=== PATIENT | female | born 1945 | race Caucasian/White ===

== ENCOUNTER 2021-10-16 09:00 | Outpatient (CLI) | payer MEDICARE, SELFPAY ==
--- NOTE | 2021-10-16 09:15 | MM_ITS ---
Final Report Patient: JIM QUINTERO Facility:?[facility] Patient ID:?[id number] :?1945 Study:?XRay Breast Bilateral 3D SCREENING W/cad-10/16/2021 10:05:48 AM Ordering Physician:Baldemar Woodruff Final Report: BILATERAL MAMMOGRAM WITH COMPUTER-AIDED DETECTION AND TOMOSYNTHESIS TECHNIQUE: CC and MLO views were obtained. These mammographic images have been obtained using full-field digital technique. These mammographic images were interpreted with the benefit of computer-aided detection. Breast Tomosynthesis was used in this interpretation. COMPARISON FILM: 09/25/2020, 09/22/2019, 09/16/2018. FINDINGS: There are scattered areas of fibroglandular density IMPRESSION: There is no radiographic evidence for malignancy. ASSESSMENT: BI-RADS Category 1: Negative RECOMMENDATION: Routine screening mammogram in 1 year. A lay language report of this examination will be provided to the patient. Arsalan Hilton M.D. Diagnostic/Musculoskeletal Radiologist [email or web address] Transcribed: 3:35 p.m. PERRY/Dictated by: Arsalan Hilton MD @ 10/16/2021 11:45:00 AM (Electronic Signature)
--- NOTE | 2021-10-16 11:00 | CT_ITS ---
Final Report Patient: JIM QUINTERO Facility:?[facility] Patient ID:?[id number] Site Patient ID:?[id number]. Site :?1945 Study:?CT Chest/Abd/Pelvis W/ 100CC [id number]/29/2022 11:32:23 AM Ordering Physician:?Adilene Fairbanks Final Report: INDICATION: Follow-up cancer. TECHNIQUE: CT chest, abdomen and pelvis acquired with 100 cc Isovue 370 IV contrast. COMPARISON: CT chest, abdomen, and pelvis 08/14/2021, 12/06/2020, and 04/05/2021. FINDINGS: CHEST Right enio cath with tip near the cavoatrial junction. Lungs and pleura: Lungs are clear. No suspicious nodules or infiltrates. No effusions, thickening, or pneumothorax. Heart and vasculature: Heart size is normal. Thoracic aorta and pulmonary artery are normal in caliber. Lymph node/mediastinum: No mediastinal, hilar, or axillary adenopathy. Chest wall: Normal. Bones: No suspicious bone lesions. ABDOMEN AND PELVIS: Liver: Diffuse liver fatty infiltration. No focal liver lesions. Gallbladder and bile ducts: Gallbladder surgically absent. No biliary ductal dilation. Pancreas: Unremarkable. Spleen: Normal in caliber. No masses. Adrenal glands: Unremarkable. No masses. Kidneys: Normal in caliber. No suspicious masses. GI tract: Colonic diverticulosis no evidence of acute diverticulitis. No colonic wall thickening. No small bowel dilation. Vasculature: Unremarkable. Mesenteric arteries are patent. Lymph nodes: There is a nonenlarged portal caval lymph node measuring 8 mm in short axis (series 2, image 146). However this lymph node was not present on CT from 12/06/2020 Omentum/peritoneum/retroperitoneum/abdominal wall: Similar-appearing multiple ventral abdominal wall hernia spread no evidence of obstruction. Pelvic organs: Uterus is surgically absent. Bones: No suspicious bone lesions. Anterolisthesis grade 1 of L4 on L5. IMPRESSION: 1. No evidence of metastatic disease in the chest. 2. Non enlarged aortocaval lymph node measuring 8 mm in short axis. However, this node was not present on CT 12/06/2020 and has slightly increased in size compared to CT 08/14/2021 where it was normal. Recommend attention on follow-up versus consideration for PET-CT for further evaluation. No other evidence of metastatic disease in the abdomen or pelvis. 3. Hysterectomy. 4. Ventral hernias. Please note that all CT scans at this facility use dose modulation, iterative reconstruction, and/or weight-based dosing when appropriate to reduce radiation dose to as low as reasonably achievable. Dictated by Arsalan Hilton MD @ 10/16/2021 9:56:29 PM (Electronic Signature)
== END 2021-10-16 09:01 | disposition home or self-care (01) ==
LOC: MAMMO 09:03
PROVIDERS: PCP Family Medicine; Visit Provider Nurse Practitioner Family
DX: Z12.31 Encounter for screening mammogram for malignant neoplasm of breast (principal); R92.8 Other abnormal and inconclusive findings on diagnostic imaging of breast; R59.0 Localized enlarged lymph nodes; K43.9 Ventral hernia without obstruction or gangrene; Z85.43 Personal history of malignant neoplasm of ovary; Z85.42 Personal history of malignant neoplasm of other parts of uterus
CPT/HCPCS: 71260; 74177; 77063; 77067; Q9967

== ENCOUNTER 2021-10-16 12:17 | Outpatient (RCR) | payer MEDICARE, SELFPAY ==
[2021-10-16] MEDS: HEPARIN 500 UNIT/5 ML SYRINGE IVF (16:00)
[2021-10-16] MEDS: SODIUM CHLORIDE 0.9 % (FLUSH) 10 ML SYRINGE IVF (16:01)
== END 2021-10-17 23:59 | disposition home or self-care (01) ==
LOC: CCIC 12:17
PROVIDERS: PCP Family Medicine; Visit Provider Clinical Nurse Specialist
DX: C54.1 Malignant neoplasm of endometrium (principal); C56.9 Malignant neoplasm of unspecified ovary
CPT/HCPCS: 99211; J1642

== ENCOUNTER 2021-10-31 07:44 | Outpatient (RCR) | payer MEDICARE, SELFPAY ==
--- NOTE | 2021-10-24 16:48 | ONC.NURNOTE ---
Authorization: User: Jaylene DilanJose Sutton Date: 10/29/20 15:41 Type: Eligibility Determination Note... Avastin has been approved 1400mg every 3 weeks for 1 year. 11/01/2020-10/31/2021.
[2021-10-29 10:57] LABS: Basophils Absolute Auto 0.03 K/uL (0.00-0.30); Basophils Percent Auto 0.6 % (0.0-3.0); Eosinophils Absolute Auto 0.11 K/uL (0.00-0.50); Eosinophils Percent Auto 2.1 % (0.0-7.0); Hematocrit 39.6 % (33.0-51.0); Immature Granulocytes Abs Auto 0.02 K/uL (0.00-0.30); Lymphocytes Absolute Auto 1.28 K/uL (0.90-2.90); Lymphocytes Percent Auto 23.9 % (20-44); Mean Corpuscular HGB Conc 33 gm/dL (32-36); Mean Corpuscular Hemoglobin 32 pg (26-34); Mean Corpuscular Volume 96 fL (80-100); Monocytes Percent Auto 7.6 % (0.0-11.0); Neutrophils Absolute Auto 3.51 K/uL (1.7-7.0); Neutrophils Percent Auto 65.4 % (42.0-72.0); Platelet Count* 171 K/uL (140-440); RDW Coefficient of Variation % 14.6 % (11.5-15.5); Red Blood Count 4.11 m/uL (4.00-5.20); White Blood Count* 5.36 K/uL (4.50-11.00)
[2021-10-29 10:58] LABS: Slide Review Reflex No
[2021-10-29 12:40] LABS: Chloride* 106 mmol/L (96-114); Potassium* 4.1 mmol/L (3.6-5.1); Sodium* 137 mmol/L (135-149)
[2021-10-29 12:43] LABS: Alanine Aminotransferase* 22 U/L (4-35); Alkaline Phosphatase* 86 U/L (40-150); Aspartate Amino Transferase* 29 U/L (12-35); Bilirubin Total* 0.5 mg/dL (0.1-1.5); Blood Urea Nitrogen* 19 mg/dL (7-30); Carbon Dioxide* 26 mmol/L (20-32); Estimated Glomerular Filt Rate 58.75; Glucose* 96 mg/dL (60-115)
[2021-10-30 14:45] LABS: Cancer Antigen 125 38 U/mL (<=38)
== END 2021-11-17 23:59 | disposition home or self-care (01) ==
LOC: CCIC 07:44
PROVIDERS: PCP Family Medicine; Visit Provider Clinical Nurse Specialist
DX: C56.9 Malignant neoplasm of unspecified ovary (principal); Z85.42 Personal history of malignant neoplasm of other parts of uterus
CPT/HCPCS: 36415; 36591; 80053; 85025; 86304; 99212; 99213

== ENCOUNTER 2021-11-15 11:17 | Outpatient (CLI) | payer MEDICARE, SELFPAY ==
[2021-11-15 16:12] LABS: Cholesterol* 208 mg/dL (90-199); HDL Cholesterol* 48 mg/dL (>=50); LDL Cholesterol Calculated 134 mg/dL (<100); Triglycerides* 131 mg/dL (40-149)
== END 2021-11-15 11:18 | disposition home or self-care (01) ==
LOC: NFLDREF 11:18
PROVIDERS: PCP Family Medicine; Visit Provider Family Medicine
DX: E78.5 Hyperlipidemia, unspecified (principal); I10 Essential (primary) hypertension; R73.03 Prediabetes
CPT/HCPCS: 80061

== ENCOUNTER 2022-01-02 13:45 | Outpatient (CLI) | payer MEDICARE, SELFPAY ==
--- OUTSIDE RECORDS SUMMARY | 2022-01-02 13:47 | XMS_ITS | Encounter Summary ---
:1945 Author Organization [facility] Address [address] [place] [address] Care Team Providers Name Role Phone Unavailable Primary Care Provider Unavailable Encounter Details Date Type Department Care Team Description 04/12/2020 Hospital Encounter Department of Kashif Coleman Laboratory Medicine D, MCarla. Screening For Other in [address] Viral Diseases [place], [place] (COVID-19) [address] [place] [address] [place], [place] [phone] [phone] (Work) [phone] Social History Tobacco Use Types Packs/Day Years Used Date Smoking Tobacco: Never Assessed Sex Assigned at Date Recorded Not on file documented as of this encounter Plan of Treatment Not on filedocumented as of this encounter Procedures Procedure Name Priority Date/Time Associated Diagnosis Comme nts SARS CORONAVIRUS-2 Routine 04/12/2020 10:27 AM Encounter For R esults for this RNA, V PARKING INSPECTOR Screening For Other procedur e are in Viral Diseases the results (COVID-19) section. documented in this encounter Results SARS Coronavirus-2 RNA, V Asymptomatic (04/12/2020 10:27 AM PARKING INSPECTOR) [facility] Method Time Signature SARS-CoV-2 Swab, 04/13/2020 MKTO Specimen Nasopharynx 1:28 AM PARKING INSPECTOR Source SARS CoV-2 Undetected Undetected 04/13/2020 MKTO RNA, TMA 1:28 AM PARKING INSPECTOR Comment: SARS-CoV-2 RNA absent. This result does not rule out COVID-19 in the patient, as the sensitivity of the test depends o n the timing of the specimen collection and the quality of the specim en. Result should be correlated with patient's history and clinical presentat ion. ----ADDITIONAL INFORMATION---- This molecular amplification test was pe rformed using the Aptima SARS-CoV-2 assay ([employer] on the [employer] tem under emergency use authorization (EUA) by the U.S. Food and Drug Administ cheyanne. Fact sheets for this EUA assay can be fo und at the following links: For Healthcare Providers: https://www.Owl[employer] a.gov/media/862603/download For Patients: https://www.fda.gov/media/ 656225/download Specimen Anatomical Collection Method Collection Time Receive d Time (Source) Location / / Volume Laterality Varies 04/12/2020 10:27 04/12/2020 6:15 (Nasopharynx) AM PARKING INSPECTOR PM PARKING INSPECTOR Kashif Coleman M.D. LAB MICROBIOLOGY - GENERAL O RDERABLES Performing Organization Address City/State/ZIP Code Phon e Number [facility]- [address] [place] [address] [place] [address] System in [address] documented in this encounter Visit Diagnoses Diagnosis Encounter For Screening For Other Viral Diseases (COVID-19) documented in this encounter Additional Health Concerns Infection Onset Date Last Indicated Resolved Time COVID19 Pending 04/12/2020 04/12/2020 04/13/2020 1:29 AM PARKING INSPECTOR documented as of this encounter
--- OUTSIDE RECORDS SUMMARY | 2022-01-02 13:47 | XMS_ITS | Clinical Summary ---
:1945 Author Organization [facility] Address [address] [place] [address] Care Team Providers Name Role Phone Elsewhere, Pcp Primary Care Provider Unavailable Source Comments Patient records contain information from all sites at [facility]. For routine questions regarding patient records, call [phone] during business hours, M-F 8:00 AM - 5:00 PM Central Time. Record requests for emergency care only can be directed to [phone] at any time.[facility] Social History Tobacco Use Types Packs/Day Years Used Date Smoking Tobacco: Never Assessed Sex Assigned at Date Recorded Not on file Plan of Treatment Health Maintenance Due Date Last Done Comments Bone Density Scan (Osteoporosis 1945 Screen) CT Colonography 1945 Cologuard 1945 Colonoscopy 1945 Colorectal Cancer Screening 1945 Creatinine Level 1945 FIT 1945 Fasting Glucose for Diabetes 1945 Screening Hepatitis C Screening 1945 Mammogram 1945 Potassium Level 1945 Sodium Level 1945 Depression Screening (Annual 04/20/2021 PHQ-2) Fall Risk Screen (Annual) 04/20/2021 Influenza Vaccine (#1) 2022 02/11/2021, 01/31/2021, 02/14/2020, Additional history exists DTaP,Tdap,and Td Vaccines (3 - Td 09/03/2027 09/02/2017, , or Tdap) 01/09/2010 Pneumococcal vaccine (65+ years) Completed 02/04/2018, Zoster Vaccines Completed 04/17/2018, 01/14/2018, 03/22/2010 COVID-19 Vaccine Completed 08/20/2021, 03/12/2021, 06/26/2020, Additional history exists Insurance Payer Benefit Plan / Subscriber ID Effective Dates Phone Addre ss Type Group [employer] ARE FOR [id number] 2019-Present [phone] [address] [place] [address] Care Teams Ore Storage Drier Relationship Specialty Start Date End Date Elsewhere, Pcp PCP - General Family Medicine 04/19/20
--- OUTSIDE RECORDS SUMMARY | 2022-01-02 13:47 | XMS_ITS | Encounter Summary ---
:1945 Author Organization [facility] Address [address] [place] [address] Care Team Providers Name Role Phone Elsewhere, Pcp Primary Care Provider Unavailable Encounter Details Date Type Department Care Team Description 02/12/2021 Orders Only [facility] PCP TH Edgard Ferrera, D.O. [address] [place] [address] (Wo rk) Social History Tobacco Use Types Packs/Day Years Used Date Smoking Tobacco: Never Assessed Sex Assigned at Date Recorded Not on file documented as of this encounter Plan of Treatment Not on filedocumented as of this encounter Visit Diagnoses Not on filedocumented in this encounter Care Teams Second Miller Relationship Specialty Start Date End Date Elsewhere, Pcp PCP - General Family Medicine 04/19/20 documented as of this encounter
--- OUTSIDE RECORDS SUMMARY | 2022-01-02 13:47 | XMS_ITS | Encounter Summary ---
:1945 Author Organization [facility] Address [address] [place] [address] Care Team Providers Name Role Phone Unavailable Primary Care Provider Unavailable Encounter Details Date Type Department Care Team Description 04/12/2020 Hospital Encounter Department of Kashif Coleman, Laboratory Medicine, [facility], in [address] [place] [address] [place] [address] [phone] Social History Tobacco Use Types Packs/Day Years Used Date Smoking Tobacco: Never Assessed Sex Assigned at Date Recorded Not on file documented as of this encounter Plan of Treatment Not on filedocumented as of this encounter Visit Diagnoses Not on filedocumented in this encounter Additional Health Concerns Infection Onset Date Last Indicated Resolved Time COVID19 Pending 04/12/2020 04/12/2020 04/13/2020 1:29 AM DIGITAL CAMERA TECHNICIAN documented as of this encounter
--- OUTSIDE RECORDS SUMMARY | 2022-01-02 13:47 | XMS_ITS | Encounter Summary ---
:1945 Author Organization [facility] Address [address] [place] [address] Care Team Providers Name Role Phone Unavailable Primary Care Provider Unavailable Reason for Visit Reason Onset Date Comments Outpatient COVID-19 Testing 12/09/2019 Encounter Details Date Type Department Care Team Description 12/09/2019 External Outreach Department of [facility], In [facility] Medicine in [facility], Respiratory ([place], [place] C.N.P., D.N.P. Dx) [address] [place] [address] [place], [place] [phone] Social History Tobacco Use Types Packs/Day Years Used Date Smoking Tobacco: Never Assessed Sex Assigned at Date Recorded Not on file documented as of this encounter Progress Notes Kary Menon R.N. - 12/09/2019 2:40 PM CDT Encounter created for the drive-through COVID-19 testing. documented in this encounter Plan of Treatment Not on filedocumented as of this encounter Procedures Procedure Name Priority Date/Time Associated Diagnosis Comme nts SARS CORONAVIRUS-2 Routine 12/09/2019 3:36 PM Infection Upper Results for this RNA, V CDT Respiratory procedure are i n the results section. documented in this encounter Results SARS Coronavirus-2 RNA, V Symptomatic (12/09/2019 3:36 PM CDT) [facility] Method Time Signature SARS-CoV-2 Swab, 12/10/2019 MKTO Specimen Nasopharynx 3:23 AM CDT Source SARS CoV-2 Undetected Undetected 12/10/2019 MKTO RNA, TMA 3:23 AM CDT Comment: SARS-CoV-2 RNA absent. This result does not rule out COVID-19 in the patient, as the sensitivity of the test depends o n the timing of the specimen collection and the quality of the specim en. Result should be correlated with patient's history and clinical presentat ion. ----ADDITIONAL INFORMATION---- This test is performed using the Aptima SARS-CoV-2 assay ([employer] which has received Emergency Use Authori zation (EUA) by the U.S. Food and Drug Administration. Fact sheets for this Emergency Use Autho rization (EUA) assay can be found at the following links: For Healthcare Providers: https://www.CodeHS a.gov/media/851083/download For Patients: https://www.fda.gov/media/ 186552/download Specimen Anatomical Collection Method Collection Time Receive d Time (Source) Location / / Volume Laterality Varies 12/09/2019 3:36 PM 0 (Nasopharynx) CDT 10:58 PM CDT Tammy Vora APRNNJoseP., D.N.P. LAB MICROBIOLOGY - GENERAL ORDERABLES Performing Organization Address City/State/ZIP Code Phon e Number [facility]- [address] [place] [address] [place] [address] System in [address] documented in this encounter Visit Diagnoses Diagnosis Infection Upper Respiratory - Primary documented in this encounter Additional Health Concerns Infection Onset Date Last Indicated Resolved Time COVID19 Pending 12/09/2019 12/09/2019 12/10/2019 3:23 AM CDT documented as of this encounter
--- OUTSIDE RECORDS SUMMARY | 2022-01-02 13:47 | XMS_ITS | Encounter Summary ---
:1945 Author Organization [facility] Address [address] [place] [address] Care Team Providers Name Role Phone Elsewhere, Pcp Primary Care Provider Unavailable Encounter Details Date Type Department Care Team Description 04/19/2020 Hospital Encounter Department of Kashif Coleman For Laboratory Medicine D, M.D. Screening For Other in [address] Viral Diseases [place], [place] (COVID-19) [address] [place] [address] [place], [place] [phone] (Work) [phone] Social History Tobacco Use Types Packs/Day Years Used Date Smoking Tobacco: Never Assessed Sex Assigned at Date Recorded Not on file documented as of this encounter Plan of Treatment Not on filedocumented as of this encounter Procedures Procedure Name Priority Date/Time Associated Diagnosis Comme nts SARS CORONAVIRUS-2 Routine 04/19/2020 10:50 AM Encounter For R esults for this RNA, V GENERAL OPERATIONS AGENT Screening For Other procedur e are in Viral Diseases the results (COVID-19) section. documented in this encounter Results SARS Coronavirus-2 RNA, V Asymptomatic (04/19/2020 10:50 AM GENERAL OPERATIONS AGENT) [facility] Method Time Signature SARS-CoV-2 Swab, 04/19/2020 MKTO Specimen Nasopharynx 10:47 PM Source GENERAL OPERATIONS AGENT SARS CoV-2 Undetected Undetected 04/19/2020 MKTO RNA, TMA 10:47 PM GENERAL OPERATIONS AGENT Comment: SARS-CoV-2 RNA absent. This result does not rule out COVID-19 in the patient, as the sensitivity of the test depends o n the timing of the specimen collection and the quality of the specim en. Result should be correlated with patient's history and clinical presentat ion. ----ADDITIONAL INFORMATION---- This molecular amplification test was pe rformed using the Aptima SARS-CoV-2 assay ([employer] on the [employer] tem under emergency use authorization (EUA) by the U.S. Food and Drug Administ cheyanne. Fact sheets for this EUA assay can be fo und at the following links: For Healthcare Providers: https://www.[employer] a.gov/media/697229/download For Patients: https://www.fda.gov/media/ 072080/download Specimen Anatomical Collection Method Collection Time Receive d Time (Source) Location / / Volume Laterality Varies 04/19/2020 10:50 04/19/2020 4:37 (Nasopharynx) AM GENERAL OPERATIONS AGENT PM GENERAL OPERATIONS AGENT Kashif Coleman M.D. LAB MICROBIOLOGY - GENERAL O RDERABLES Performing Organization Address City/State/[facility] [place] Phon e Number [facility]- [address] [place] [address] [place] [address] System in [address] documented in this encounter Visit Diagnoses Diagnosis Encounter For Screening For Other Viral Diseases (COVID-19) documented in this encounter Additional Health Concerns Infection Onset Date Last Indicated Resolved Time COVID19 Pending 04/19/2020 04/19/2020 04/19/2020 10:48 PM GENERAL OPERATIONS AGENT documented as of this encounter Care Teams Military Pay Technician Relationship Specialty Start Date End Date Elsewhere, Pcp PCP - General Family Medicine 04/19/20 documented as of this encounter
--- OUTSIDE RECORDS SUMMARY | 2022-01-02 13:47 | XMS_ITS | Encounter Summary ---
:1945 Author Organization [facility] Address [address] [place] [address] Care Team Providers Name Role Phone Unavailable Primary Care Provider Unavailable Reason for Visit Reason Onset Date Comments Outpatient COVID-19 Testing 12/18/2019 Encounter Details Date Type Department Care Team Description 12/18/2019 External Outreach Department of Ainsley Eubanks , Infection Upper Medicine in [facility], C.N.P. Respiratory ([place], [place] [address] Dx) [address] [place] [address] [phone] Social History Tobacco Use Types Packs/Day Years Used Date Smoking Tobacco: Never Assessed Sex Assigned at Date Recorded Not on file documented as of this encounter Progress Notes Magdalene Beverly RJoseN. - 12/18/2019 11:21 AM CDT Encounter created for the drive-through COVID-19 testing. documented in this encounter Plan of Treatment Not on filedocumented as of this encounter Procedures Procedure Name Priority Date/Time Associated Diagnosis Comme nts SARS CORONAVIRUS-2 Routine 12/20/2019 10:17 AM Infection Upper Results for this RNA, V CDT Respiratory procedure are i n the results section. documented in this encounter Results SARS Coronavirus-2 RNA, V Symptomatic (12/20/2019 10:17 AM CDT) [facility] Method Time Signature SARS-CoV-2 Swab, 12/20/2019 MKTO Specimen Nasopharynx 10:44 PM Source CDT SARS CoV-2 Undetected Undetected 12/20/2019 MKTO RNA, TMA 10:44 PM CDT Comment: SARS-CoV-2 RNA absent. This result does not rule out COVID-19 in the patient, as the sensitivity of the test depends o n the timing of the specimen collection and the quality of the specim en. Result should be correlated with patient's history and clinical presentat ion. ----ADDITIONAL INFORMATION---- This test is performed using the Aptima SARS-CoV-2 assay ([employer] which has received Emergency Use Authori zation (EUA) by the U.S. Food and Drug Administration. Fact sheets for this Emergency Use Autho rization (EUA) assay can be found at the following links: For Healthcare Providers: https://www.[employer] a.gov/media/699616/download For Patients: https://www.fda.gov/media/ 933526/download Specimen Anatomical Collection Method Collection Time Receive d Time (Source) Location / / Volume Laterality Varies 12/20/2019 10:17 12/20/2019 3:13 (Nasopharynx) AM CDT PM CDT Ainsley Rojas APRN C.N.P. LAB MICROBIOLOGY - GENERAL ORDERABLES Performing Organization Address City/State/ZIP Code Phon e Number [facility]- [address] [place] [phone] [place] [address] [place] [address] System in [address] documented in this encounter Visit Diagnoses Diagnosis Infection Upper Respiratory - Primary documented in this encounter Additional Health Concerns Infection Onset Date Last Indicated Resolved Time COVID19 Pending 12/18/2019 12/20/2019 12/20/2019 10:45 PM CDT documented as of this encounter
--- OUTSIDE RECORDS SUMMARY | 2022-01-02 13:47 | XMS_ITS | Encounter Summary ---
:1945 Author Organization [facility] Address [address] [place] [address] Care Team Providers Name Role Phone Elsewhere, Pcp Primary Care Provider Unavailable Encounter Details Date Type Department Care Team Description 04/16/2020 Orders Only Department of Oncology in Kashif Coleman M.D. [address] [address] [place] [address] [phone] Social History Tobacco Use Types Packs/Day Years Used Date Smoking Tobacco: Never Assessed Sex Assigned at Date Recorded Not on file documented as of this encounter Plan of Treatment Not on filedocumented as of this encounter Visit Diagnoses Not on filedocumented in this encounter Additional Health Concerns Infection Onset Date Last Indicated Resolved Time COVID19 Pending 04/19/2020 04/19/2020 04/19/2020 10:48 PM SMEARER documented as of this encounter Care Teams Lead Systems Analyst Relationship Specialty Start Date End Date Elsewhere, Pcp PCP - General Family Medicine 04/19/20 documented as of this encounter
--- OUTSIDE RECORDS SUMMARY | 2022-01-02 13:47 | XMS_ITS | Encounter Summary ---
:1945 Author Organization [facility] Address [address] [place] [address] Care Team Providers Name Role Phone Unavailable Primary Care Provider Unavailable Encounter Details Date Type Department Care Team Description 12/20/2019 Hospital Encounter Department of Laboratory Caroline Rojas, Medicine, [facility], in [place], [address] [place] [address] [address] [facility] [address] [place] [address] [phone] Social History Tobacco Use Types Packs/Day Years [...]
--- OUTSIDE RECORDS SUMMARY | 2022-01-02 13:47 | XMS_ITS | Encounter Summary ---
:1945 Author Organization [facility] Address [address] [place] [address] Care Team Providers Name Role Phone Unavailable Primary Care Provider Unavailable Reason for Visit Reason Onset Date Comments Outpatient COVID-19 Testing 12/12/2019 Encounter Details Date Type Department Care Team Description 12/12/2019 External Outreach Department of Ainsley Eubanks , Encounter For Medicine in [facility] Screening For Other [place], [place] [address] [place] Viral Diseases [address] [place], [place] (COVID-19) ([place] [address] Dx) [id number] Social History Tobacco Use Types Packs/Day Years Used Date Smoking Tobacco: Never Assessed Sex Assigned at Date Recorded Not on file documented as of this encounter Progress Notes Sandee Chavis RAlyce. - 12/12/2019 9:15 AM CDT Encounter created for the drive-through COVID-19 testing. documented in this encounter Plan of Treatment Not on filedocumented as of this encounter Procedures Procedure Name Priority Date/Time Associated Diagnosis Comme nts SARS CORONAVIRUS-2 Routine 12/12/2019 10:08 AM Encounter For R esults for this RNA, V CDT Screening For Other procedur e are in Viral Diseases the results (COVID-19) section. documented in this encounter Results SARS Coronavirus-2 RNA, V Asymptomatic (12/12/2019 10:08 AM CDT) [facility] Method Time Signature SARS-CoV-2 Swab, 12/13/2019 MKTO Specimen Nasopharynx 1:13 PM CDT Source SARS CoV-2 Undetected Undetected 12/13/2019 MKTO RNA, TMA 1:13 PM CDT Comment: SARS-CoV-2 RNA absent. This result does not rule out COVID-19 in the patient, as the sensitivity of the test depends o n the timing of the specimen collection and the quality of the specim en. Result should be correlated with patient's history and clinical presentat ion. ----ADDITIONAL INFORMATION---- This test is performed using the Aptima SARS-CoV-2 assay ([employer] which has received Emergency Use Authori zation (EUA) by the U.S. Food and Drug Administration. Fact sheets for this Emergency Use Autho rization (EUA) assay can be found at the following links: For Healthcare Providers: https://www.FoundationDB a.gov/media/867292/download For Patients: https://www.fda.gov/media/ 280721/download Specimen Anatomical Collection Method Collection Time Receive d Time (Source) Location / / Volume Laterality Varies 12/12/2019 10:08 12/12/2019 7:27 (Nasopharynx) AM CDT PM CDT Ainsley Rojas APRN C.N.P. LAB MICROBIOLOGY - GENERAL ORDERABLES Performing Organization Address City/State/ZIP Code Phon e Number [facility]- [address] [place] [id number] [place] [address] LAB [place] [address] System in [address] documented in this encounter Visit Diagnoses Diagnosis Encounter For Screening For Other Viral Diseases (COVID-19) - Primary documented in this encounter Additional Health Concerns Infection Onset Date Last Indicated Resolved Time COVID19 Pending 12/12/2019 12/12/2019 12/13/2019 1:13 PM CDT documented as of this encounter
--- OUTSIDE RECORDS SUMMARY | 2022-01-02 13:48 | XMS_ITS | Encounter Summary ---
:1945 Author Organization [place] Address [address] [place] [address] Care Team Providers Name Role Phone Morris Gale DO Primary Care Provider Encounter Details Date Type Department Care Team Description 01/28/2017 Radiant Appointment [facility] Alexy na mammogram [address], [address] [place] [address] Social History Tobacco Use Types Packs/Day Years Used Date Never Smoker Alcohol Use Standard Drinks/Week Comments No 0 (1 standard drink = 0.6 oz pure alcoho l) Sex Assigned at Date Recorded Not on file documented as of this encounter Plan of Treatment Not on filedocumented as of this encounter Procedures Procedure Name Priority Date/Time Associated Diagnosis Comme nts MA SCREENING Routine 01/28/2017 3:11 PM Visit for screening Re sults for this BILATERAL W/ EMELY CDT mammogram procedure are in the results section. documented in this encounter Results MA Screen Bilateral w/Emely (01/28/2017 3:11 PM CDT) Anatomical Region Laterality Modality Breast Bilateral Mammography Specimen (Source) Anatomical Location Collection Method / Collectio n Time Received Time / Laterality Volume Impressions 02/04/2017 10:53 AM CDT IMPRESSION: BI-RADS CATEGORY: 1 - ??Negative RECOMMENDED FOLLOW-UP: Annual Mammograph y. Exam results letter mailed to patient. OZZIE BECERRIL MD Narrative 02/04/2017 10:53 AM CDT SCREENING MAMMOGRAM, BILATERAL, DIGITAL w/CAD AND TOMOSYNTHESIS - 01/28/2017 3:11 PM BREAST SYMPTOMS: No current breast compl aints. COMPARISON: ??01/23/16, 01/19/15, 01/15/15, 12/27/13, 12/08/12. BREAST DENSITY: Scattered fibroglandular densities. COMMENTS: No findings of suspicion for m alignancy. Procedure Note Ozzie Becerril MD - 02/04/2017For matting of this note might be different from the original. SCREENING MAMMOGRAM, BILATERAL, DIGITAL w/CAD AND TOMOSYNTHESIS - 01/28/2017 3:11 PM BREAST SYMPTOMS: No current breast compl aints. COMPARISON: 01/23/16, 01/19/15, 01/15/15, , 12/08/12. BREAST DENSITY: Scattered fibroglandular densities. COMMENTS: No findings of suspicion for m alignancy. IMPRESSION: BI-RADS CATEGORY: 1 - Negati ve RECOMMENDED FOLLOW-UP: Annual Mammograph y. Exam results letter mailed to patient. OZZIE BECERRIL MD Rachel Lemos MD IMG MAMMOGRAPHY ORDERABLES documented in this encounter Visit Diagnoses Diagnosis Visit for screening mammogram Other screening mammogram documented in this encounter Additional Health Concerns Assessment Noted Time PHQ-9 Depression Total Score: 0 01/28/2017 2:22 PM CDT documented as of this encounter Care Teams Grocery Worker Relationship Specialty Start Date End Date Morris Gale DO PCP - General Family Practice 01/23/16 11/14/19 documented as of this encounter
--- OUTSIDE RECORDS SUMMARY | 2022-01-02 13:48 | XMS_ITS | Encounter Summary ---
:1945 Author Organization [place] Address [address] [place] [address] Care Team Providers Name Role Phone Morris Gale Primary Care Provider Cheli Meyer MD Primary Care Provider [phone] Encounter Details Date Type Department Care Team Description 11/11/2019 Telephone [facility] Leobardo Vega RN Interventional Radio logy [address] [place] [address] Social History Tobacco Use Types Packs/Day Years Used Date Never Smoker Alcohol Use Standard Drinks/Week Comments No 0 (1 standard drink = 0.6 oz pure alcoho l) Sex Assigned at Date Recorded Not on file COVID-19 Exposure Response Date Recorded In the last month, have you been in contact with No / Unsure 11/22/2019 10:01 AM CDT someone who was confirmed or suspected to have Coronavirus / COVID-19? documented as of this encounter Miscellaneous Notes Telephone Encounter - Kyle Vega RN - 11/11/2019 2:55 PM CDT Images reviewed per Dr Balbuena and Ct guided biopsy is not possible at this time, he is requestinga PET be performed and images re-evaluated after scan. Called [facility] with that information. documented in this encounter Plan of Treatment Not on filedocumented as of this encounter Visit Diagnoses Not on filedocumented in this encounter Additional Health Concerns Assessment Noted Time PHQ-9 Depression Total Score: 0 01/28/2017 2:22 PM CDT documented as of this encounter Care Teams Advertising Manager Relationship Specialty Start Date End Date Morris Gale DO PCP - General Family Practice 01/23/16 11/14/19 Cheli Meyer MD PCP - General Family Practice 11/15/[address] [address] documented as of this encounter
--- OUTSIDE RECORDS SUMMARY | 2022-01-02 13:48 | XMS_ITS | Encounter Summary ---
:1945 Author Organization [place] Address [address] [place] [address]. [place] [address] Care Team Providers Name Role Phone Morris Gale DO Primary Care Provider Reason for Visit Reason Comments Recheck Medication Encounter Details Date Type Department Care Team Description 01/28/[address] [facility] Rachel Lemos Encou nter for hepatitis C screening test for low risk patient (Primary Dx); [facility] Alexy bob MD Essential hypertension; [address] [facility] Pers onal history of ovarian cancer [address] [address] [address] [place] [address] [place] [address] Social History Tobacco Use Types Packs/Day Years Used Date Never Smoker Alcohol Use Standard Drinks/Week Comments No 0 (1 standard drink = 0.6 oz pure alcoho l) Sex Assigned at Date Recorded Not on file documented as of this encounter Last Filed Vital Signs Vital Sign Reading Time Taken Comments Blood Pressure 118/72 01/28/2017 2:20 PM CDT Pulse - - Temperature - - Respiratory Rate - - Oxygen Saturation - - Inhaled Oxygen Concentration - - Weight 113.4 kg (250 lb) 01/28/2017 2:20 PM CDT Height 158.8 cm (5' 2.5) 01/28/2017 2:20 PM CDT Body Mass Index 45 01/28/2017 2:20 PM CDT documented in this encounter Progress Notes Rachel Lemos MD - 01/28/2017 2:20 PM CDT SUBJECTIVE: Leanne Roldan is a 71 year old female who presents to clinic today for the following health issue(s): Patient presents with: Recheck Medication HPI: Patient needs her atenolol refilled Takes it for essential htn No chest pain, SOB, headache History of ovarian and uterine cancer 2013. Sees oncology once a years. They did pelvic in august and checked her Ca 125 Will be switching to seeing us annual in future after done with 5 years follow up. No menopause symptoms. Had NUZHAT BILATERAL SALPINGO-OOPHORECTOMY Denies bleeding or spotting rec annual mammograms, breast cancer is more frequent in families with ovarian cancer also. Denies any breast symptoms today. 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 No LMP recorded. Patient is postmenopausal.. Patient is not sexually active, . Using menopause for contraception. reports that she has never smoked. She does not have any smokeless tobacco history on file. STD testing offered? Declined Health maintenance updated: yes Today's PHQ-2 Score: No flowsheet data found. Today's PHQ-9 Score: PHQ-9 SCORE 01/28/2017 Total Score 0 Today's HARRIETT-7 Score: HARRIETT-7 SCORE 01/28/2017 Total Score 0 Problem list and histories reviewed & adjusted, as indicated. Additional history: as documented. Patient Active Problem List Diagnosis ??? Advanced directives, counseling/discussion - at home per PLC ??? Essential hypertension ??? History of uterine cancer ??? Personal history of ovarian cancer ??? Factor V Leiden carrier (H) Past Surgical History: Procedure Laterality Date ??? CHOLECYSTECTOMY 2005 ??? COLPOSCOPY, BIOPSY, COMBINED 07/09/98 Benign; Follow up Pap in was normal ??? NUZHAT BSO for uterine and ov cancer Social History Substance Use Topics ??? Smoking status: Never Smoker ??? Smokeless tobacco: Not on file ??? Alcohol use No Problem (# of Occurrences) Relation (Name,Age of Onset) Breast Cancer (2) Sister, Other: aunt DIABETES (1) Paternal Grandmother HEART DISEASE (1) Paternal Grandmother Uterine Cancer (1) Other: aunt Current Outpatient Prescriptions Medication Sig ??? atenolol (TENORMIN) 50 MG tablet Take 1 tablet (50 mg) by mouth daily ??? BABY ASPIRIN PO ??? Multiple Vitamin (MULTIVITAMINS PO) ??? calcium carbonate (OS-GLORIA 500 MG SILETZ TRIBE. CA) 500 MG tablet Take by mouth 2 times daily ??? [DISCONTINUED] atenolol (TENORMIN) 50 MG tablet TAKE ONE TABLET BY MOUTH ONCE DAILY No current facility-administered medications for this visit. Allergies Allergen Reactions ??? Bees ??? Baird ROS: 12 point review of systems negative other than symptoms noted below. OBJECTIVE: BP 118/72 Ht 5' 2.5 (1.588 m) Wt 250 lb (113.4 kg) BMI 45 kg/m2 Body mass index is 45 kg/(m^2). Exam: Constitutional: Appearance: Well nourished, well developed alert, in no acute distress Neck: Lymph Nodes: No lymphadenopathy present; Thyroid: Gland size normal, nontender, no nodules or masses present on palpation Chest: Respiratory Effort: Breathing unlabored Breasts: Inspection of Breasts: No lymphadenopathy present; Palpation of Breasts and Axillae: No masses present on palpation, no breast tenderness Axillary Lymph Nodes: No lymphadenopathy present Gastrointestinal: Abdominal Examination: Abdomen nontender to palpation, tone normal without rigidity or guarding, no masses present, umbilicus without lesions; Liver/Spleen: No hepatomegaly present, liver nontender to palpation; Hernias: No hernias present In-Clinic Test Results: No results found for this or any previous visit (from the past 24 hour(s)). ASSESSMENT/PLAN: ICD-10-CM 1. Encounter for hepatitis C screening test for low risk patient Z11.59 Hepatitis C Screen Reflex to RNA FUTURE anytime 2. Essential hypertension I10 Comprehensive metabolic panel atenolol (TENORMIN) 50 MG tablet 3. Personal history of ovarian cancer Z85.43 There are no Patient Instructions on file for this visit. Needs hep c screen once based on age Continue annual mammograms here. cmp sent today, refilled atenolol Needs to work on diet and exercise See us for annual pelvic exam once oncology f/u is done Discussed annual CA 125 testing Face to face time 25 minute, more than 50% counciling Rachel Lemos MD [facility] documented in this encounter Miscellaneous Notes Addendum Note - Sharri Martinez - 01/28/2017 3:24 PM CDT Addended by: SHAWN MARTINEZ on: 01/28/2017 03:24 PM Modules accepted: Orders documented in this encounter Plan of Treatment Not on filedocumented as of this encounter Procedures Procedure Name Priority Date/Time Associated Diagnosis Comme nts HEPATITIS C SCREEN Routine 01/28/2017 2:50 Encounter for Resul ts for this REFLEX TO HCV RNA PM CDT hepatitis C procedure are in [employer] screening test for the results low risk patient section. COMPREHENSIVE Routine 01/28/2017 2:50 Essential Results for this METABOLIC PANEL PM CDT hypertension procedure ar e in the results section. documented in this encounter Results Hepatitis C Screen Reflex to RNA FUTURE anytime (01/28/2017 2:50 PM CDT) [facility] Method Time Signature Hepatitis C Nonreactive NR^Nonrea 01/29/2017 [facility] ctive 10:14 AM CDT [facility] Comment: Assay performance characteristics have n ot been established for newborns, infants, and children Specimen Anatomical Collection Method Collection Time Receive d Time (Source) Location / / Volume Laterality Blood specimen 01/28/2017 2:50 PM 017 3:25 (specimen) CDT PM CDT Rachel Lemos MD LAB - BLOOD ORDERABLES Performing Organization Address City/State/ZIP Code Phon e Number [facility] [address] [place], [place] [id number] [place] [address] Comprehensive metabolic panel (01/28/2017 2:50 PM CDT) P athologist Signature Sodium 138 133 - 144 01/29/2017 [place] mmol/L 9:13 AM CDT [facility] Potassium 4.2 3.4 - 5.3 01/29/2017 [place] mmol/L 9:13 AM CDT [facility] Chloride 103 94 - 109 01/29/2017 [place] mmol/L 9:13 AM CDT [facility] Carbon Dioxide 29 20 - 32 01/29/2017 [place] mmol/L 9:13 AM [facility] Anion Gap 6 3 - 14 01/29/2017 [place] mmol/L 9:13 AM [facility] Glucose 95 70 - 99 01/29/2017 [place] mg/dL 9:13 AM [facility] Urea Nitrogen 15 7 - 30 01/29/2017 [place] mg/dL 9:13 AM [facility] Creatinine 0.86 0.52 - 01/29/2017 [place] 1.04 mg/dL 9:13 AM [facility] GFR Estimate 65 >60 01/29/2017 [place] mL/min/1.7 9:13 AM [facility] m2 [facility] Comment: Non GFR Calc GFR Estimate If 79 >60 mL/min/1.7m2 01/29/2017 9:13 A M [facility] Comment: GFR Calc Calcium 9.5 8.5 - 10.1 01/29/2017 9:13 AM [facility] mg/dL [facility] Bilirubin Total 0.4 0.2 - 1.3 mg/dL 01/29/2017 9:13 AM [facility] Albumin 3.9 3.4 - 5.0 g/dL 01/29/2017 9:13 AM [facility] Protein Total 7.5 6.8 - 8.8 g/dL 01/29/2017 9:13 AM [facility] Alkaline Phosphatase 94 40 - 150 U/L 01/29/2017 9:13 AM [facility] ALT 34 0 - 50 U/L 01/29/2017 9:13 AM [facility] AST 25 0 - 45 U/L 01/29/2017 9:13 AM [facility] Specimen Anatomical Collection Method Collection Time Receive d Time (Source) Location / / Volume Laterality Blood specimen 01/28/2017 2:50 PM 017 2:52 (specimen) CDT PM CDT Rachel Lemos MD LAB - BLOOD ORDERABLES Performing Organization Address City/State/ZIP Code Phon e Number [facility] [address] [place] [address] documented in this encounter Visit Diagnoses Diagnosis Encounter for hepatitis C screening test for low risk patient - Primary Essential hypertension Unspecified essential hypertension Personal history of ovarian cancer Personal history of malignant neoplasm o f ovary documented in this encounter Additional Health Concerns Assessment Noted Time PHQ-9 Depression Total Score: 0 01/28/2017 2:22 PM CDT documented as of this encounter Care Teams Community Outreach Advocate Relationship Specialty Start Date End Date Morris Gale DO PCP - General Family Practice 01/23/16 11/14/19 documented as of this encounter
--- OUTSIDE RECORDS SUMMARY | 2022-01-02 13:48 | XMS_ITS | Encounter Summary ---
:1945 Author Organization [place] Address [address] [place] [address]. [place] [address] Care Team Providers Name Role Phone Cheli Meyer MD Primary Care Provider [phone] Encounter Details Date Type Department Care Team Description 11/16/2019 Travel Social History Tobacco Use Types Packs/Day Years Used Date Never Smoker Alcohol Use Standard Drinks/Week Comments No 0 (1 standard drink = 0.6 oz pure alcoho l) Sex Assigned at Date Recorded Not on file COVID-19 Exposure Response Date Recorded In the last month, have you been in contact with No / Unsure 11/16/2019 12:35 PM CDT someone who was confirmed or suspected to have Coronavirus / COVID-19? documented as of this encounter Plan of Treatment Not on filedocumented as of this encounter Visit Diagnoses Not on filedocumented in this encounter Additional Health Concerns Assessment Noted Time PHQ-9 Depression Total Score: 0 01/28/2017 2:22 PM CDT documented as of this encounter Care Teams Paper Colorer Relationship Specialty Start Date End Date Cheli Meyer MD PCP - General Family Practice 11/15/[address] [address] documented as of this encounter
--- OUTSIDE RECORDS SUMMARY | 2022-01-02 13:48 | XMS_ITS | Encounter Summary ---
:1945 Author Organization [facility] Address [address] [place] [id number] Care Team Providers Name Role Phone Cheli Meyer MD Primary Care Provider [phone] Reason for Referral Diagnostic Imaging CT Scan (Routine) - Closed Specialty Diagnoses / Procedures Referred By Contact Refer red To Contact Radiology. 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) Nichelle West, Ct Scan Procedures CT Abdomen Retroperitoneal Biopsy [employer]S SUPERVISOR [address] [address] [facility] [address] [place] [address] Referral ID Status Reason Start Date Expiration Date Visits Requ ested Visits Authorized [id number] Closed 11/11/2019 11/10/2020 1 1 Electronically signed by Nichelle West [employer]PAR[employer]ODS SUPERVISOR at 11/22/2019 10:08 AM CDT Reason for Visit Diagnostic Imaging CT Scan (Routine) - Closed Specialty Diagnoses / Procedures Referred By Contact Refer red To Contact Radiology. 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) Nichelle West, Ct Scan Procedures CT Abdomen Retroperitoneal Biopsy [employer]ODS SUPERVISOR [address] [address] [facility] [address] [place] [address] Referral ID Status Reason Start Date Expiration Date Visits Requ ested Visits Authorized [id number] Closed 11/11/2019 11/10/2020 1 1 Encounter Details Date Type Department Care Team Description 11/22/2019 Hospital Encounter [facility], Nichelle Prim kevin endometrioid [facility], [employer] carcinoma of [address] PREPAR[employer]S SUPERVISOR endometrium of [facility] uterine body (H) [id number] ONCOLOGY [phone] [facility] [address] [place] [address] Social History Tobacco Use Types Packs/Day Years [...] / COVID-19? documented as of this encounter Last Filed Vital Signs Vital Sign Reading Time Taken Comments Blood Pressure 126/67 11/22/2019 2:27 PM CDT Pulse 64 11/22/2019 1:33 PM CDT Temperature - - Respiratory Rate 16 11/22/2019 1:33 PM CDT Oxygen Saturation 98% 11/22/2019 2:27 PM CDT Inhaled Oxygen Concentration - - Weight - - Height - - Body Mass Index - - documented in this encounter Medications at Time of Discharge Medication Sig Dispensed Refills Start Date End Date atenolol (TENORMIN) 50 MG Take 1 tablet (50 90 tablet 3 02/2017 tabletIndications: mg) by mouth daily Essential hypertension BABY ASPIRIN PO 0 calcium carbonate (OS-GLORIA Take by mouth 2 90 tablet 0 11/22 500 MG [place]. CA) 500 MG times daily tabletIndications: ABSTRACTING RESULTS Multiple Vitamin 0 (MULTIVITAMINS PO) documented as of this encounter Progress Notes Kaitlyn Fried RN - 11/22/2019 2:28 PM CDT Contacted Silvia NUNES from Dr. Metz's office to notify of this dates biopsy with only 2 cores obtained[address] Discussion [address] Stevens with pt and also as to low volume samples obtained. Will watch for pathology report on today's procedure and review with Dr. Stevens when available for possible further testing. Kaitlyn Fried RN - 11/22/2019 1:31 PM CDT Consent obtained by Dr. Stevens for CT guided ommental mass biopsy after lab work reviewed. Pt tolerated procedure well with stable vital signs. IV gentle sedation of Versed 1.0 mgm and Fentanyl 50 mcg titrated to excellent effect. Pt awake and stable thru out procedure. Pressure dressing to site. Coresto lab. Pt and understand post procedure care instructions. Kaitlyn Fried RN - 11/22/2019 10:45 AM CDT Awaiting lab work. Oral contrast given to pt to drink prior to biopsy documented in this encounter Procedure Notes Linda Stevens MD - 11/22/2019 12:54 PM CDTAssociated Order(s): post abdominal mass biopsy [facility] Procedure: Post abdominal mass biopsy Date/Time: 11/22/2019 12:53 PM Performed by: Linda Stevens MD Authorized by: Linda Stevens MD UNIVERSAL PROTOCOL Site Marked: Yes Prior Images Obtained and Reviewed: Yes Required items: Required blood products, implants, devices and special equipment available Patient identity confirmed: Verbally with patient Patient was reevaluated immediately before administering moderate or deep sedation or anesthesia Confirmation Checklist: Patient's identity using two indicators, procedure was appropriate and matched the consent or emergent situation, correct equipment/implants were available and relevant allergies Time out: Immediately prior to the procedure a time out was called [place] Protocol: the Joint Commission [place] Protocol was followed Preparation: Patient was prepped and draped in usual sterile fashion SEDATION Patient Sedated: Yes Vital signs: Vital signs monitored during sedation See dictated procedure note for full details. PROCEDURE Patient Tolerance: Patient tolerated the procedure well with no immediate complications Describe Procedure: Attempted CT guided omental nodule bipsy Length of time physician/provider present for 1:1 monitoring during sedation: 25 documented in this encounter Miscellaneous Notes Pre-Procedure - Linda Stevens MD - 11/22/2019 11:27 AM CDT GENERAL PRE-PROCEDURE: Procedure: Abdominal mass biopsy Date/Time: 11/22/2019 11:27 AM Risks and benefits: Risks, benefits and alternatives were discussed Consent given by: Patient Patient states understanding of procedure being performed: Yes Patient's understanding of procedure matches consent: Yes Procedure consent matches procedure scheduled: Yes Expected level of sedation: Moderate Appropriately NPO: Yes ASA Class: Class 2- mild systemic disease, no acute problems, no functional limitations Mallampati : Grade 2- soft palate, base of uvula, tonsillar pillars, and portion of posterior pharyngeal wall visible Lungs: Lungs clear with good breath sounds bilaterally and other (comment) Heart: Normal heart sounds and rate and other (comment) History & Physical reviewed: History and physical reviewed and no updates needed Statement of review: I have reviewed the lab findings, diagnostic data, medications, and the plan for sedation documented in this encounter Plan of Treatment Not on filedocumented as of this encounter Procedures Procedure Name Priority Date/Time Associated Diagnosis Comme nts CT ABDOMEN Routine 11/22/2019 1:03 Primary endometrioid Resu lts for this RETROPERITONEAL BIOPSY PM CDT carcinoma of proce dure are in endometrium of the results uterine body (H) section. IMAGING PROCEDURE NOTE Routine 11/22/2019 12:54 R esults for this PM CDT procedure are i n the results section. SURGICAL PATHOLOGY EXAM Routine 11/22/2019 12:30 Results for this PM CDT procedure are i n the results section. INR STAT 11/22/2019 10:20 Primary endometrioid Res ults for this AM CDT carcinoma of procedure are i n endometrium of the results uterine body (H) section. PLATELET COUNT STAT 11/22/2019 10:20 Primary endometrioid R esults for this AM CDT carcinoma of procedure are i n endometrium of the results uterine body (H) section. documented in this encounter Results CT Abdomen Retroperitoneal Biopsy (11/22/2019 1:03 PM CDT) Anatomical Region Laterality Modality Abdomen/Pelvis Computed Tomography Specimen (Source) Anatomical Location Collection Method / Collectio n Time Received Time / Laterality Volume Impressions 11/22/2019 6:42 PM CDT IMPRESSION: Attempted biopsy of a left lower quadrant omental nodule. The biopsy was difficult because the nod ule bounced away from the needle. It is unlikely that there is suf ficient diagnostic material in the biopsy specimens. The patient may need to return for repea t biopsy, consideration could be given to biopsy of the aortocaval lym ph node, although this is risky in part due to its very superior l ocation and close proximity to the pleural reflection, as well as very close proximity to the renal artery ostium. The anterior mediastinal adenopathy is not accessible to percutaneous biopsy. There is a right common iliac chain lymph node that will also be very difficult to biop sy surrounding bony structures and iliac vasculature. The potential nee d for repeat biopsy was discussed at length with the patient and her . LINDA STEVENS MD Narrative 11/22/2019 6:[address] ABDOMEN RETROPERITONEAL BIOPSY 11/22/2019 1:03 PM [facility] PROCEDURE: CT ABDOMEN RETROPERITONEAL BI OPSY CLINICAL HISTORY: History of endometrial cancer. Patient's most recent CT scan demonstrated borderline-enlarged anterior mediastinal adenopathy, borderline-enlarged aortocav al lymph node and periportal lymph node. There is also an enlarged ri ght internal iliac chain lymph node. The patient presents for biopsy of a left omental nodule which is felt to be the most easily accessible lesion. PROCEDURES PERFORMED: Attempted CT-guided biopsy of the left o mental nodule. CT dose reduction techniques utilized. PROCEDURE: Patient was placed in supine position on the CT table. The left anterior abdomen was prepped and draped in usual, sterile fashion. 1% lidocaine was utilized for local anesthe garcia. Then under CT guidance, 20-gauge Temno biopsy needle was advance d into the periphery of the left omental nodule. A single pass was o btained using an anterolateral approach. The guide needle was then posi tioned using a directly anterior approach and a single pass was made with the guide needle in this location. Further passes were not a ttempted since the nodule was difficult to best with the cutting edg e of the needle. Specifically the nodule bounced away from the needl e tip. The procedure was terminated at this point. The needle was withdrawn and the needle entry site was dressed sterilely. Post b iopsy images were obtained. FINDINGS: The initial CT images demonstrate a 20 m m soft tissue nodule in the anterior left lower quadrant that corres ponds to the abnormality seen on the recent abdominal CT. Although the nodule is relatively superf icial, it was difficult to best with the biopsy needle since it i s not fixed posteriorly and bounced away from the needle tip. Only 2 attempts were made to biopsy the nodule. During both attempts, the cu tting edge of the needle was not felt to be within the central portio ns of the nodule. The procedure was also terminated since the patient developed a small hematoma in the anterior abdominal wall. COMPLICATIONS: Small 2.7 x 4.6 cm left r ectus sheath hematoma. MODERATE SEDATION: 2 Versed IV and 100 F entanyl IV were administered intravenously for moderate sedation. Pul se oximetry, heart rate and blood pressure were continuously monitor ed by an independent trained observer. The physician spent 30 minutes of [id number] moderate sedation time with the patient. ADDITIONAL MEDICATIONS: None STERILE BARRIER TECHNIQUE: Maximal Steri le Barrier Technique Utilized: Cap AND mask AND sterile gown AND steril e gloves AND sterile full body drape AND hand hygiene AND skin preparat ion 2% chlorhexidine for cutaneous antisepsis (or acceptable alte rnative antiseptics). ?? Sterile Ultrasound Technique Utilized ?S terile gel AND sterile probe covers. UNIVERSAL PROTOCOL: Standard universal p rotocol per facility guidelines was followed. See EMR for doc umentation. Procedure Note Linda Stevens MD - 11/22/2019Form atting of this note might be different from the original. CT ABDOMEN RETROPERITONEAL BIOPSY 11/22/19 20 1:03 PM [facility] PROCEDURE: CT ABDOMEN RETROPERITONEAL BI OPSY CLINICAL HISTORY: History of endometrial cancer. Patient's most recent CT scan demonstrated borderline-enlarged anterior mediastinal adenopathy, borderline-enlarged aortocav al lymph node and periportal lymph node. There is also an enlarged ri ght internal iliac chain lymph node. The patient presents for biopsy of a left omental nodule which is felt to be the most easily accessible lesion. PROCEDURES PERFORMED: Attempted CT-guided biopsy of the left o mental nodule. CT dose reduction techniques utilized. PROCEDURE: Patient was placed in supine position on the CT table. The left anterior abdomen was prepped and draped in usual, sterile fashion. 1% lidocaine was utilized for local anesthe garcia. Then under CT guidance, 20-gauge Temno biopsy needle was advance d into the periphery of the left omental nodule. A single pass was o btained using an anterolateral approach. The guide needle was then posi tioned using a directly anterior approach and a single pass was made with the guide needle in this location. Further passes were not a ttempted since the nodule was difficult to best with the cutting edg e of the needle. Specifically the nodule bounced away from the needl e tip. The procedure was terminated at this point. The needle was withdrawn and the needle entry site was dressed sterilely. Post b iopsy images were obtained. FINDINGS: The initial CT images demonstrate a 20 m m soft tissue nodule in the anterior left lower quadrant that corres ponds to the abnormality seen on the recent abdominal CT. Although the nodule is relatively superf icial, it was difficult to best with the biopsy needle since it i s not fixed posteriorly and bounced away from the needle tip. Only 2 attempts were made to biopsy the nodule. During both attempts, the cu tting edge of the needle was not felt to be within the central portio ns of the nodule. The procedure was also terminated since the patient developed a small hematoma in the anterior abdominal wall. COMPLICATIONS: Small 2.7 x 4.6 cm left r ectus sheath hematoma. MODERATE SEDATION: 2 Versed IV and 100 F entanyl IV were administered intravenously for moderate sedation. Pul se oximetry, heart rate and blood pressure were continuously monitor ed by an independent trained observer. The physician spent 30 minutes of fgoo-gq-[id number] moderate sedation time with the patient. ADDITIONAL MEDICATIONS: None STERILE BARRIER TECHNIQUE: Maximal Steri le Barrier Technique Utilized: Cap AND mask AND sterile gown AND steril e gloves AND sterile full body drape AND hand hygiene AND skin preparat ion 2% chlorhexidine for cutaneous antisepsis (or acceptable alte rnative antiseptics). Sterile Ultrasound Technique Utilized ?S terile gel AND sterile probe covers. UNIVERSAL PROTOCOL: Standard universal p rotocol per facility guidelines was followed. See EMR for doc umentation. IMPRESSION: Attempted biopsy of a left l ower quadrant omental nodule. The biopsy was difficult because the nod ule bounced away from the needle. It is unlikely that there is suf ficient diagnostic material in the biopsy specimens. The patient may need to return for repea t biopsy, consideration could be given to biopsy of the aortocaval lym ph node, although this is risky in part due to its very superior l ocation and close proximity to the pleural reflection, as well as very close proximity to the renal artery ostium. The anterior mediastinal adenopathy is not accessible to percutaneous biopsy. There is a right common iliac chain lymph node that will also be very difficult to biop sy surrounding bony structures and iliac vasculature. The potential nee d for repeat biopsy was discussed at length with the patient and her . LINDA STEVENS MD Nichelle West APRN [employer]PAR[employer]ODS SUPERVISOR IMG CT ORDERABLES post abdominal mass biopsy (11/22/2019 12:54 PM CDT) Narrative Linda Stevens MD - 11/22/2019 12: 54 PM CDT Linda Stevens MD ? 11/22/2019 12:54 PM [facility] Procedure: Post abdominal mass biopsy Date/Time: 11/22/2019 12:53 PM Performed by: Linda Stevens MD Authorized by: Linda Stevens MD UNIVERSAL PROTOCOL Site Marked: Yes Prior Images Obtained and Reviewed: ??Ye s Required items: Required blood products, implants, devices and special equipment available ?? Patient identity confirmed: ??Verbally w ith patient Patient was reevaluated immediately befo re administering moderate or deep sedation or anesthesia Confirmation Checklist: ??Patient's iden tity using two indicators, procedure was appropriate and matched th e consent or emergent situation, correct equipment/implants were availabl e and relevant allergies Time out: Immediately prior to the proce dure a time out was called ?? [place] Protocol: the Joint Commission [place] Protocol was followed ?? Preparation: Patient was prepped and snow ped in usual sterile fashion ?? SEDATION Patient Sedated: Yes ?? Vital signs: Vital signs monitored durin g sedation ?? See dictated procedure note for full det ails. PROCEDURE Patient Tolerance: ??Patient tolerated t he procedure well with no immediate complications Describe Procedure: Attempted CT guided omental nodule bipsy Length of time physician/provider presen t for 1:1 monitoring during sedation: 25 Linda Stevens MD PROCEDURE/MINOR SURGICAL ORD ERABLES Surgical pathology exam (11/22/2019 12:30 PM CDT) Component Value Ref Test Analysis Performed At [facility] Range Method Time Signature Copath Report Patient Name: LEANNE ROLDAN MR#: [id number] Specimen #: [id number] Collected: 11/22/2019 Received: 11/22/2019 Reported: 11/23/2019 14:07 Ordering Phy(s): LINDA STEVENS Additional Phy(s): NICHELLE WEST For improved result formatting, select 'View Enhanced Report Format' under Linked Documents section. SPECIMEN(S): Omental mass biopsy FINAL DIAGNOSIS: Omental mass needle biopsy. - Fibrosis, fat necrosis, and psammomatous calcifications. ? ?Scant tissue limits evaluation. ??See comments. COMMENT: There is no evidence of malignancy in the submitted sample. ??With the presence of psammomatous calcifications, this may represent a site of treated serous carcinoma or ivanna ated implant. Scant tissue limits evaluation and the possibility of nonsampled viable tumor cannot be exclude d. ??Clinical correlation is required. Electronically signed out by: David Cerda M.D. 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 ??History of endometrial endometrioid cancer. GROSS: The specimen is received in saline labeled with the patient' s name, identifying information and designated omental mass biopsy. ??It consists of two pale yellow, fri able with the tissue cores admixed with a smaller fragment, aggregating to 0.8 x 0.2 x 0.1 cm. ??The specime n is filtered and submitted entirely in one block. (Dictated by: VIOLA Angulo 11/22/2019 01:35 PM) MICROSCOPIC: There is fibrosis and fat necrosis. ??Interspersed calcifica tions consistent with psammomatous calcifications are present. The technical component of this testing was completed at the [facility], with the professional compo nent performed at the [facility], [address], [place], [place] [phone] ([phone]) CPT Codes: A: 11778-ZX2 COLLECTION SITE: Client: [facility] Location: RHCT (R) Specimen (Source) Anatomical Collection Method Collection Time Re ceived Time Location / / Volume Laterality Specimen from 11/22/2019 12:30 11/22/2019 1:29 abdominal cavity PM CDT PM CDT (specimen) Linda Stevens MD LAB - BEAKER AP Performing Organization Address City/[facility]/ZIP Code Phon e Number [place] Platelet count (11/22/2019 10:20 AM CDT) athologist Signature Platelet Count 267 150 - 450 11/22/2019 [place] 10e9/L 10:37 AM CDT [facility] Specimen Anatomical Collection Method Collection Time Receive d Time (Source) Location / / Volume Laterality Blood specimen 11/22/2019 10:20 0 (specimen) AM CDT 10:31 AM CDT Linda Stevens MD LAB - BLOOD ORDERABLES Performing Organization Address City/[facility] Code Phon e Number [facility] [address] [place], [place] [address] [facility] [address] [phone] INR (11/22/2019 10:20 AM CDT) athologist Signature INR 1.01 0.86 - 1.14 11/22/[address] [facility] 10:55 AM CDT HOSPITAL Specimen Anatomical Collection Method Collection Time Receive d Time (Source) Location / / Volume Laterality Blood specimen 11/22/2019 10:20 0 (specimen) AM CDT 10:31 AM CDT Linda Stevens MD LAB - BLOOD ORDERABLES Performing Organization Address [facility]/ZIP [facility] Phon e Number [facility] [address] [place], [place] [address] [facility] [address] [place], [place] [address] [facility] [phone] documented in this encounter Visit Diagnoses Diagnosis Primary endometrioid carcinoma of endome trium of uterine body (H) documented in this encounter Administered Medications Inactive Administered Medications - up to 3 most recent administrations Medication Order MAR Action Action Date Dose Rate Site fentaNYL (PF) (SUBLIMAZE) 100 MCG/2ML in jection Starting on Thu11/22/19 at 1120, For 1 do , Kaitlyn Fried: cabinet override For ordered IV doses 1-100 mcg give IV Push undiluted over a minimum of 3-5 minutes. fentaNYL (PF) (SUBLIMAZE) injection 25-50 Given 11/22/2019 12:32 PM CDT 50 mcg mcg 25-50 mcg, Intravenous, EVERY 5 MIN PRN, severe pain, If inadequate response may repeat 25 mcg IV slowly every 5 min PRN severe pain; when verbally requested by provider., Administer over 2 Minutes, Starting on Thu11/22/19 at 1129, Doses can be exceeded under direct oversight of patient by physician. For ordered IV doses 1-100 mcg give IV Push undiluted over a minimum of 3-5 minutes., IR Intra-procedure glucagon 1 MG injection Given 11/22/2019 12:43 PM CDT 1 mg Starting on Thu11/22/19 at 1241, For 1 dose, Kaitlyn Fried: cabinet override If ordered IV, give IV Push over 1 minute. Reconstitute with 1mL sterile water. iohexol (OMNIPAQUE) solution 50 mL Given 11/22/2019 11:10 AM CDT 50 mLs 50 mL, Oral, ONCE, On Thu11/22/19 at 1145, For 1 dose lidocaine 1 % 10 mL Given 11/22/2019 12:33 PM CDT 10 mLs 10 mL, Intradermal, ONCE, On Thu11/22/19 at 1045, For 1 dose lidocaine 1 % injection Starting on Thu11/22/19 at 1123, For 1 dose, Mayito Fried: cabinet override midazolam (VERSED) 1 MG/ML injection Starting on Thu11/22/19 at 1121, For 1 Corky roberts se, Victoria: cabinet override This drug may cause significant respiratory d epression. Monitor respiratory status and vital signs carefully for 1 hour after each dose. midazolam (VERSED) injection 0.5-2 mg Given 11/22/2019 12:32 PM CDT 1 mg 0.5-2 mg, Intravenous, Administer over 1 Minutes, EVERY 4 MIN PRN, sedation, If inadequate response may repeat 0.5 mg IV slowly every 4 minutes PRN sedation until desired response; when verbally requested by provider., Starting on Thu11/22/19 at 1129, Doses can be exceeded under direct oversight of patient by physician. This drug may cause significant respiratory depression. Monitor respiratory status and vital signs carefully for 1 hour after each dose., IR Intra-procedure documented in this encounter Additional Health Concerns Assessment Noted Time PHQ-9 Depression Total Score: 0 01/28/2017 2:22 PM CDT documented as of this encounter Care Teams Entry Level Sales Consultant Relationship Specialty Start Date End Date Cheli Meyer MD PCP - General Family Practice 11/15/[address] [address] documented as of this encounter
--- OUTSIDE RECORDS SUMMARY | 2022-01-02 13:48 | XMS_ITS | Encounter Summary ---
:1945 Author Organization [place] Address [address] [place] [address]. [place] [address] Care Team Providers Name Role Phone Morris Gale DO Primary Care Provider Encounter Details Date Type Department Care Team Description 11/14/2019 Orders Only [facility] Nichelle West Encounter for [facility], VULNERABILITY RESEARCHER STEWARDESSES TEACHER screening for other [address] [place] [facility] viral diseases [address] (Primar y Dx) [phone] [facility] [address] [place] [address] Social History Tobacco Use Types Packs/Day Years Used Date Never Smoker Alcohol Use Standard Drinks/Week Comments No 0 (1 standard drink = 0.6 oz pure alcoho l) Sex Assigned at Date Recorded Not on file documented as of this encounter Plan of Treatment Not on filedocumented as of this encounter Results Asymptomatic COVID-19 Virus (Coronavirus) by PCR (11/19/2019 9:56 AM CDT) [facility] Method Time Signature COVID-19 Nasopharyngeal 11/19/2019 HURT Virus PCR to 12:21 PM [facility] [place] - CDT [place] COVID-19 Not Detected 11/20/2019 [facility] Virus PCR to 1:10 PM CDT [place] [facility] Result CENTER LABORATORY Comment: Collection of multiple specimens from th e same patient may be necessary to detect the virus. The possibility of a f alse negative should be considered if the patient's recent exposure or clinica l presentation suggests 2019 nCOV infection and diagnostic tests for other causes of illness are negative. Repeat testing may be considered in this setting. Viral RNA was extracted via a validated method and subsequently underwent single step reverse transcriptase-real t evan polymerase chain reaction using primers to the CDC specified N1,N2 gene targets of CoV2 and human REAL ESTATE ANALYST as an internal control. A negative result does not rule out the presence of real-time PCR inhibitors in the specimen or COVID-19 RNA in harsha ntrations below the limit of detection of the assay. The possibility of a fals e negative should be considered if the patients recent exposure or clinical pr esentation suggests COVID-19. Additional testing or repeat testing req uires consultation with the laboratory. Nasopharyngeal specimen is the preferred choice for swab-based SARS CoV2 testing. When collection of a nasopharyn geal swab is not possible the following are acceptable alternatives: an oropharyngeal (OP) specimen collected by a healthcare professional, or a nasal mid-turbinate (NMT) swab collected by a healthcare professional or by onsite self-collection (using a flocked tapered swab), or an anterior nares specimen collected by a healthcare profe ssional or by onsite self-collection (using a round foam swab). (Centers for Disease Control) Testing performed by [facility], Room 1-210, [address] [place] [address]. T his test was developed and its performance characteristics determined b y the [facility]. It has not been cleared or appr cindy by the FDA. The laboratory is regulated under the Cl inical Laboratory Improvement Amendments of 1988 (CLIA-88) as qualifie d to perform high-complexity testing. This test is used for clinical purposes. It should not be regarded as investigational or for research. Specimen (Source) Anatomical Collection Method Collection Time Re ceived Time Location / / Volume Laterality Specimen from 11/19/2019 9:56 11/19/2019 nasopharyngeal AM CDT 12:21 PM CDT structure (specimen) Nichelle West VULNERABILITY RESEARCHER STEWARDESSES TEACHER LAB - MICRO GENERAL ORDERAB LES Performing Organization Address City/State/[place] [address] [facility] CENTER LABORATORY Room: [address] [place] [address] [address] [place], [place] [address] [place] documented in this encounter Visit Diagnoses Diagnosis Encounter for screening for other viral diseases - Primary documented in this encounter Additional Health Concerns Assessment Noted Time PHQ-9 Depression Total Score: 0 01/28/2017 2:22 PM CDT documented as of this encounter Care Teams Machine Molder Squeeze Relationship Specialty Start Date End Date Morris Gale DO PCP - General Family Practice 01/23/16 11/14/19 documented as of this encounter
--- OUTSIDE RECORDS SUMMARY | 2022-01-02 13:48 | XMS_ITS | Encounter Summary ---
:1945 Author Organization [place] Address [address] [place] [id number] Care Team Providers Name Role Phone Morris Gale DO Primary Care Provider Encounter Details Date Type Department Care Team Description 11/11/2019 Telephone [facility] Leobardo Vega RN Interventional Radio logy [address] [place] [address] Social History Tobacco Use Types Packs/Day Years Used Date Never Smoker Alcohol Use Standard Drinks/Week Comments No 0 (1 standard drink = 0.6 oz pure alcoho l) Sex Assigned at Date Recorded Not on file documented as of this encounter Miscellaneous Notes Telephone Encounter - Kyle Vega RN - 11/11/2019 4:38 PM CDT After further consult and review there is an omental mass that is amenable [facility] Possible sedation although area is rather superficial. Returned to schedulers to set up procedure [id number] 11/11/19 documented in this encounter Plan of Treatment Not on filedocumented as of this encounter Visit Diagnoses Not on filedocumented in this encounter Additional Health Concerns Assessment Noted Time PHQ-9 Depression Total Score: 0 01/28/2017 2:22 PM CDT documented as of this encounter Care Teams Fur Tanner Relationship Specialty Start Date End Date Morris Gale DO PCP - General Family Practice 01/23/16 11/14/19 documented as of this encounter
--- OUTSIDE RECORDS SUMMARY | 2022-01-02 13:48 | XMS_ITS | Encounter Summary ---
:1945 Author Organization [place] Address [facility] [place] [address] Care Team Providers Name Role Phone Cheli Meyer MD Primary Care Provider [phone] Encounter Details Date Type Department Care Team Description 12/08/2019 Orders Only [facility] Kary Metz Encounter for [facility] Interventional Rishi austin MD screening for other Radiology [place] [facility] viral diseases [address] HEMATOLOGY (Primary Dx) [place] [phone] [phone] [place] [address] [place] [address] Social History Tobacco Use Types Packs/Day [...] filedocumented as of this encounter Visit Diagnoses Diagnosis Encounter for screening for other viral diseases - Primary documented in this encounter Additional Health Concerns Assessment Noted Time PHQ-9 Depression Total Score: 0 01/28/2017 2:22 PM CDT documented as of this encounter Care Teams Wire Cutter Relationship Specialty Start Date End Date Cheli Meyer MD PCP - General Family Practice 11/15/[address] [address] documented as of this encounter
--- OUTSIDE RECORDS SUMMARY | 2022-01-02 13:48 | XMS_ITS | Encounter Summary ---
:1945 Author Organization [place] Address [facility] [place] [address] Care Team Providers Name Role Phone None, Bfp Primary Care Provider Unavailable Reason for Referral Diagnostic Imaging Mammo - Closed Specialty Diagnoses / Procedures Referred By Contact Refer red To Contact Diagnoses Encounter for screening mammogram for malignant neoplasm of breast Prakash Lemos MD [facility] [employer] [facility] [address] [place] [address] [facility] [address] [place] [id number] [place] [id number] Referral ID Status Reason Start Date Expiration Date Visits Requ ested Visits Authorized [id number] Closed 01/15/2015 01/15/2016 1 1 Reason for Visit Reason Comments Physical no concerns Encounter Details Date Type Department Care Team Description 01/15/2015 Office Visit [place] Prakash Velasquez, AB STRACTING RESULTS (Primary Dx); Clinic MD Routine general medical examination at a health care facility; [address] Pers onal history of ovarian cancer; [facility] 100 Encounter for screening mammogram for ma lignant neoplasm of breast; [address], [place] [address] Factor V Leiden carrier (H) [place] [phone] Social History Tobacco Use Types Packs/Day Years Used Date Never Smoker Tobacco Cessation: Counseling Given: No Alcohol Use Standard Drinks/Week Comments No 0 (1 standard drink = 0.6 oz pure alcoho l) Sex Assigned at Date Recorded Not on file documented as of this encounter Last Filed Vital Signs Vital Sign Reading Time Taken Comments Blood Pressure 122/80 01/15/2015 10:54 AM CDT Pulse 68 01/15/2015 10:54 AM CDT Temperature - - Respiratory Rate 16 01/15/2015 10:54 AM CDT Oxygen Saturation - - Inhaled Oxygen Concentration - - Weight 115.2 kg (254 lb) 01/15/2015 10:54 AM CDT Height 160 cm (5' 3) 01/15/2015 10:54 AM CDT Body Mass Index 44.99 01/15/2015 10:54 AM CDT documented in this encounter Patient Instructions Patient InstructionsPrakash Lemos MD - 01/15/2015 11:33 AM CDT Schedule your annual screening mammogram Follow up with your primary care provider for your other medical problems. Continue self breast exam. Increase physical activity and exercise. PHQ-9 score discussed. Alcohol score discussed. Lab results will be called to the patient. Usual safety and preventative measures counseling done. Weight loss encouraged. See Dr Powell in 6 months for cancer f/u Plans flu shot at primary doctor documented in this encounter Progress Notes Prakash Lemos MD - 01/16/2015 3:43 PM CDT Quick Note: Please let patient know labs are within acceptable limits. Her lipids are borderline so not needingtreatment yet. Her CA 125 is all normal Send copy of her CA [address] Powell office also PRAKASH LEMOS MD Prakash Lemos MD - 01/15/2015 11:00 AM CDT Leanne is a 69 year old female who presents for annual exam. Besides routine health maintenance, she has no other health concerns today . Do you have a Health Care Directive?: No: Advance care planning reviewed with patient; information given to patient to review. Fall risk: Fall Risk Assessment completed. HPI Patient here for annual exam. She has history of both ovarian ca two tissue types and uterine ca all diagnosed at the same time. Had JACK BILATERAL SALPINGO-OOPHORECTOMY and debulking with Dr Powell, then chemo. Sees him alternating with us every 6 months. CA 125 at each visit Annual mammogram Also now has diagnosis of Factor V Says she has tested negative for Bra GYNECOLOGIC HISTORY: No LMP recorded. Patient is postmenopausal.. reports that she has never smoked. She does not have any smokeless tobacco history on file. Patient is not sexually active. STD testing offered? Declined Last PHQ-9 score on record= PHQ-9 SCORE 01/15/2015 Total Score 0 Last GAD7 score on record= HARRIETT-7 SCORE 01/15/2015 Total Score 0 Alcohol Score = 0 HEALTH MAINTENANCE: Cholesterol: HDL: 42.0 LDL: 97.0 T A1C: 5.90 Glucose 106.0 Last Mammo: one year ago, Result: normal, Next Mammo: today Pap: 12/27/13 WNL DEXA: 02/27/14 Colonoscopy: 04/2004, Result: normal, Next Colonoscopy: Pt will schedule for the this year HISTORY: Obstetric History T1 TAB0 SAB0 E0 M0 L1 # Outcome Date GA Lbr Anderson/2nd Weight Sex Delivery Anes PTL Lv 1 Term 1970 40w0d M Vag-Spont Y Patient Active Problem List Diagnosis ??? Advanced directives, counseling/discussion - at home per PLC ??? Essential hypertension ??? History of uterine cancer ??? Personal history of ovarian cancer ??? Factor V Leiden carrier Past Surgical History Procedure Laterality Date ??? Cholecystectomy 2006 ??? Colposcopy, biopsy, combined 07/09/98 Benign; Follow up Pap in was normal ??? Jack bso History Substance Use Topics ??? Smoking status: Never Smoker ??? Smokeless tobacco: Not on file ??? Alcohol Use: No Family History Problem Relation Age of Onset ??? Breast Cancer Sister ??? Diabetes Paternal Grandmother ??? Heart Disease Paternal Grandmother ??? Uterine Cancer Other aunt ??? Breast Cancer Other aunt Current Outpatient Prescriptions Medication Sig ??? atenolol (TENORMIN) 50 MG tablet Take 1 tablet (50 mg) by mouth daily ??? calcium carbonate (OS-GLORIA 500 MG [place]. CA) 500 MG tablet Take by mouth 2 times daily No current facility-administered medications for this visit. Allergies Allergen Reactions ??? Bees ??? [place] Past medical, surgical, social and family history were reviewed and updated in EPIC. ROS: 12 point review of systems negative other than symptoms noted below. Musculoskeletal: Joint Pain and Muscle Cramps Endocrine: Loss of Hair EXAM: BP 122/80 mmHg Pulse 68 Resp 16 Ht 5' 3 (1.6 m) Wt 254 lb (115.214 kg) BMI 45.01 kg/m2 BMI: Body mass index is 45.01 kg/(m^2). EXAM: Constitutional: Appearance: Well nourished, well developed alert, in no acute distress Neck: Lymph Nodes: No lymphadenopathy present Thyroid: Gland size normal, nontender, no nodules or masses present on palpation Chest: Respiratory Effort: Breathing unlabored Cardiovascular:Heart Auscultation: Regular rate, normal rhythm, no murmurs present Breasts: Inspection of Breasts: No lymphadenopathy present Palpation of Breasts and Axillae: No masses present on palpation, no breast tenderness Axillary Lymph Nodes: No lymphadenopathy present Gastrointestinal: Abdominal Examination: Abdomen nontender to palpation, tone normal without rigidity or guarding, no masses present, umbilicus without lesions Liver and speen: No hepatomegaly present, liver nontender to palpation Hernias: No hernias present Lymphatic: Lymph Nodes: No other lymphadenopathy present Skin: General Inspection: No rashes present, no lesions present, no areas of discoloration. Genitalia and Groin: No rashes present, no lesions present, no areas of discoloration, no masses present Neurologic/Psychiatric: Mental Status: Oriented X3 Pelvic Exam: External Genitalia: Normal appearance for age, no discharge present, no tenderness present, no inflammatory lesions present, color normal Vagina: Normal vaginal vault without central or paravaginal defects, no discharge present, no inflammatory lesions present, no masses present Bladder: Nontender to palpation Urethra: Urethral Body: Urethra palpation normal, urethra structural support normal Urethral Meatus: No erythema or lesions present Cervix: Surgically absent Uterus: Surgically absent Adnexa: Surgically absent Perineum: Perineum within normal limits, no evidence of trauma, no rashes or skin lesions present Anus: Anus within normal limits, no hemorrhoids present Inguinal Lymph Nodes: No lymphadenopathy present COUNSELING: regular exercise colon cancer screening BMI: Body mass index is 45.01 kg/(m^2). Weight management plan: Current exercise routine: walking. reports that she has never smoked. She does not have any smokeless tobacco history on file. ASSESSMENT: 69 year old female with satisfactory annual exam. ICD-10-CM ICD-9-CM 1. ABSTRACTING RESULTS atenolol (TENORMIN) 50 MG tablet 2. Routine general medical examination at a [facility] care facility Z00.00 V70.0 Lipid panel reflex to direct LDL 3. Personal history of ovarian cancer Z85.43 V10.43 CA 125 4. Encounter for screening mammogram for malignant neoplasm of breast Z12.31 V76.12 RADIOLOGY REFERRAL ([facility]) 5. Factor V Leiden carrier D68.51 289.81 PLAN/PATIENT INSTRUCTIONS: Patient Instructions Schedule your annual screening mammogram Follow up with your primary care provider for your other medical problems. Continue self breast exam. Increase physical activity and exercise. PHQ-9 score discussed. Alcohol score discussed. Lab results will be called to the patient. Usual safety and preventative measures counseling done. Weight loss encouraged. See Dr Powell in 6 months for cancer f/u Plans flu shot at primary doctor PRAKASH LEMOS MD documented in this encounter Plan of Treatment Scheduled Referrals Name Type Priority Associated Diagnoses Order S chedule RADIOLOGY REFERRAL ([facility] Referral Routine Encounter for scr eening Ordered: 01/15/2015 Imaging) mammogram for malignant neoplasm of breast documented as of this encounter Procedures Procedure Name Priority Date/Time Associated Diagnosis Comme nts LIPID REFLEX TO Routine 01/15/2015 11:30 AM Routine general Re sults for this DIRECT LDL PANEL CDT medical examination proc edure are in at a [facility] the results facility section. CA 125 Routine 01/15/2015 11:30 AM Personal history of R esults for this CDT ovarian cancer procedure are in the results section. documented in this encounter Results CA 125 (01/15/2015 11:30 AM CDT) athologist Signature CA 125 6 0 - 30 U/mL [facility] Specimen Anatomical Collection Method Collection Time Receive d Time (Source) Location / / Volume Laterality Blood specimen 01/15/2015 11:30 5 (specimen) AM CDT 11:31 AM CDT Prakash Lemos MD LAB - BLOOD ORDERABLES Performing Organization Address City/State/ZIP Code Phon e Number [facility] [address] [place] [address] [facility] (ABNORMAL) Lipid panel reflex to direct LDL (01/15/2015 11:30 AM CDT) P athologist Signature Cholesterol 194 <200 mg/dL [facility] Comment: LDL Cholesterol is the primary guide to therapy. The NCEP recommends further evaluation of: patients with cholesterol greater than 200 mg/dL if additional risk facto rs are present, cholesterol greater than 240 mg/dL, triglycerides greater than 1 50 mg/dL, or HDL less than 40 mg/dL. Triglycerides 153 (H) 0 - 150 mg/dL [facility] Comment: Fasting specimen HDL Cholesterol 46 (L) >50 mg/dL [facility] LDL Cholesterol Calculated 117 0 - 129 mg/dL [facility] Comment: LDL Cholesterol is the primary guide to therapy: LDL-cholesterol goal in high risk patients is <100 mg/dL and in very high risk patients is <70 mg/dL. VLDL-Cholesterol 31 (H) 0 - 30 mg/dL [facility] Cholesterol/HDL Ratio 4.2 0.0 - 5.0 [facility] Specimen Anatomical Collection Method Collection Time Receive d Time (Source) Location / / Volume Laterality Blood specimen 01/15/2015 11:30 5 (specimen) AM CDT 11:31 AM CDT Prakash Lemos MD LAB - BLOOD ORDERABLES Performing Organization Address City/State/ZIP Code Phon e Number [facility] [address] [place] [address] documented in this encounter Visit Diagnoses Diagnosis ABSTRACTING RESULTS - Primary Routine general medical examination at a health care facility Personal history of ovarian cancer Personal history of malignant neoplasm o f ovary Encounter for screening mammogram for ma lignant neoplasm of breast Other screening mammogram Factor V Leiden carrier (H) Primary hypercoagulable state documented in this encounter Additional Health Concerns Assessment Noted Time PHQ-9 Depression Total Score: 0 01/16/2015 7:26 AM CDT documented as of this encounter Care Teams Associate Editor Relationship Specialty Start Date End Date None, Bfp PCP - General 05/03/99 01/22/16 documented as of this encounter
--- OUTSIDE RECORDS SUMMARY | 2022-01-02 13:48 | XMS_ITS | Clinical Summary ---
:1945 Author Organization [place] Address [address] [place] [address]. [place] [address] Care Team Providers Name Role Phone Cheli Meyer MD Primary Care Provider [phone] Allergies Active Allergy Reactions Severity Noted Date Comments Bees 11/22/2014 Lotus 11/22/2014 Medications Medication Sig Dispensed Refills Start Date End Date Status calcium carbonate Take by mouth 2 90 tablet 0 11/22/2014 Active (OS-GLORIA 500 MG [place]. times daily CA) 500 MG tabletIndications: ABSTRACTING RESULTS BABY ASPIRIN PO 0 Acti ve Multiple Vitamin 0 Act ashish (MULTIVITAMINS PO) atenolol (TENORMIN) 50 Take 1 tablet (50 90 tablet 3 7 Active MG tabletIndications: mg) by mouth Essential hypertension daily Active Problems Problem Noted Date Personal history of ovarian cancer 01/15/2015 Overview: Stage IIIC serous left ovary, Stage IC g rade 2, at same time as uterine cancer 2013 Factor V Leiden carrier 01/15/2015 Overview: Patient has no history of clotting but janay sonia had DVT Advanced directives, counseling/discussion - at home p er PLC 11/22/2014 Essential hypertension 11/22/2014 History of uterine cancer 11/22/2014 Immunizations Name Administration Dates Next Due Influenza (High Dose) 3 valent vaccine 01/23/2016 Influenza (IIV3) PF 03/09/2012 Pneumococcal 23 valent 03/09/2012 Tdap (Adacel,Boostrix) 01/09/2010 Zoster vaccine, live 03/22/2010 Family History Medical History Relation Comments Uterine Cancer Other 1 aunt Breast Cancer Other 2 aunt Diabetes Paternal Grandmother Heart Disease Paternal Grandmother Breast Cancer Sister Relation Status Comments Other 1 Other 2 Paternal Grandmother Sister Social History Tobacco Use Types Packs/Day Years Used Date Never Smoker Tobacco Cessation: Counseling Given: No Alcohol Use Standard Drinks/Week Comments No 0 (1 standard drink = 0.6 oz pure alcoho l) Sex Assigned at Date Recorded Not on file Last Filed Vital Signs Vital Sign Reading Time Taken Comments Blood Pressure 126/67 11/22/2019 2:27 PM CDT Pulse 64 11/22/2019 1:33 PM CDT Temperature - - Respiratory Rate 16 11/22/2019 1:33 PM CDT Oxygen Saturation 98% 11/22/2019 2:27 PM CDT Inhaled Oxygen Concentration - - Weight 113.4 kg (250 lb) 01/28/2017 2:20 PM CDT Height 158.8 cm (5' 2.5) 01/28/2017 2:20 PM CDT Body Mass Index 45 01/28/2017 2:20 PM CDT Plan of Treatment Health Maintenance Due Date Last Done Comments ANNUAL REVIEW OF HM ORDERS 1945 CT COLONOGRAPHY 1945 FIT-DNA (Cologuard) 1945 FIT 1945 FLEX SIG 1945 COVID-19 Vaccine (#1) 1945 COLONOSCOPY 09/17/2014 09/17/2004 COLORECTAL CANCER SCREENING 09/17/2014 FALL RISK ASSESSMENT 01/22/2017 01/23/2016 MAMMO SCREENING 01/28/2019 01/28/2017, 01/23/2016, 01/19/2015, Additional history exists MEDICARE ANNUAL WELLNESS 08/06/2019 08/05/2018, 09/02/2017, VISIT 01/23/2016, Additional history exists ADVANCE CARE PLANNING 11/23/2019 11/22/2014 DTAP/TDAP/TD IMMUNIZATION 01/10/2020 01/09/2010 (2 - Td or Tdap) LIPID 01/22/2021 01/23/2016, 01/15/2015, 02/23/2014, Additional history exists PHQ-2 (once per calendar 04/20/2021 01/28/2017, 01/23/2016, year) 01/15/2015 INFLUENZA VACCINE (#1) 2021 01/26/2019, 12/17/2017, 01/16/2017, Additional history exists DEXA 02/23/2029 02/23/2014, 12/13/2009 HEPATITIS C SCREENING Completed 01/28/2017 Pneumococcal Vaccine: 65+ Completed 02/04/2018, 03/09/2012 Years ZOSTER IMMUNIZATION Completed 04/17/2018, 01/14/2018, 03/22/2010 HEPATITIS B IMMUNIZATION Aged Out No long er eligible based on patient 's age to complete this topic IPV IMMUNIZATION Aged Out No longer eligi ble based on patient 's age to complete this topic MENINGITIS IMMUNIZATION Aged Out No longe r eligible based on patient 's age to complete this topic Insurance Payer Benefit Plan / Subscriber ID Effective Dates Phone Addre ss Type Group [facility] MEDICARE [id number] 2019-Present [phone] [address] [place] [address] Care Teams Respiratory Technician Relationship Specialty Start Date End Date Cheli Meyer MD PCP - General Family Practice 11/15/[address] [address]
--- OUTSIDE RECORDS SUMMARY | 2022-01-02 13:48 | XMS_ITS | Encounter Summary ---
:1945 Author Organization [place] Address [address] [place] [address] Care Team Providers Name Role Phone Morris Gale DO Primary Care Provider Reason for Referral Diagnostic Imaging Other - Closed Specialty Diagnoses / Procedures Referred By Contact Refer red To Contact Diagnoses Encounter for screening mammogram for malignant neoplasm of breast Rachel Lemos MD [facility] [address] [place] [address] [facility] [address] [place] [address] [place] [address] [place] [address] Referral ID Status Reason Start Date Expiration Date Visits Requ ested Visits Authorized [id number] Closed 01/23/2016 01/22/2017 1 1 Reason for Visit Reason Comments Physical Encounter Details Date Type Department Care Team Description 01/23/2016 Office Visit [facility] Rachel Velasquez for gynecological examination (general) (routine) without abnormal findings (Primary Dx); Fabián Munoz MD Encounter for screening mammogram for ma lignant neoplasm of breast; [address] for lipid screening for cardiovascular disease; [facility] [place] [address] Personal history of ovarian cancer; [address] [place] [address] HTN (hypertension), benign; [place] [phone] Need for prophylactic vaccin ation and inoculation against influenza Social History Tobacco Use Types Packs/Day Years Used Date Never Smoker Alcohol Use Standard Drinks/Week Comments No 0 (1 standard drink = 0.6 oz pure alcoho l) Sex Assigned at Date Recorded Not on file documented as of this encounter Last Filed Vital Signs Vital Sign Reading Time Taken Comments Blood Pressure 112/76 01/23/2016 11:24 AM CDT Pulse - - Temperature - - Respiratory Rate - - Oxygen Saturation - - Inhaled Oxygen Concentration - - Weight 106.1 kg (234 lb) 01/23/2016 11:24 AM CDT Height 158.8 cm (5' 2.5) 01/23/2016 11:24 AM CDT Body Mass Index 42.12 01/23/2016 11:24 AM CDT documented in this encounter Progress Notes Shorty Ortiz CMA - 01/23/2016 11:49 AM CDT Injectable Influenza Immunization Documentation 1. Is the person to be vaccinated sick today? No 2. Does the person to be vaccinated have an allergy to eggs or to a component of the vaccine? No 3. Has the person to be vaccinated today ever had a serious reaction to influenza vaccine in the past? No 4. Has the person to be vaccinated ever had Guillain-Mingo syndrome? No Form completed by Shorty Ortiz CMA Rachel Lemos MD - 01/23/2016 10:49 AM CDT Leanne is a 70 year old female who presents for annual exam. Besides routine health maintenance, she has no other health concerns today . Do you have a Health Care Directive?: No: Advance care planning was reviewed with patient; patient declined at this time. Fall risk: Fallen 2 or more times in the past year?: No Any fall with injury in the past year?: No HPI: The patient's PCP is Dr Gale [facility]. Patient is seeing us once a years and oncology 6 months later Had JACK BILATERAL SALPINGO-OOPHORECTOMY and debulking in 2012 For uterine and ovarian ca, followed by chemo We do ca 125 each visit Surgery was done by Dr Powell No symptoms today Vaginal cuff looks normal No masses detected GYNECOLOGIC HISTORY: No LMP recorded. Patient is postmenopausal.. reports that she has never smoked. She does not have any smokeless tobacco history on file. Patient is not sexually active. STD testing offered? Declined Last PHQ-9 score on record= PHQ-9 SCORE 01/23/2016 Total Score 0 Last GAD7 score on record= HARRIETT-7 SCORE 01/15/2015 01/23/2016 Total Score 0 0 Alcohol Score = 0 HEALTH MAINTENANCE: Cholesterol: 01/15/15 Total= 194, Miymeofkxhsho=771, HDL=46, LAY=492 Last Mammo: 01/19/15, Result: normal, Next Mammo: today @ [facility] Pap: 12/27/13 neg DEXA: 03/12/14 Colonoscopy: 09/17/04, Result: normal, Next Colonoscopy: Due now Health maintenance updated: yes HISTORY: Obstetric History T1 TAB0 SAB0 E0 [...] Factor V Leiden carrier (H) Past Surgical History Procedure Laterality Date ??? Cholecystectomy 2005 ??? Colposcopy, biopsy, combined 07/09/98 Benign; Follow up Pap in was normal ??? Jack bso for uterine and ov cancer Social History Substance Use Topics ??? Smoking status: Never Smoker ??? Smokeless tobacco: Not on file ??? Alcohol Use: No Problem (# of Occurrences) Relation (Name,Age of Onset) Breast Cancer (2) Sister, Other: aunt DIABETES (1) Paternal Grandmother HEART DISEASE (1) Paternal Grandmother Uterine Cancer (1) Other: aunt Current Outpatient Prescriptions Medication Sig ??? BABY ASPIRIN PO ??? Multiple Vitamin (MULTIVITAMINS PO) ??? atenolol (TENORMIN) 50 MG tablet Take 1 tablet (50 mg) by mouth daily ??? calcium carbonate (OS-GLORIA 500 MG VIEJAS. CA) 500 MG tablet Take by mouth 2 times daily ??? [DISCONTINUED] atenolol (TENORMIN) 50 MG tablet Take 1 tablet (50 mg) by mouth daily No current facility-administered medications for this visit. Allergies Allergen Reactions ??? Bees ??? [place] Past medical, surgical, social and family history were reviewed and updated in [facility]. ROS: 12 point review of systems negative other than symptoms noted below. Musculoskeletal: Joint Pain Endocrine: Loss of Hair EXAM: BP 112/76 mmHg Ht 5' 2.5 (1.588 m) Wt 234 lb (106.142 kg) BMI 42.09 kg/m2 BMI: Body mass index is 42.09 kg/(m^2). EXAM: Constitutional: Appearance: Well nourished, well [...] Inguinal Lymph Nodes: No lymphadenopathy present COUNSELING: Reviewed preventive health counseling, as reflected in patient instructions Regular exercise Healthy diet/nutrition BMI: Body mass index is 42.09 kg/(m^2). Weight management plan: Patient was referred to their PCP to discuss a diet and exercise plan. reports that she has never smoked. She does not have any smokeless tobacco history on file. ASSESSMENT: 70 year old female with satisfactory annual exam. ICD-10-CM 1. ABSTRACTING RESULTS 42980 atenolol (TENORMIN) 50 MG tablet 2. Encounter for screening mammogram for malignant neoplasm of breast Z12.31 RADIOLOGY REFERRAL ([facility]) 3. Encounter for lipid screening for cardiovascular disease Z13.220 Lipid panel reflex to direct LDL Z13.6 4. Personal history of ovarian cancer Z85.43 CA 125 PLAN: Return 1 years See oncology in 6 months We will call lab results Refilled atenolol Rachel Lemos MD documented in this encounter Miscellaneous Notes Addendum Note - Shorty Ortiz CMA - 01/23/2016 11:50 AM CDT Addended by: SHORTY ORTIZ on: 01/23/2016 11:50 AM Modules accepted: Orders, SmartSet documented in this encounter Plan of Treatment Scheduled Referrals Name Type Priority Associated Diagnoses Order S chedule RADIOLOGY REFERRAL ([facility] Referral Routine Encounter for scr eening Ordered: 01/23/2016 Imaging) mammogram for malignant neoplasm of breast documented as of this encounter Procedures Procedure Name Priority Date/Time Associated Diagnosis Comme nts LIPID REFLEX TO Routine 01/23/2016 11:33 Encounter for lipid R esults for this DIRECT LDL PANEL AM CDT screening for procedure are in cardiovascular disease the r esults section. CA 125 Routine 01/23/2016 11:33 Personal history of Resu lts for this AM CDT ovarian cancer procedure are in the results section. documented in this encounter Results CA 125 (01/23/2016 11:33 AM CDT) P athologist Signature CA 125 7 0 - 30 U/mL [facility] Comment: Assay Method: Chemiluminescence using Siemens Centaur XP Specimen Anatomical Collection Method Collection Time Receive d Time (Source) Location / / Volume Laterality Blood specimen 01/23/2016 11:33 6 (specimen) AM CDT 11:34 AM CDT Rachel Lemos MD LAB - BLOOD ORDERABLES Performing Organization Address City/State/ZIP Code Phon e Number [facility] [address] [place], [place] [id number] [place] [address] (ABNORMAL) Lipid panel reflex to direct LDL (01/23/2016 11:33 AM CDT) [facility] Method Time Signature Cholesterol 177 <200 [place] mg/dL [facility] Triglycerides 108 <150 [place] mg/dL [facility] HDL Cholesterol 49 (L) >49 mg/dL [facility] LDL Cholesterol 106 (H) <100 [place] Calculated mg/dL [facility] Comment: Above desirable: ??100-129 mg/dl Borderline High: ??130-159 mg/dL High: ? 160-189 mg/dL Very high: ? >189 mg/dl Non HDL Cholesterol 128 <130 mg/dL [facility] Specimen Anatomical Collection Method Collection Time Receive d Time (Source) Location / / Volume Laterality Blood specimen 01/23/2016 11:33 6 (specimen) AM CDT 11:34 AM CDT Rachel Lemos MD LAB - BLOOD ORDERABLES Performing Organization Address City/[facility]/ZIP Code Phon e Number [facility] [address] [place] [address] documented in this encounter Visit Diagnoses Diagnosis Encounter for gynecological examination (general) (routine) without abnormal findings - Primary Encounter for screening mammogram for ma lignant neoplasm of breast Other screening mammogram Encounter for lipid screening for cardio vascular disease Personal history of ovarian cancer Personal history of malignant neoplasm o f ovary HTN (hypertension), benign Essential hypertension, benign Need for prophylactic vaccination and in oculation against influenza documented in this encounter Additional Health Concerns Assessment Noted Time PHQ-9 Depression Total Score: 0 01/24/2016 7:21 AM CDT documented as of this encounter Care Teams Rubber Stamp Maker Relationship Specialty Start Date End Date Morris Gale DO PCP - General Family Practice 01/23/16 11/14/19 documented as of this encounter
--- OUTSIDE RECORDS SUMMARY | 2022-01-02 13:48 | XMS_ITS | Encounter Summary ---
:1945 Author Organization [facility] Address [address] [place] [address]. [place] [address] Care Team Providers Name Role Phone None, Bfp Primary Care Provider Unavailable Morris Gale DO Primary Care Provider Reason for Visit Reason Comments Medication Refill Encounter Details Date Type Department Care Team Description 01/21/2016 Refill [facility] Rachel Lemos MD Medication Refill [address] [facility] [address] [facility] [address] [place] [address] [place] [address] [address] [place] [id number] (Wo rk) Social History Tobacco Use Types Packs/Day Years Used Date Never Smoker Alcohol Use Standard Drinks/Week Comments No 0 (1 standard drink = 0.6 oz pure alcoho l) Sex Assigned at Date Recorded Not on file documented as of this encounter Miscellaneous Notes Telephone Encounter - Sandee Cox RN - 01/24/2016 4:34 PM CDT Pt had annual on 01/23/16 and was sent Atenolol 50 mg for 90 tabs/3rf. Duplicate, sent back denial. documented in this encounter Plan of Treatment Not on filedocumented as of this encounter Visit Diagnoses Not on filedocumented in this encounter Additional Health Concerns Assessment Noted Time PHQ-9 Depression Total Score: 0 01/16/2015 7:26 AM CDT documented as of this encounter Care Teams Health Education Director Relationship Specialty Start Date End Date None, Bfp PCP - General 05/03/99 01/22/16 Morris Gale DO PCP - General Family Practice 01/23/16 11/14/19 documented as of this encounter
--- OUTSIDE RECORDS SUMMARY | 2022-01-02 13:48 | XMS_ITS | Encounter Summary ---
:1945 Author Organization [place] Address [address] [facility] [place] [address] Care Team Providers Name Role Phone Cheli Meyer MD Primary Care Provider Encounter Details Date Type Department Care Team Description 12/06/2019 Medical Correspondence [facility] Scan, ORDER [facility] Non-Provider ONCOLOGY Srvcs [address] [place] [address] Social History Tobacco Use Types Packs/Day Years [...] documented as of this encounter Care Teams Automatic Hemmer Relationship Specialty Start Date End Date Cheli Meyer MD PCP - General Family Practice 11/15/[address] [address] documented as of this encounter
--- OUTSIDE RECORDS SUMMARY | 2022-01-02 13:48 | XMS_ITS | Encounter Summary ---
:1945 Author Organization [facility] Address [address] [place] [address]. [place] [address] Care Team Providers Name Role Phone Cheli Meyer MD Primary Care Provider [phone] Encounter Details Date Type Department Care Team Description 11/22/2019 Travel Social History Tobacco Use Types Packs/Day [...] documented as of this encounter Care Teams Cpas Relationship Specialty Start Date End Date Cheli Meyer MD PCP - General Family Practice 11/15/[address] [address] documented as of this encounter
--- OUTSIDE RECORDS SUMMARY | 2022-01-02 13:48 | XMS_ITS | Encounter Summary ---
:1945 Author Organization [place] Address [facility] [place] [address] Care Team Providers Name Role Phone Morris Gale DO Primary Care Provider Encounter Details Date Type Department Care Team Description 01/23/2016 Abstract [facility] Rachel Lemos MD [address] [facility] [address] [facility] [address] [place] [address] [place] [address] [phone] (Wo rk) Social History Tobacco Use Types [...] documented as of this encounter Care Teams Spiritual Counselor Relationship Specialty Start Date End Date Morris Gale DO PCP - General Family Practice 01/23/16 11/14/19 documented as of this encounter
--- OUTSIDE RECORDS SUMMARY | 2022-01-02 13:48 | XMS_ITS | Encounter Summary ---
:1945 Author Organization [place] Address [address] [place] [address] Care Team Providers Name Role Phone Cheli Meyer MD Primary Care Provider [phone] Encounter Details Date Type Department Care Team Description 12/08/2019 Telephone [facility] Enma Vega RN Interventional Radio logy [address] [place] [address] Social History Tobacco Use [...] this encounter Miscellaneous Notes Telephone Encounter - Enma Vega RN - 12/08/2019 2:18 PM CDT Repeat request for CT soft tissue biopsy, per Dr. Voss she recommends patient to have a surgicalexcision as it is a difficulty biopsy and previous attempt was non-diagnostic. Dr. Metz's nurse notified and she will relay the information. documented in this encounter Plan of Treatment Not on filedocumented as of this encounter Visit Diagnoses Not on filedocumented in this encounter Additional Health Concerns Assessment Noted Time PHQ-9 Depression Total Score: 0 01/28/2017 2:22 PM CDT documented as of this encounter Care Teams Qa Intern Relationship Specialty Start Date End Date Cheli Meyer MD PCP - General Family Practice 11/15/[address] [address] documented as of this encounter
--- OUTSIDE RECORDS SUMMARY | 2022-01-02 13:48 | XMS_ITS | Encounter Summary ---
:1945 Author Organization [facility] Address [address] [place] [address]. [place] [address] Care Team Providers Name Role Phone Cheli Meyer MD Primary Care Provider [phone] Encounter Details Date Type Department Care Team Description 11/21/2019 [facility] Leobardo Vega RN Interventional Radio logy [address] [facility] [place] [address] Social History Tobacco Use Types Packs/Day Years Used Date Never Smoker Alcohol Use Standard Drinks/Week Comments No 0 (1 standard drink = 0.6 oz pure alcoho l) Sex Assigned at Date Recorded Not on file COVID-19 Exposure Response Date Recorded In the last month, have you been in contact Unable to assess 11/19/2019 10:02 AM CDT with someone who was confirmed or suspected to have Coronavirus / COVID-19? documented as of this encounter Plan of Treatment Not on filedocumented as of this encounter Visit Diagnoses Not on filedocumented in this encounter Additional Health Concerns Assessment Noted Time PHQ-9 Depression Total Score: 0 01/28/2017 2:22 PM CDT documented as of this encounter Care Teams Humanities Teacher Relationship Specialty Start Date End Date Cheli Meyer MD PCP - General Family Practice 11/15/[address] [address] documented as of this encounter
--- OUTSIDE RECORDS SUMMARY | 2022-01-02 13:48 | XMS_ITS | Encounter Summary ---
:1945 Author Organization [facility] Address [address] [place] [address]. [place] [address] Care Team Providers Name Role Phone Morris Gale DO Primary Care Provider Encounter Details Date Type Department Care Team Description 11/11/[address] [facility] Leobardo Vega RN Interventional Radio logy [address] [place] [address] Social History Tobacco Use Types Packs/Day Years Used Date Never Smoker Alcohol Use Standard Drinks/Week Comments No 0 (1 standard drink = 0.6 oz pure alcoho l) Sex Assigned at Date Recorded Not on file documented as of this encounter Miscellaneous Notes Telephone Encounter - Kyle Vega RN - 11/11/2019 11:15 AM CDT We have received the request to do a biopsy however images were done at [facility] and as of 11/11/19 they are not received yet. This RN called the patient to let her know what we are waiting for and that they need to be received and approved before scheduling. We have an updated H&P scanned in but no COVID in the system Pt was also told to stop ASA now so she is ready for biopsy. documented in this encounter Plan of Treatment Not on filedocumented as of this encounter Visit Diagnoses Not on filedocumented in this encounter Additional Health Concerns Assessment Noted Time PHQ-9 Depression Total Score: 0 01/28/2017 2:22 PM CDT documented as of this encounter Care Teams Parcel Wrapper Relationship Specialty Start Date End Date Morris Gale DO PCP - General Family Practice 01/23/16 11/14/19 documented as of this encounter
--- OUTSIDE RECORDS SUMMARY | 2022-01-02 13:48 | XMS_ITS | Encounter Summary ---
:1945 Author Organization [place] Address [address] [place] [address] Care Team Providers Name Role Phone Cheli Meyer MD Primary Care Provider [phone] Encounter Details Date Type Department Care Team Description 11/25/2019 [facility] Enma Vega RN Interventional Radio logy [address] [place] [address] Social History Tobacco Use [...] Telephone Encounter - Enma Vega RN - 11/25/2019 3:49 PM CDT Request for repeat biopsy reviewed per Dr. Voss, her recommendation is for patient to have a surgical excision as repeat biopsy would likely yield same results. Silvia NUNES at Dr. Metz's office notified. documented in this encounter Plan of Treatment Not on filedocumented as of this encounter Visit Diagnoses Not on filedocumented in this encounter Additional Health Concerns Assessment Noted Time PHQ-9 Depression Total Score: 0 01/28/2017 2:22 PM CDT documented as of this encounter Care Teams Property Claim Rep Relationship Specialty Start Date End Date Cheli Meyer MD PCP - General Family Practice 11/15/[address] [address] documented as of this encounter
--- OUTSIDE RECORDS SUMMARY | 2022-01-02 13:48 | XMS_ITS | Encounter Summary ---
:1945 Author Organization [facility] Address [address] [place] [address]. [place] [address] Care Team Providers Name Role Phone Cheli Meyer MD Primary Care Provider [phone] Reason for Visit Reason Onset Date Comments Covid 19 Testing 11/19/2019 Encounter Details Date Type Department Care Team Description 11/19/2019 Orders Only [facility] Nichelle West Encounter for Urgent Care Missy Nuno APRN COLOR TECHNICIAN screening for other [address] ONCOLOGY viral diseases [address] [address] [facility] [address] [place], [place] [id number] Social History Tobacco Use Types Packs/Day Years [...] / COVID-19? documented as of this encounter Progress Notes Hollie Rausch - 11/19/2019 9:50 AM CDT COVID-19 PCR test completed. Patient handout For Patients Who Have Been Tested for Covid-19 (Coronavirus) was given to the patient, which includes test result notification process. documented in this encounter Plan of Treatment Not on filedocumented as of this encounter Procedures Procedure Name Priority Date/Time Associated Diagnosis Comme nts COVID-19 VIRUS Routine 11/19/2019 9:56 AM Encounter for Result s for this (CORONAVIRUS) BY CDT screening for other proc edure are in PCR viral diseases the results section. documented in this encounter Results Asymptomatic COVID-19 Virus (Coronavirus) by PCR (11/19/2019 9:56 AM CDT) [facility] Method Time Signature COVID-19 Nasopharyngeal 11/19/2019 [facility] Virus PCR to 12:21 PM [facility] [place] [facility] [place] [facility] COVID-19 Not Detected 11/20/2019 [facility] Virus PCR to 1:10 PM CDT [place] [facility] [place] - GENOMICS Result CENTER [facility] Comment: Collection of [...] N1,N2 gene targets of CoV2 and human AUTOMATIC EQUIPMENT TECHNICIAN as an internal control. A negative result [...] (Centers for Disease Control) Testing performed by [facility], Room 1-210, [address] [place] [address]. T his test was developed and its performance characteristics determined b y the [facility]. It has not been cleared or appr [...] 12:21 PM CDT structure (specimen) Nichelle West APRN COLOR TECHNICIAN LAB - MICRO GENERAL ORDERAB LES Performing Organization Address City/State/ZIP Code Phon e Number [address] [address] [facility] Room: [address] [place] [address] [facility] documented in this encounter Visit Diagnoses Diagnosis Encounter for screening for other viral diseases documented in this encounter Additional Health Concerns Assessment Noted Time PHQ-9 Depression Total Score: 0 01/28/2017 2:22 PM CDT documented as of this encounter Care Teams Business Transformation Consultant Relationship Specialty Start Date End Date Cheli Meyer MD PCP - General Family Practice 11/15/[address] [address] documented as of this encounter
--- OUTSIDE RECORDS SUMMARY | 2022-01-02 13:48 | XMS_ITS | Encounter Summary ---
:1945 Author Organization [place] Address [address] [place] [address]. [place] [address] Care Team Providers Name Role Phone Cheli Meyer MD Primary Care Provider [phone] Encounter Details Date Type Department Care Team Description 11/19/2019 Travel Social History Tobacco Use Types Packs/Day [...] documented as of this encounter Care Teams Medical Advisor Relationship Specialty Start Date End Date Cheli Meyer MD PCP - General Family Practice 11/15/[address] [address] documented as of this encounter
--- OUTSIDE RECORDS SUMMARY | 2022-01-02 13:48 | XMS_ITS | Encounter Summary ---
:1945 Author Organization [place] Address [address] [place] [address]. [place] [address] Care Team Providers Name Role Phone Morris Gale Primary Care Provider Reason for Visit Reason Comments Medication Refill Encounter Details Date Type Department Care Team Description 01/18/2017 Refill [facility] Rachel Lemos MD Medication Refill for Women [place] [address] [facility] [address] [facility] [address] [place] [address] [place] [id number] [phone] Social History Tobacco Use Types Packs/Day Years Used Date Never Smoker Alcohol Use Standard Drinks/Week Comments No 0 (1 standard drink = 0.6 oz pure alcoho l) Sex Assigned at Date Recorded Not on file documented as of this encounter Miscellaneous Notes Telephone Encounter - Marisa Koenig RN - 01/20/2017 11:31 AM CDT 3 month supply sent for insurance purposes to get pt to med check appt. Telephone Encounter - Marjorie Nova - 01/20/2017 11:22 AM CDT Scheduled a med chk for 01/28 with [facility] Telephone Encounter - Marisa Koenig, MANJU - 01/20/2017 8:33 AM CDT Atenolol 50mg Last Written Prescription Date: 01/23/16 Last Fill Quantity: 90, # refills: 3 Last Office Visit with [facility] primary care provider: 01/23/16 Future Office visit: 09/02/17 Routing refill request to provider for review/approval because: Pt due for annual, made appt for 09/02/17, longer than the R protocol to refill for 3 month supply aspt is due for annual. Routing to Dr. Lemos to review and advise if ok to send refill until scheduled annual. documented in this encounter Plan of Treatment Not on filedocumented as of this encounter Visit Diagnoses Diagnosis Hypertension - Primary Unspecified essential hypertension documented in this encounter Additional Health Concerns Assessment Noted Time PHQ-9 Depression Total Score: 0 01/24/2016 7:21 AM CDT documented as of this encounter Care Teams Senior Net Developer Relationship Specialty Start Date End Date Morris Gale DO PCP - General Family Practice 01/23/16 11/14/19 documented as of this encounter
--- OUTSIDE RECORDS SUMMARY | 2022-01-02 13:49 | XMS_ITS | Encounter Summary ---
:1945 Author Organization [place] Address [address] [facility] [place] [address] Care Team Providers Name Role Phone None, Bfp Primary Care Provider Unavailable Encounter Details Date Type Department Care Team Description 09/17/2004 GI Procedure [facility] Kely Ruvalcaba MD None Endoscopy [facility] [address] [facility] [address] [place] [address] [place], [place] [id number] (Wo rk) Social History Tobacco Use Types Packs/Day Years Used Date Never Assessed Sex Assigned at Date Recorded Not on file documented as of this encounter Plan of Treatment Not on filedocumented as of this encounter Procedures Procedure Name Priority Date/Time Associated Comments Diagnosis GI HISTORY AND Routine 09/17/2004 1:59 PM Results for this PHYSICAL CDT procedure are i n the results section. COLONOSCOPY Routine 09/17/2004 1:30 PM Results f or this CDT procedure are i n the results section. documented in this encounter Results GI HISTORY AND PHYSICAL (09/17/2004 1:59 PM CDT) [facility] Method Time Signature GI History [facility] RADIOLOGY and Physical RESULTS Patient Name: Leanne Roldan ?Gender: F Provider: ? Kely Ruvalcaba MD Referring MD: ?? Ruslan Quinones MD Chief Complaint: ? Screening History of Present Illness: ? This 59 year old female is evaluated for screening co lonoscopy. ? She denies constipation, diarrhea, abdominal pain, nausea, vomiting, ? hematemesis, melena, fevers/chills, and weight loss. ? She denies heart dise ase, an indication for antibiotic prophylaxis, lung ? disease, liver diseas e, diabetes, a history of anesthesia complications, ? chest pain, shortness of breath, bleeding tendencies, and recent PO ? intake. She has hypertension. Past Medical History: ? Hypertension Current Medications: ? Atenolol Drug Allergies: ? shellfish - hives Social History: ? 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 No known colorectal cancer, polyps, or colitis. Review of Systems: ? As above. Physical Exam: ? CV: RRR, normal S1 & S2, no S3, no S4, no murmurs or rubs ? Respiratory: Clear to auscultation ? GI: +BS, soft, nontender, no masses Impression: ? - Screening for malignant neoplasm in the colon ? - Screening ASA: ? P2 A patient with mild systemic disease. Plan: ? Colonoscopy [facility] Kely Ruvalcaba MD Signed Date: 09/17/2004 2:01:42 PM GI History RADIOLOGY and Physical RESULTS Specimen (Source) Anatomical Collection Method Collection Time Re ceived Time Location / / Volume Laterality 09/17/2004 1:59 PM CDT Kely Ruvalcaba MD PROCEDURES Performing Organization Address City/State/ZIP Code Phon e Number RADIOLOGY RESULTS COLONOSCOPY (09/17/2004 1:30 PM CDT) [facility] Method Time Signature COLONOSCOPY [facility] RADIOLOGY RESULTS Patient Name: Leanne Roldan ?Gender: F Exam Date: ?09/17/2004 01:30 PM Procedure: ? Colonoscopy Indications: ? Screening for malignant neoplasm in the c olon Providers: ? Kely Ruvalcaba MD Referring MD: ?Ruslan Quinones MD Medicines: ? Midazolam 2 mg IV, Fentanyl 100 mcg IV Complications: ?? No immediate complications Procedure: ? A History and Physical has been performe d, and patient ? med ication allergies have been reviewed. The patient's ? tolerance of previous anesthe garcia has been reviewed. ? The risks and benefits of the procedure and the sedation ? opt ions and risks were discussed with the patient. All ? que stions were answered and informed consent was obtained. ? ASA Grade Asses sment: P2 A patient with mild systemic ? disease. ? Aft er obtaining informed consent, the colonoscope was passed ? und er direct vision. Throughout the procedure, the patient's ? blo od pressure, pulse, and oxygen saturations were monitored ? con tinuously. The Colonoscope ([id number]) was introduced ? thr ough the anus and advanced to the cecum, identified by ? karina endix & IC valve. The quality of the prep was good. The ? col onoscopy was accomplished without difficulty. The patient ? tolerated the procedure well. Findings: ?The digital rectal exam was justin l. Pertinent negatives ? include normal sphincte r tone and no palpable rectal ? lesions. The entire examined colon was normal. Impression: ?- The colon is normal. Recommend: ? - Repeat colonoscopy for surveillance in 10 years. Dilan Ruvalcaba Kely Ruvalcaba MD Signed Date: 09/17/2004 2:01:42 PM I was physically present for the entire viewing portion of t he exam. Note generated on 09/17/2004 1:29:53 PM COLONOSCOPY RADIOLOGY RESULTS Specimen (Source) Anatomical Collection Method Collection Time Re ceived Time Location / / Volume Laterality 09/17/2004 1:30 PM CDT Kely Ruvalcaba MD PROCEDURES Performing Organization Address City/State/ZIP Code Phon e Number RADIOLOGY RESULTS documented in this encounter Visit Diagnoses Not on filedocumented in this encounter Care Teams Multi Site Leasing Consultant Relationship Specialty Start Date End Date None, Bfp PCP - General 05/03/99 01/22/16 documented as of this encounter
--- OUTSIDE RECORDS SUMMARY | 2022-01-02 13:50 | XMS_ITS | Clinical Summary ---
:1945 Author Organization [facility] [employer] [place] [address] Care Team Providers Name Role Phone Cheli Meyer MD Primary Care Provider [phone] Allergies Active Allergy Reactions Severity Noted Date Comments Hymenoptera Allergenic Extract *Unknown 06/09/2012 [place] *Unknown 06/09/2012 Medications Medication Sig Dispensed Refills Start Date End Date Status atenolol (TENORMIN) 50 mg Take 50 mg by 0 Active tablet mouth once daily. CALCIUM CARBONATE/VITAMIN Take by 0 Active D3 (CALCIUM + D ORAL) mouth. ibuprofen (ADVIL; MOTRIN) Take 1-3 100 tablet 0 06/11/2012 Active 200 mg tablet tablets by mouth every 6 hours if needed for Pain. aspirin chewable 81 mg Take 81 mg by 0 Active chewable tablet mouth once daily with a meal. vitamin B complex (B Take by 0 Active COMPLEX 50 ORAL) mouth. cholecalciferol, vitamin Take by 0 Active D3, 100 mcg (4,000 unit) mouth. tab cranberry fruit extract Take by 0 Active (CRANBERRY CONCENTRATE mouth. ORAL) asinq-7f-bjx-epa-fish oil Take by 0 Active (FISH OIL) 720-1,200 mg mouth. cap hydroCHLOROthiazide 12.5 Take 12.5 mg 0 Active mg tablet by mouth once daily. multivitamin (MVI) tablet Take 1 tablet 0 Active by mouth once daily. OXYBUTYNIN CHLORIDE ORAL Take by 0 Active mouth. Active Problems Problem Noted Date Severe obesity (BMI >= 40) 12/19/2019 Immunizations Name Administration Dates Next Due Influenza, IIV3 (Age >=3 years) 03/09/2012 Pneumococcal Poly,23-Valent (Pneumovax) 03/09/2012 Social History Tobacco Use Types Packs/Day Years Used Date Never Smoker Smokeless Tobacco: Never Used Alcohol Use Standard Drinks/Week Comments Not Currently 0 (1 standard drink = 0.6 oz pure alcoho l) Sex Assigned at Date Recorded Not on file Obstetrics History Last Filed Vital Signs Vital Sign Reading Time Taken Comments Blood Pressure 127/60 12/15/2019 11:30 AM CDT Pulse 53 12/15/2019 11:30 AM CDT Temperature 36.9 ??C (98.4 ??F) 12/15/2019 7:35 AM CDT Respiratory Rate 14 12/15/2019 11:30 AM CDT Oxygen Saturation 97% 12/15/2019 11:30 AM CDT Inhaled Oxygen Concentration - - Weight 108 kg (238 lb) 12/15/2019 7:35 AM CDT Height 160 cm (5' 3) 12/15/2019 7:35 AM CDT Body Mass Index 42.16 12/15/2019 7:35 AM CDT Plan of Treatment Health Maintenance Due Date Last Done Comments COVID-19 vaccine series (#1) 1945 Tdap 1957 Depression screening for age 12+ 1958 BMI (ht and wt on same day) for age 18+ 1964 Hepatitis C screening for age 18-79 1964 Tetanus booster 1966 Colonoscopy through age 75 1991 Lipids for age 45-75 1991 Mammogram for age 45-75 1991 Zoster (shingles) series for age 50+ (1 of 2) 1996 DEXA/DXA scan for age 65+ 2011 Medicare Wellness for age 65+ 2011 Pneumococcal series for age 65+ (2 - PCV) 03/09/20132011 Influenza for age 65+ 12/19/2021 03/09/2012 Results Not on filefrom Last 3 Months Insurance Payer Benefit Plan / Subscriber ID Effective Dates Phone Addre ss Type Group MEDICARE PART A MEDICARE PART A [id number] 2011-Present ATTN: CLAIMS - HB USE ONLY HB ONLY [address] [facility] [place] [address] UCARE [employer] MEDICARE [id number] 2019-Present [address] [place] [address] Advance Directives Latest Code Status on File Code Status Date Activated Date Inactivated Comments Full Code 06/09/2012 5:43 AM 06/11/2012 3:29 PM Care Teams Skylights Assembler Relationship Specialty Start Date End Date Cheli Meyer MD PCP - General Family Practice 12/12/191999 [place] [address]
--- OUTSIDE RECORDS SUMMARY | 2022-01-02 13:50 | XMS_ITS ---
:1945 Author Care Team Providers Name Role Phone EstephanieJovi Primary Care Provider Unavailable Allergies None recorded. Medications Name Status Start Date Stop Date ? ? Adacel (Tdap Adolesn/Adult)(PF)2Lf-(2.5-5-3-5mcg)-5 Lf/0.5 Activ e ? Not available mL IM susp atenolol 50 mg tablet Active ? Not availa ble Problems None recorded. Procedures None recorded. Results Lab Results None recorded. Past Encounters None recorded. Social History None recorded. Vaccine List None recorded. Plan of Care Reminders Provider Appointments None recorded. ? ? Lab None recorded. ? ? Referral None recorded. ? ? Procedures None recorded. ? ? Surgeries None recorded. ? ? Imaging None recorded. ? ? Vitals Blood Pressure 148/83 mm[Hg]
--- NOTE | 2022-01-02 14:00 | CRLHL7_ITS ---
For Patients: As a result of the 21st Century Cures Act, medical imaging exams and procedure reports are released immediately into your electronic medical record. You may view this report before your referring provider. If you have questions, please contact your health care provider. CLINICAL HISTORY: Ovarian and endometrial cancer. TECHNIQUE: Following IV injection of 86-ykhdba-0-deoxyglucose (FDG) and a standard uptake period of approximately 60 minutes, a non-contrast CT scan followed by a PET scan were acquired along the length of the body from the mid portion of the head to the mid thighs. The non-contrast CT was used for anatomic localization and photon attenuation correction of the PET scan. Blood Glucose Level (mg/dL): 91 FDG Dose (mCi): 12.1 COMPARISON: CT scan of the chest, abdomen, and pelvis dated 16 October 2021. FINDINGS: Head/Neck: No abnormal activity identified in the head and neck. Chest: Right-sided Port-A-Cath. Small left anterior mediastinal lymph node measures 5 mm in short axis, SUV max 9.4. A few scattered enlarged left supraclavicular lymph nodes measuring up to 9 mm in short axis, SUV max 17.3. No hilar adenopathy. The no axillary adenopathy. Atherosclerotic vascular calcifications. The lungs show no focal pulmonary opacities. No pneumothorax. Abdomen/Pelvis: No focal abnormalities identified in the visualized portions of the liver, spleen, pancreas, adrenal glands, and kidneys. No hydronephrosis. Scattered areas of increased activity in the large and small bowel with no corresponding CT abnormalities likely physiologic. The remainder of the GI tract is incompletely distended but shows no gross abnormalities. Lymph node adjacent to the origin of the SMA measures 1.4 cm in short axis, SUV max 7.8. Scattered mildly enlarged retroperitoneal lymph nodes measuring up to 1.3 cm in short axis, SUV max 16.3. Bilateral common iliac and right external iliac enlarged lymph nodes measuring up to 1.2 cm in short axis, SUV max in the right common femoral region 5.6. Small anterior left-sided peritoneal nodules measuring up to 1.1 cm in short axis, SUV max 7.3. Hysterectomy. Anterior pelvic wall hernia contains fat and a portion of large bowel with no evidence of strangulation or incarceration. Bones: Degenerative changes of the spine. No abnormal skeletal activity identified. IMPRESSION: 1. Supraclavicular, mediastinal, retroperitoneal, and iliac adenopathy likely represents rivka metastatic disease. 2. Anterior peritoneal nodules show increased activity and likely represent peritoneal carcinomatosis. Dictated by Kyle Whittaker MD @ 01/03/2022 1:01:23 PM (Electronically Signed)
== END 2022-01-02 13:46 | disposition home or self-care (01) ==
LOC: RAD 13:46
PROVIDERS: PCP Family Medicine; Visit Provider Nurse Practitioner Family
DX: C54.1 Malignant neoplasm of endometrium (principal); C56.9 Malignant neoplasm of unspecified ovary; C77.8 Secondary and unspecified malignant neoplasm of lymph nodes of multiple regions; C78.6 Secondary malignant neoplasm of retroperitoneum and peritoneum
CPT/HCPCS: 78815; A9552

== ENCOUNTER 2022-02-06 14:00 | Outpatient (RCR) | payer MEDICARE, SELFPAY ==
--- NOTE | 2022-01-13 12:43 | PT.OPDN ---
PT [facility] Outpatient Daily Note PT [facility] Outpatient Daily Note Start: 12/03/21 07:57 Freq: Status: Active Protocol: Document 01/13/22 10:44 CJT (Rec: 01/13/22 11:33 CJT [id number]) E-signed By Emanuel Meza, PT PT OP Daily Progress Note Visit Information Note Type Recert/Progress Note Visit Number 10 Insurance Authorized Visits tbd Physician Authorized Visits eval and treat Insurance Information Recert Due Date 01/31/22 Insurance Name Medicare B Medical Diagnosis Balance problems, abnormality of gait and mobility Treating Diagnosis R26.81 - unsteadiness on feet M62.81 - generalized muscle weakness Referring Cheli Fallon MD Subjective Subjective Pt reports her L knee has been a bit bothersome but not too bad. Home Exercise Home Exercise Comments [id number] Objective Other/Pertinent Objective 4-Stage Balance Test: minimal/ normal sway noted in stages 1- 3, pt able to stand on R foot only for up to 5 seconds wihtout balance support mCTSIB - 120/120 30 second Ska-zz-hndwg test: 11 reps Patient Instructed in Risks/Benefits Yes Therapeutic Exercise Therapeutic Exercise Minutes (minutes) 8 Therapeutic Exercise: To Restore Bike - 8 minutes, Seat 11 Functional Status Manual Therapy Techniques Manual Therapy Minutes (minutes) 5 Manual Therapy Techniques Grade I, II mobilizations to B tibiofemoral joint and patellofemoral joint to improve joint mobility and reduce pain. Neuromuscular Re-Ed Neuromuscular Reeducation Minutes ( 15 minutes) Neuromuscular Reeducation Comments Marching on AirEx with 2 hands on rail -> no hands Heel raises on AIrEx x 20 reps Tandem stance on AirEx 2 x 30 ea Static stance on half roller, feet side by side, tandeom 2 x 30 ea Tandem Walking on line 8 x 10 ft Hip abduction on AirEx with 2 hands on rail Hip Extension on AirEx with 2 hands on rail Treatment Minutes Timed Code Treatment Minutes 28 Total Treatment Time 28 Billing Units Neuromuscular Reeducation Units 1 Therapeutic Exercise Units 1 Assessment/Impression Assessment/Impression Leanne shows excellent progression of her static stance exercises and is now able to stand up to 30 seconds in tandem stance with minimal /no use of hands. In addition, Tina feels she is making good progress with her balance and has been completing her exercises daily since starting therapy. Leanne's primary issue to me seems to be her strength and mobility. She has a very stiff and painful L knee and her LE strength is lacking and I don't think this is something we are going to improve by scarlett and avi. However, each week we have been progressing Leanne's strength exercises and she continues to complete them. Today we progressed Leanne's at home balance exercises and gave a new printout for I completion. Lastly, Leanne will be meeting with her oncology team this week to discuss her plan of action with new findings in recent PET scan. We will wait to hear the plan of action with this treatment before discussing continuing physical therapy beyond 2021. Recommend continued PT services to address deficits and return pt to highest level of function. Plan of Care Physical Therapy Goals STG - To be completed in2-3 weeks: 1. Pt will demonstrate 5/5 MMT for all LE motions to provide better support to pelvis and lumbar spine to allow for appropriate proximal control of balance in standing and during activities such as walking and stairs. DISCONTINUE GOAL - not appropriate 2. Pt will report increased confidence with sitting and standing up from chairs in her home and in public so that she may sit comfortable and stand without assistance. MET LTG - To be completed in 6-8 weeks: 1. Pt to be I with HEP so that they may I manage progression of symptoms. 2. Pt will complete each stage of the 4-stage balance test without assistance as indication of improved narrow stance and single leg balance to reduce risk of falls. 3. Pt will perform 10 STS transfers from standard chair without use of hands to show improved balance and LE functional strength. MET 4. Pt will ambulate 500 ft across uneven ground without LOB so that she may confidently walk with her in areas of uneven ground that she enjoys such as the [facility]. Daily Plan of Care Continue per POC Certification I Certify That: Therapy Services Provided, Therapy Plan Established, Therapy Plan Reviewed Recertification Information Provider Signature Shows Agreement With POC & Medical Necessity
--- NOTE | 2022-01-17 08:55 | ONC.NURNOTE ---
Patient called and let know that her [facility] team has been consulting regarding plan and at this time looks like Avastin but Dr. guillory will call her Thursday to discuss.
--- NOTE | 2022-01-23 08:42 | ONC.NURNOTE ---
Patient called to state she is feeling fine and tested positive for covid. She is asymptomatic. encouraged her to call her primary today and call us back if any problems.
--- NOTE | 2022-02-03 12:21 | PT.OPDN ---
PT [facility] Outpatient Daily Note PT [facility] Outpatient Daily Note Start: 12/03/21 07:57 Freq: Status: Active Protocol: Document 02/03/22 10:29 CJT (Rec: 02/03/22 12:21 CJT [id number]) E-signed By Emanuel Meza, PT PT OP Daily Progress Note Visit Information Note Type Recert/Progress Note Visit Number 13 Insurance Authorized Visits tbd Physician Authorized Visits eval and treat Insurance Information Recert Due Date 01/31/22 Insurance Name Medicare B Medical Diagnosis Balance problems, abnormality of gait and mobility Treating Diagnosis R26.81 - unsteadiness on feet M62.81 - generalized muscle weakness Referring Cheli Fallon MD Subjective Subjective Pt reports she is doing well. Was not very symptomatic and her didn't become very symptomatic either. Home Exercise Home Exercise Comments [id number] Objective Other/Pertinent Objective TU.32 seconds Fang Balance: 51/56 SL balance: unable to balance >3 seconds on either LE Patient Instructed in Risks/Benefits Yes Therapeutic Exercise Therapeutic Exercise Minutes (minutes) 25 Therapeutic Exercise: To Restore Bike - 8 minutes, Seat 12 Functional Status Leg press, 50# 3 x 15 Gastroc stretch on slant board x 60 CC walking, forward, backward x 2 rounds ea, 12.5# Neuromuscular Re-Ed Neuromuscular Reeducation Minutes ( 8 minutes) Neuromuscular Reeducation Comments Lateral walking with finger tips at rail 3 x 25' Treatment Minutes Timed Code Treatment Minutes 33 Total Treatment Time 33 Billing Units Therapeutic Exercise Units 2 Assessment/Impression Assessment/Impression Leanne has progressed well throughout her time in physical therapy thus far. Her static balance has consistently improved and balance testing with use of Fang Balance scale indicates that Leanne is a low fall risk. She performed well in her Timed up and Go test which is also reassuring. My only concern for Leanne at this time is her slow gait speed and lack of strength and knee ROM. Pt has no concerns about her balance at this time and feel she will be ready to be discharged from therapy when she returns later this week. Will focus on restructuring her HEP for I maintenance of progression of symptoms. Plan of Care Physical Therapy Goals STG - To be completed in2-3 weeks: 1. Pt will report increased confidence with sitting and standing up from chairs in her home and in public so that she may sit comfortable and stand without assistance. MET LTG - To be completed in 6-8 weeks: 1. Pt to be I with HEP so that they may I manage progression of symptoms. 2. Pt will complete each stage of the 4-stage balance test without assistance as indication of improved narrow stance and single leg balance to reduce risk of falls. NOT MET - pt not able to balance > 3 seconds in SLS 3. Pt will perform 10 STS transfers from standard chair without use of hands to show improved balance and LE functional strength. MET 4. Pt will ambulate 500 ft across uneven ground without LOB so that she may confidently walk with her in areas of uneven ground that she enjoys such as the [facility]. MET Daily Plan of Care Continue per POC Recertification Information Provider Signature Shows Agreement With POC & Medical Necessity
== END 2022-03-03 11:26 | disposition home or self-care (01) ==
PROVIDERS: PCP Family Medicine; Visit Provider Family Medicine
DX: R26.89 Other abnormalities of gait and mobility (principal); Z51.89 Encounter for other specified aftercare
CPT/HCPCS: 97110; 97112; 97116; 97140; 97161; 97530

== ENCOUNTER 2022-02-27 15:38 | Outpatient (CLI) | payer MEDICARE, SELFPAY ==
--- OUTSIDE RECORDS SUMMARY | 2022-02-27 15:41 | XMS_ITS | Encounter Summary ---
:1945 Author Organization [place] Address [address] [place] [address]. [place] [address] Care Team Providers Name Role Phone Morris Gale DO Primary Care Provider Reason for Visit Reason Comments Recheck Medication Encounter Details Date Type Department Care Team Description 01/28/2017 Office Visit [facility] Rachel Lemos Encou nter for hepatitis C screening test for low risk patient (Primary Dx); [facility] Alexy bob MD Essential hypertension; [address] [facility] Pers onal history of ovarian cancer [address] [address] [address] [place] [address] [place] [phone] Social History Tobacco Use Types Packs/Day Years Used Date Smoking Tobacco: Never Alcohol Use Standard Drinks/Week Comments No 0 [...] Surgical History: Procedure Laterality Date ??? CHOLECYSTECTOMY 2006 ??? COLPOSCOPY, BIOPSY, COMBINED 07/09/98 Benign; Follow [...] PO) ??? calcium carbonate (OS-GLORIA 500 MG [place]. CA) 500 MG tablet Take by mouth 2 times daily ??? [DISCONTINUED] atenolol (TENORMIN) 50 MG tablet TAKE ONE TABLET BY MOUTH ONCE DAILY No current facility-administered medications for this visit. Allergies Allergen Reactions ??? Bees ??? [place] ROS: 12 point review of systems negative [...] RNA FUTURE anytime (01/28/2017 2:50 PM CDT) [facility] gist Method Time Signature Hepatitis C Nonreactive NR^Nonrea 01/29/2017 [facility] ctive 10:14 AM CDT [facility] Comment: Assay performance characteristics have n ot been established for newborns, infants, and children Specimen Anatomical Collection Method Collection Time Receive d Time (Source) Location / / Volume Laterality Blood specimen 01/28/2017 2:50 PM 017 3:25 (specimen) CDT PM CDT Rachel Lemos MD LAB - BLOOD ORDERABLES Performing Organization Address City/State/ZIP Code Phon e Number [facility] [address] [place], [place] [id number] [place] [address] Comprehensive metabolic panel (01/28/2017 2:50 PM CDT) P athologist Signature Sodium 138 133 - 144 01/29/2017 [place] mmol/L 9:13 AM CDT [facility] Potassium 4.2 3.4 - 5.3 01/29/2017 [place] mmol/L 9:13 AM CDT [facility] Chloride 103 94 - 109 01/29/2017 [place] mmol/L 9:13 AM CDT [facility] Carbon Dioxide 29 20 - 32 01/29/2017 [place] mmol/L 9:13 AM [facility] Anion Gap 6 3 - 14 01/29/2017 [place] mmol/L 9:13 AM [facility] Glucose 95 70 - 99 01/29/2017 [place] mg/dL 9:13 AM [facility] Urea Nitrogen 15 7 - 30 01/29/2017 [place] mg/dL 9:13 AM [facility] Creatinine 0.86 0.52 - 01/29/2017 [place] 1.04 mg/dL 9:13 AM [facility] GFR Estimate 65 >60 01/29/2017 [place] mL/min/1.7 9:[address] Comment: Non GFR Calc GFR Estimate If 79 >60 mL/min/1.7m2 01/29/2017 9:13 A [facility] Black [facility] Comment: GFR Calc Calcium 9.5 8.5 - 10.1 01/29/2017 9:13 AM [facility] mg/dL [facility] Bilirubin Total 0.4 0.2 - 1.3 mg/dL 01/29/2017 9:13 AM [facility] Albumin 3.9 3.4 - 5.0 g/dL 01/29/2017 9:13 AM [facility] Protein Total 7.5 6.8 - 8.8 g/dL 01/29/2017 9:13 AM [facility] Alkaline Phosphatase 94 40 - 150 U/L 01/29/2017 9:13 AM [facility] ALT 34 0 - 50 U/L 01/29/2017 9:13 AM [facility] T [facility] AST 25 0 - 45 U/L 01/29/2017 9:13 AM [facility] Specimen Anatomical Collection Method Collection Time Receive d Time (Source) Location / / Volume Laterality Blood specimen 01/28/2017 2:50 PM 017 2:52 (specimen) CDT PM CDT Rachel Lemos MD LAB - BLOOD ORDERABLES Performing Organization Address City/State/ZIP Code Phon e Number [facility] [address] [place] [address] documented in this encounter Visit Diagnoses Diagnosis Encounter for hepatitis C screening test for low risk patient - Primary Essential hypertension Unspecified essential hypertension Personal history of ovarian cancer Personal history of malignant neoplasm o f ovary documented in this encounter Additional Health Concerns Assessment Noted Time PHQ-9 Depression Total Score: 0 01/28/2017 2:22 PM CDT documented as of this encounter Care Teams Asbestos Shingle Inspector Relationship Specialty Start Date End Date Morris Gale DO PCP - General Family Practice 01/23/16 11/14/19 documented as of this encounter
--- OUTSIDE RECORDS SUMMARY | 2022-02-27 15:41 | XMS_ITS | Encounter Summary ---
:1945 Author Organization [place] Address [address] [place] [address]. [place] [address] Care Team Providers Name Role Phone Cheli Meyer MD Primary Care Provider [phone] Encounter Details Date Type Department Care [...] documented as of this encounter Care Teams Automation Test Engineer Relationship Specialty Start Date End Date Cheli Meyer MD PCP - General Family Practice 11/15/[address] [address] documented as of this encounter
--- OUTSIDE RECORDS SUMMARY | 2022-02-27 15:41 | XMS_ITS | Encounter Summary ---
:1945 Author Organization [place] Address [address] [place] [address] Care Team Providers Name Role Phone Cheli Meyer MD Primary Care Provider [phone] Reason for Referral Diagnostic Imaging CT Scan (Routine) - Closed Specialty Diagnoses / Procedures Referred By Contact Refer red To Contact Radiology. 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) Nichelle West, Ct Scan Procedures CT Abdomen Retroperitoneal Biopsy LEATHER CASE FINISHER APPLICATIONS SALES CONSULTANT [address] [address] [facility] [address] [place] [address] Referral ID Status Reason Start Date Expiration Date Visits Requ ested Visits Authorized [id number] Closed 11/11/2019 11/10/2020 1 1 Electronically signed by Nichelle West LEATHER CASE FINISHER APPLICATIONS SALES CONSULTANT at 11/22/2019 10:08 AM CDT Reason for Visit Diagnostic Imaging CT Scan (Routine) - Closed Specialty Diagnoses / Procedures Referred By Contact Refer red To Contact Radiology. 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) Nichelle Wets, Rh Ct Scan Procedures CT Abdomen Retroperitoneal Biopsy LEATHER CASE FINISHER APPLICATIONS SALES CONSULTANT [address] [address] [facility] [address] [place] [address] Referral ID Status Reason Start Date Expiration Date Visits Requ ested Visits Authorized [id number] Closed 11/11/2019 11/10/2020 1 1 Encounter Details Date Type Department Care Team Description 11/22/2019 Hospital Encounter [facility] Czel, Nichelle Prim kevin endometrioid [facility] Nurys, LEATHER CASE FINISHER carcinoma of [address] APPLICATIONS SALES CONSULTANT endometrium of [facility] uterine body (H) [phone] ONCOLOGY [phone] [address] [facility] [address] [place] [address] Social History Tobacco Use Types Packs/Day Years [...] 2 90 tablet 0 11/22 500 MG [place]. CA) 500 MG times daily tabletIndications: ABSTRACTING [...] PM CDTAssociated Order(s): post abdominal mass biopsy [facility] Procedure: Post abdominal mass biopsy Date/Time: [...] the procedure a time out was called [place] Protocol: the Joint Commission [place] Protocol was followed Preparation: Patient was prepped [...] CT ABDOMEN RETROPERITONEAL BIOPSY 11/22/2019 1:03 PM [facility] PROCEDURE: CT ABDOMEN RETROPERITONEAL BI OPSY [...] observer. The physician spent 30 minutes of btul-go-[id number] moderate sedation time with the patient. ADDITIONAL [...] ABDOMEN RETROPERITONEAL BIOPSY 11/22/19 20 1:03 PM [facility] PROCEDURE: CT ABDOMEN RETROPERITONEAL BI OPSY [...] observer. The physician spent 30 minutes of [id number] moderate sedation time with the patient. ADDITIONAL [...] and her . LINDA STEVENS MD Nichelle Nurys [place] LEATHER CASE FINISHER APPLICATIONS SALES CONSULTANT IMG CT ORDERABLES post abdominal mass biopsy (11/22/2019 12:54 PM CDT) Narrative Linda Stevens MD - 11/22/2019 12: 54 PM CDT Linda Stevens MD ? 11/22/2019 12:54 PM [facility] Procedure: Post abdominal mass biopsy Date/Time: [...] dure a time out was called ?? [place] Protocol: the Joint Commission [place] Protocol was followed ?? Preparation: Patient was [...] Component Value Ref Test Analysis Performed At [facility] Range Method Time Signature Copath Report Patient Name: LEANNE ROLDAN MR#: [id number] Specimen #: [id number] Collected: 11/22/2019 Received: 11/22/2019 Reported: 11/23/2019 14:07 [...] of this testing was completed at the [facility] with the professional compo nent performed at the [facility], [address] [place], [place] [address] ([phone]) CPT Codes: A: [address] COLLECTION SITE: Client: [facility] Location: RHCT (R) Specimen (Source) Anatomical Collection Method Collection Time Re ceived Time Location / / Volume Laterality Specimen from 11/22/2019 12:30 11/22/2019 1:29 abdominal cavity PM CDT PM CDT (specimen) Linda Stevens MD LAB - BEAKER AP Performing Organization Address [facility]/ZIP [facility] Phon e Number [place] Platelet count (11/22/2019 10:20 AM CDT) athologist Signature Platelet Count 267 150 - 450 11/22/2019 [place] 10e9/L 10:37 AM CDT [facility] Specimen Anatomical Collection Method Collection Time Receive d Time (Source) Location / / Volume Laterality Blood specimen 11/22/2019 10:20 0 (specimen) AM CDT 10:31 AM CDT Linda Stevens MD LAB - BLOOD ORDERABLES Performing Organization Address [facility] Phon e Number [address] [address] [address] [place], [place] [address] [place] [address] [phone] INR (11/22/2019 10:20 AM CDT) athologist Signature INR 1.01 0.86 - 1.14 11/22/2019 [facility] 10:55 AM CDT [facility] Specimen Anatomical Collection Method Collection Time Receive d Time (Source) Location / / Volume Laterality Blood specimen 11/22/2019 10:20 0 (specimen) AM CDT 10:31 AM CDT Linda Stevens MD LAB - BLOOD ORDERABLES Performing Organization Address [facility] Phon e Number M [facility] [address] [place], [place] [address] [facility] [address] [place], [place] [address] [facility] [phone] documented in this encounter Visit Diagnoses Diagnosis [...] Starting on Thu11/22/19 at 1121, For 1 do Corky abernathy Victoria: cabinet override This drug may cause [...] documented as of this encounter Care Teams Milk Pasteurizer Relationship Specialty Start Date End Date Cheli Meyer MD PCP - General Family Practice 11/15/[address] [address] documented as of this encounter
--- OUTSIDE RECORDS SUMMARY | 2022-02-27 15:41 | XMS_ITS | Encounter Summary ---
:1945 Author Organization [place] Address [address] [place] [address]. [place] [address] Care Team Providers Name Role Phone Cheli Meyer MD Primary Care Provider Reason for Visit Reason Onset Date Comments Covid 19 Testing 11/19/2019 Encounter Details Date Type Department Care Team Description 11/19/2019 Orders Only [facility] Nichelle West Encounter for Urgent Care Missy Nuno, SONNY BOOM CONVEYOR OPERATOR screening for other [address] ONCOLOGY viral diseases [address] [address] [place] [address] [place], [place] [address] Social History Tobacco Use Types Packs/Day Years [...] documented as of this encounter Progress Notes SeekerHollie - 11/19/2019 9:50 AM CDT COVID-19 PCR [...] (Coronavirus) by PCR (11/19/2019 9:56 AM CDT) [facility] Matchmove Method Time Signature COVID-19 Nasopharyngeal 11/19/2019 [facility] Virus PCR to 12:21 PM [facility] [place] - CD[facility] [place] Source [facility] COVID-19 Not Detected 11/20/2019 [facility] Virus PCR to 1:10 PM CDT [place] [facility] [place] - [facility]OM[facility] Result CENTER [...] N1,N2 gene targets of CoV2 and human DEICER TESTER as an internal control. A negative result [...] (Centers for Disease Control) Testing performed by [facility], Room 1-210, [address] [place] [address]. T his test was developed and its performance characteristics determined b [facility]. It has not been cleared or appr [...] PM CDT structure (specimen) Nichelle West APRN BOOM CONVEYOR OPERATOR LAB - MICRO GENERAL ORDERAB LES Performing Organization Address City/State/ZIP Code Phon e Number [address] [address] [facility] Room: 1-[address] [address] [facility] documented in this encounter Visit Diagnoses Diagnosis Encounter for screening for other viral diseases documented in this encounter Additional Health Concerns Assessment Noted Time PHQ-9 Depression Total Score: 0 01/28/2017 2:22 PM CDT documented as of this encounter Care Teams Assistive Technology Trainer Relationship Specialty Start Date End Date Cheli Meyer MD PCP - General Family Practice 11/15/[address] [address] documented as of this encounter
--- OUTSIDE RECORDS SUMMARY | 2022-02-27 15:41 | XMS_ITS | Encounter Summary ---
:1945 Author Organization [place] Address [address] [facility] [place] [address] Care Team Providers Name Role Phone Cheli Meyer MD Primary Care Provider [phone] Encounter Details Date Type Department Care Team Description 12/06/2019 Medical Correspondence [facility] Scan, ORDER [facility] Non-Provider ONCOLOGY Srvcs [address] [place] [address] Social History Tobacco Use Types [...] documented as of this encounter Care Teams Stock Letterer Relationship Specialty Start Date End Date Cheli Meyer MD PCP - General Family Practice 11/15/[address] [address] documented as of this encounter
--- OUTSIDE RECORDS SUMMARY | 2022-02-27 15:41 | XMS_ITS | Encounter Summary ---
:1945 Author Organization [place] Address [address] [place] [address] Care Team Providers Name Role Phone Cheli Meyer MD Primary Care Provider [phone] Encounter Details Date Type Department Care Team Description 12/08/2019 Telephone [facility] Enma Vega RN Interventional Radio logy [address] [place] [address] Social History Tobacco Use [...] documented as of this encounter Care Teams Fire Protection Designer Relationship Specialty Start Date End Date Cheli Meyer MD PCP - General Family Practice 11/15/[address] [address] documented as of this encounter
--- OUTSIDE RECORDS SUMMARY | 2022-02-27 15:41 | XMS_ITS | Encounter Summary ---
:1945 Author Organization [place] Address [address] [place] [address]. [place] [address] Care Team Providers Name Role Phone Cheli Meyer MD Primary Care Provider [phone] Encounter Details Date Type Department Care [...] as of this encounter Care Teams Associate Professor Of Pathology Relationship Specialty Start Date End Date Cheli Meyer MD PCP - General Family Practice 11/15/[address] [address] documented as of this encounter
--- OUTSIDE RECORDS SUMMARY | 2022-02-27 15:41 | XMS_ITS | Encounter Summary ---
:1945 Author Organization [place] Address [address] [place] [address] Care Team Providers Name Role Phone Cheli Meyer MD Primary Care Provider [phone] Encounter Details Date Type Department Care Team Description 11/21/2019 [facility] Leobardo Vega certified massage therapist Radio logy [address] [place] [address] Social History Tobacco Use [...] documented as of this encounter Care Teams Disability Representative Relationship Specialty Start Date End Date Cheli Meyer MD PCP - General Family Practice 11/15/[address] [address] documented as of this encounter
--- OUTSIDE RECORDS SUMMARY | 2022-02-27 15:41 | XMS_ITS | Encounter Summary ---
:1945 Author Organization [place] Address [address] [facility] [place] [address] Care Team Providers Name Role Phone None, Bfp Primary Care Provider Unavailable Encounter Details Date Type Department Care Team Description 09/17/2004 GI Procedure [facility] Kely Ruvalcaba MD None Endoscopy [place] [address] [facility] [address] [place] [address] [place] [id number] (Wo rk) Social History Tobacco Use Types [...] HISTORY AND PHYSICAL (09/17/2004 1:59 PM CDT) [facility] Method Time Signature GI History [facility] RADIOLOGY and Physical RESULTS Patient Name: Leanne [...] hives Social History: ? 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 No known colorectal [...] RADIOLOGY RESULTS COLONOSCOPY (09/17/2004 1:30 PM CDT) [facility] gist Method Time Signature COLONOSCOPY [facility] RADIOLOGY RESULTS Patient Name: Leanne Roldan ?Gender: [...] were monitored ? con tinuously. The Colonoscope ([id number]) was introduced ? thr ough the anus [...] on filedocumented in this encounter Care Teams Sausage Stringer Relationship Specialty Start Date End Date None, Bfp PCP - General 05/03/99 01/22/16 documented as of this encounter
--- OUTSIDE RECORDS SUMMARY | 2022-02-27 15:41 | XMS_ITS | Encounter Summary ---
:1945 Author Organization [place] Address [facility] [place] [address] Care Team Providers Name Role Phone None, Bfp Primary Care Provider Unavailable Reason for Referral Diagnostic Imaging Mammo - Closed Specialty Diagnoses / Procedures Referred By Contact Refer red To Contact Diagnoses Encounter for screening mammogram for malignant neoplasm of breast Prakash Lemos MD CONSULTING RADIOLOGISTS [facility] [address] [place] [address] [facility] [address] [facility] [address] [place] [address] [place] [address] Referral ID Status Reason Start Date Expiration Date Visits Requ ested Visits Authorized [id number] Closed 01/15/2015 01/15/2016 1 1 Reason for Visit Reason Comments Physical no concerns Encounter Details Date Type Department Care Team Description 01/15/2015 Office Visit [facility] Prakash Velasquez, STRACTING RESULTS (Primary Dx); Clinic MD Routine general medical examination at a health care facility; [address] Pers onal history of ovarian cancer; [facility] [place] [address] Encounter for screening mammogram for ma lignant neoplasm of breast; [address] [place] [id number] Factor V Leiden carrier (H) [place] [id number] Social History Tobacco Use Types Packs/Day Years Used Date Smoking Tobacco: Never Tobacco Cessation: Counseling Given: No Alcohol Use [...] daily ??? calcium carbonate (OS-GLORIA [address]. CA) 500 MG tablet Take by mouth 2 times daily No current facility-administered medications for this visit. Allergies Allergen Reactions ??? Bees ??? [place] Past medical, surgical, social and family history [...] 2. Routine general medical examination at a [facility] care facility Z00.00 V70.0 Lipid panel reflex to direct LDL 3. Personal history of ovarian cancer Z85.43 V10.43 [place] 125 4. Encounter for screening mammogram for malignant neoplasm of breast Z12.31 V76.12 RADIOLOGY REFERRAL ([facility]) 5. Factor V Leiden carrier D68.51 [...] medical examination proc edure [facility] the results facility section. CA 125 Routine 01/15/2015 11:30 AM Personal history of R esults for this CDT ovarian cancer procedure are in the results section. documented in this encounter Results CA 125 (01/15/2015 11:30 AM CDT) P athologist Signature [place] 125 6 0 - 30 U/mL [facility] Specimen Anatomical Collection Method Collection Time Receive d Time (Source) Location / / Volume Laterality Blood specimen 01/15/2015 11:30 5 (specimen) AM CDT 11:31 AM CDT Prakash Lemos MD LAB - BLOOD ORDERABLES Performing Organization Address City/State/ZIP Code Phon e Number [facility] [address] [place] [address] [facility] (ABNORMAL) Lipid panel reflex to direct LDL (01/15/2015 11:30 AM CDT) P athologist Signature Cholesterol 194 <200 mg/dL [facility] Comment: LDL Cholesterol is the primary guide to therapy. The NCEP recommends further evaluation of: patients with cholesterol greater than 200 mg/dL if additional risk facto rs are present, cholesterol greater than 240 mg/dL, triglycerides greater than 1 50 mg/dL, or HDL less than 40 mg/dL. Triglycerides 153 (H) 0 - 150 mg/dL [facility] Comment: Fasting specimen HDL Cholesterol 46 (L) >50 mg/dL [facility] LDL Cholesterol Calculated 117 0 - 129 mg/dL [facility] Comment: LDL Cholesterol is the primary guide to therapy: LDL-cholesterol goal in high risk patients is <100 mg/dL and in very high risk patients is <70 mg/dL. VLDL-Cholesterol 31 (H) 0 - 30 mg/dL [facility] Cholesterol/HDL Ratio 4.2 0.0 - 5.0 [facility] Specimen Anatomical Collection Method Collection Time Receive d Time (Source) Location / / Volume Laterality Blood specimen 01/15/2015 11:30 5 (specimen) AM CDT 11:31 AM CDT Prakash Lemos MD LAB - BLOOD ORDERABLES Performing Organization Address City/State/ZIP Code Phon e Number [facility] [address] [place] [address] documented in this encounter Visit Diagnoses Diagnosis [...] documented as of this encounter Care Teams Practice Representative Relationship Specialty Start Date End Date None, Bfp PCP - General 05/03/99 01/22/16 documented as of this encounter
--- OUTSIDE RECORDS SUMMARY | 2022-02-27 15:41 | XMS_ITS | Encounter Summary ---
:1945 Author Organization [place] Address [address] [place] [address] Care Team Providers Name Role Phone Morris Gale DO Primary Care Provider Encounter Details Date Type Department Care Team Description 01/28/2017 Radiant Appointment [facility] for [facility] Alexy na mammogram [address] [facility], [address] [place] [address] Social History Tobacco Use Types [...] documented as of this encounter Care Teams Linoleum Mechanic Relationship Specialty Start Date End Date Morris Gale DO PCP - General Family Practice 01/23/16 11/14/19 documented as of this encounter
--- OUTSIDE RECORDS SUMMARY | 2022-02-27 15:41 | XMS_ITS | Encounter Summary ---
:1945 Author Organization [place] Address [address] [place] [address] Care Team Providers Name Role Phone Morris Gale DO Primary Care Provider Encounter Details Date Type Department Care Team Description 11/11/2019 Telephone [facility] Leobardo Vega RN Interventional Radio logy [address] [place] [address] Social History Tobacco Use [...] [facility] although area is rather superficial. Returned to schedulers to set up procedure 1635 11/11/19 documented in this encounter Plan of Treatment Not on filedocumented as of this encounter Visit Diagnoses Not on filedocumented in this encounter Additional Health Concerns Assessment Noted Time PHQ-9 Depression Total Score: 0 01/28/2017 2:22 PM CDT documented as of this encounter Care Teams Sap Sd Analyst Relationship Specialty Start Date End Date Morris Gale DO PCP - General Family Practice 01/23/16 11/14/19 documented as of this encounter
--- OUTSIDE RECORDS SUMMARY | 2022-02-27 15:41 | XMS_ITS | Clinical Summary ---
:1945 Author Organization [facility] Address [address] [place] [address] Care Team Providers Name Role Phone Cheli Meyer MD Primary Care Provider [phone] Allergies Active Allergy Reactions Severity Noted Date Comments Bees 11/22/2014 [place] 11/22/2014 Medications Medication Sig Dispensed Refills Start Date End Date Status calcium carbonate Take by mouth 2 90 tablet 0 11/22/2014 Active (OS-GLORIA 500 MG [place]. times daily [place]) 500 MG tabletIndications: ABSTRACTING [...] has no history of clotting but janay scott had DVT Advanced directives, counseling/discussion - at [...] (Cologuard) 1945 FIT 1945 FLEX SIG 1945 HEPATITIS B IMMUNIZATION (1 1945 of 3 - 3-dose series) COVID-19 Vaccine (#1) 1945 COLONOSCOPY 09/17/2014 09/17/2004 [...] Years ZOSTER IMMUNIZATION Completed 04/17/2018, 01/14/2018, 03/22/2010 IPV IMMUNIZATION Aged Out No longer eligi ble based on patient 's age to complete this topic MENINGITIS IMMUNIZATION Aged Out No longe r eligible based on patient 's age to complete this topic Insurance Payer Benefit Plan / Subscriber ID Effective Dates Phone Addre ss Type Group [facility] MEDIC[facility] [id number] 2019-Present [phone] [address] [place] [address] Care Teams Tire Trimmer Hand Relationship Specialty Start Date End Date Cheli Meyer MD PCP - General Family Practice 11/15/[address] [id number]
--- OUTSIDE RECORDS SUMMARY | 2022-02-27 15:41 | XMS_ITS | Encounter Summary ---
:1945 Author Organization [facility] Address [address] [place] [address]. [place] [address] Care Team Providers Name Role Phone None, Bfp Primary Care Provider Unavailable Morris Gale DO Primary Care Provider Reason for Visit Reason Comments Medication Refill Encounter Details Date Type Department Care Team Description 01/21/2016 Refill [facility] Rachel Lemos MD Medication Refill [address] [place] [address] [place] [address] [address] [place] [id number] (Wo rk) Social History Tobacco Use Types [...] documented as of this encounter Care Teams Electronic Equipment Set Up Operator Relationship Specialty Start Date End Date None, Bfp PCP - General 05/03/99 01/22/16 Morris Gale DO PCP - General Family Practice 01/23/16 11/14/19 documented as of this encounter
--- OUTSIDE RECORDS SUMMARY | 2022-02-27 15:41 | XMS_ITS | Encounter Summary ---
:1945 Author Organization [facility] Address [address] [place] [address]. [place] [address] Care Team Providers Name Role Phone Cheli Meyer MD Primary Care Provider [phone] Encounter Details Date Type Department Care [...] documented as of this encounter Care Teams Pattern Marking Supervisor Relationship Specialty Start Date End Date Cheli Meyer MD PCP - General Family Practice 11/15/[address] [address] documented as of this encounter
--- OUTSIDE RECORDS SUMMARY | 2022-02-27 15:41 | XMS_ITS | Encounter Summary ---
:1945 Author Organization [facility] Address [address] [place] [address] Care Team Providers Name Role Phone Morris Gale Primary Care Provider Cheli Meyer MD Primary Care Provider [phone] Encounter Details Date Type Department Care Team Description 11/11/[address] [facility] Leobardo Vega RN Interventional Radio logy [address] [employer] [place] [place] [address] Social History Tobacco Use [...] performed and images re-evaluated after scan. Called [facility] with that information. documented in this encounter Plan of Treatment Not on filedocumented as of this encounter Visit Diagnoses Not on filedocumented in this encounter Additional Health Concerns Assessment Noted Time PHQ-9 Depression Total Score: 0 01/28/2017 2:22 PM CDT documented as of this encounter Care Teams Junction Maker Relationship Specialty Start Date End Date Morris Gale DO PCP - General Family Practice 01/23/16 11/14/19 Cheli Meyer MD PCP - General Family Practice 11/15/[address] [address] documented as of this encounter
--- OUTSIDE RECORDS SUMMARY | 2022-02-27 15:41 | XMS_ITS | Encounter Summary ---
:1945 Author Organization [facility] Address [address] [place] [address] Care Team Providers Name Role Phone Cheli Meyer MD Primary Care Provider [phone] Encounter Details Date Type Department Care Team Description 11/25/2019 Telephone [facility] Enma Vega RN Interventional Radio logy [address] [place] [address] Social History Tobacco Use [...] documented as of this encounter Care Teams Car Rental Deliverer Relationship Specialty Start Date End Date Cheli Meyer MD PCP - General Family Practice 11/15/[address] [address] documented as of this encounter
--- OUTSIDE RECORDS SUMMARY | 2022-02-27 15:41 | XMS_ITS | Encounter Summary ---
:1945 Author Organization [facility] Address [address] [place] [address]. [place] [address] Care Team Providers Name Role Phone Morris Gale Primary Care Provider Reason for Visit Reason Comments Medication Refill Encounter Details Date Type Department Care Team Description 01/18/2017 Refill [facility] Rachel Lemos MD Medication Refill for Women [place] [address] [facility] [address] [facility] [address] [place] [address] [place] [phone] Social History Tobacco Use Types Packs/Day Years [...] Scheduled a med chk for 01/28 with Telephone Encounter - Marisa Koenig, RN - 01/20/2017 8:33 AM CDT Atenolol 50mg Last Written Prescription Date: 01/23/16 Last Fill Quantity: 90, # refills: 3 Last Office Visit with [facility] primary care provider: 01/23/16 Future Office visit: [...] documented as of this encounter Care Teams Publishing Director Relationship Specialty Start Date End Date Morris Gale DO PCP - General Family Practice 01/23/16 11/14/19 documented as of this encounter
--- OUTSIDE RECORDS SUMMARY | 2022-02-27 15:41 | XMS_ITS | Encounter Summary ---
:1945 Author Organization [facility] Address [address] [place] [address]. [place] [address] Care Team Providers Name Role Phone Morris Gale DO Primary Care Provider Encounter Details Date Type Department Care Team Description 11/11/2019 Telephone [facility] Leobardo Vega RN Interventional Radio logy [address] [place] [address] Social History Tobacco Use [...] a biopsy however images were done at [facility] and as of 11/11/19 they [...] documented as of this encounter Care Teams Manager Culinary Relationship Specialty Start Date End Date Morris Gale DO PCP - General Family Practice 01/23/16 11/14/19 documented as of this encounter
--- OUTSIDE RECORDS SUMMARY | 2022-02-27 15:41 | XMS_ITS | Encounter Summary ---
:1945 Author Organization [place] Address [facility] [place] [address] Care Team Providers Name Role Phone Cheli Meyer MD Primary Care Provider [phone] Encounter Details Date Type Department Care Team Description 12/08/2019 Orders Only [facility] Kary Metz Encounter for [place] Interventional Rishi austin MD screening for other Radiology [place] [facility] viral diseases [address] HEMATOLOGY (Primary Dx) [place] [address] [phone] [place] [address] [place] [address] Social History Tobacco Use Types Packs/Day [...] documented as of this encounter Care Teams Flexographic Press Plate Setter Relationship Specialty Start Date End Date Cheli Meyer MD PCP - General Family Practice 11/15/[address] [address] documented as of this encounter
--- OUTSIDE RECORDS SUMMARY | 2022-02-27 15:41 | XMS_ITS | Encounter Summary ---
:1945 Author Organization [place] Address [address] [place] [address]. [place] [address] Care Team Providers Name Role Phone Morris Gale DO Primary Care Provider Encounter Details Date Type Department Care Team Description 11/14/2019 Orders Only [facility] MichellemalenaNichelle Encounter for [facility], SLASH TRIMMER MACHINE SPECIALIST screening for other [address] [place] [facility] viral diseases [address] (Primar y Dx) [address] [facility] [address] [place] [address] Social History Tobacco Use Types [...] by PCR (11/19/2019 9:56 AM CDT) [facility] Method Time Signature COVID-19 Nasopharyngeal 11/19/2019 [place] Virus PCR to 12:21 PM [facility] - CDT [place] Source [place] COVID-19 Not Detected 11/20/2019 [facility] Virus PCR to 1:10 PM CDT [place] [facility] GENOMICS Result CENTER LABORATORY Comment: Collection of [...] N1,N2 gene targets of CoV2 and human RETAIL LOSS PREVENTION INVESTIGATOR as an internal control. A negative result [...] (Centers for Disease Control) Testing performed by [facility], Room 1[address]210, [address] [place] [address]. T his test was developed and its performance characteristics determined b y the [facility] [place]. It has not been cleared or appr [...] CDT 12:21 PM CDT structure (specimen) Nichelle Peppernissa [place] SLASH TRIMMER MACHINE SPECIALIST LAB - MICRO GENERAL ORDERAB LES Performing Organization Address City/State/[place] [address] [facility] Room: [address] [place] [address] [address] [place], [place] [address] [place] documented in this encounter Visit Diagnoses Diagnosis Encounter for screening for other viral diseases - Primary documented in this encounter Additional Health Concerns Assessment Noted Time PHQ-9 Depression Total Score: 0 01/28/2017 2:22 PM CDT documented as of this encounter Care Teams Respiratory Therapy Aide Relationship Specialty Start Date End Date Morris Glae DO PCP - General Family Practice 01/23/16 11/14/19 documented as of this encounter
--- OUTSIDE RECORDS SUMMARY | 2022-02-27 15:41 | XMS_ITS | Encounter Summary ---
:1945 Author Organization [place] Address [facility] [place] [address] Care Team Providers Name Role Phone Morris Gale DO Primary Care Provider Encounter Details Date Type Department Care Team Description 01/23/[address] [facility] Rachel Lemos MD [address] [facility] out [address] [facility] [address] [place] [address] [place], [place] [address] (Wo rk) Social History Tobacco Use Types [...] documented as of this encounter Care Teams Bonded Strand Operator Relationship Specialty Start Date End Date Morris Gale DO PCP - General Family Practice 01/23/16 11/14/19 documented as of this encounter
--- OUTSIDE RECORDS SUMMARY | 2022-02-27 15:41 | XMS_ITS | Encounter Summary ---
:1945 Author Organization [place] Address [address] [facility] [place] [address] Care Team Providers Name Role Phone Morris Gale DO Primary Care Provider Reason for Referral Diagnostic Imaging Other - Closed Specialty Diagnoses / Procedures Referred By Contact Refer red To Contact Diagnoses Encounter for screening mammogram for malignant neoplasm of breast Rachel Lemos MD [facility] [address] [place] [address] [facility] [address] [place] [address] [place] [address] [place] [address] Referral ID Status Reason Start Date Expiration Date Visits Requ ested Visits Authorized [id number] Closed 01/23/2016 01/22/2017 1 1 Reason for Visit Reason Comments Physical Encounter Details Date Type Department Care Team Description 01/23/2016 Office Visit [place] Rachel Velasquez for gynecological examination (general) (routine) without abnormal findings (Primary Dx); Fabián Munoz MD Encounter for screening mammogram for ma lignant neoplasm of breast; [address] for lipid screening for cardiovascular disease; [facility] [address] [place] Personal history of ovarian cancer; [address] [place] [address] HTN (hypertension), benign; [place] [phone] Need for prophylactic vaccin ation and inoculation [...] the person to be vaccinated ever had Guillain-Sod syndrome? No Form completed by Shorty Ortiz [...] HPI: The patient's PCP is Dr Gale [facility]. Patient is seeing us once a years [...] 0 HEALTH MAINTENANCE: Cholesterol: 01/15/15 Total= 194, Qzvumxpjvtzme=355, HDL=46, JEV=311 Last Mammo: 01/19/15, Result: normal, Next Mammo: [...] daily ??? calcium carbonate (OS-GLORIA 500 MG [place]. CA) 500 MG tablet Take by mouth 2 times daily ??? [DISCONTINUED] atenolol (TENORMIN) 50 MG tablet Take 1 tablet (50 mg) by mouth daily No current facility-administered medications for this visit. Allergies Allergen Reactions ??? Bees ??? [place] Past medical, surgical, social and family history [...] satisfactory annual exam. ICD-10-CM 1. ABSTRACTING RESULTS [address] atenolol (TENORMIN) 50 MG tablet 2. Encounter [...] Results CA 125 (01/23/2016 11:33 AM CDT) athologist Signature [place] 125 7 0 - 30 U/mL [facility] Comment: Assay Method: Chemiluminescence using Siemens Centaur XP Specimen Anatomical Collection Method Collection Time Receive d Time (Source) Location / / Volume Laterality Blood specimen 01/23/2016 11:33 6 (specimen) AM CDT 11:34 AM CDT Rachel Lemos MD LAB - BLOOD ORDERABLES Performing Organization Address City/State/ZIP Code Phon e Number [facility] [address] [place] [address] [facility] (ABNORMAL) Lipid panel reflex to direct LDL (01/23/2016 11:33 AM CDT) [facility] Method Time Signature Cholesterol 177 <200 [place] mg/dL [facility] Triglycerides 108 <150 [place] mg/dL [facility] HDL Cholesterol 49 (L) >49 mg/dL [facility] LDL Cholesterol 106 (H) <100 [place] Calculated mg/dL [facility] Comment: Above desirable: ??100-129 mg/dl Borderline High: ??130-159 mg/dL High: ? 160-189 mg/dL Very high: ? >189 mg/dl Non HDL Cholesterol 128 <130 mg/dL [facility] Specimen Anatomical Collection Method Collection Time Receive d Time (Source) Location / / Volume Laterality Blood specimen 01/23/2016 11:33 6 (specimen) AM CDT 11:34 AM CDT Rachel Lemos MD LAB - BLOOD ORDERABLES Performing Organization Address City/[facility]/ZIP Code Phon e Number [facility] [address] [place] [address] documented in this encounter Visit Diagnoses Diagnosis [...] documented as of this encounter Care Teams Cork Tile Floor Layer Relationship Specialty Start Date End Date Morris Gale DO PCP - General Family Practice 01/23/16 11/14/19 documented as of this encounter
--- OUTSIDE RECORDS SUMMARY | 2022-02-27 15:42 | XMS_ITS | Clinical Summary ---
:1945 Author Organization [facility] [place] [address] Care Team Providers Name Role Phone Cheli Meyer MD Primary Care Provider [phone] Allergies Active Allergy Reactions Severity Noted Date Comments Hymenoptera Allergenic Extract *Unknown 06/09/2012 [place] *Unknown 06/09/2012 Medications Medication Sig Dispensed Refills [...] by 0 Active (CRANBERRY CONCENTRATE mouth. ORAL) [id number] oil Take by 0 Active (FISH OIL) [...] Group MEDICARE PART A MEDICARE PART A [id number] 2011-Present ATTN: CLAIMS - HB USE ONLY HB ONLY [address] [place] [address] [employer] [facility] [place] MEDICARE [id number] 2019-Present [address] [place] [address] Advance Directives Latest Code Status on File Code Status Date Activated Date Inactivated Comments Full Code 06/09/2012 5:43 AM 06/11/2012 3:29 PM Care Teams Php Software Engineer Relationship Specialty Start Date End Date Cheli Meyer MD PCP - General Family Practice 12/12/191999 [place] [address]
--- NOTE | 2022-02-27 16:15 | CRLHL7_ITS ---
For Patients: As a result of the 21st Century Cures Act, medical imaging exams and procedure reports are released immediately into your electronic medical record. You may view this report before your referring provider. If you have questions, please contact your health care provider. EXAM: PET-CT SKULL BASE TO THIGH CLINICAL INFORMATION: 76-yo female with a history of metastatic ovarian cancer. Immunotherapy. Patient is referred for further characterization. TECHNIQUE: Radiopharmaceutical: 12.46 mCi of 18F-FDG Intravenous injection site: Port Uptake time: 65 minutes Blood glucose level at the time of injection: 86 mg/dL Field of view: Skull base to mid-thighs Intravenous contrast: Not administered Oral contrast: Not administered CT protocol: The low-dose, free-breathing, noncontrast CT performed as part of this study is designed for the purposes of attenuation correction and lesion localization, and it is neither sufficient, nor it should be substituted for diagnostic purposes. COMPARISON: Head CT 01/02/2022. CT chest 10/16/2021 FINDINGS: Physiologic background liver standardized uptake value (SUV mean and SUV max) reported for comparison between PET studies: 3.0 and 4.0. Visualized head and neck: Physiologic uptake in the visualized portions of the brain and salivary glands. Bandlike uptake within the right masseter and left pterygoid muscles is nonspecific, probably reactive/inflammatory or physiologic. SUV max left pterygoid muscle, 16.1. Attention on follow-up. Head and neck lymph nodes: Increased uptake within nonenlarged low left neck/medial supraclavicular lymph nodes and slightly increased uptake in a low right neck lymph node. For example: -medial left supraclavicular lymph node, 0.8 cm short axis, SUV max 21.5 (fused PET-CT image 59). Previously 17.3. -posterior medial left supraclavicular lymph node, SUV max 12.2 (fused PET-CT image 55). Previously 7.8. -medial right supraclavicular lymph node with slightly increased uptake, 0.4 cm short axis, SUV max 4.2 (fused PET-CT image 57). Previous the 3.4. Lungs: No new tracer avid pulmonary nodules or abnormal uptake. Thoracic lymph nodes: No hypermetabolic upper mediastinal, hilar or axillary lymph nodes. Decreased uptake within a small high left prevascular lymph node, SUV max 2 point 0. Previously 9.4 increased uptake right retrocrural lymph node, SUV max 7.8. Previously 2.4. Other chest findings: Right chest port with catheter tip positioned in the lower SVC. Mild coronary vascular and thoracic aortic calcifications. Similar uptake within bilateral breast parenchyma and each nipple areolar complex compared to prior. Hepatobiliary: No abnormal uptake. Spleen: No abnormal uptake. Pancreas: No abnormal uptake. Adrenals: No abnormal uptake. Kidneys and bladder: No abnormal uptake. Physiologically excreted tracer activity within the renal collecting system and urinary bladder. Bowel and peritoneum: No suspicious gastric or small bowel uptake. Colonic diverticulosis without inflammatory change. Scattered areas of uptake throughout relatively decompressed colon demonstrate no definitive noncontrast CT abnormality, possibly inflammatory/reactive related medication effect (i.e. Metformin). -Adjacent periumbilical hernias containing fat and nondilated loops of bowel and small avid peritoneal nodules. For example: -fat containing left periumbilical hernia with adjacent peritoneal nodules, SUV max 7.1 (fused PET-CT image 177). Previously 5.6. -midline fat containing hernia with a focal possible peritoneal nodule SUV max 12.2 (fused PET-CT image 196). Previously 12.7. -anterior left peritoneal nodule,1.1 cm, SUV max 6.6 (fused PET-CT image 170). Previously 7.3. Pelvic organs: Prior hysterectomy. Abdominopelvic lymph nodes: Variably increased uptake within multiple upper abdominal, bilateral retroperitoneal, common iliac lymph nodes and a right external iliac lymph node. For example: -rivka uptake adjacent to the celiac trunk, SUV max 17.0 (fused PET-CT image 133). Previously SUV max 7.8. -aortocaval lymph node, SUV max 16.4 (fused PET-CT image 161). Previously 16.3. -right external iliac lymph node, SUV max 22.1 (fused PET-CT image 210). Previously 21.3. Musculoskeletal, soft tissues, skin: No suspicious osseous lesions or abnormal uptake. Degenerative type uptake within the shoulders and spine. Other: Scattered aortoiliac atherosclerotic vascular calcifications. IMPRESSION: 1. Variably increased overall uptake within supraclavicular, right retrocrural, abdominal, retroperitoneal and right pelvic lymph nodes consistent with metastatic disease. 2. Variable moderate to intense uptake within small metastatic peritoneal nodules. 3. No new sites of abnormal uptake in the lungs, solid organs of the upper abdomen or osseous structures. 4. Scattered areas of uptake within the colon demonstrate no associated noncontrast CT abnormality, possibly reactive/inflammatory or related to medication effect. 5. Increased uptake within the right masseter muscle and left pterygoid musculature is nonspecific, probably reactive/inflammatory or physiologic. Attention on follow-up. 6. Other nonacute findings as detailed in the body of the report. Dictated by Lewis Khan MD @ 03/06/2022 11:36:34 AM (Electronically Signed)
== END 2022-02-27 15:39 | disposition home or self-care (01) ==
LOC: RAD 15:38
PROVIDERS: PCP Family Medicine; Visit Provider Internal Medicine Medical Oncology
DX: C54.1 Malignant neoplasm of endometrium (principal); Z85.42 Personal history of malignant neoplasm of other parts of uterus
CPT/HCPCS: 78815; A9552

== ENCOUNTER 2022-05-14 10:30 | Outpatient (RCR) | payer MEDICARE, SELFPAY ==
[2021-12-09] MEDS: HEPARIN 500 UNIT/5 ML SYRINGE IVF (15:38)
[2021-12-09] MEDS: SODIUM CHLORIDE 0.9 % (FLUSH) 10 ML SYRINGE IVF (15:38)
[2021-12-10 10:50] LABS: Cancer Antigen 125 44 U/mL (<=38)
[2022-01-06] MEDS: HEPARIN 500 UNIT/5 ML SYRINGE IVF (14:57)
[2022-01-06 15:05] LABS: Basophils Absolute Auto 0.02 K/uL (0.00-0.30); Basophils Percent Auto 0.3 % (0.0-3.0); Eosinophils Absolute Auto 0.13 K/uL (0.00-0.50); Hematocrit 38.8 % (33.0-51.0); Hemoglobin* 12.9 gm/dL (12.0-16.0); Immature Granulocytes Abs Auto 0.05 K/uL (0.00-0.30); Lymphocytes Absolute Auto 1.55 K/uL (0.90-2.90); Lymphocytes Percent Auto 23.3 % (20-44); Mean Corpuscular HGB Conc 33 gm/dL (32-36); Mean Corpuscular Hemoglobin 32 pg (26-34); Mean Corpuscular Volume 97 fL (80-100); Monocytes Percent Auto 8.6 % (0.0-11.0); Neutrophils Absolute Auto 4.34 K/uL (1.7-7.0); Platelet Count* 205 K/uL (140-440); Red Blood Count 4.02 m/uL (4.00-5.20); White Blood Count* 6.66 K/uL (4.50-11.00)
[2022-01-06 15:07] LABS: Slide Review Reflex No
[2022-01-06 15:18] LABS: Albumin* 4.2 g/dL (3.3-5.0); Chloride* 103 mmol/L (96-114); Sodium* 138 mmol/L (135-149)
[2022-01-06 15:20] LABS: Creatinine* 0.9 mg/dL (0.5-1.5); Estimated Glomerular Filt Rate 67 ml/min
[2022-01-06 15:21] LABS: Alanine Aminotransferase* 26 U/L (4-35); Alkaline Phosphatase* 94 U/L (40-150); Aspartate Amino Transferase* 35 U/L (12-35); Bilirubin Total* 0.2 mg/dL (0.1-1.5); Blood Urea Nitrogen* 19 mg/dL (7-30); Carbon Dioxide* 28 mmol/L (20-32); Glucose* 105 mg/dL (60-115); Total Protein* 7.5 g/dL (6.0-8.3)
[2022-01-06 15:22] LABS: Calcium* 9.7 mg/dL (8.4-10.6)
[2022-01-08 18:16] LABS: Cancer Antigen 125 49 U/mL (<=38)
[2022-02-03] MEDS: HEPARIN 500 UNIT/5 ML SYRINGE IVF (13:48)
[2022-02-03] MEDS: SODIUM CHLORIDE 0.9 % (FLUSH) 10 ML SYRINGE IVF (13:48)
[2022-02-27 16:19] LABS: Basophils Absolute Auto 0.01 K/uL (0.00-0.30); Basophils Percent Auto 0.2 % (0.0-3.0); Eosinophils Absolute Auto 0.09 K/uL (0.00-0.50); Eosinophils Percent Auto 1.4 % (0.0-7.0); Hematocrit 36.3 % (33.0-51.0); Hemoglobin* 12.3 gm/dL (12.0-16.0); Immature Granulocytes Abs Auto 0.03 K/uL (0.00-0.30); Immature Granulocytes Pct Auto 0.5 %; Lymphocytes Absolute Auto 1.46 K/uL (0.90-2.90); Mean Corpuscular HGB Conc 34 gm/dL (32-36); Mean Corpuscular Hemoglobin 32 pg (26-34); Mean Corpuscular Volume 96 fL (80-100); Monocytes Percent Auto 7.5 % (0.0-11.0); Neutrophils Absolute Auto 4.55 K/uL (1.7-7.0); Neutrophils Percent Auto 68.4 % (42.0-72.0); Platelet Count* 208 K/uL (140-440); RDW Coefficient of Variation % 14.1 % (11.5-15.5); White Blood Count* 6.64 K/uL (4.50-11.00)
[2022-02-27 16:20] LABS: Albumin* 4.2 g/dL (3.3-5.0); Chloride* 98 mmol/L (96-114); Potassium* 3.8 mmol/L (3.6-5.1); Sodium* 134 mmol/L (135-149)
[2022-02-27 16:22] LABS: Creatinine* 0.9 mg/dL (0.5-1.5); Estimated Glomerular Filt Rate 67 ml/min
[2022-02-27 16:23] LABS: Alanine Aminotransferase* 30 U/L (4-35); Alkaline Phosphatase* 85 U/L (40-150); Aspartate Amino Transferase* 36 U/L (12-35); Bilirubin Total* 0.4 mg/dL (0.1-1.5); Blood Urea Nitrogen* 19 mg/dL (7-30); Carbon Dioxide* 27 mmol/L (20-32); Glucose* 80 mg/dL (60-115); Total Protein* 7.5 g/dL (6.0-8.3)
[2022-02-27 16:24] LABS: Calcium* 9.3 mg/dL (8.4-10.6)
[2022-02-27 17:06] LABS: Slide Review Reflex No
[2022-03-01 23:36] LABS: Cancer Antigen 125 69 U/mL (<=38)
[2022-04-08] MEDS: SODIUM CHLORIDE 0.9 % (FLUSH) 10 ML SYRINGE IVF (11:46)
[2022-04-08] MEDS: HEPARIN 500 UNIT/5 ML SYRINGE IVF (11:46)
[2022-05-14 10:48] LABS: Basophils Absolute Auto 0.02 K/uL (0.00-0.30); Basophils Percent Auto 0.3 % (0.0-3.0); Eosinophils Percent Auto 1.6 % (0.0-7.0); Hematocrit 38.3 % (33.0-51.0); Hemoglobin* 12.8 gm/dL (12.0-16.0); Immature Granulocytes Abs Auto 0.01 K/uL (0.00-0.30); Immature Granulocytes Pct Auto 0.2 %; Lymphocytes Absolute Auto 1.46 K/uL (0.90-2.90); Lymphocytes Percent Auto 23.6 % (20-44); Mean Corpuscular HGB Conc 33 gm/dL (32-36); Mean Corpuscular Hemoglobin 32 pg (26-34); Mean Corpuscular Volume 95 fL (80-100); Monocytes Percent Auto 7.8 % (0.0-11.0); Neutrophils Absolute Auto 4.12 K/uL (1.7-7.0); Neutrophils Percent Auto 66.5 % (42.0-72.0); Platelet Count* 212 K/uL (140-440); Red Blood Count 4.04 m/uL (4.00-5.20); White Blood Count* 6.19 K/uL (4.50-11.00)
[2022-05-14 10:49] LABS: Slide Review Reflex No
[2022-05-14 11:00] LABS: Albumin* 4.1 g/dL (3.3-5.0); Chloride* 105 mmol/L (96-114)
[2022-05-14 11:01] LABS: Hemoglobin A1C* 5.41 % (0-5.6); Sodium* 139 mmol/L (135-149)
[2022-05-14 11:03] LABS: Cholesterol* 165 mg/dL (90-199); Creatinine* 0.9 mg/dL (0.5-1.5); Estimated Glomerular Filt Rate 66 ml/min
[2022-05-14 11:04] LABS: Alanine Aminotransferase* 24 U/L (4-35); Alkaline Phosphatase* 92 U/L (40-150); Aspartate Amino Transferase* 36 U/L (12-35); Bilirubin Total* 0.5 mg/dL (0.1-1.5); Blood Urea Nitrogen* 19 mg/dL (7-30); Calcium* 9.2 mg/dL (8.4-10.6); Carbon Dioxide* 28 mmol/L (20-32); Glucose* 100 mg/dL (60-115); Total Protein* 7.6 g/dL (6.0-8.3); Triglycerides* 104 mg/dL (40-149)
[2022-05-14 11:05] LABS: HDL Cholesterol* 39 mg/dL (>=50); LDL Cholesterol Calculated 105 mg/dL (<100)
[2022-05-14] MEDS: SODIUM CHLORIDE 0.9 % (FLUSH) 10 ML SYRINGE IVF (15:59)
[2022-05-14] MEDS: HEPARIN 500 UNIT/5 ML SYRINGE IVF (15:59)
[2022-05-16 00:10] LABS: Cancer Antigen 125 107 U/mL (<=38)
[2022-05-16 11:23] LABS: Magnesium* 1.7 mg/dL (1.5-2.6)
[2022-05-16 13:54] LABS: Magnesium* 1.7 mg/dL (1.5-2.6)
== END 2022-06-07 23:59 | disposition home or self-care (01) ==
LOC: CCIC 10:30
PROVIDERS: Internal Medicine Hematology & Oncology; PCP Family Medicine; Referring Provider Family Medicine; Visit Provider Internal Medicine Medical Oncology
DX: C56.9 Malignant neoplasm of unspecified ovary (principal); Z85.42 Personal history of malignant neoplasm of other parts of uterus; E78.5 Hyperlipidemia, unspecified; R73.03 Prediabetes
CPT/HCPCS: 36415; 36591; 80053; 80061; 83036; 83735; 85025; 86304; 99211; 99212; 99214; 99215; 99441; J1642

== ENCOUNTER 2022-06-09 10:03 | Outpatient (CLI) | payer MEDICARE, SELFPAY ==
--- NOTE | 2022-06-09 11:00 | CRLHL7_ITS ---
For Patients: As a result of the 21st Century Cures Act, medical imaging exams and procedure reports are released immediately into your electronic medical record. You may view this report before your referring provider. If you have questions, please contact your health care provider. Indication: recurrent carcinoma of ovary Technique: Postcontrast CT chest, abdomen and pelvis. Oral water. 95 cc Isovue 370 intravenous contrast. Please note that all CT scans at this facility use dose modulation, iterative reconstruction, and/or weight-based dosing when appropriate to reduce radiation dose to as low as reasonably achievable. Comparison: CT PET 06/09/2022 Findings: In the chest, there is no suspicious pulmonary nodule. No infiltrate or edema. No effusion or pneumothorax. Fullness of the left supraclavicular space is present measuring 2.2 cm. Additional enlarged left supraclavicular lymph node is present measuring 1.3 cm. The visualized thyroid is normal. No mediastinal, hilar or axillary adenopathy. In the abdomen, there is no intrahepatic mass. The gallbladder is absent. No biliary obstruction. No adrenal lesion. Spleen normal in size. Incidental extrarenal pelvis on the left. No hydronephrosis or solid renal mass bilaterally. Right retrocrural soft tissue fullness noted measuring 3.4 cm. Right periaortic lymph node near the GE junction measures 1.5 cm. Retroperitoneal lymph node enlargement along the left periaortic and aortocaval spaces measuring up to 1.4 cm. No pancreatic mass. Mild atherosclerotic disease. Abdominal wall hernia defects are again noted. Two of them contain fat measuring 3.8 cm in the left para midline and 3.0 cm in the supraumbilical midline. An additional hernia containing a nonobstructed loop of large bowel is present in the midline measuring 5.9 cm. Soft tissue nodules associated with the left paramidline abdominal wall hernia are similar measuring 1.4 cm and 1.2 cm. Additional nodule adjacent to the loop of transverse colon extending through the midline hernia is unchanged measuring 6 millimeters. A partially calcified left peritoneal implant is present anteriorly measuring 1.5 cm. In the pelvis, the bladder is normal. Sigmoid diverticulosis is present. Enlarged right pelvic lymph node measuring 1.4 cm along the right external iliac chain. Subcentimeter lymph node along the right lateral pelvic sidewall is also similar. No abscess or free air. No free fluid. The uterus and ovaries are absent. Impression: Adenopathy in the left supraclavicular, right distal thoracic periaortic, right retrocrural, retroperitoneum and right pelvic regions are likely similar. Soft tissue peritoneal implants associated with the left paramidline abdominal wall hernia, midline anterior abdominal wall hernia and left anterior omentum on the left are also likely similar. No pulmonary nodule or intrahepatic mass. Chronic sigmoid diverticulosis. Please note that all CT scans at this facility use dose modulation, iterative reconstruction, and/or weight-based dosing when appropriate to reduce radiation dose to as low as reasonably achievable. Dictated by Vega Hatch MD @ 06/09/2022 1:49:55 PM (Electronically Signed)
== END 2022-06-09 10:04 | disposition home or self-care (01) ==
LOC: CT 10:04
PROVIDERS: PCP Family Medicine; Visit Provider Internal Medicine Medical Oncology
DX: C56.9 Malignant neoplasm of unspecified ovary (principal); K43.9 Ventral hernia without obstruction or gangrene; K57.30 Diverticulosis of large intestine without perforation or abscess without bleeding
CPT/HCPCS: 71260; 74177; Q9967

== ENCOUNTER 2022-08-14 13:27 | Outpatient (CLI) | payer MEDICARE, SELFPAY ==
--- NOTE | 2022-08-14 14:00 | CRLHL7_ITS ---
For Patients: As a result of the 21st Century Cures Act, medical imaging exams and procedure reports are released immediately into your electronic medical record. You may view this report before your referring provider. If you have questions, please contact your health care provider. INDICATION: Ovarian cancer TECHNIQUE: Following IV injection of FDG with uptake of 57 minutes, noncontrast CT scan followed by a PET scan were acquired along the length of body from the head to the upper thighs. Noncontrast CT was used for anatomic localization and photon attenuation correction of the PET-CT scan. - Blood glucose level: 84. - FDG dose (mCi): 12.02. COMPARISON: 02/27/2022 PET-CT. FINDINGS: Head/Neck: Increased size, number and uptake of left supraclavicular lymph nodes. Conglomerate mass with SUV max of 26.4 previously 21.5 measures 2.5 cm short axis previously 1.3 cm. - Chest: Increased size, number and uptake of mediastinal lymph nodes. Upper anterior mediastinal lymph node is new from prior with SUV max of 17.7. Lymph node posterior to the janel is new from prior with SUV max of 9.3. Increased retrocrural adenopathy with SUV max of 20.8 previously 7.8 measuring 1.8 cm short axis previously 0.7 cm. - Background liver parenchyma with SUV mean of 3.0. Increased size, number and uptake of carcinomatosis. For example mass abutting the transverse colon in ventral hernia with SUV max of 24.7 previously 12.2 measures 2.7 cm previously 1.0 cm. Multiple additional tracer avid nodules are noted. Right external iliac lymph node with SUV max of 35.7 previously 22.1. Left external iliac lymph node SUV max of 19.3 is new from prior. Right internal iliac lymph nodes are new from prior as well with SUV max of 19.6. Increased size and uptake of retroperitoneal lymph nodes. For example preaortic rivka mass with SUV max of 29.8 previously 16.9 measures 2.9 cm previously 1.5 cm. - Musculoskeletal: Question of small tracer avid lesion in the left femoral neck reverses synovial uptake with SUV max of 7.3 measuring 0.9 cm. - CT findings: Chest port tip at the cavoatrial junction. Cholecystectomy. Lymph nodes and carcinomatosis as above. Ventral hernias are again noted. Trace ascites. Hysterectomy. Degenerative changes in the spine. IMPRESSION : 1. Increased size, number and uptake of carcinomatosis. 2. Increased size, number and uptake of left supraclavicular, thoracic, abdominal and pelvic metastatic lymph nodes. 3. Question of small tracer avid left femoral neck lesion versus adjacent synovial uptake. Dictated by Vega Parker MD @ 08/20/2022 11:08:50 AM (Electronically Signed)
== END 2022-08-14 13:28 | disposition home or self-care (01) ==
LOC: RAD 13:28
PROVIDERS: PCP Family Medicine; Visit Provider Physician Assistant
DX: C54.1 Malignant neoplasm of endometrium (principal); C56.9 Malignant neoplasm of unspecified ovary
CPT/HCPCS: 78815; A9552

== ENCOUNTER 2022-08-19 20:33 | Emergency (ER) | payer MEDICARE, SELFPAY ==
[2022-08-19] VITALS (9 sets, daily range): BP systolic 142–171; BP diastolic 69–102; PULSE 72–76; RESP 16; TEMP 36.1; O2SAT 94–100
--- NOTE | 2022-08-19 20:42 | CRLHL7_ITS ---
For Patients: As a result of the Century Cures Act, medical imaging exams and procedure reports are released immediately into your electronic medical record. You may view this report before your referring provider. If you have questions, please contact your health care provider. INDICATION: Abdominal pain. History of ovarian and endometrial cancer TECHNIQUE: CT Abdomen and pelvis with i.v. contrast. Coronal and sagittal reformats were obtained. CONTRAST: 80 mL Isovue 370 COMPARISON: 06/09/2022 FINDINGS: Lower chest: Unremarkable. Liver: Unremarkable. Spleen: Unremarkable. Pancreas: Unremarkable. Gallbladder: Previous cholecystectomy noted with no significant intra- or extrahepatic biliary ductal dilatation seen. Kidney: Unremarkable. No kidney or ureteral stones or obstruction seen. Adrenal: Unremarkable. Bowel: There are 2 periumbilical ventral hernia is present containing a segment of transverse colon obstruction. Mild fluid distention of the small bowel loops are present in the left lower quadrant measuring up to 2.8 cm. The appendix is not identified. Vascular: Unremarkable. Lymph: A retrocrural lymph node is present measuring 1.7 cm. Small retroperitoneal lymph nodes are present measuring up to 9 mm. Peritoneum: There is a soft tissue mass in the retroperitoneum abutting the right aspect of the celiac axis measuring 1.7 x 2.7 cm. There are small peritoneal soft tissue nodules present in the left anterior abdomen and within the herniated fat in the periumbilical hernia. No pneumoperitoneum is seen. No significant ascites is noted. Pelvis: The patient is status post hysterectomy. Soft tissue: Unremarkable. Bone: Unremarkable for age. IMPRESSIONS: 1. Mild fluid distention of the small bowel loops are present in the left lower quadrant measuring up to 2.8 cm. Imaging and clinical follow-up is recommended to exclude small bowel obstruction. 2. Peritoneal carcinomatosis and retroperitoneal adenopathy noted without significant interval change, likely due to metastatic disease. Dictated by Chalo Carrera MD @ 08/19/2022 10:13:00 PM Please note that all CT scans at this facility use dose modulation, iterative reconstruction, and/or weight-based dosing when appropriate to reduce radiation dose to as low as reasonably achievable. Dictated by: MD @ 08/19/2022 22:13:45 (Electronically Signed)
--- OUTSIDE RECORDS SUMMARY | 2022-08-19 21:18 | XMS_ITS | Continuity of Care Document ---
Author Name Unknown Organization [facility] Address [address] [address] [place] [address] Phone Care Team Providers Care Extractions Technician Name Role Phone Kely Ruvalcaba MD Unavailable Unavailable Allergies, Adverse Reactions, Alerts Substance Reaction Status Criticality No Known Drug Allergies Active No I nformation strawberry hives Active No Information WARNIN allergy(ies) could not be collected because the type is not supported. Please contact the source practice for further details. Medications Medication Instructions Dosage Effective Dates (start - stop) Status Comments atenolol 50 mg tablet take 1 tablet by oral route every day 50 MG - Active B Complex tablet,extended release - Active Calcium 600 + D(3) 600 mg calcium-200 unit capsule take 2 tablets by oral route every day 2 tablets - Active L-GLUTAMINE (unknown strength) Not Available - Active Procedures Procedure Date Level Iv-surg Path Gross/micro 15 CRS Charges Advance Directives Directive Yes / No Effective Date File Name No Information Encounters Encounter Description Practice Location Reason(s) For Visit Diagnoses Date Provider Providers Copied on Encounter [facility], [address] [address], [facility] [place], [id number], [place] tel:[phone] [facility] Colon polypDiverticulosis of large intestine without hemorrhageEncounter for screening for malignant neoplasm of colonBenign neoplasm of cecumDvrtclos of lg int w/o perforation or abscess w/o bleedingBenign neoplasm of cecum 0-[address], [place], [address], [place]. [phone] Referring Provider: Referral Self. Family History Family Member Type Diagnosis Age At Onset Sister Problem (finding) Alive and well Mother Problem (finding) Alive and well Mother Problem (finding) Kidney disease, uses di alysis Father Problem (finding) 99 Brother Problem (finding) Alive and well Father Problem (finding) diverticulitis of colon 99 Sister Problem (finding) malignant neop lasm of breast in first degree relative Son Problem (finding) Alive and well Brother Problem (finding) No Family hist ory of No history of Factor five Payers Payer name Insurance type Covered constitution party ID Authoriza tion(s) No Information Social History Type Description Quantity Date Captured Comments Alcohol Use Details Unknown Caffeine Use Details Unknown Tobacco Use Status No Information Smoking Status Never smoker Home in safe Sex Female Vital Signs Date / Time: Height Weight BMI Pulse Rate Blood Pressure Temperature Respiratory Rate Body Surface Area Head Circumference Head Circ. Percentile Wt./Anderson. Percentile BMI percentile Pulse Ox Inhaled Ox 10:53 AM 63.00 in 113.380 kg (250.00 lbs) 44.3 0 kg/m eter (2) 73 /min 145/83 mm[Hg] 0.00 F 18 /min 97 % Chief Complaint And Reason For Visit No Information Reason For Referral Reason For Referral No Information Plan Of Treatment Date Type Action Status No Information History Of Present Illness Encounter Date Complaint History Of Prese nt Illness No Information Functional Status Date Functional Assessmen t No Information Instructions Date Instruction Additional Infor mation Colon Cancer Prevention Related to Colon polyp Colon Polyps Related to Colon polyp Diverticulosis/Diverticulitis Re lated to Colon polyp High Fiber Diet Related to Colon polyp Assessments Type Assessment Date assessment Colon polyp assessment Diverticulosis of large intestin e without hemorrhage Patient Care Teams Name Effective Dates (start - stop) Status Members No Information
--- OUTSIDE RECORDS SUMMARY | 2022-08-19 21:18 | XMS_ITS | Continuity of Care Document ---
Author Name Unknown Organization [facility] Address [address] [address] [place] [address] Care Team Providers Care Sales And Training Specialist Name Role Phone [place], [place] Unavailable Unav ailable Procedures Procedure Date Colono Advance Directives Directive Yes / No Effective Date File Name No Information Encounters Encounter Description Practice Location Reason(s) For Visit Diagnoses Date Provider Providers Copied on Encounter [facility], [address] [address], [place], [place], [id number], [facility] No Information [facility]. [address] [address], [place], [place], [id number], . tel:[phone] Referring Provider: Kely Ruvalcaba MD J, [address] [place], [place] [address] [facility] [address], [place], [address]. tel:[phone] Family History Family Member Type Diagnosis Age At Onset No Information Payers Payer name Insurance type Covered alliance party ID Authoriza tion(s) No Information Social History Type Description Quantity Date Captured Comments Sex Female Smoking Status No Information Chief Complaint And Reason For Visit No Information Reason For Referral Reason For Referral No Information Plan Of Treatment Date Type Action Status No Information History Of Present Illness Encounter Date Complaint History Of Prese nt Illness No Information Functional Status Date Functional Assessmen t No Information Instructions Date Instruction Additional Infor mation No Information Assessments Type Assessment Date No Information Patient Care Teams Name Effective Dates (start - stop) Status Members No Information
[2022-08-19 21:34] LABS: Appearance Urine Slightly Cloudy (Clear); Bilirubin Urine Negative (Negative); Blood Urine Negative (Negative); Color Urine Yellow (Yellow); Glucose Urine Negative (Negative); Ketones Urine 2+ (Negative); Leukocyte Esterase Urine Trace (Negative); Nitrite Urine Negative (Negative); Protein Urine 2+ (Negative); Specific Gravity Urine 1.025 (1.000-1.030); Urobilinogen Urine 0.2 (0.2-1.0)
[2022-08-19 21:39] LABS: Eosinophils Absolute Auto 0.01 K/uL (0.00-0.50); Eosinophils Percent Auto 0.1 % (0.0-7.0); Hematocrit 40.3 % (33.0-51.0); Hemoglobin* 13.4 gm/dL (12.0-16.0); Immature Granulocytes Abs Auto 0.02 K/uL (0.00-0.30); Immature Granulocytes Pct Auto 0.2 %; Lymphocytes Percent Auto 8.2 % (20-44); Mean Corpuscular HGB Conc 33 gm/dL (32-36); Mean Corpuscular Hemoglobin 31 pg (26-34); Mean Corpuscular Volume 93 fL (80-100); Monocytes Percent Auto 4.3 % (0.0-11.0); Neutrophils Percent Auto 87.2 % (42.0-72.0); Platelet Count* 248 K/uL (140-440); Red Blood Count 4.35 m/uL (4.00-5.20); White Blood Count* 9.95 K/uL (4.50-11.00)
[2022-08-19 21:48] LABS: Slide Review Reflex No
--- NOTE | 2022-08-19 21:48 | ED.GENADULT ---
HPI - General Adult General Date Seen: 08/19/22 Chief complaint: Abdominal Pain Stated complaint: abdominal pain Time Seen by Provider: 08/19/22 20:41 Source: patient and family Mode of arrival: ambulatory Limitations: no limitations History of Present Illness HPI narrative: Patient is a 77-year-old female with a history of ovarian and endometrial cancer. She was treated about 10 years ago but unfortunately has had a recurrence. She has completed further chemotherapy and still takes Avastin. She is also known to have a ventral hernia. Abdominal pain keeps her awake all night last night. She has vomited several times today. No blood in the vomit. She has been passing gas today and did have a small bowel movement today. No history of bowel obstruction. She ate some cinnamon toast early this morning but has had no food since that time. She is afraid to drink because she is afraid that she will throw it up. She had a PET scan a week ago that apparently has not been read. She does feel that her abdomen is distended. She has no appetite. No dysuria, urgency, frequency. Her urine is dark yellow and concentrated and she is only going small amounts. No tests were done in urgent care and she is appropriately triaged to come here instead. Related Data Home Medications Medication Instructions Recorded Confirmed B-complex with vitamin C 1 cap PO DAILY 10/25/21 08/19/22 acetaminophen 500 mg capsule 1,000 mg PO Q6H PRN 10/25/21 08/19/22 calcium carbonate 500 mg calcium 500 mg PO DAILY 10/25/21 08/19/22 (1,250 mg) chewable tablet cholecalciferol (vitamin D3) 10 10 mcg PO DAILY 10/25/21 08/19/22 mcg (400 unit) capsule cranberry 400 mg capsule 400 mg PO DAILY 10/25/21 08/19/22 epinephrine 0.3 mg/0.3 mL 0.3 ml subcut PRN 10/25/21 08/19/22 injection, auto-injector loratadine 10 mg tablet (Claritin) 10 mg PO DAILY 10/25/21 08/19/22 polyethylene glycol 3350 17 17 g PO DAILY 10/25/21 08/19/22 gram/dose oral powder (Miralax) psyllium husk 3.4 gram/5.4 gram 1 tbsp PO DAILY PRN 10/31/21 08/19/22 oral powder (Metamucil) Clearwater XL PO 03/10/22 08/19/22 Previous Rx's Medication Instructions Recorded atenolol 100 mg tablet 100 mg PO QDAY #90 tabs 11/15/21 fluticasone propionate 50 2 spray intranasal QDAY #16 grams 05/16/22 mcg/actuation nasal spray,suspension ondansetron 8 mg disintegrating 8 mg PO TID PRN nausea and 08/19/22 tablet vomiting #20 tabs oxycodone 5 mg tablet 5 mg PO TID PRN pain #15 tabs 08/19/22 Allergies Allergy/AdvReac Type Severity Reaction Status Date / Time strawberry Allergy Mild Hives Verified 08/19/22 19:12 Common paper wasp venom Allergy Mild Abdominal Uncoded 08/19/22 19:12 protein Pain HYMENOPTERA ALLERGENIC Allergy Unknown Uncoded 08/19/22 19:12 EXTRACT Review of Systems Narrative: Review of systems is outlined above otherwise noted to be negative. PCP is [facility]. [facility] Medical History (Updated 08/19/22 @ 23:12 by Vega Delgado MD) Supraclavicular adenopathy ?R59.0 - Localized enlarged lymph nodes (ICD-10) Abdominal hernia ?K46.9 - Unspecified abdominal hernia without obstruction or gangrene (ICD-10) Abdominal pain ?R10.9 - Unspecified abdominal pain (ICD-10) History of bone density study (10/2019) ?Z92.89 - Personal history of other medical treatment (ICD-10) COVID-19 ?U07.1 - COVID-19 (ICD-10) Morbid obesity ?E66.01 - Morbid (severe) obesity due to excess calories (ICD-10) Balance problems ?R26.89 - Other abnormalities of gait and mobility (ICD-10) Endometrial carcinoma ?C54.1 - Malignant neoplasm of endometrium (ICD-10) Recurrent carcinoma of ovary (~2019) ?C56.9 - Malignant neoplasm of unspecified ovary (ICD-10) Recurrent carcinoma of endometrium (2019) ?C54.1 - Malignant neoplasm of endometrium (ICD-10) Polyp of colon (2014) ?K63.5 - Polyp of colon (ICD-10) Peripheral neuropathy due to chemotherapy (2012) ?G62.0 - Drug-induced polyneuropathy (ICD-10) ?T45.1X5A - Adverse effect of antineoplastic and immunosuppressive drugs, initial encounter (ICD-10) Overactive bladder ?N32.81 - Overactive bladder (ICD-10) History of ovarian cancer (2012) ?Z85.43 - Personal history of malignant neoplasm of ovary (ICD-10) History of cancer of uterus (2012) ?Z85.42 - Personal history of malignant neoplasm of other parts of uterus (ICD-10) Health care directive on file (11/15/19) ?Z78.9 - Other specified health status (ICD-10) Factor V Leiden mutation ?D68.51 - Activated protein C resistance (ICD-10) Essential hypertension ?I10 - Essential (primary) hypertension (ICD-10) Dyslipidemia ?E78.5 - Hyperlipidemia, unspecified (ICD-10) Allergic to bees ?Z91.030 - Bee allergy status (ICD-10) Surgical History (Updated 05/15/22 @ 15:51 by Cheli Meyer MD) History of total abdominal hysterectomy and bilateral salpingo-oophorectomy (2012) ?Z90.710 - Acquired absence of both cervix and uterus (ICD-10) ?Z90.722 - Acquired absence of ovaries, bilateral (ICD-10) ?Z90.79 - Acquired absence of other genital organ(s) (ICD-10) Status post total abdominal hysterectomy and bilateral salpingo-oophorectomy (2012) ?Z90.710 - Acquired absence of both cervix and uterus (ICD-10) ?Z90.722 - Acquired absence of ovaries, bilateral (ICD-10) ?Z90.79 - Acquired absence of other genital organ(s) (ICD-10) Port-A-Cath in place (12/15/19) ?Z95.828 - Presence of other vascular implants and grafts (ICD-10) History of cholecystectomy (2005) ?Z90.49 - Acquired absence of other specified parts of digestive tract (ICD-10) Family History (Updated 10/01/21 @ 14:01 by Venkata Villanueva) Sister Breast cancer, Onset Age: 63 Brother Deep venous thrombosis Social History (Updated 05/16/22 @ 09:08 by Cheli Meyer MD) Narrative: Does not exercise , 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, 1 adult child Non-smoker Rarely consumes alcohol Smoking Status: Never smoker Do you use any of these nicotine containing products: None Second hand tobacco smoke exposure: No How often do you have a drink containing alcohol: monthly or less How many standard drinks containing alcohol do you have on a typical day: 1 or 2 How often do you have six or more drinks on one occasion: Never AUDIT-C Alcohol total score: 1 Non-prescribed substance use: denies use Little interest or pleasure in doing things: not at all Feeling down, depressed, or hopeless: not at all service: No Exam Narrative: Exam Narrative: Vitals noted. She does appear uncomfortable. HEENT: Conjunctiva clear. No scleral icterus. Mucous membranes are dry. Neck is supple without adenopathy, thyromegaly, carotid bruit. Lungs: Clear to auscultation in all pat. No wheezes, rales, rhonchi. Heart: Regular rate and rhythm without murmur. Abdomen: Obese, Soft with diffuse tenderness. No guarding, rigidity, rebound. No peritoneal signs. Bowel sounds are absent or significantly diminished. Extremities: No cyanosis or edema. Good distal pulses. Skin: No abnormalities noted of the exposed skin. Neurologic: Awake, alert, fully oriented. Neurologic exam is nonfocal. Const: Vital Signs, click to edit/add: Vital Signs - 24 hr 08/19/22 20:51 08/19/22 22:00 08/19/22 22:02 Temperature 97.0 F L Pulse Rate 76 76 Pulse Rate [Left P ulse Oximeter] 74 Respiratory Rate 16 Blood Pressure 153/77 H Blood Pressure [Ri ght Upper Arm] 171/102 H Pulse Oximetry 96 96 95 Oxygen Delivery Me thod Room Air 08/19/22 22:02 08/19/22 22:03 08/19/22 22:33 Temperature Pulse Rate 76 76 76 Pulse Rate [Left P ulse Oximeter] Respiratory Rate Blood Pressure 153/77 H Blood Pressure [Ri ght Upper Arm] Pulse Oximetry 95 96 100 Oxygen Delivery Me thod 08/19/22 22:34 08/19/22 22:35 08/19/22 23:00 Temperature Pulse Rate 72 74 74 Pulse Rate [Left P ulse Oximeter] Respiratory Rate Blood Pressure 154/73 H Blood Pressure [Ri ght Upper Arm] Pulse Oximetry 98 98 94 Oxygen Delivery Me thod 08/19/22 23:02 Temperature Pulse Rate 74 Pulse Rate [Left P ulse Oximeter] Respiratory Rate Blood Pressure 142/69 H Blood Pressure [Ri ght Upper Arm] Pulse Oximetry 96 Oxygen Delivery Me thod Course Course Hospital Course: Patient is seen and examined. Labs and CT scan are ordered. An IV is established through her port and she is given saline 1 L, Zofran 4 mg IV, morphine 2 mg IV. Reevaluation(s) Reevaluation #1: Patient's pain and nausea resolved with the fluids, Zofran, morphine. CBC, BMP, lactate, LFTs, lipase are all normal. Urinalysis shows 2+ protein, 2+ ketones, 10-25 white cells but a lot of squamous cells. We will wait for the urine culture to make a decision to treat. Her CT scan shows abdominal carcinomatosis with lots of lymph node involvement including a left suprahilar lymph node. She may have an early small-bowel obstruction with some dilated loops but that is not certain. She does have a couple of ventral hernias. Vital Signs Vital signs: Initial Vital Signs Temperature 97.0 F L 08/19/22 20:51 Temperature Source Temporal Artery Scan 08/19/22 20:51 Pulse Rate 74 08/19/22 20:51 Pulse Rhythm Regular 08/19/22 20:51 Respiratory Rate 16 08/19/22 20:51 Blood Pressure 171/102 H 08/19/22 20:51 Blood Pressure Mean 125 H 08/19/22 20:51 Blood Pressure Position Semi-Fowlers 08/19/22 20:51 Pulse Oximetry 96 08/19/22 20:51 Oxygen Delivery Method Room Air 08/19/22 20:51 Vital Signs Temperature 97.0 F L 08/19/22 20:51 Pulse Rate 74 08/19/22 20:51 Respiratory Rate 16 08/19/22 20:51 Blood Pressure 171/102 H 08/19/22 20:51 Pulse Oximetry 96 08/19/22 20:51 Oxygen Delivery Method Room Air 08/19/22 20:51 Temperature 97.0 F L 08/19/22 20:51 Pulse Rate 74 08/19/22 23:02 Respiratory Rate 16 08/19/22 20:51 Blood Pressure 142/69 H 08/19/22 23:02 Pulse Oximetry 96 08/19/22 23:02 Oxygen Delivery Method Room Air 08/19/22 20:51 Medical Decision Making MDM Narrative Medical decision making narrative: We discussed that she may have an early bowel obstruction and our options are to admitted to the hospital for bowel rest, NG suctioning, pain meds but she would like to attempt this at home. I think that is reasonable. She will be discharged with Zofran and oxycodone. She has follow-up with her oncologist in 36 hours. Lab Data Labs: Lab Results 08/19/22 08/19/22 Range/Units 21:13 21:24 WBC 9.95 (4.50-11.00) K/uL RBC 4.35 (4.00-5.20) m/uL Hgb 13.4 (12.0-16.0) gm/dL Hct 40.3 (33.0-51.0) % MCV 93 (80-100) fL MCH 31 (26-34) pg MCHC 33 (32-36) gm/dL RDW Coeff of Devin 14.0 (11.5-15.5) % Plt Count 248 (140-440) K/uL Neut % (Auto) 87.2 H (42.0-72.0) % Lymph % (Auto) 8.2 L (20-44) % [place] % (Auto) 4.3 (0.0-11.0) % Eos % (Auto) 0.1 (0.0-7.0) % Baso % (Auto) 0.0 (0.0-3.0) % Neut # (Auto) 8.70 H (1.7-7.0) K/uL Lymph # (Auto) 0.80 L (0.90-2.90) K/uL [place] # (Auto) 0.40 (0.00-0.90) K/UL Eos # (Auto) 0.01 (0.00-0.50) K/uL Baso # (Auto) 0.00 (0.00-0.30) K/uL Sodium 137 (135-149) mmol/L Potassium 4.0 (3.6-5.1) mmol/L Chloride 101 (96-114) mmol/L Carbon Dioxide 29 (20-32) mmol/L BUN 16 (7-30) mg/dL Creatinine 0.8 (0.5-1.5) mg/dL Estimated GFR 76 ml/min Glucose 121 H (60-115) mg/dL Lactate 0.8 (0.5-1.9) mmol/L Calcium 9.5 (8.4-10.6) mg/dL Total Bilirubin 0.5 (0.1-1.5) mg/dL AST 32 (12-35) U/L ALT 26 (4-35) U/L Alkaline Phosphatase 86 (40-150) U/L Total Protein 8.0 (6.0-8.3) g/dL Albumin 4.4 (3.3-5.0) g/dL Lipase 37 (23-300) U/L Urine Color Yellow (Yellow) Urine Appearance Slightly Cloudy A (Clear) Urine pH 7.0 (5.0-8.5) Ur Specific [place] 1.025 (1.000-1.030) Urine Protein 2+ A (Negative) Urine Glucose (UA) Negative (Negative) Urine Ketones 2+ A (Negative) Urine Blood Negative (Negative) Urine Nitrite Negative (Negative) Urine Bilirubin Negative (Negative) Urine Urobilinogen 0.2 (0.2-1.0) Ur Leukocyte Esterase Trace A (Negative) Urine RBC 0-2 (0-2) Urine WBC 10-25 A (0-5) Ur Squamous Epith Cells Moderate A (None-Few) Urine Bacteria None (None) Fine Granular Casts Moderate A (None) Discharge Plan Discharge Clinical Impression: Abdominal carcinomatosis Patient Disposition: Home, Self-Care Condition: Improved Additional Instructions: Clear liquids in frequent small amounts. No food until your vomiting, pain, distension are improved. Return to the emergency department for worsening pain, intractable vomiting. Use Zofran for nausea. Use Tylenol or oxycodone for pain. Follow-up with your oncologist on 08/21/2022 as scheduled. Prescriptions: New ondansetron 8 mg tablet,disintegrating 8 mg PO TID PRN (Reason: nausea and vomiting) Qty: 20 0RF oxycodone 5 mg tablet 5 mg PO TID PRN (Reason: pain) Qty: 15 0RF No Action atenolol 100 mg tablet 100 mg PO QDAY Qty: 90 4RF fluticasone propionate 50 mcg/actuation spray,suspension 2 spray intranasal QDAY Qty: 16 0RF Rx Instructions: administer into each nostril Clearwater XL PO acetaminophen 500 mg capsule 1,000 mg PO Q6H PRN B-complex with vitamin C Capsule 1 cap PO DAILY calcium carbonate 500 mg calcium (1,250 mg) tablet,chewable 500 mg PO DAILY cholecalciferol (vitamin D3) 10 mcg (400 unit) capsule 10 mcg PO DAILY loratadine [Claritin] 10 mg tablet 10 mg PO DAILY polyethylene glycol 3350 [Miralax] 17 gram/dose powder 17 g PO DAILY epinephrine 0.3 mg/0.3 mL auto-injector 0.3 ml subcut PRN Patient Comments: INJECT CONTENTS OF 1 PEN NEEDED FOR ALLERGIC REACTION cranberry 400 mg capsule 400 mg PO DAILY Rx Instructions: administer with a meal Metamucil 3.4 gram/5.4 gram powder 1 tbsp PO DAILY PRN Rx Instructions: mix into at least 8 oz of water or juice before administering Follow Up/Referrals: Cheli Meyer MD [Primary Care Provider] - Stand Alone Forms: [employer] Info Instructions
[2022-08-19] MEDS: MORPHINE 2 MG/ML inj IVP (21:52)
[2022-08-19] MEDS: 0.9 % SODIUM CHLORIDE 1000 ml 1,000 ML 500 ML IV (21:53)
[2022-08-19 22:00] LABS: RBC Urine 0-2 (0-2); Squamous Epithelial Cell Urine Moderate (None-Few)
[2022-08-19 22:01] LABS: Fine Granular Casts Urine Moderate
[2022-08-19] MEDS: ONDANSETRON 2 MG/ML inj 4 MG IVP (22:05)
[2022-08-19 22:06] LABS: Albumin* 4.4 g/dL (3.3-5.0); Chloride* 101 mmol/L (96-114); Sodium* 137 mmol/L (135-149)
[2022-08-19 22:08] LABS: Creatinine* 0.8 mg/dL (0.5-1.5); Estimated Glomerular Filt Rate 76 ml/min
[2022-08-19 22:09] LABS: Alanine Aminotransferase* 26 U/L (4-35); Alkaline Phosphatase* 86 U/L (40-150); Aspartate Amino Transferase* 32 U/L (12-35); Bilirubin Total* 0.5 mg/dL (0.1-1.5); Blood Urea Nitrogen* 16 mg/dL (7-30); Carbon Dioxide* 29 mmol/L (20-32); Glucose* 121 mg/dL (60-115); Lipase* 37 U/L (23-300)
[2022-08-19 22:10] LABS: Calcium* 9.5 mg/dL (8.4-10.6)
[2022-08-19 23:22] LABS: Lactate* 0.8 mmol/L (0.5-1.9)
== END 2022-08-19 23:25 | disposition home or self-care (01) ==
PROVIDERS: Emergency Provider Family Medicine; PCP Family Medicine
DX: C80.0 Disseminated malignant neoplasm, unspecified (principal)
CPT/HCPCS: 36415; 74177; 80053; 81001; 83605; 83690; 85025; 87086; 96361; 96374; 96375; 99283; 99284; 99285; J2270; J2405; J7030; Q9967

== ENCOUNTER 2022-10-07 12:06 | Outpatient (CLI) | payer MEDICARE, SELFPAY ==
--- NOTE | 2022-10-07 12:15 | CRLHL7_ITS ---
For Patients: As a result of the Century Cures Act, medical imaging exams and procedure reports are released immediately into your electronic medical record. You may view this report before your referring provider. If you have questions, please contact your health care provider. Indication: Left-sided abdominal pain with nausea and vomiting Technique: Abdomen 2 view, 5 films Comparison: None Findings/Impression: Lung bases are clear. No dilated loops of large or small intestine. Moderate amount of stool within the colon. Right upper quadrant surgical clips. Dictated by Arsalan Dias MD @ 10/07/2022 2:01:39 PM (Electronically Signed)
== END 2022-10-07 12:07 | disposition home or self-care (01) ==
PROVIDERS: PCP Family Medicine; Visit Provider Clinical Nurse Specialist
DX: R10.9 Unspecified abdominal pain (principal); R11.2 Nausea with vomiting, unspecified
CPT/HCPCS: 74019

== ENCOUNTER 2022-11-12 07:58 | Outpatient (CLI) | payer MEDICARE, SELFPAY ==
--- NOTE | 2022-11-12 09:15 | CRLHL7_ITS ---
For Patients: As a result of the Century Cures Act, medical imaging exams and procedure reports are released immediately into your electronic medical record. You may view this report before your referring provider. If you have questions, please contact your health care provider. BILATERAL SCREENING MAMMOGRAM WITH COMPUTER-AIDED DETECTION AND TOMOSYNTHESIS TECHNIQUE: CC and MLO views were obtained. These mammographic images have been obtained using full-field digital technique. These mammographic images were interpreted with the benefit of computer-aided detection. Breast Tomosynthesis was used in this interpretation. COMPARISON FILM: 10/16/21, 09/25/20, 09/22/19. FINDINGS: The breasts are heterogeneously dense, which may obscure small masses IMPRESSION: There is no radiographic evidence for malignancy. ASSESSMENT: BI-RADS Category 2: Benign RECOMMENDATION: Routine screening mammogram in 1 year. A lay language report of this examination will be provided to the patient. Vega Hatch M.D. Diagnostic Radiologist [email or web address] Transcribed: 3:15 p.luba lara/Dictated by: Vega Hatch MD @ 11/12/2022 11:06:00 AM (Electronically Signed)
== END 2022-11-12 07:59 | disposition home or self-care (01) ==
LOC: MAMMO 07:58
PROVIDERS: PCP Family Medicine; Visit Provider Family Medicine
DX: Z12.31 Encounter for screening mammogram for malignant neoplasm of breast (principal); R92.2 Inconclusive mammogram; E87.6 Hypokalemia; E78.5 Hyperlipidemia, unspecified; R74.01 Elevation of levels of liver transaminase levels; E66.01 Morbid (severe) obesity due to excess calories; E55.9 Vitamin D deficiency, unspecified
CPT/HCPCS: 77063; 77067; 80053; 80061; 82306

== ENCOUNTER 2022-11-20 12:15 | Outpatient (CLI) | payer MEDICARE, SELFPAY ==
--- NOTE | 2022-11-20 13:00 | CRLHL7_ITS ---
For Patients: As a result of the Century Cures Act, medical imaging exams and procedure reports are released immediately into your electronic medical record. You may view this report before your referring provider. If you have questions, please contact your health care provider. Indication: Malignant neoplasm of endometrium Technique: Postcontrast CT chest, abdomen and pelvis. 104 cc Isovue 370 intravenous contrast. Please note that all CT scans at this facility use dose modulation, iterative reconstruction, and/or weight-based dosing when appropriate to reduce radiation dose to as low as reasonably achievable. Comparison: 08/19/2022 CT, 08/14/2022 CT-PET Findings: In the chest, supraclavicular lymph node mass is slightly decreased in size. Small nodule in the right supraclavicular space is less conspicuous as is the nodular density within the left thoracic inlet. Enlarged lymph node in the prevascular space is similar. Decreased conspicuity of posterior mediastinal nodule at the level of the janel and decreased size of right paraesophageal lymph node lesion. No fracture. No infiltrate or edema. No effusion or pneumothorax. No suspicious pulmonary nodule. In the abdomen, there is no intrahepatic mass. The gallbladder is absent. The spleen is normal. Adrenal glands are within normal limits. Normal pancreas. No hydronephrosis. Extrarenal pelvis is present bilaterally. Decreased conspicuity lymph node tissue within the retroperitoneum. Decreased size of nodular densities within the omental fat and within the peristomal fat. Similar appearance of the anterior abdominal wall with hernia defects. No bowel obstruction or inflammatory change. In the pelvis, decreased conspicuity of bilateral pelvic lymph nodes. Sigmoid diverticulosis. Uterus absent. Bladder is nondistended. Similar appearance of the left femoral neck with a subtle area of decreased density suspected. Impression: Overall improved appearance of the chest, abdomen and pelvis with decreased conspicuity/size of numerous metastatic lymph node deposits and soft tissue nodules throughout the abdomen/pelvis. Similar appearance of the left femoral neck suspicious for a small bony lesion. No pathologic fracture. Please note that all CT scans at this facility use dose modulation, iterative reconstruction, and/or weight-based dosing when appropriate to reduce radiation dose to as low as reasonably achievable. Dictated by Vega Hatch MD @ 11/21/2022 12:19:44 PM (Electronically Signed)
== END 2022-11-20 12:16 | disposition home or self-care (01) ==
LOC: CT 12:15
PROVIDERS: PCP Family Medicine; Visit Provider Internal Medicine Hematology & Oncology
DX: C54.1 Malignant neoplasm of endometrium (principal); M89.9 Disorder of bone, unspecified
CPT/HCPCS: 71260; 74177; Q9967

== ENCOUNTER 2022-11-24 12:05 | Outpatient (CLI) | payer MEDICARE, SELFPAY ==
--- NOTE | 2022-11-24 14:00 | CRLHL7_ITS ---
For Patients: As a result of the Century Cures Act, medical imaging exams and procedure reports are released immediately into your electronic medical record. You may view this report before your referring provider. If you have questions, please contact your health care provider. INDICATION: LEG SWELLING AND TENDERNESSimages: 49 TECHNIQUE: Ultrasound venous duplex lower extremity bilateral. Compression venous exam was performed using welch scale, color Doppler, and spectral Doppler imaging. COMPARISON: None. FINDINGS: Sonographic imaging demonstrates the common femoral, deep femoral, superficial femoral, popliteal, posterior tibial and greater saphenous veins to be fully compressible with normal color Doppler blood flow in both lower extremities. IMPRESSION: Normal bilateral lower extremity venous ultrasound, no sign of deep venous thrombosis. Dictated by: Vega Manjarrez MD @ 11/24/2022 13:11:53 (Electronically Signed)
== END 2022-11-24 12:06 | disposition home or self-care (01) ==
LOC: US 12:06
PROVIDERS: PCP Family Medicine; Visit Provider Internal Medicine Hematology & Oncology
DX: M79.89 Other specified soft tissue disorders (principal)
CPT/HCPCS: 93970

== ENCOUNTER 2022-11-25 10:00 | Outpatient (RCR) | payer MEDICARE, SELFPAY ==
[2022-06-09] MEDS: SODIUM CHLORIDE 0.9 % (FLUSH) 10 ML SYRINGE IVF (14:03)
[2022-06-09] MEDS: HEPARIN 500 UNIT/5 ML SYRINGE IVF (14:03)
[2022-08-14 14:06] LABS: Basophils Absolute Auto 0.02 K/uL (0.00-0.30); Basophils Percent Auto 0.3 % (0.0-3.0); Eosinophils Absolute Auto 0.07 K/uL (0.00-0.50); Hematocrit 38.5 % (33.0-51.0); Hemoglobin* 12.9 gm/dL (12.0-16.0); Immature Granulocytes Abs Auto 0.08 K/uL (0.00-0.30); Immature Granulocytes Pct Auto 1.1 %; Lymphocytes Absolute Auto 1.64 K/uL (0.90-2.90); Lymphocytes Percent Auto 22.9 % (20-44); Mean Corpuscular HGB Conc 34 gm/dL (32-36); Mean Corpuscular Hemoglobin 31 pg (26-34); Mean Corpuscular Volume 93 fL (80-100); Monocytes Percent Auto 7.4 % (0.0-11.0); Neutrophils Absolute Auto 4.81 K/uL (1.7-7.0); Neutrophils Percent Auto 67.3 % (42.0-72.0); Platelet Count* 264 K/uL (140-440); RDW Coefficient of Variation % 13.9 % (11.5-15.5); Red Blood Count 4.14 m/uL (4.00-5.20); White Blood Count* 7.15 K/uL (4.50-11.00)
[2022-08-14 14:14] LABS: Albumin* 4.3 g/dL (3.3-5.0)
[2022-08-14 14:15] LABS: Chloride* 100 mmol/L (96-114); Sodium* 133 mmol/L (135-149)
[2022-08-14 14:17] LABS: Aspartate Amino Transferase* 32 U/L (12-35); Bilirubin Total* 0.4 mg/dL (0.1-1.5); Carbon Dioxide* 26 mmol/L (20-32); Creatinine* 0.8 mg/dL (0.5-1.5); Estimated Glomerular Filt Rate 76 ml/min; Total Protein* 7.9 g/dL (6.0-8.3)
[2022-08-14 14:18] LABS: Alanine Aminotransferase* 26 U/L (4-35); Alkaline Phosphatase* 85 U/L (40-150); Blood Urea Nitrogen* 18 mg/dL (7-30); Calcium* 9.4 mg/dL (8.4-10.6); Glucose* 85 mg/dL (60-115); Slide Review Reflex No
[2022-08-14] MEDS: SODIUM CHLORIDE 0.9 % (FLUSH) 10 ML SYRINGE IVF (15:45)
[2022-08-14] MEDS: HEPARIN 500 UNIT/5 ML SYRINGE IVF (15:45)
[2022-08-16 23:40] LABS: Cancer Antigen 125 200 U/mL (<=38)
[2022-08-21 12:09] LABS: Appearance Urine Slightly Cloudy (Clear); Bilirubin Urine 1+ (Negative); Blood Urine Trace-intact (Negative); Color Urine Yellow (Yellow); Glucose Urine Negative (Negative); Ketones Urine 2+ (Negative); Leukocyte Esterase Urine 2+ (Negative); Nitrite Urine Negative (Negative); Protein Urine Negative (Negative); Specific Gravity Urine 1.025 (1.000-1.030); Urobilinogen Urine 0.2 (0.2-1.0); pH Urine 5.5 (5.0-8.5)
[2022-08-21 12:18] LABS: Bacteria Urine Moderate; RBC Urine 25-50 (0-2); Squamous Epithelial Cell Urine Few (None-Few); WBC Urine 25-50 (0-5)
--- NOTE | 2022-09-10 11:37 | URNOTE ---
Received request for prior authorization. Per [facility]'s Medical Injectable Drug Auth List, Carboplatin (J9045), Gemcitabine (J9201), Neulasta (J2506), Fosaprepitant (J1453) and Palonosetron (J2469) do not need prior authorization.
[2022-09-17 09:13] VITALS: BP 123/62; PULSE 61; RESP 16; TEMP 35.7; O2SAT 98
[2022-09-17 09:35] LABS: Basophils Absolute Auto 0.01 K/uL (0.00-0.30); Basophils Percent Auto 0.2 % (0.0-3.0); Eosinophils Absolute Auto 0.07 K/uL (0.00-0.50); Eosinophils Percent Auto 1.4 % (0.0-7.0); Hematocrit 37.4 % (33.0-51.0); Hemoglobin* 12.4 gm/dL (12.0-16.0); Immature Granulocytes Abs Auto 0.01 K/uL (0.00-0.30); Immature Granulocytes Pct Auto 0.2 %; Lymphocytes Percent Auto 18.3 % (20-44); Mean Corpuscular HGB Conc 33 gm/dL (32-36); Mean Corpuscular Hemoglobin 31 pg (26-34); Mean Corpuscular Volume 94 fL (80-100); Monocytes Percent Auto 8.5 % (0.0-11.0); Neutrophils Percent Auto 71.4 % (42.0-72.0); Platelet Count* 235 K/uL (140-440); RDW Coefficient of Variation % 14.2 % (11.5-15.5); White Blood Count* 5.18 K/uL (4.50-11.00)
[2022-09-17 09:38] LABS: Slide Review Reflex No
[2022-09-17 10:01] LABS: Chloride* 102 mmol/L (96-114); Potassium* 3.9 mmol/L (3.6-5.1); Sodium* 140 mmol/L (135-149)
[2022-09-17 10:03] LABS: Aspartate Amino Transferase* 30 U/L (12-35); Bilirubin Total* 0.4 mg/dL (0.1-1.5); Carbon Dioxide* 30 mmol/L (20-32); Creatinine* 0.8 mg/dL (0.5-1.5); Estimated Glomerular Filt Rate 76 ml/min
[2022-09-17 10:04] LABS: Alanine Aminotransferase* 29 U/L (4-35); Alkaline Phosphatase* 74 U/L (40-150); Blood Urea Nitrogen* 16 mg/dL (7-30); Calcium* 9.4 mg/dL (8.4-10.6); Glucose* 116 mg/dL (60-115); Total Protein* 7.3 g/dL (6.0-8.3)
--- NOTE | 2022-09-17 10:34 | ONC.NURNOTE ---
Chemotherapy teaching for gemzar, carbo, pegfilgrastim reviewed self care at home, after hours management, ER if fever over 100.4, contacting [facility] with concerns or chemo side effects, reviewed handouts on gemzar and carboplatin, discussed neulasta reviewed contents of chemotherapy binder questions addressed ZEFERINO and consents signed
[2022-09-17] MEDS: PALONOSETRON 0.25 MG/5 ML inj IV (10:52)
[2022-09-17] MEDS: dexAMETHasone 12 MG in 0.9 % SODIUM CHLORIDE 100 ml 100 ML 404.8 MG IVPB (10:52)
[2022-09-17] MEDS: FOSAPREPITANT 150 MG inj 150 MG in 0.9 % SODIUM CHLORIDE 250 ml 250 ML 800 MG IVPB (11:11)
[2022-09-17] MEDS: CARBOPLATIN IVPB (11:40)
[2022-09-17] MEDS: SODIUM CHLORIDE 0.9% IVPB (11:40)
[2022-09-17] MEDS: TUBING SECONDARY IVPB (11:40)
[2022-09-17] MEDS: SODIUM CHLORIDE 0.9 % (FLUSH) 10 ML SYRINGE IVF (13:44)
[2022-09-17] MEDS: HEPARIN 500 UNIT/5 ML SYRINGE IVF (13:44)
--- NOTE | 2022-09-18 15:18 | ONC.NURNOTE ---
Called pt to f/u 1st chemo yesterday. She is feeling well; she is taking her antiemetics and denies nausea/vomiting. Reviewed chemo schedule; questions answered.
--- NOTE | 2022-09-22 15:11 | ONC.NURNOTE ---
Pt called today with concerns of her face being red and itchy. Pt states she noticed the left side of her face being red yesterday and today both sides of her face are red and itchy. Pt states he skin is smooth, not raised, pt denies any swelling, pt denies fever and chills, pt doesn't feel that her face is any warmer than it usually is. Appt made for pt to see Dr. Lopez on 09/25/22 prior to her next gemzar. Pt states the redness and itching are tolerable. Pt instructed to be evaluated prior to if symptoms worsen, fever, swelling, increased warmth. Pt verbalized understanding of plan of care.
[2022-09-25 09:31] LABS: Basophils Percent Auto 0.4 % (0.0-3.0); Eosinophils Percent Auto 0.8 % (0.0-7.0); Hematocrit 34.9 % (33.0-51.0); Hemoglobin* 11.8 gm/dL (12.0-16.0); Immature Granulocytes Pct Auto 1.3 %; Lymphocytes Percent Auto 38.9 % (20-44); Mean Corpuscular HGB Conc 34 gm/dL (32-36); Mean Corpuscular Hemoglobin 31 pg (26-34); Mean Corpuscular Volume 92 fL (80-100); Monocytes Percent Auto 2.1 % (0.0-11.0); Neutrophils Percent Auto 56.5 % (42.0-72.0); Platelet Count* 66 K/uL (140-440); RDW Coefficient of Variation % 13.3 % (11.5-15.5); White Blood Count* 2.39 K/uL (4.50-11.00)
[2022-09-25 09:37] LABS: Slide Review Reflex No
[2022-09-25 09:40] LABS: Chloride* 100 mmol/L (96-114); Sodium* 137 mmol/L (135-149)
[2022-09-25 09:42] LABS: Aspartate Amino Transferase* 49 U/L (12-35); Bilirubin Total* 0.5 mg/dL (0.1-1.5); Carbon Dioxide* 29 mmol/L (20-32); Creatinine* 0.8 mg/dL (0.5-1.5); Estimated Glomerular Filt Rate 76 ml/min
[2022-09-25 09:43] LABS: Alanine Aminotransferase* 50 U/L (4-35); Alkaline Phosphatase* 80 U/L (40-150); Blood Urea Nitrogen* 13 mg/dL (7-30); Calcium* 9.3 mg/dL (8.4-10.6); Glucose* 97 mg/dL (60-115)
[2022-10-01 09:17] VITALS: BP 154/78; PULSE 63; RESP 18; TEMP 36.1; O2SAT 97
[2022-10-01 09:21] LABS: Basophils Percent Auto 0.4 % (0.0-3.0); Eosinophils Percent Auto 1.3 % (0.0-7.0); Hematocrit 32.5 % (33.0-51.0); Immature Granulocytes Pct Auto 0.4 %; Lymphocytes Percent Auto 36.9 % (20-44); Mean Corpuscular HGB Conc 34 gm/dL (32-36); Mean Corpuscular Hemoglobin 31 pg (26-34); Mean Corpuscular Volume 92 fL (80-100); Monocytes Percent Auto 8.9 % (0.0-11.0); Neutrophils Percent Auto 52.1 % (42.0-72.0); RDW Coefficient of Variation % 13.1 % (11.5-15.5); Red Blood Count 3.53 m/uL (4.00-5.20); White Blood Count* 2.36 K/uL (4.50-11.00)
[2022-10-01 09:36] LABS: Albumin* 4.1 g/dL (3.3-5.0); Chloride* 102 mmol/L (96-114); Sodium* 136 mmol/L (135-149)
[2022-10-01 09:37] LABS: Potassium* 3.9 mmol/L (3.6-5.1)
[2022-10-01 09:39] LABS: Alanine Aminotransferase* 121 U/L (4-35); Alkaline Phosphatase* 91 U/L (40-150); Aspartate Amino Transferase* 71 U/L (12-35); Bilirubin Total* 0.3 mg/dL (0.1-1.5); Blood Urea Nitrogen* 16 mg/dL (7-30); Carbon Dioxide* 29 mmol/L (20-32); Creatinine* 0.8 mg/dL (0.5-1.5); Estimated Glomerular Filt Rate 76 ml/min; Glucose* 99 mg/dL (60-115); Total Protein* 7.3 g/dL (6.0-8.3)
[2022-10-01 09:40] LABS: Calcium* 9.2 mg/dL (8.4-10.6)
[2022-10-01 10:27] LABS: Platelet Count* 42 K/uL (140-440); Slide Review Reflex Yes
[2022-10-01 10:29] LABS: Slide Review Acceptable Review (Acceptable)
--- NOTE | 2022-10-06 15:46 | ONC.NURNOTE ---
Pt reached out to [facility] reporting abdominal pain with nausea and vomiting over the weekend. She reports Thursday throwing up yellow liquid and felt chilled, no fever; she did not eat that day for fear of more emesis. She had 2 episodes of 3 small balls of stool. Thursday she took Zofran in AM and felt better; ate a few bites of scrambled eggs in AM, no lunch, had 1/2 sandwich for supper following a 2nd dose of Zofran. She had 3 small balls of stool in 1 episode. This morning pt took Zofran and tolerated a small amount of eggs. She usually takes Miralax daily but did not take Sat or Sun; she resumed this morning. Reviewed with Mercedes Rey APRN; no intervention at this time but reviewed s/s bowel obstruction and to call if symptoms if return.
[2022-10-07 10:12] LABS: Hematocrit 33.7 % (33.0-51.0); Hemoglobin* 11.3 gm/dL (12.0-16.0); Mean Corpuscular HGB Conc 34 gm/dL (32-36); Mean Corpuscular Hemoglobin 31 pg (26-34); Mean Corpuscular Volume 93 fL (80-100); Platelet Count* 152 K/uL (140-440); RDW Coefficient of Variation % 14.9 % (11.5-15.5); Red Blood Count 3.61 m/uL (4.00-5.20); White Blood Count* 2.28 K/uL (4.50-11.00)
[2022-10-07 10:36] LABS: Slide Review Reflex Yes
[2022-10-07 10:37] LABS: Slide Review Acceptable Review (Acceptable)
[2022-10-07 10:42] LABS: Albumin* 4.1 g/dL (3.3-5.0); Chloride* 101 mmol/L (96-114)
[2022-10-07 10:43] LABS: Potassium* 3.7 mmol/L (3.6-5.1); Sodium* 134 mmol/L (135-149)
[2022-10-07 10:45] LABS: Alanine Aminotransferase* 67 U/L (4-35); Alkaline Phosphatase* 90 U/L (40-150); Aspartate Amino Transferase* 41 U/L (12-35); Bilirubin Total* 0.3 mg/dL (0.1-1.5); Blood Urea Nitrogen* 16 mg/dL (7-30); Carbon Dioxide* 30 mmol/L (20-32); Creatinine* 0.9 mg/dL (0.5-1.5); Estimated Glomerular Filt Rate 66 ml/min; Total Protein* 7.2 g/dL (6.0-8.3)
[2022-10-07 10:46] LABS: Calcium* 9.3 mg/dL (8.4-10.6); Glucose* 126 mg/dL (60-115)
[2022-10-07 12:23] LABS: Eosinophils Percent Auto 0.9 % (0.0-7.0); Lymphocytes Percent Auto 34.6 % (20-44); Monocytes Percent Auto 22.4 % (0.0-11.0); Neutrophils Percent Auto 41.3 % (42.0-72.0)
[2022-10-07 12:24] LABS: Basophils Percent Auto 0.4 % (0.0-3.0); Immature Granulocytes Pct Auto 0.4 %
[2022-10-14 09:33] LABS: Basophils Percent Auto 0.3 % (0.0-3.0); Eosinophils Percent Auto 0.8 % (0.0-7.0); Hematocrit 32.4 % (33.0-51.0); Hemoglobin* 10.8 gm/dL (12.0-16.0); Lymphocytes Percent Auto 23.2 % (20-44); Mean Corpuscular HGB Conc 33 gm/dL (32-36); Mean Corpuscular Hemoglobin 32 pg (26-34); Mean Corpuscular Volume 95 fL (80-100); Monocytes Percent Auto 13.5 % (0.0-11.0); Neutrophils Percent Auto 62.2 % (42.0-72.0); Platelet Count* 222 K/uL (140-440); RDW Coefficient of Variation % 16.2 % (11.5-15.5)
[2022-10-14 09:41] LABS: Slide Review Reflex No
[2022-10-14 09:45] VITALS: BP 122/54; PULSE 69; RESP 20; TEMP 36.1; O2SAT 98
[2022-10-14 09:50] LABS: Albumin* 3.8 g/dL (3.3-5.0); Chloride* 104 mmol/L (96-114); Potassium* 3.8 mmol/L (3.6-5.1); Sodium* 138 mmol/L (135-149)
[2022-10-14 09:52] LABS: Aspartate Amino Transferase* 29 U/L (12-35); Bilirubin Total* 0.2 mg/dL (0.1-1.5); Carbon Dioxide* 28 mmol/L (20-32); Creatinine* 0.7 mg/dL (0.5-1.5); Estimated Glomerular Filt Rate 90 ml/min; Total Protein* 6.8 g/dL (6.0-8.3)
[2022-10-14 09:53] LABS: Alanine Aminotransferase* 26 U/L (4-35); Alkaline Phosphatase* 86 U/L (40-150); Blood Urea Nitrogen* 14 mg/dL (7-30); Calcium* 9.1 mg/dL (8.4-10.6); Glucose* 99 mg/dL (60-115)
[2022-10-14] MEDS: PALONOSETRON 0.25 MG/5 ML inj IV (10:51)
[2022-10-14] MEDS: dexAMETHasone 12 MG in 0.9 % SODIUM CHLORIDE 100 ml 100 ML 404.8 MG IVPB (10:51)
[2022-10-14] MEDS: FOSAPREPITANT 150 MG inj 150 MG in 0.9 % SODIUM CHLORIDE 250 ml 250 ML 510 MG IVPB (11:16)
[2022-10-14] MEDS: SODIUM CHLORIDE 0.9 % (FLUSH) 10 ML SYRINGE IVF (13:24)
[2022-10-14] MEDS: HEPARIN 500 UNIT/5 ML SYRINGE IVF (13:24)
[2022-10-15 13:28] VITALS: BP 122/73; PULSE 59; RESP 16; TEMP 36.6; O2SAT 97
[2022-10-15] MEDS: PEGFILGRASTIM 6 MG/0.6 ML SYRINGE SUBCUT (13:41)
[2022-11-03 08:08] LABS: Basophils Percent Auto 0.5 % (0.0-3.0); Hematocrit 28.6 % (33.0-51.0); Hemoglobin* 9.4 gm/dL (12.0-16.0); Lymphocytes Percent Auto 17.7 % (20-44); Mean Corpuscular HGB Conc 33 gm/dL (32-36); Mean Corpuscular Hemoglobin 32 pg (26-34); Mean Corpuscular Volume 96 fL (80-100); Neutrophils Percent Auto 62.8 % (42.0-72.0); Platelet Count* 153 K/uL (140-440); RDW Coefficient of Variation % 17.3 % (11.5-15.5); Red Blood Count 2.97 m/uL (4.00-5.20); White Blood Count* 4.07 K/uL (4.50-11.00)
[2022-11-03 08:20] LABS: Albumin* 3.8 g/dL (3.3-5.0); Chloride* 103 mmol/L (96-114); Potassium* 3.4 mmol/L (3.6-5.1); Sodium* 137 mmol/L (135-149)
[2022-11-03 08:22] LABS: Creatinine* 0.8 mg/dL (0.5-1.5); Estimated Glomerular Filt Rate 76 ml/min
[2022-11-03 08:23] LABS: Alanine Aminotransferase* 26 U/L (4-35); Alkaline Phosphatase* 78 U/L (40-150); Aspartate Amino Transferase* 32 U/L (12-35); Bilirubin Total* 0.2 mg/dL (0.1-1.5); Blood Urea Nitrogen* 17 mg/dL (7-30); Carbon Dioxide* 31 mmol/L (20-32); Glucose* 113 mg/dL (60-115); Total Protein* 6.9 g/dL (6.0-8.3)
[2022-11-03 08:24] LABS: Calcium* 8.8 mg/dL (8.4-10.6)
[2022-11-03 08:29] LABS: Slide Review Reflex No
[2022-11-03] MEDS: dexAMETHasone 10 MG in 0.9 % SODIUM CHLORIDE 100 ml 100 ML 404 MG IVPB (09:39)
[2022-11-03] MEDS: PALONOSETRON 0.25 MG/5 ML inj IV (09:39)
[2022-11-03] MEDS: FOSAPREPITANT 150 MG inj 150 MG in 0.9 % SODIUM CHLORIDE 250 ml 250 ML 510 MG IVPB (09:59)
[2022-11-03] MEDS: SODIUM CHLORIDE 0.9 % (FLUSH) 10 ML SYRINGE IVF (11:56)
[2022-11-03] MEDS: HEPARIN 500 UNIT/5 ML SYRINGE IVF (11:56)
[2022-11-04 13:05] VITALS: BP 124/55; PULSE 61; RESP 14; TEMP 36.9; O2SAT 98
[2022-11-04] MEDS: PEGFILGRASTIM 6 MG/0.6 ML SYRINGE SUBCUT (13:08)
--- NOTE | 2022-11-13 13:41 | PC.NURSE ---
Pt called to report that her PCP did labs and that her platelets are low (42). Leanne asked if there was anything she could do to help them be higher. We discussed that platelets recover over time and that there is nothing specific that she can do at this time to bring them up. Support offered.
[2022-11-20] MEDS: HEPARIN 500 UNIT/5 ML SYRINGE IVF (13:20)
[2022-11-20] MEDS: SODIUM CHLORIDE 0.9 % (FLUSH) 10 ML SYRINGE IVF (13:20)
[2022-11-24 09:03] LABS: Basophils Absolute Auto 0.02 K/uL (0.00-0.30); Basophils Percent Auto 0.4 % (0.0-3.0); Eosinophils Absolute Auto 0.05 K/uL (0.00-0.50); Eosinophils Percent Auto 0.9 % (0.0-7.0); Hematocrit 25.9 % (33.0-51.0); Hemoglobin* 8.5 gm/dL (12.0-16.0); Immature Granulocytes Abs Auto 0.05 K/uL (0.00-0.30); Immature Granulocytes Pct Auto 0.9 %; Lymphocytes Percent Auto 17.1 % (20-44); Mean Corpuscular HGB Conc 33 gm/dL (32-36); Mean Corpuscular Hemoglobin 33 pg (26-34); Mean Corpuscular Volume 101 fL (80-100); Monocytes Percent Auto 16.9 % (0.0-11.0); Neutrophils Absolute Auto 3.36 K/uL (1.7-7.0); Neutrophils Percent Auto 63.8 % (42.0-72.0); Platelet Count* 124 K/uL (140-440); RDW Coefficient of Variation % 21.7 % (11.5-15.5); Red Blood Count 2.57 m/uL (4.00-5.20); White Blood Count* 5.27 K/uL (4.50-11.00)
[2022-11-24 09:04] LABS: Slide Review Reflex Yes
[2022-11-24 09:17] LABS: Albumin* 4.1 g/dL (3.3-5.0); Chloride* 105 mmol/L (96-114); Potassium* 3.6 mmol/L (3.6-5.1); Sodium* 137 mmol/L (135-149)
[2022-11-24 09:19] LABS: Aspartate Amino Transferase* 33 U/L (12-35); Bilirubin Total* 0.2 mg/dL (0.1-1.5); Carbon Dioxide* 27 mmol/L (20-32); Creatinine* 0.8 mg/dL (0.5-1.5); Estimated Glomerular Filt Rate 76 ml/min
[2022-11-24 09:20] LABS: Alanine Aminotransferase* 27 U/L (4-35); Alkaline Phosphatase* 87 U/L (40-150); Blood Urea Nitrogen* 15 mg/dL (7-30); Glucose* 95 mg/dL (60-115); Total Protein* 7.2 g/dL (6.0-8.3)
[2022-11-24] MEDS: PALONOSETRON 0.25 MG/5 ML inj IV (09:39)
[2022-11-24] MEDS: dexAMETHasone 10 MG in 0.9 % SODIUM CHLORIDE 100 ml 100 ML 404 MG IVPB (09:48)
[2022-11-24] MEDS: FOSAPREPITANT 150 MG inj 150 MG in 0.9 % SODIUM CHLORIDE 250 ml 250 ML 510 MG IVPB (10:10)
[2022-11-24 11:20] LABS: Slide Review Acceptable Review (Acceptable)
[2022-11-25 10:15] VITALS: BP 95/48; PULSE 129; RESP 16; TEMP 36; O2SAT 99
[2022-11-25] MEDS: PEGFILGRASTIM 6 MG/0.6 ML SYRINGE SUBCUT (10:35)
[2022-11-25 13:12] LABS: Cancer Antigen 125 22 U/mL (<=38)
--- NOTE | 2022-11-28 11:03 | ONC.NURNOTE ---
Patient called in stating she has diarrhea and everything I eat runs right through me Patient states she had a salad and cabbage on Thursday and she's not suppose to eat that due to her Diverticulosis and now feels she aggravated it. A few weeks ago she called about being constipated and was on miralax and so asked what medications she is taking and she stated none because everything goes right through her including water. Due to ovarian cancer and possible blockage vs C-Diff and possible dehydration since it has been 2 days recommended patient go in to see MD before taking Imodium since cause is unknown.
== END 2022-12-06 23:59 | disposition home or self-care (01) ==
LOC: CCIC 10:00
PROVIDERS: Internal Medicine Hematology & Oncology; Physician Assistant; PCP Family Medicine; Referring Provider Family Medicine; Visit Provider Clinical Nurse Specialist
DX: C56.1 Malignant neoplasm of right ovary (principal); D70.1 Agranulocytosis secondary to cancer chemotherapy; T45.1X5A Adverse effect of antineoplastic and immunosuppressive drugs, initial encounter
CPT/HCPCS: 36415; 36591; 80053; 81001; 85025; 86304; 87086; 96372; 96376; 96401; 96413; 96417; 99211; 99212; 99213; 99215; J2506; J1100; J1453; J1642; J2469; J7050; J9045; J9201

== ENCOUNTER 2023-03-04 10:15 | Outpatient (RCR) | payer MEDICARE, SELFPAY ==
--- NOTE | 2023-01-14 12:57 | PT.OPE ---
[facility] Eval [facility] Outpatient Eval Start: 01/14/23 11:53 Freq: Status: Active Protocol: Document 01/14/23 11:53 BMS (Rec: 01/14/23 12:54 BMS [id number]) E-signed By Iram Mckinney PT Physical Therapy Outpatient Evaluation Insurance Information Recert Due Date 04/13/23 Insurance Information/Comments [facility] Provider Fax Number internal Medical Diagnosis other abnormalities of gait and mobility R 26.89 Treating Diagnosis R 26.89 gait abnormalities M62.81 generalized mm weakness Referring MD Lewis Meyer MD Subjective Subjective started in 2012 have neuropathy in B feet mostly toes burning when standing and walking from chemo, poor balance, use walking stick for balance feel that corrects it pretty well. Dont use walking stick in the house, just use [place] and furniture. seems harder at night - no night light but bathroom is like 5 ft from my bed. have raised toilet seat and grab bars, have a toilet seat/bench not sure if it fits in there or not. 2 steps entry to home with grab bar on L to get in, basement laundry rail right descend would like to be able to go down there again. saw pj recently and may be seeing for neuropathy - did some tests and said this device can help - not sure what it is or how it works but is pretty expensive. also will be doing adjustments. L knee has been bothering, they said I have arthritis but no one really looked at it. have some new swelling in my legs - on diuretic now and atenolol. 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 knee L lack 20-25 degrees ext in standing and supine. R WNL ankles WFL B UE WFL Strength MMT seated grossly 4/5 B LE and UE. Palpation severe tender over patellar tendon R and mod L HS and calf Balance & Gait amb with upright cane in R UE for stability. short of breath after 10 sit to stands or after amb 150' unable to SLS. airex not assessed this date. LOB with steps fwd and sideways, downward gaze to watch path Posture head forward, mild slump, standing hip flex Sensation/Reflexes L quad poss clonus, R patellar not assessed due to nodule, B achilles Functional Test Performed & Score ABC 0% stand on chair, 100% walking room to room, rest 40- 60% Assessment Assessment/Impression Patient is very pleasant 77 yo female referred to rehab services for balance issues, chronic. She has long history of neuropathy in B toes, has had no falls in past year but feels her balance is poor and though is able to walk in her home with furniture/wall surfing she uses an upright cane for community ambulation. In clinic she was short of breath after ambulating 150' w cane and required seated rest . pace was slow and deliberate with focus on floor, delayed response to questions when mulittasking with gait. She reports L knee pain (and demo lack of 20-25 degrees ext in both standing and supine). R knee has nodule feels like floating above patellar tendon that is quite tender. Demo weakness with 10 SLR required rest. She states goals are to walk without a cane, to be confident in her gait without falling, able to ascend/ descend stairs and to amb on uneven ground. She has been using her Cubii pedaler 15 min a day and feels this has improved her strength and activity tolerance. She presents today with balance and gait impairment putting her at risk of falls and decreased ability to perform daily tasks. She is appropriate for skilled physical therapy to imrpove mobility, functional strength, gait and balance. Primary Functional Limitations see pain area Plan of Care Rehabilitation Potential Good Physical Therapy Goals STG meet 2-3 weeks 1) Pt demo I HEP and self care/home mgmt techniques for balance/falls adaptation, safety measures, and home safety improvements including picking up throw rugs, night light or commode, and use of gait aid as appropriate. 2) Pt report no falls in 6 week period. 3) Patient to demonstrate ability to ambulate safely on uneven ground with no or least restrictive gait aid. LTG meet 4-8 weeks 1)Pt demo ability ascend/ descend stairs carrying basket with use of 1 rail x 13 steps no evidence of imbalance for access to basement living level with no evidence of imbalance. 2) Pt demo ability to pass balance testing (SLS, DGI, Fukuda etc) out of high fall risk. 3) Pt demo appropriate gait pattern with no evidence of lack of balance with perturbations internal and external for shopping, community ambulation with least restrictive or no gait aid. 4) Patient to demo ability to safely and confidently negotiate curb with no or least restrictive gait aid. Coordination/Communication With Referral Source Treatment Plan/Direct Interventions Manual Therapy,Neuromuscular Re-ed,Self-Care/Home Management,Therapeutic Activities,Therapeutic Exercises,Ultrasound Frequency/Duration 1x/ 2-3 weeks x up to 8 visits , participation may be limited by plentitude of other appt. Patient Will Be Discharged From Therapy Completion of LTG(s),Skills Plateau,Independent w/HEP, Independently Progressing Evaluation Billing Untimed Code Treatment Minutes 35 Complexity Moderate Certification Information Initial Certification Date 01/14/23 Ending Certification Date 04/13/23 Provider Signature Shows Agreement With POC & Medical Necessity Physician Signature & Date Requested Please Sign/Date Here Physician Comment/Change : Physician NPI Number #
== END 2023-06-24 11:01 | disposition home or self-care (01) ==
PROVIDERS: PCP Family Medicine; Visit Provider Family Medicine
DX: R26.89 Other abnormalities of gait and mobility (principal); M62.81 Muscle weakness (generalized); Z51.89 Encounter for other specified aftercare
CPT/HCPCS: 97110; 97162

== ENCOUNTER 2023-06-02 09:15 | Outpatient (RCR) | payer MEDICARE, SELFPAY ==
[2022-12-15 09:42] LABS: Basophils Percent Auto 0.5 % (0.0-3.0); Eosinophils Percent Auto 1.6 % (0.0-7.0); Hematocrit 24.2 % (33.0-51.0); Immature Granulocytes Pct Auto 0.5 %; Lymphocytes Percent Auto 20.1 % (20-44); Mean Corpuscular HGB Conc 32 gm/dL (32-36); Mean Corpuscular Hemoglobin 35 pg (26-34); Mean Corpuscular Volume 108 fL (80-100); Monocytes Percent Auto 26.4 % (0.0-11.0); Neutrophils Percent Auto 50.9 % (42.0-72.0); Platelet Count* 110 K/uL (140-440); RDW Coefficient of Variation % 23.3 % (11.5-15.5); Red Blood Count 2.24 m/uL (4.00-5.20); White Blood Count* 3.64 K/uL (4.50-11.00)
[2022-12-15 09:45] LABS: Albumin* 3.9 g/dL (3.3-5.0)
[2022-12-15 09:46] LABS: Chloride* 105 mmol/L (96-114); Potassium* 3.9 mmol/L (3.6-5.1); Sodium* 139 mmol/L (135-149)
[2022-12-15 09:48] LABS: Anion Gap 5 mEq/L (7-15); Aspartate Amino Transferase* 36 U/L (12-35); Bilirubin Total* 0.3 mg/dL (0.1-1.5); Carbon Dioxide* 29 mmol/L (20-32); Creatinine* 0.8 mg/dL (0.5-1.5); Estimated Glomerular Filt Rate 76 ml/min
[2022-12-15 09:49] LABS: Alanine Aminotransferase* 23 U/L (4-35); Alkaline Phosphatase* 84 U/L (40-150); Blood Urea Nitrogen* 14 mg/dL (7-30); Calcium* 9.5 mg/dL (8.4-10.6); Glucose* 86 mg/dL (60-115); Total Protein* 7.1 g/dL (6.0-8.3)
[2022-12-15 09:55] LABS: Hemoglobin* 7.8 gm/dL (12.0-16.0); Slide Review Reflex Yes
[2022-12-15 10:24] LABS: Slide Review Acceptable Review (Acceptable)
[2022-12-15] MEDS: dexAMETHasone 10 MG in 0.9 % SODIUM CHLORIDE 100 ml 100 ML 404 MG IVPB (13:54)
[2022-12-15] MEDS: PALONOSETRON 0.25 MG/5 ML inj IV (13:54)
[2022-12-15] MEDS: FOSAPREPITANT 150 MG inj 150 MG in 0.9 % SODIUM CHLORIDE 250 ml 250 ML 800 MG IVPB (14:13)
[2022-12-15] MEDS: diphenhydrAMINE 25 MG CAPSULE PO (16:14)
[2022-12-15] MEDS: METHYLPREDNISOLONE SOD SUCC 40 MG/ML IVP (16:15)
[2022-12-15 16:20] VITALS: BP 126/83; PULSE 69; RESP 18; TEMP 36.3; O2SAT 97
[2022-12-15] MEDS: 0.9 % SODIUM CHLORIDE 250 ml IV (16:23)
--- NOTE | 2022-12-15 16:24 | ONC.NURNOTE ---
Pt here today for Carb/Gemzar. Carbo given over 30 min without issue; 15 min into Gemzar 30 min infusion pt put engineering manager electronics light with an itchy hive on upper left forearm and itchiness between forefinger and middle finger, at 1536. Director Bioinformatics notified Mercedes Rey APRN. Pt used hydrocortisone cream on hive with some improvement. Pt denies SOB, itchiness or swelling in tongue, throat or lips, chest pressure; otherwise feeling well, Gemzar completed. No change in hive. Mercedes Rey APRN assessed pt; additional non-itchy hives on RUE and LLE. VSS. Gave 40 mg Solumedrol IV and 25mg Benadryl PO at 1615. Monitor pt x 30 min, then Mercedes to reassess.
[2022-12-16 12:16] VITALS: BP 143/59; PULSE 68; RESP 18; TEMP 36.6; O2SAT 98
[2022-12-16 12:30] VITALS: BP 122/51; PULSE 62; RESP 16; TEMP 36.6
[2022-12-16 13:15] VITALS: BP 116/48; RESP 20; TEMP 36.6
[2022-12-16] MEDS: HEPARIN 500 UNIT/5 ML SYRINGE IVF (14:07)
[2022-12-16 14:13] VITALS: BP 116/48; PULSE 62; RESP 20; TEMP 36.6; O2SAT 98
--- NOTE | 2022-12-16 14:24 | PC.NURSE ---
Blood Transfusion Care [id number] pt this shift received one unit of PRB. VSS start of transfusion and at 15 min yael. Frequently checked on pt and no c/o new or irritating symptoms. Senior Operator did not get VS at 1 hour yael due at 1315. VSS at end of transfusion at 1413. Port de-accessed using aseptic technique. Pt tolerated procedure well. Pt walked with bid writer to [facility] for injection.
[2022-12-16] MEDS: PEGFILGRASTIM 6 MG/0.6 ML SYRINGE SUBCUT (14:38)
[2023-01-05 08:17] LABS: Basophils Percent Auto 0.5 % (0.0-3.0); Eosinophils Percent Auto 0.8 % (0.0-7.0); Hematocrit 26.7 % (33.0-51.0); Hemoglobin* 8.6 gm/dL (12.0-16.0); Immature Granulocytes Pct Auto 0.8 %; Lymphocytes Percent Auto 19.8 % (20-44); Mean Corpuscular HGB Conc 32 gm/dL (32-36); Mean Corpuscular Hemoglobin 34 pg (26-34); Mean Corpuscular Volume 106 fL (80-100); Monocytes Percent Auto 19.3 % (0.0-11.0); Neutrophils Percent Auto 58.8 % (42.0-72.0); Platelet Count* 119 K/uL (140-440); RDW Coefficient of Variation % 22.9 % (11.5-15.5); Red Blood Count 2.52 m/uL (4.00-5.20); White Blood Count* 3.99 K/uL (4.50-11.00)
[2023-01-05 08:19] LABS: Slide Review Reflex No
[2023-01-05 08:29] LABS: Albumin* 4.1 g/dL (3.3-5.0); Chloride* 105 mmol/L (96-114); Sodium* 140 mmol/L (135-149)
[2023-01-05 08:30] LABS: Potassium* 3.8 mmol/L (3.6-5.1)
[2023-01-05 08:32] LABS: Alkaline Phosphatase* 86 U/L (40-150); Anion Gap 7 mEq/L (7-15); Aspartate Amino Transferase* 38 U/L (12-35); Bilirubin Total* 0.4 mg/dL (0.1-1.5); Blood Urea Nitrogen* 16 mg/dL (7-30); Carbon Dioxide* 28 mmol/L (20-32); Creatinine* 0.9 mg/dL (0.5-1.5); Estimated Glomerular Filt Rate 66 ml/min; Total Protein* 7.4 g/dL (6.0-8.3)
[2023-01-05 08:33] LABS: Alanine Aminotransferase* 27 U/L (4-35); Calcium* 9.7 mg/dL (8.4-10.6); Glucose* 98 mg/dL (60-115)
[2023-01-05] MEDS: PALONOSETRON 0.25 MG/5 ML inj IV (10:41)
[2023-01-05] MEDS: dexAMETHasone 10 MG in 0.9 % SODIUM CHLORIDE 100 ml 100 ML 404 MG IVPB (10:50)
[2023-01-05] MEDS: FOSAPREPITANT 150 MG inj 150 MG in 0.9 % SODIUM CHLORIDE 250 ml 250 ML 800 MG IVPB (11:09)
[2023-01-05] MEDS: dexAMETHasone 4 MG/ML VIAL 8 MG IV (12:13)
[2023-01-05] MEDS: SODIUM CHLORIDE 0.9 % (FLUSH) 10 ML SYRINGE IVF (12:17)
[2023-01-05] MEDS: 0.9 % SODIUM CHLORIDE 250 ml IV (12:17)
[2023-01-05 12:34] VITALS: BP 132/74; PULSE 63; RESP 18; TEMP 36.2; O2SAT 97
[2023-01-05] MEDS: dexAMETHasone 10 MG/ML inj 8 MG IVP (12:57)
[2023-01-05] MEDS: FAMOTIDINE 10 MG/ML inj 20 MG IVP (12:57)
[2023-01-05 13:06] VITALS: BP 126/77; PULSE 67; RESP 18; TEMP 35.8; O2SAT 98
[2023-01-05] MEDS: diphenhydrAMINE 50 MG/ML inj IVP (13:48)
--- NOTE | 2023-01-05 16:36 | ONC.NURNOTE ---
Pt here today for Carboplatin/Gemzar. Plan today for additional Dexamethasone 8mg IV x 1 fdc through Carboplatin infusion. Carbo began at 1145. When stopped at 1200 for IV Dex, pt noted left 2-3rd?fingers itching. Upon assessment, pt has 1 raised hive/wheel on left FA in same place as last Carbo infusion with reaction as well as 2 hives on left boateng. Reviewed with Dr. Lopez; monitor for 20 min post additional Dex 8mg and reassess. Pt used Cortaid cream from her own supply. No change in hives; VSS. Reviewed with Dr. Lopez; gave additional Dex 8mg and IV Famotidine 20mg at 1300 with additional 30 min of monitoring. At 1335 existing hives on Left FA and LLE improved, but additional hives on Right FA x 2 and RLL x 1 that do not itch. Reviewed with Dr. Lopez. Gave 50 mg IV Benadryl x 1 at 1350. At 1405, hives resolved; restarted remainder of Carboplatin (50%) over 2 hours. Pt slept, up to BR independently. No return of hives after 30 min and 1 hr. Pt completed the infusion without issue.
[2023-01-06 14:00] VITALS: BP 126/61; PULSE 60; RESP 14; TEMP 36.1; O2SAT 98
[2023-01-06] MEDS: PEGFILGRASTIM 6 MG/0.6 ML SYRINGE SUBCUT (14:12)
[2023-01-07 12:25] LABS: Cancer Antigen 125 13 U/mL (<=38)
--- NOTE | 2023-01-29 09:29 | ONC.NURNOTE ---
Faxed last oncology note to [facility] per their request.
[2023-03-25] MEDS: HEPARIN 500 UNIT/5 ML SYRINGE IVF (10:14)
[2023-03-25] MEDS: SODIUM CHLORIDE 0.9 % (FLUSH) 10 ML SYRINGE IVF (10:14)
[2023-03-25 10:19] LABS: Basophils Percent Auto 0.6 % (0.0-3.0); Eosinophils Percent Auto 0.8 % (0.0-7.0); Hematocrit 34.2 % (33.0-51.0); Hemoglobin* 11.2 gm/dL (12.0-16.0); Lymphocytes Percent Auto 19.9 % (20-44); Mean Corpuscular HGB Conc 33 gm/dL (32-36); Mean Corpuscular Hemoglobin 33 pg (26-34); Mean Corpuscular Volume 102 fL (80-100); Monocytes Percent Auto 12.4 % (0.0-11.0); Neutrophils Percent Auto 66.3 % (42.0-72.0); Platelet Count* 122 K/uL (140-440); RDW Coefficient of Variation % 13.5 % (11.5-15.5); Red Blood Count 3.36 m/uL (4.00-5.20); White Blood Count* 3.62 K/uL (4.50-11.00)
[2023-03-25 10:29] LABS: Slide Review Reflex No
[2023-03-25 10:39] LABS: Albumin* 4.3 g/dL (3.3-5.0); Chloride* 103 mmol/L (96-114); Potassium* 4.2 mmol/L (3.6-5.1); Sodium* 137 mmol/L (135-149)
[2023-03-25 10:41] LABS: Creatinine* 0.9 mg/dL (0.5-1.5); Estimated Glomerular Filt Rate 66 ml/min
[2023-03-25 10:42] LABS: Alanine Aminotransferase* 23 U/L (4-35); Alkaline Phosphatase* 84 U/L (40-150); Anion Gap 6 mEq/L (7-15); Aspartate Amino Transferase* 33 U/L (12-35); Bilirubin Total* 0.3 mg/dL (0.1-1.5); Blood Urea Nitrogen* 18 mg/dL (7-30); Carbon Dioxide* 28 mmol/L (20-32); Glucose* 97 mg/dL (60-115); Total Protein* 7.8 g/dL (6.0-8.3)
[2023-03-25 10:43] LABS: Calcium* 9.4 mg/dL (8.4-10.6)
[2023-03-27 11:19] LABS: Cancer Antigen 125 25 U/mL (<=38)
[2023-05-07 14:32] LABS: Basophils Absolute Auto 0.01 K/uL (0.00-0.30); Basophils Percent Auto 0.2 % (0.0-3.0); Eosinophils Absolute Auto 0.05 K/uL (0.00-0.50); Eosinophils Percent Auto 1.1 % (0.0-7.0); Hematocrit 36.3 % (33.0-51.0); Lymphocytes Percent Auto 16.2 % (20-44); Mean Corpuscular HGB Conc 33 gm/dL (32-36); Mean Corpuscular Hemoglobin 32 pg (26-34); Mean Corpuscular Volume 96 fL (80-100); Monocytes Percent Auto 10.5 % (0.0-11.0); Neutrophils Absolute Auto 3.42 K/uL (1.7-7.0); Platelet Count* 166 K/uL (140-440); RDW Coefficient of Variation % 13.9 % (11.5-15.5); Red Blood Count 3.79 m/uL (4.00-5.20); White Blood Count* 4.75 K/uL (4.50-11.00)
[2023-05-07 14:35] LABS: Slide Review Reflex No
[2023-05-07 14:43] LABS: Albumin* 4.5 g/dL (3.3-5.0); Chloride* 102 mmol/L (96-114)
[2023-05-07 14:44] LABS: Potassium* 3.9 mmol/L (3.6-5.1); Sodium* 138 mmol/L (135-149)
[2023-05-07 14:46] LABS: Alkaline Phosphatase* 76 U/L (40-150); Anion Gap 10 mEq/L (7-15); Aspartate Amino Transferase* 32 U/L (12-35); Bilirubin Total* 0.5 mg/dL (0.1-1.5); Blood Urea Nitrogen* 28 mg/dL (7-30); Carbon Dioxide* 26 mmol/L (20-32); Creatinine* 0.8 mg/dL (0.5-1.5); Estimated Glomerular Filt Rate 76 ml/min; Total Protein* 8.1 g/dL (6.0-8.3)
[2023-05-07 14:47] LABS: Alanine Aminotransferase* 21 U/L (4-35); Calcium* 9.4 mg/dL (8.4-10.6); Glucose* 89 mg/dL (60-115)
[2023-05-07 15:15] LABS: Cholesterol* 171 mg/dL (90-199); HDL Cholesterol* 40 mg/dL (>=50); LDL Cholesterol Calculated 112 mg/dL (<100); Triglycerides* 97 mg/dL (40-149)
[2023-05-07 15:25] LABS: Vitamin D 25 Hydroxy* 55 ng/mL (30-80)
[2023-05-07] MEDS: SODIUM CHLORIDE 0.9 % (FLUSH) 10 ML SYRINGE IVF (16:10)
[2023-05-07] MEDS: HEPARIN 500 UNIT/5 ML SYRINGE IVF (16:10)
[2023-05-10 06:32] LABS: Cancer Antigen 125 103 U/mL (<=38)
--- NOTE | 2023-05-14 11:53 | ONC.NURNOTE ---
Cyclophosphomide coverage determination completed with Solitario randhawa successful- pt does not have Part B coverage for this medication copay $22.93/30 tabs at [facility] patient updated plan to start next week- with Bevacizumab and teaching
--- NOTE | 2023-05-18 13:09 | ONC.NURNOTE ---
Leanne phoned in today with questions about the side effects of cyclophosphomide tablets- she read information that talked about liver, lung and heart problems- and patient questions about getting a 2nd opinion she has been followed by Dr Metz at [facility] prior to coming to [place]- remote mortgage underwriter informed patient that she is welcome to go back to [facility] remote mortgage underwriter reviewed some of the side effects of oral cytoxan and how it tolerated differently than IV cytoxan questions addressed patient will let us know if she decides to go for a 2nd opinion, but states she is planning to start the cytoxan and symone here in [place] at this time-
--- NOTE | 2023-05-18 14:38 | URNOTE ---
Received request for prior authorization for bevacizumab-bvzr (Zirabev) (Q5118). Per [facility]'s Medical Injectable Drug Auth List, and Rep. Carol De Ref#[id number], No prior authorization needed.
[2023-05-20 10:39] LABS: Basophils Absolute Auto 0.01 K/uL (0.00-0.30); Basophils Percent Auto 0.2 % (0.0-3.0); Eosinophils Absolute Auto 0.07 K/uL (0.00-0.50); Eosinophils Percent Auto 1.5 % (0.0-7.0); Hemoglobin* 11.7 gm/dL (12.0-16.0); Immature Granulocytes Abs Auto 0.02 K/uL (0.00-0.30); Immature Granulocytes Pct Auto 0.4 %; Lymphocytes Percent Auto 17.7 % (20-44); Mean Corpuscular HGB Conc 33 gm/dL (32-36); Mean Corpuscular Hemoglobin 31 pg (26-34); Mean Corpuscular Volume 96 fL (80-100); Monocytes Percent Auto 9.1 % (0.0-11.0); Neutrophils Absolute Auto 3.38 K/uL (1.7-7.0); Neutrophils Percent Auto 71.1 % (42.0-72.0); Platelet Count* 171 K/uL (140-440); RDW Coefficient of Variation % 14.3 % (11.5-15.5); Red Blood Count 3.76 m/uL (4.00-5.20); White Blood Count* 4.75 K/uL (4.50-11.00)
[2023-05-20 10:43] LABS: Slide Review Reflex No
[2023-05-20 11:01] LABS: Albumin* 4.3 g/dL (3.3-5.0); Chloride* 103 mmol/L (96-114)
[2023-05-20 11:02] LABS: Potassium* 4.2 mmol/L (3.6-5.1); Sodium* 138 mmol/L (135-149)
[2023-05-20 11:04] LABS: Total Protein Urine < 5 mg/dL
[2023-05-20 11:04] LABS: Alanine Aminotransferase* 21 U/L (4-35); Alkaline Phosphatase* 78 U/L (40-150); Anion Gap 7 mEq/L (7-15); Aspartate Amino Transferase* 27 U/L (12-35); Bilirubin Total* 0.4 mg/dL (0.1-1.5); Blood Urea Nitrogen* 23 mg/dL (7-30); Carbon Dioxide* 28 mmol/L (20-32); Creatinine* 0.9 mg/dL (0.5-1.5); Estimated Glomerular Filt Rate 66 ml/min; Total Protein* 7.7 g/dL (6.0-8.3)
[2023-05-20 11:05] LABS: Calcium* 9.4 mg/dL (8.4-10.6); Glucose* 98 mg/dL (60-115)
[2023-05-20 11:06] LABS: Creatinine Urine 185.1 mg/dL
[2023-05-20 11:09] VITALS: BP 116/76; PULSE 57; RESP 16; TEMP 36.5; O2SAT 98
--- NOTE | 2023-05-20 13:56 | ONC.NURNOTE ---
Cytoxan teaching done-with and Leanne- patient and with questions about nausea, liver, kidney and bladder side effects reviewed handouts on oral cytoxan discussed and antinausea plan for the first few days- will take compazine 30-60 min prior to cytoxan- discussed importance of hydration and emptying bladder-taking medication in the am patient interested in herbal supplements- discussed that this is not recommend with oral chemotherapy- not enough information available about possible interactions- reviewed recommended steps if fever over 100.5- go to ER for evaluation- reviewed self care at home- consents/ZEFERINO reviewed and signed
[2023-05-20] MEDS: HEPARIN 500 UNIT/5 ML SYRINGE IVF (14:06)
[2023-05-20] MEDS: 0.9 % SODIUM CHLORIDE 250 ml IV (14:06)
[2023-05-20] MEDS: SODIUM CHLORIDE 0.9 % (FLUSH) 10 ML SYRINGE IVF (14:06)
--- NOTE | 2023-05-20 14:06 | ONC.NURNOTE ---
PSDS =1 with fatigue, mobility, tingling hands and feet, memory concentration issues identified denies SS consult
--- NOTE | 2023-05-21 12:56 | ONC.NURNOTE ---
Addendum entered by Ciara Cabrera RN 05/21/23 13:44: Leanne phoned back- she reports no noted issues with her cytoxan caps denies any nausea- she is drinking fluids during the day and understands to empty bladder frequently did not take any antiemetic today and took her cytoxan with lunch with no nausea patient decided she would like to meet with criminal justice social worker at her next visit referral will be placed Original Note: Follow up call- left message on voice mail- new start of oral cytoxan- restart bevacizumab checking on treatment tolerance
--- NOTE | 2023-05-25 13:43 | ONC.NURNOTE ---
Addendum entered by Ciara Cabrera RN 05/25/23 14:34: Patient phoned back and reports no nausea, no mouth sores, no noted side effects she is surprised that she has not had any side effects taking daily with food, mid day and states understanding that drinking fluids is important understands to call if any changes, concerns or questions Original Note: Cytoxan oral treatment follow up call: left message on voicemail to call [facility]
[2023-06-02 09:26] VITALS: BP 131/80; PULSE 62; RESP 16; TEMP 36.1; O2SAT 98
[2023-06-02 09:31] LABS: Basophils Percent Auto 0.3 % (0.0-3.0); Eosinophils Percent Auto 2.1 % (0.0-7.0); Hematocrit 34.8 % (33.0-51.0); Hemoglobin* 11.5 gm/dL (12.0-16.0); Immature Granulocytes Pct Auto 0.3 %; Lymphocytes Percent Auto 17.4 % (20-44); Mean Corpuscular HGB Conc 33 gm/dL (32-36); Mean Corpuscular Hemoglobin 32 pg (26-34); Mean Corpuscular Volume 95 fL (80-100); Monocytes Percent Auto 9.9 % (0.0-11.0); Platelet Count* 162 K/uL (140-440); RDW Coefficient of Variation % 14.7 % (11.5-15.5); Red Blood Count 3.65 m/uL (4.00-5.20); Slide Review Reflex No; White Blood Count* 3.74 K/uL (4.50-11.00)
[2023-06-02 09:38] LABS: Total Protein Urine < 5 mg/dL
[2023-06-02 09:39] LABS: Creatinine Urine 142.7 mg/dL
[2023-06-02 09:48] LABS: Albumin* 4.3 g/dL (3.3-5.0); Chloride* 104 mmol/L (96-114)
[2023-06-02 09:49] LABS: Potassium* 4.1 mmol/L (3.6-5.1); Sodium* 137 mmol/L (135-149)
[2023-06-02 09:51] LABS: Anion Gap 6 mEq/L (7-15); Aspartate Amino Transferase* 27 U/L (12-35); Bilirubin Total* 0.5 mg/dL (0.1-1.5); Carbon Dioxide* 27 mmol/L (20-32); Creatinine* 0.9 mg/dL (0.5-1.5); Estimated Glomerular Filt Rate 66 ml/min; Total Protein* 7.7 g/dL (6.0-8.3)
[2023-06-02 09:52] LABS: Alanine Aminotransferase* 22 U/L (4-35); Alkaline Phosphatase* 77 U/L (40-150); Blood Urea Nitrogen* 16 mg/dL (7-30); Calcium* 9.4 mg/dL (8.4-10.6); Glucose* 116 mg/dL (60-115)
[2023-06-02] MEDS: SODIUM CHLORIDE 0.9 % (FLUSH) 10 ML SYRINGE IVF ×2 (10:00→11:30)
[2023-06-02] MEDS: 0.9 % SODIUM CHLORIDE 250 ml IV (10:22)
[2023-06-02] MEDS: HEPARIN 500 UNIT/5 ML SYRINGE IVF (11:30)
== END 2023-06-13 23:59 | disposition home or self-care (01) ==
LOC: CCIC 09:15
PROVIDERS: Clinical Nurse Specialist; PCP Family Medicine; Referring Provider Family Medicine; Visit Provider Internal Medicine Hematology & Oncology
DX: C56.1 Malignant neoplasm of right ovary (principal); C54.1 Malignant neoplasm of endometrium; Z51.12 Encounter for antineoplastic immunotherapy; D64.81 Anemia due to antineoplastic chemotherapy; T45.1X5A Adverse effect of antineoplastic and immunosuppressive drugs, initial encounter
CPT/HCPCS: 36415; 36430; 36591; 78815; 80053; 80061; 82306; 82570; 84156; 85025; 86304; 86850; 86900; 86901; 86922; 96372; 96376; 96413; 96415; 96417; 99211; 99212; 99213; 99214; 99215; G0463; J2506; A9270; A9552; J1100; J1200; J1453; J1642; J2469; J2920; J7050; J9045; J9201; P9016; Q5118; S0028

== ENCOUNTER 2023-08-10 12:35 | Outpatient (CLI) | payer MEDICARE, SELFPAY | END 2023-08-10 12:36 | disposition home or self-care (01) | LOC: RAD 12:36 | PROVIDERS: PCP Family Medicine; Visit Provider Internal Medicine Hematology & Oncology | DX: Z51.81 Encounter for therapeutic drug level monitoring (principal); Z79.899 Other long term (current) drug therapy | CPT/HCPCS: 93306 ==

== ENCOUNTER 2023-11-05 14:48 | Outpatient (CLI) | payer MEDICARE, SELFPAY ==
--- OUTSIDE RECORDS SUMMARY | 2023-11-05 14:53 | XMS_ITS | Referral Summary ---
Author Organization [facility] Address [address] [place] [address] Care Team Providers Care Nitro Man Name Role Phone Elsewhere, Pcp Primary Care Provider Unavailabl e Source Comments Patient records contain information from all sites at [facility]. For routine questions regarding patient records, call [phone] during business hours, M-F 8:00 AM - 5:00 PM Central Time. Record requests for emergency care only can be directed to [phone] at any time.[facility] Allergies Active Allergy Reactions Criticality Noted Date Comments Hymenoptera Allergenic Extract Other (see comments) 06/09/2012 Sars-Cov-2 (Covid-19) - Moderna Drug reaction with eosinophilia and systemic symptoms (DRESS) High 06/27/2020 [place] Other (see comments) ,Hives only, no other systemic symptoms,Rash Low 12/08/1975 Venom-Wasp GI intolerance 04/14/1975 Medications Medication Sig Dispensed Refills Start Date End Date Status aspirin 81 mg chewable tablet Chew 81 mg. Active atenoloL (TENORMIN) 100 mg tablet Take 100 mg by mouth daily. Active calcium carbonate 260 mg calcium (648 mg) tablet 09/18/2016 Active cholecalciferol, vitamin D3, 100 mcg (4,000 unit) tablet Take by mouth. Active Tdap: Tetanus-diphtheria -acellular pertussis (Adacel,Tdap Adolesn/Adult,,PF, ) vaccine Active DOCOSAHEXAENOIC ACID ORAL Take by mouth. Active EPINEPHrine 0.3 mg/0.3 mL injection syringe 0.3 ML SUBCUTANEOUSLY ONCE NEEDED FOR ANAPHYLAXIS 12/10/2022 Active furosemide (LASIX) 20 mg tablet TAKE 1 TABLET BY MOUTH ONCE DAILY IN THE MORNING FOR EDEMA OF LEGS HOLD FOR DEHYDRATION RELATED TO DIARRHEA 12/15/2022 Active hydroCHLOROthiazid e (HYDRODIURIL) 12.5 mg tablet Take 12.5 mg by mouth. Active ibuprofen (ADVIL,MOTRIN) 200 mg tablet Take 200-600 mg by mouth every 6 (six) hours as needed. 06/11/2012 Active multivitamin tablet Take 1 tablet by mouth daily. Active potassium chloride (K-TAB) 20 mEq CR tablet TAKE 1 TABLET BY MOUTH ONCE DAILY FOR LOW POTASSIUM DIURETIC THERAPY 12/15/2022 Active prochlorperazine (COMPAZINE) 5 mg tablet TAKE 1 TABLET BY MOUTH THREE TIMES DAILY NEEDED FOR NAUSEA . TAKE FOR NAUSEA ASSOCIATED WITH CHEMOTHERAPY UP TO 3 TIMES PER DAY DIRECTED. 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 Personal History Of Malignan t Neoplasm Of Other Parts Of Uterus 04/20/2012 Personal History Of Malignant Neoplasm Of Ovary 04/20/2012 Overview: Left endometrioid adenocarcinoma; right serous borderline tumor Social History Tobacco Use Types Packs/Day Years Used Date Smoking Tobacco: Never Smokeless Tobacco: Never Tobacco Cessation:Counseling Given: Not Answered Alcohol Use Standard Drinks/Week Comments Not Currently 0 (1 standard drink = 0.6 oz pur e alcohol) Humiliation, Afraid, Rape, and Kick questionnair e Answer Date Recorded Within the last year, have y ou been afraid of your partner or ex-partner? No 10/06/2022 Within the last year, have y ou been humiliated or emotionally abused in other ways by your partner or ex-partner? No Within the last year, have y ou been kicked, hit, slapped, or otherwise physically hurt by your partner or ex-partner? No 10/06/2022 Within the last year, have y ou been raped or forced to have any kind of sexual activity by your partner or ex-partner? No 10/06/2022 Overall Financial Resource Strain (CARDIA) Answe r Date Recorded How hard is it for you to pa y for the very basics like food, housing, medical care, and heating? Not hard at all 10/06/2022 Exercise Vital Sign Answer Date Recorde d On average, how many days pe r week do you engage in moderate to strenuous exercise (like a brisk walk)? 1 day 10/06/2022 On average, how many minutes do you engage in exercise at this level? 20 min 10/06/2022 Hunger Vital Sign Answer Date Recorded Within the past 12 months, y ou worried that your food would run out before you got the money to buy more. Never true 10/07/19 Within the past 12 months, t he food you bought just didn't last and you didn't have money to get more. Never true 10/06/2022 PRAPARE - Transportation Answer Date Re corded In the past 12 months, has l ack of transportation kept you from medical appointments or from getting medications? No 09/18 In the past 12 months, has l ack of transportation kept you from meetings, work, or from getting things needed for daily living? No 10/06/2022 Nutrition Answer Date Recorded Nutrition: EVOO Fat Source Unknown 10/06 On average, how many serving s of fruits and vegetables do you eat per day (serving size is equal to 1 cup or approximately the size of a tennis ball)? 3-5 10/06/2022 Dental Answer Date Recorded Dental: Regular Dentist Yes 10/07/19 Employment Answer Date Recorded Employment status Retired 10/06/2022 Housing Stability Answer Date Recorded What is your living situation today? I have a [facility] place to live 10/06/2022 Sex and Gender Information Value Date Recorded Sex Assigned at Female 10/09/2022 8:47 AM CDT Gender Identity Female 10/09/2022 8:47 AM CDT Sexual Orientation Straight 10/09/2022 8: 47 AM CDT Last Filed Vital Signs Vital Sign Reading Time Taken Comments Blood Pressure 151/58 02/10/2023 8:46 AM CDT Pulse 63 02/02/2023 10:55 AM CDT Temperature 35.9 ??C (96.7 ??F) 02/10/2023 8:46 AM CD T Respiratory Rate - - Oxygen Saturation - - Inhaled Oxygen Concentration - - Weight 98.7 kg (217 lb 9.5 oz) 02/10/2023 8:46 A M CDT Height - - Body Mass Index - - Plan of Treatment Not on file Procedures Procedure Name Priority Date/Time Associated Diagnosis Comments BI BREAST SCREENING BILATERAL WITH TOMOSYNTHESIS Routine 01/28/2017 3:11 PM CDT from Last 3 Months or Most Recently Relevant to Health Maintenance Care Teams Nitro Man Relationship Specialty Start Date End Date Elsewhere, Pcp PCP - General Family Medicine 04/19/20
--- OUTSIDE RECORDS SUMMARY | 2023-11-05 14:53 | XMS_ITS | Clinical Summary ---
Author Organization [facility] Address [place], [place] [address] Care Team Providers Care Dairy Farm Operator Name Role Phone Cheli Meyer MD Primary Care Provider + Allergies Active Allergy Reactions Criticality Noted Date Comments Hymenoptera Allergenic Extract *Unknown 06/09 [place] *Unknown 06/09/2012 Medications Medication Sig Dispensed Refills Start Date End Date Status atenolol (TENORMIN) 50 mg tablet Take 50 mg by mouth once daily. Active CALCIUM CARBONATE/VITAMIN D3 (CALCIUM + D ORAL) Take by mouth. Ac tive ibuprofen (ADVIL; MOTRIN) 200 mg tablet Take 1-3 tablets by mouth every 6 hours if needed for Pain. 100 tablet 0 06/11/2012 Active aspirin chewable 81 mg chewable tablet Take 81 mg by mouth once daily with a meal. Active vitamin B complex (B COMPLEX 50 ORAL) Take by mouth. Acti ve cholecalciferol, vitamin D3, 100 mcg (4,000 unit) tab Take by mouth. Acti ve cranberry fruit extract (CRANBERRY CONCENTRATE ORAL) Take by mouth. Act ashish ywvwn-0p-kyw-epa-fish oil (FISH OIL) 720-1,200 mg cap Take by mouth. Acti ve hydroCHLOROthiazide 12.5 mg tablet Take 12.5 mg by mouth once daily. Active multivitamin (MVI) tablet Take 1 tablet by mouth once daily. Active OXYBUTYNIN CHLORIDE ORAL Take by mouth. Active Active Problems Problem Noted Date Diagnosed Date Severe obesity (BMI >= 40) 12/19/2019 Encounters Date Type Department Care Team Description 08/10/2023 1:00 PM CDT Ancillary Procedure [facility] [address] [place] [address] 08/10/2023 Travel from Last 3 Months Immunizations Name Administration Dates Next Due Influenza, IIV3 (Age >=3 years) 03/09/2012 Pneumococcal Poly,23-Valent (Pneumovax) 03/09/20 12 Social History Tobacco Use Types Packs/Day Years Used Date Smoking Tobacco: Never Smokeless Tobacco: Never Alcohol Use Standard Drinks/Week Comments Not Currently 0 (1 standard drink = 0.6 oz pur e alcohol) Social Connections Answer Date Recorded Frequency of Communication with Friends and Fami ly Not on file 04/22/2023 Sex and Gender Information Value Date Recorded Sex Assigned at Not on file Gender Identity Not on file Sexual Orientation Not on file Obstetrics History Last Filed Vital Signs Vital Sign Reading Time Taken Comments Blood Pressure 127/60 12/15/2019 11:30 AM CDT Pulse 53 12/15/2019 11:30 AM CDT Temperature 36.9 ??C (98.4 ??F) 12/15/2019 7:35 AM CD T Respiratory Rate 14 12/15/2019 11:30 AM CDT Oxygen Saturation 97% 12/15/2019 11:30 AM CDT Inhaled Oxygen Concentration - - Weight 108 kg (238 lb) 12/15/2019 7:35 AM CDT Height 160 cm (5' 3) 12/15/2019 7:35 AM CDT Body Mass Index 42.16 12/15/2019 7:35 AM CDT Plan of Treatment Health Maintenance Due Date Last Done Comments Tdap 1957 Depression screening for age 12+ 1958 BMI (ht and wt on same day) for age 18+ 1964 Hepatitis C screening for age 18-79 1964 Tetanus booster 1966 Zoster (shingles) series for age 50+ (1 of 2) 04/24/18 97 DEXA/DXA scan for age 65+ 2011 Medicare Wellness for age 65+ 2011 Pneumococcal series for age 65+ (2 of 2 - PCV) 013 03/09/2012 COVID-19 vaccine series ( season) 3 Influenza for age 65+ 12/20/2023 03/09/2012 Procedures Procedure Name Priority Date/Time Associated Diagnosis Comments ECHO TTE COMPLETE WO CONTRAST Routine 08/10/2023 1:43 PM CDT Encounter for monitoring cardiotoxic drug therapy from Last 3 Months Results * ECHO TTE COMPLETE WO CONTRAST (08/10/2023 1:43 PM CDT) AORTIC VALVE MEAN PG 4 mmHg EJECTION FRACTION 60 % LVEDD 4.7 cm Anatomical Region Laterality Modality Ultrasound 08/10/2023 1:19 PM CDT Narrative 08/10/2023 4:00 PM CDT ECHOCARDIOGRAM LEANNE ROLDAN ?Accession#: ?? [id number] : ?1945 78 years Study Date: ?? 08/10/2023 1:19:35 PM Gender: F ? BP: ? 167/78 mmHg Height: 160.00 cm ? BSA: ?2.08 m? ? ? Weight: 108.00 kg ? Tech: ? MSR ?Referring MD: BRADLEY NAJERA Site: ? [facility] Reading Location: Mobile OP Patient Location: Outpatient. Procedure: 2D, Color Doppler and Spectral Doppler. Indication for study: Encounter for monitoring cardiotoxic drug therapy Cardiac Rhythm: Regular.Study quality: Fair. Final Impressions: 1. Normal left ventricular size, normal wall thickness, normal global systolic function, calculated EF of 60 %. 2. Right ventricular cavity size is normal, global systolic RV function is normal. 3. Normal left atrium size. 4. The aortic valve is sclerotic, no stenosis and moderate to severe regurgitation. 5. The mitral valve is sclerotic, trace mitral regurgitation. 6. Tricuspid valve is normal. 7. No pericardial effusion. Chamber Sizes and Function Normal left ventricular size, normal wall thickness, normal global systolic function, calculated EF of 60 %. Left atrial size is normal. Right ventricular cavity size is normal, global systolic RV function is normal. RV wall thickness is normal. The right atrium is normal. The pulmonary artery is of normal size and origin. The sinus of Valsalva is normal sized. The ascending aorta is normal sized. Valves, RV Pressures and Diastolic Function The aortic valve is sclerotic, no stenosis and moderate to severe regurgitation. The mitral valve is sclerotic, trace mitral regurgitation. Normal diastolic function. The tricuspid valve is normal in structure. Tricuspid regurgitation is mild regurgitation. The pulmonic valve is normal. Trace pulmonary regurgitation. Masses, Effusion, Shunts There is no pericardial effusion. The inferior vena cava is normal sized, respiratory size variation greater than 50%. Interatrial septum is not well visualized. MEASUREMENTS AND CALCULATIONS 2-D Measurements and LV Function: LVID (d) 4.7 cm Planimetered EF 60 % LVID (s) 2.9 cm LV FS% (2D) ? 37 % IVS (d) ??0.9 cm LVOT diameter ?? 2.1 cm LVPW (d) 0.8 cm HR ?79 bpm Ao Sinus 3.4 cm RV Max 4C (d) ?? 3.3 cm Asc Ao ?? 3.6 cm Diastology: Mitral ?Tissue Doppler E Peak 0.5 m/s ??e', Septum ? 0.07 m/s A Peak 0.8 m/s ??e', Lateral ?0.10 m/s E/A ?0.7 ?E/e' Average ?? 6.25 DT ? 226 msec Aortic Valve: Vmax ? 1.4 m/s ??KEN (V) ?? 2.75 cm? AI P 1/2 503 msec VTI ?0.34 m ?? KEN (I) ?? 2.78 cm? ? ? LVOT V max 1.1 m/s ??Max PG ?8 mmHg LVOT VTI ?? 0.27 m ?? Mean PG ?? 4 mmHg SV ? 93 ml ?Dim Index 0.79 SV index ?? 45 ml/m? ? ? CO ?7.3 l/min ?CI ?3.5 l/min/m? ? ? Mitral Valve: MVA ?3.4 cm? ? ? MV P 1/2 66 msec Tricuspid Valve and estimated PA pressures: TAPSE 2.0 cm . This study was interpreted by an [facility] accredited facility. CC: [facility] ([facility]) [facility]. ??Final ?? Procedure Note Francisca Rivers, [facility] - 08/10/2023 ECHOCARDIOGRAM LEANNE ROLDAN : 1945 78 years Study Date: 08/10/2023 1:19:35 PM Gender: F BP: 167/78 mmHg Height: 160.00 cm BSA: 2.08 m? ? ? Weight: 108.00 kg Tech: MSR Referring MD: BRADLEY NAJERA Site: [facility] Reading Location: Mobile OP Patient Location: Outpatient. Procedure: 2D, Color Doppler and Spectral Doppler. Indication for study: Encounter for monitoring cardiotoxic drug therapy Cardiac Rhythm: Regular.Study quality: Fair. Final Impressions: 1. Normal left ventricular size, normal wall thickness, normal globalsystolic function, calculated EF of 60 %. 2. Right ventricular cavity size is normal, global systolic RV functionis normal. 3. Normal left atrium size. 4. The aortic valve is sclerotic, no stenosis and moderate to severeregurgitation. 5. The mitral valve is sclerotic, trace mitral regurgitation. 6. Tricuspid valve is normal. 7. No pericardial effusion. Chamber Sizes and Function Normal left ventricular size, normal wall thickness, normal globalsystolic function, calculated EF of 60 %. Left atrial size is normal.Right ventricular cavity size is normal, global systolic RV function isnormal. RV wall thickness is normal. The right atrium is normal. Thepulmonary artery is of normal size and origin. The sinus of Valsalva isnormal sized. The ascending aorta is normal sized. Valves, RV Pressures and Diastolic Function The aortic valve is sclerotic, no stenosis and moderate to severeregurgitation. The mitral valve is sclerotic, trace mitral regurgitation.Normal diastolic function. The tricuspid valve is normal in structure.Tricuspid regurgitation is mild regurgitation. The pulmonic valve isnormal. Trace pulmonary regurgitation. Masses, Effusion, Shunts There is no pericardial effusion. The inferior vena cava is normal sized,respiratory size variation greater than 50%. Interatrial septum is notwell visualized. MEASUREMENTS AND CALCULATIONS 2-D Measurements and LV Function: LVID (d) 4.7 cm Planimetered EF 60 % LVID (s) 2.9 cm LV FS% (2D) 37 % IVS (d) 0.9 cm LVOT diameter 2.1 cm LVPW (d) 0.8 cm HR 79 bpm Ao Sinus 3.4 cm RV Max 4C (d) 3.3 cm Asc Ao 3.6 cm Diastology: Mitral Tissue Doppler E Peak 0.5 m/s e', Septum 0.07 m/s A Peak 0.8 m/s e', Lateral 0.10 m/s E/A 0.7 E/e' Average 6.25 DT 226 msec Aortic Valve: Vmax 1.4 m/s KEN (V) 2.75 cm? ? ? AI P 1/2 503 msec VTI 0.34 m KEN (I) 2.78 cm? ? ? LVOT V max 1.1 m/s Max PG 8 mmHg LVOT VTI 0.27 m Mean PG 4 mmHg SV 93 ml Dim Index 0.79 SV index 45 ml/m? ? ? CO 7.3 l/min CI 3.5 l/min/m? ? ? Mitral Valve: MVA 3.4 cm? ? ? MV P 1/2 66 msec Tricuspid Valve and estimated PA pressures: TAPSE 2.0 cm . This study was interpreted by an [facility] accredited facility. CC: [facility] (med records) [facility]. Final Bradley Najera MD ECHO ORD from Last 3 Months Advance Directives * Full Code (Latest Code Status on File) Date Activated Date Inactivated Comments 06/09/2012 5:43 AM 06/11/2012 3:29 PM Care Teams Dairy Farm Operator Relationship Specialty Start Date End Date Cheli Meyer MD [address] [place] [address] PCP - General Family Practice 12/12/19
--- OUTSIDE RECORDS SUMMARY | 2023-11-05 14:53 | XMS_ITS | Patient Health Record ---
Author Organization [facility] [place] Address [address] [place] [id number] Care Team Providers Care Timber Poisoner Name Role Phone Magdalene Montano Unavailable [phone] REASON FOR REFERRAL No Information IMMUNIZATIONS Vaccine Route Administration Date Status Comme nts *COVID-19 - Moderna IM Intramuscular 05/29/2020 Administer ed *COVID-19 - Moderna IM Intramuscular 06/26/2020 Administer ed PLAN OF TREATMENT No Information Insurance Providers Payer Name Payer Address Payer Phone Subscriber Number Group Number Insured Name Patient Relationship to Insured Coverage Start Date Coverage End Date COVID19 HRSA Uninsured Testing and Treatment Fund CARES Act Provider Relief Fund [address] [address] [place] [address] [id number] Leanne Roldan Self - patient is the insured 1 1
--- OUTSIDE RECORDS SUMMARY | 2023-11-05 14:53 | XMS_ITS | Referral Summary ---
Author Organization [facility] Address [address] [place] [address] Care Team Providers Care Towboat Operator Name Role Phone Cheli Meyer MD Primary Care Provider + Allergies Active Allergy Reactions Criticality Noted Date Comments Bees 11/22/2014 [place] Extract 11/22/2014 Medications Medication Sig Dispensed Refills Start Date End Date Status calcium carbonate (OS-GLORIA 500 MG [place]. [place]) 500 MG tabletIndications:ABST RACTING RESULTS Take by mouth 2 times daily 90 tablet 11/22/2014 Active BABY ASPIRIN PO Active Multiple Vitamin (MULTIVITAMINS PO) Active atenolol (TENORMIN) 50 MG tabletIndications:Esse ntial hypertension Take 1 tablet (50 mg) by mouth daily 90 tablet 3 01/28/2017 Active Active Problems Problem Noted Date Diagnosed Date Personal history of ovarian cancer 01/15/2015 Overview: Stage IIIC serous left ovary, Stage IC grade 2, at same time as uterine cancer 2013 Factor V Leiden carrier (H24) 01/15/2015 Overview: Patient has no history of clotting but brother had DVT Essential hypertension 11/22/2014 History of uterine cancer 11/22/2014 Resolved Problems Problem Noted Date Diagnosed Date Resolved Date Advanced directives, counseling/discussion 11/22/2014 10/05/2023 Immunizations Name Administration Dates Next Due Influenza (High Dose) 3 valent vaccine 6 Influenza (IIV3) PF 03/09/2012 Pneumococcal 23 valent 03/09/2012 TDAP (Adacel,Boostrix) 01/09/2010 Zoster vaccine, live 03/22/2010 Social History Tobacco Use Types Packs/Day Years Used Date Smoking Tobacco: Never Tobacco Cessation:Counseling Given: No Alcohol Use Standard Drinks/Week Comments No 0 (1 standard drink = 0.6 oz pur e alcohol) Adolescent Education Answer Date Record ed Getting School Help Needed Not on file 01/24 Sex and Gender Information Value Date Recorded Sex Assigned at Not on file Gender Identity Not on file Sexual Orientation Not on file Last Filed Vital Signs [...] 01/28/2017 2:20 PM CDT Plan of Treatment Not on file Care Teams Towboat Operator Relationship Specialty Start Date End Date Cheli Meyer MD [facility] [address] [place] [address] PCP - General Family Practice 11/15/19
--- OUTSIDE RECORDS SUMMARY | 2023-11-05 14:53 | XMS_ITS | Clinical Summary ---
Author Organization [facility] Address [address] [place] [address] Care Team Providers Care Anesthesiologist Name Role Phone Elsewhere, Pcp Primary Care Provider Unavailabl e Source Comments Patient records contain information from all sites at [facility]. For routine questions regarding patient records, call [phone] during business hours, M-F 8:00 AM - 5:00 PM Central Time. Record requests for emergency care only can be directed to [phone] at any time.[facility] Allergies Active Allergy Reactions Criticality Noted Date Comments Hymenoptera Allergenic Extract Other (see comments) 06/09/2012 Sars-Cov-2 (Covid-19) - Moderna Drug reaction with eosinophilia and systemic symptoms (DRESS) High 06/27/2020 [place] Other (see comments) ,Hives only, no other [...] Left endometrioid adenocarcinoma; right serous borderline tumor Family History Medical History Relation Name Comments Uterine cancer Aunt 1 Pancreatic cancer Aunt 2 Diverticulitis Father Abhay Leukemia Father's Brother 2 Иван Breast cancer Father's Sister 1 Breast cancer Father's Sister 2 Lung cancer Father's Sister 2 Heart attack Maternal Grandfather Ajit Heart disease Maternal Grandfather Ajit Stroke Maternal Grandmother Brandi Kidney failure Mother Cony Lung cancer Paternal Cousin 1 Gene Prostate cancer Paternal Cousin 2 Venkata Alzheimers dementia.. Paternal Grandfather Mir Diabetes type I Paternal Grandmother Allie Breast CA Add'l Onset Sister Fiona Breast cancer Sister Fiona Relation Name Status Comments Aunt 1 (Age 103) Aunt 2 (Age 99) Brother 1 Misael Alive Brother 2 Derek Alive Father Abhay (Age 99) Father's Brother 1 TWO Father's Brother 2 Иван Father's Sister 1 Father's Sister 2 Grandson Alive Maternal Grandfather Ajit (Age 68) Maternal Grandmother Brandi (Age 97) Maternal Great Grandfather Maternal Great Grandmother Mother Cony (Age 94) d.encephal itis due to shingles Mother's Brother Mother's Sister 1 Mother's Sister 2 Mother's Sister 3 Nephew 1 Alive Nephew 2 Alive Nephew 3 Alive Niece 1 Alive Niece 2 Alive Niece 3 Alive Other 1 Great Granddaughter Alive Other 2 Great Grandson Alive Paternal Cousin 1 Gene Alive Paternal Cousin 2 Venkata Alive Paternal Grandfather Mir (Age 84) Paternal Grandmother Allie Sister Fiona Alive Son Alive Social History Tobacco Use Types Packs/Day Years [...] money to buy more. Never true 10/07/19 23 Within the past 12 months, t he [...] your living situation today? I have a [facility] place to live 10/06/2022 Sex and Gender [...] Mass Index - - Plan of Treatment Health Maintenance Due Date Last Done Comments Hepatitis C Screening 1945 Depression Screening (Annual PHQ-2) 04/20/2023 Fall Risk Screen (Annual) 04/20/2023 COVID-19 Vaccine ( season) 2023 03/10/2023, 04/08/2022, 08/20/2021, Additional history exists Influenza Vaccine (#1) 2024 3, 02/03/2022, 02/11/2021, Additional history exists DTaP,Tdap,and Td Vaccines (3 - Td or Tdap) 09/03/2027 09/02/2017, 01/09/2010 Mammogram Discontinued 01/28/2017 Pneumococcal vaccine (65+ years) Completed 02/04/2018, 03/09/2012 Zoster Vaccines Completed 04/17/2018, 12/20, 03/22/2010 HPV Vaccines Aged Out No longer eligi ble based on patient's age to complete this topic Procedures Procedure Name Priority Date/Time Associated Diagnosis Comments BI BREAST SCREENING BILATERAL WITH TOMOSYNTHESIS Routine 01/28/2017 3:11 PM CDT from Last 3 Months or Most Recently Relevant to Health Maintenance Care Teams Anesthesiologist Relationship Specialty Start Date End Date Elsewhere, Pcp PCP - General Family Medicine 04/19/20
--- OUTSIDE RECORDS SUMMARY | 2023-11-05 14:53 | XMS_ITS | Clinical Summary ---
Author Organization [facility] Address [address] [place] [address] Care Team Providers Care Batch Trucker Name Role Phone Cheli Meyer MD Primary Care Provider + Allergies Active Allergy Reactions Criticality Noted Date Comments Bees 11/22/2014 [place] Extract 11/22/2014 Medications Medication Sig Dispensed Refills Start Date End Date Status calcium carbonate (OS-GLORIA 500 MG [place]. [place]) 500 MG tabletIndications:ABST RACTING RESULTS Take [...] TDAP (Adacel,Boostrix) 01/09/2010 Zoster vaccine, live 03/22/2010 Family [...] of Treatment Not on file Care Teams Batch Trucker Relationship Specialty Start Date End Date Cheli Meyer MD [facility] [address] [place] [address] PCP - General Family Practice 11/15/19
--- OUTSIDE RECORDS SUMMARY | 2023-11-05 14:53 | XMS_ITS ---
Author Organization [facility] Address [address] [place] [address] Care Team Providers Care Buffer Copper Name Role Phone Unavailable Unavailable Unavailable Surgery Details Not on file Complications Check Surgery Details section. Procedure Estimated Blood Loss Check Surgery Details section. Procedure Findings Check Surgery Details section. Procedure Specimens Taken Check Surgery Details section.
--- OUTSIDE RECORDS SUMMARY | 2023-11-05 14:53 | XMS_ITS ---
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 Past Plans No past plan information found. Radiation Treatments * Plan Last Treated On Elapsed Days Fractions Treated Prescribed Fraction Dose Prescribed Total Dose [id number] 02/11/2023 6 5 of 5 400 cGy 2,000 cGy [id number] 02/11/2023 6 5 of 5 500 cGy 2,500 cG y Reference Point Last Treated On Elapsed Days Session Dose Total Dose [id number] 02/11/2023 6 400 cGy 2,000 cGy [id number] 02/11/2023 6 500 cGy 2,500 cGy
--- NOTE | 2023-11-05 15:00 | PE_ITS ---
[facility] [address] [facility] [address] Phone:?[phone] Fax:?[phone] Referring Physician Information: Dayanara Lopez M.D. [address] [facility] [address] Phone:?[phone] Fax:?[phone] Patient:Jannette Roldan D.O.B:?1945 Sex:?Female Phone:?[phone] [facility] MRN:?[id number] Exam Date:?11/05/2023 EXAM: PET/CT EYES TO THIGHS, CANCER RESTAGING CLINICAL INFORMATION: Ovarian cancer, restaging. TECHNICAL INFORMATION: Helical acquisition of data was obtained from the orbits to the upper thighs with reconstruction of 3.75 mm thick images at 3.[address] data was used for attenuation correction. PET scanning was performed through the same anatomic range 60 minutes following administration of 13.56 mCi of 18-FDG delivered intravenously. The patient's glucose at the time of the injection was 84 mg/dL. PET, CT and PET/CT fusion images are interpreted using a computer viewing workstation. PET, CT and PET/CT fusion images were archived and saved in the patient's permanent medical record. COMPARISON: PET-CTs from 07/30/2023 and 05/07/2023. INTERPRETATION: Head and Neck: Left supraclavicular lymph node (Se 2 Im 66) measures 0.9 cm (stable) with a maximum SUV of 8.31, previously 14.55 (July) and 10.47 (April). There are no other abnormal hypermetabolic foci within the head or neck. There is physiologic uptake in the intracranial soft tissues. Chest: Anterior periaortic lymph node (Se 2 Im 86) measures 1.3 x 1.2 cm with a maximum SUV of 14.32, previously 1.2 x 1.2 cm with maximum SUV of 14.65 (July) and 15.8 (April). There are no other abnormal hypermetabolic foci within the chest. Background mediastinal blood pool uptake has a maximum SUV of 3.68. No lung nodules or masses detected on this free-breathing exam. Right chest port catheter terminates at the cavoatrial junction. Abdomen and Pelvis: Right retrocrural node (Se 2 Im 132) measures 1.1 cm with maximum SUV of 18.77, previously 23.9 () and 26.04 (April). Poorly circumscribed gastrohepatic mass (Se 2 Im 145) is grossly stable in terms of size and appearance; its current maximum SUV is 28.08, previously 27.33 (July) and 32.01 (April). Extensive peritoneal nodularity redemonstrated. Account Group Supervisor peritoneal implant along the left ventral abdomen (Se 2 Im 183) measures 2.2 x 1.2 cm with maximum SUV of 15.76, previously 12.95 (July) and 13.6 (April). Several peritoneal nodules associated with a fat-containing ventral abdominal wall hernia are stable in terms of size and metabolic rate. A right internal iliac lymph node (Se 2 Im 203) measures 1.0 cm in short axis with maximum SUV of 10.25, previously 18.56 (July). A left external iliac node (Se 2 Im 219) has a maximum SUV of 11.73, previously 16.83 (July) and 15.39 (April). Background hepatic parenchymal uptake has a maximum SUV of 4.53. There is physiologic excretion of radiotracer in the urine and bowel. Skeleton, Musculature, and Integument: No abnormal hypermetabolic foci within the skeleton. No sonu osteoblastic or osteolytic disease. CONCLUSION: When compared to the most recent PET-CT from July 2023, the patient's disease burden is generally stable in terms of size, appearance, and metabolic rate. The index lesions show minor mixed change in SUV (some slightly higher, some slightly lower) which may be attributable to technical factors (e.g., differences in blood glucose level, dose delivery). No new or enlarging sites of disease. Electronically signed on 11/06/2023 11:15:00 AM by Seb Smith M.D.
== END 2023-11-05 14:49 | disposition home or self-care (01) ==
LOC: RAD 14:48
PROVIDERS: PCP Family Medicine; Visit Provider Internal Medicine Hematology & Oncology
DX: C54.1 Malignant neoplasm of endometrium (principal)
CPT/HCPCS: 78815; A9552

== ENCOUNTER 2023-12-14 09:45 | Outpatient (RCR) | payer MEDICARE, SELFPAY ==
[2023-06-17 10:35] LABS: Basophils Percent Auto 0.5 % (0.0-3.0); Eosinophils Percent Auto 1.3 % (0.0-7.0); Hematocrit 34.4 % (33.0-51.0); Hemoglobin* 11.3 gm/dL (12.0-16.0); Lymphocytes Percent Auto 18.6 % (20-44); Mean Corpuscular HGB Conc 33 gm/dL (32-36); Mean Corpuscular Hemoglobin 32 pg (26-34); Mean Corpuscular Volume 97 fL (80-100); Monocytes Percent Auto 12.2 % (0.0-11.0); Neutrophils Percent Auto 67.4 % (42.0-72.0); Platelet Count* 153 K/uL (140-440); RDW Coefficient of Variation % 15.7 % (11.5-15.5); Red Blood Count 3.56 m/uL (4.00-5.20); White Blood Count* 3.77 K/uL (4.50-11.00)
[2023-06-17 10:38] LABS: Slide Review Reflex No
[2023-06-17 10:58] LABS: Chloride* 103 mmol/L (96-114); Potassium* 3.9 mmol/L (3.6-5.1); Sodium* 136 mmol/L (135-149)
[2023-06-17 11:00] LABS: Creatinine* 0.9 mg/dL (0.5-1.5); Estimated Glomerular Filt Rate 66 ml/min
[2023-06-17 11:01] LABS: Alanine Aminotransferase* 30 U/L (4-35); Alkaline Phosphatase* 82 U/L (40-150); Anion Gap 7 mEq/L (7-15); Aspartate Amino Transferase* 33 U/L (12-35); Bilirubin Total* 0.6 mg/dL (0.1-1.5); Blood Urea Nitrogen* 20 mg/dL (7-30); Calcium* 9.7 mg/dL (8.4-10.6); Carbon Dioxide* 26 mmol/L (20-32); Glucose* 91 mg/dL (60-115); Total Protein* 7.5 g/dL (6.0-8.3)
[2023-06-17 11:15] LABS: Creatinine Urine 169.7 mg/dL; Total Protein Urine < 5 mg/dL
--- NOTE | 2023-06-26 14:44 | ONC.NURNOTE ---
Addendum entered by Rani Bustamante RN 06/26/23 15:07: pt also picked up imodium and instructed on how to use. Original Note: Pt called and left message stating I vomited and I think the pills are too much for me, maybe I should go back to one pill. Cutlery Grinder called pt and pt stated she felt nauseated at 1710, vomited 4 times at 1730 and had multiple loose stools up to 10 in a 20 min period. Pt also had a stomach ache at the time. Pt continued to have a loose stool at 2300, 0200, 0400, and 0930. Pt did not take any imodium and feels she has stayed hydrated. Pt states she gets a stomach ache every time she takes the 2 cytoxan pills. Cutlery Grinder discussed with Ciara NUNES and Mercedes Mcmullen APRN. Order received for pt to hold her cytoxan for 3 days and to resume on Thursday if symptoms have resolved. Pt will follow up with Ciara on Thursday regarding her symptoms. Instructed pt to go to the ER this weekend if her symptoms worsen. Pt verbalized understanding of plan of care.
--- NOTE | 2023-06-29 10:31 | ONC.NURNOTE ---
Addendum entered by Ciara Cabrera RN 06/29/23 12:35: Discussed with Marissa- concern that there could be an obstruction- patient is at risk- would need to be seen in the ER is vomiting and diarrhea continues this was discussed with Leanne Leanne just ate an egg sandwich this am- with no further nausea she has not had a BM since Thursday- and was informed that she will need to take stool softner if no BM today- once again monitoring for obstruction drinking 32 plus ounces of water/day with gatorade or other electrolyte drink- encouraged to increase liquid intake holding cytoxan today per Marissa will reassess patient tomorrow- Leanne states understanding Original Note: Follow up on diarrhea and vomiting Leanne reports the following from the weekend- --no further stools since Thursday am- went out family event on Thursday -no vomiting since Thursday- appetite continues to be poor- has had some chicken soup and tolerated well discussed BRAT diet type foods- rice- toast-hydration fluids-plain chicken- avoid dairy and fatty and spicy foods -also reported hands were very cold when on 2 cytoxan/day- this improved since holding cytoxan over the weekend will discuss next steps for cytoxan with provider-
[2023-07-01 09:21] LABS: Basophils Percent Auto 0.3 % (0.0-3.0); Eosinophils Percent Auto 1.8 % (0.0-7.0); Hematocrit 35.3 % (33.0-51.0); Hemoglobin* 11.8 gm/dL (12.0-16.0); Immature Granulocytes Pct Auto 0.3 %; Lymphocytes Percent Auto 11.1 % (20-44); Mean Corpuscular HGB Conc 33 gm/dL (32-36); Mean Corpuscular Hemoglobin 33 pg (26-34); Mean Corpuscular Volume 98 fL (80-100); Monocytes Percent Auto 12.9 % (0.0-11.0); Neutrophils Percent Auto 73.6 % (42.0-72.0); Platelet Count* 152 K/uL (140-440); RDW Coefficient of Variation % 16.3 % (11.5-15.5); Red Blood Count 3.61 m/uL (4.00-5.20)
[2023-07-01 09:26] LABS: Slide Review Reflex No
--- NOTE | 2023-07-01 09:43 | ONC.NURNOTE ---
Patient states she went to [facility] and saw Dr. Jennifer Marshall (Gynecological cancer) and they have a 3 options including Doxil and a study with Bin. Patient stated they would be calling to touch base and connect with Dr. Lopez
[2023-07-01 09:47] LABS: Albumin* 4.3 g/dL (3.3-5.0); Chloride* 103 mmol/L (96-114); Sodium* 137 mmol/L (135-149)
[2023-07-01 09:48] LABS: Potassium* 4.1 mmol/L (3.6-5.1)
[2023-07-01 09:50] LABS: Alanine Aminotransferase* 21 U/L (4-35); Alkaline Phosphatase* 85 U/L (40-150); Anion Gap 7 mEq/L (7-15); Aspartate Amino Transferase* 29 U/L (12-35); Bilirubin Total* 0.3 mg/dL (0.1-1.5); Blood Urea Nitrogen* 16 mg/dL (7-30); Carbon Dioxide* 27 mmol/L (20-32); Creatinine* 0.8 mg/dL (0.5-1.5); Estimated Glomerular Filt Rate 76 ml/min; Glucose* 106 mg/dL (60-115); Total Protein Urine < 5 mg/dL; Total Protein* 7.6 g/dL (6.0-8.3)
[2023-07-01 09:51] LABS: Calcium* 9.7 mg/dL (8.4-10.6); Creatinine Urine 221.3 mg/dL
[2023-07-01 10:12] VITALS: BP 128/77; PULSE 58; RESP 16; TEMP 36.2; O2SAT 100
--- NOTE | 2023-07-01 11:13 | ONC.NURNOTE ---
Received phone call from the office of Dr. Jennifer Marshall asking if there was any additional testing completed for patient with [facility]. Reviewed pages with nurse to be sure all was received. They will add on the additional testing, and will send copies to us once obtained. Once note is complete from the visit yesterday, they will fax to our office. Current plan is to continue with cytoxan and bevacizumab - potential to add pembrolizumab, and scan in July. Depending on scan, patient would switch to doxil, [facility] is able to order this currently. Medical Assistant Supervisor working with [facility] pharmacy on potential of ordering for here as well.
[2023-07-01] MEDS: SODIUM CHLORIDE 0.9 % (FLUSH) 10 ML SYRINGE IVF (12:45)
[2023-07-01] MEDS: HEPARIN 500 UNIT/5 ML SYRINGE IVF (12:45)
--- NOTE | 2023-07-09 10:03 | ONC.NURNOTE ---
Phone communication yesterday with Leanne- she expresses concern about the rising cost of the cyclophosphamide from [facility] initial fill was about $25 then it went up to $45, now $83, but this is a 60 day supply- the following was reviewed with Leanne- after check writer salesperson looked in to cost saving options -there are no copay grants available at this time for her diagnosis -[facility] the cost for #30 cyclophosphamide is $42 + $5 shipping -get a 1 month fill at [facility]- this is the most competitive pricing Per [facility] Pharmacist -switching to tablets from capsules is not a cost savings -the [place] of cyclophosphamide has gone up recently
--- NOTE | 2023-07-09 10:53 | ONC.NURNOTE ---
Note received from [facility] and Dr. Lopez reviewed it and patient called stating they would talk more about it at her next visit but with her cancer showing response with current plan no need to change up treatment plan but if things progress after scan in August/September Dr. Lopez will talk with [place] Site Foreman/Onc for next step
[2023-07-13 09:21] LABS: Basophils Percent Auto 0.3 % (0.0-3.0); Eosinophils Percent Auto 1.8 % (0.0-7.0); Hematocrit 35.6 % (33.0-51.0); Hemoglobin* 11.8 gm/dL (12.0-16.0); Immature Granulocytes Pct Auto 0.3 %; Lymphocytes Percent Auto 12.8 % (20-44); Mean Corpuscular HGB Conc 33 gm/dL (32-36); Mean Corpuscular Hemoglobin 33 pg (26-34); Mean Corpuscular Volume 98 fL (80-100); Monocytes Percent Auto 13.6 % (0.0-11.0); Neutrophils Percent Auto 71.2 % (42.0-72.0); Platelet Count* 141 K/uL (140-440); RDW Coefficient of Variation % 16.1 % (11.5-15.5); Red Blood Count 3.62 m/uL (4.00-5.20); White Blood Count* 3.37 K/uL (4.50-11.00)
[2023-07-13 09:23] LABS: Slide Review Reflex No
[2023-07-13 09:35] LABS: Albumin* 4.1 g/dL (3.3-5.0); Chloride* 104 mmol/L (96-114); Potassium* 3.9 mmol/L (3.6-5.1); Sodium* 139 mmol/L (135-149)
[2023-07-13 09:38] LABS: Alanine Aminotransferase* 22 U/L (4-35); Alkaline Phosphatase* 81 U/L (40-150); Anion Gap 6 mEq/L (7-15); Aspartate Amino Transferase* 28 U/L (12-35); Bilirubin Total* 0.5 mg/dL (0.1-1.5); Blood Urea Nitrogen* 19 mg/dL (7-30); Carbon Dioxide* 29 mmol/L (20-32); Creatinine* 0.9 mg/dL (0.5-1.5); Estimated Glomerular Filt Rate 66 ml/min; Glucose* 116 mg/dL (60-115); Total Protein* 7.4 g/dL (6.0-8.3)
[2023-07-13 09:39] LABS: Calcium* 9.7 mg/dL (8.4-10.6)
[2023-07-13 10:11] LABS: Total Protein Urine < 5 mg/dL
[2023-07-13 10:15] LABS: Creatinine Urine 194.7 mg/dL
[2023-07-14 17:17] LABS: Cancer Antigen 125 79 U/mL (<=38)
[2023-07-15] MEDS: SODIUM CHLORIDE 0.9 % (FLUSH) 10 ML SYRINGE IVF ×2 (13:51→14:54)
[2023-07-15 13:54] VITALS: BP 132/80; PULSE 61; RESP 16; TEMP 36.6; O2SAT 98
[2023-07-15] MEDS: 0.9 % SODIUM CHLORIDE 250 ml IV (14:10)
[2023-07-15] MEDS: HEPARIN 500 UNIT/5 ML SYRINGE IVF (14:54)
[2023-07-29 09:08] VITALS: BP 137/85; PULSE 64; RESP 16; TEMP 36.2; O2SAT 93
[2023-07-29 09:32] LABS: Basophils Percent Auto 0.6 % (0.0-3.0); Hematocrit 35.9 % (33.0-51.0); Lymphocytes Percent Auto 11.5 % (20-44); Mean Corpuscular HGB Conc 33 gm/dL (32-36); Mean Corpuscular Hemoglobin 33 pg (26-34); Mean Corpuscular Volume 99 fL (80-100); Monocytes Percent Auto 13.4 % (0.0-11.0); Neutrophils Percent Auto 72.5 % (42.0-72.0); Platelet Count* 155 K/uL (140-440); RDW Coefficient of Variation % 15.7 % (11.5-15.5); Red Blood Count 3.63 m/uL (4.00-5.20); White Blood Count* 3.58 K/uL (4.50-11.00)
[2023-07-29 09:35] LABS: Slide Review Reflex No
[2023-07-29 09:41] LABS: Albumin* 4.2 g/dL (3.3-5.0)
[2023-07-29 09:42] LABS: Chloride* 103 mmol/L (96-114); Potassium* 4.1 mmol/L (3.6-5.1); Sodium* 135 mmol/L (135-149)
[2023-07-29 09:44] LABS: Anion Gap 5 mEq/L (7-15); Aspartate Amino Transferase* 29 U/L (12-35); Bilirubin Total* 0.6 mg/dL (0.1-1.5); Carbon Dioxide* 27 mmol/L (20-32); Estimated Glomerular Filt Rate 58 ml/min
[2023-07-29 09:45] LABS: Alanine Aminotransferase* 23 U/L (4-35); Alkaline Phosphatase* 79 U/L (40-150); Blood Urea Nitrogen* 19 mg/dL (7-30); Calcium* 9.7 mg/dL (8.4-10.6); Glucose* 101 mg/dL (60-115); Total Protein* 7.6 g/dL (6.0-8.3)
--- NOTE | 2023-07-29 09:51 | ONC.NURNOTE ---
06/25/22 was off cyclophostamide for 3 days due to N/V/D. restarted 06/28 with no return of N/V/D.
[2023-07-29 10:01] LABS: Total Protein Urine < 5 mg/dL
[2023-07-29 10:03] LABS: Creatinine Urine 232.9 mg/dL
[2023-07-29] MEDS: HEPARIN 500 UNIT/5 ML SYRINGE IVF (11:35)
[2023-07-29] MEDS: SODIUM CHLORIDE 0.9 % (FLUSH) 10 ML SYRINGE IVF (11:35)
[2023-07-29] MEDS: 0.9 % SODIUM CHLORIDE 250 ml IV (11:35)
[2023-07-30] MEDS: SODIUM CHLORIDE 0.9 % (FLUSH) 10 ML SYRINGE IVF (14:15)
[2023-07-30] MEDS: HEPARIN 500 UNIT/5 ML SYRINGE IVF (14:15)
--- NOTE | 2023-08-05 09:54 | URNOTE ---
Received request for prior authorization for Doxil (J9001), continued with bevacizumab-bvzr (Zirabev) (Q5118). Pt carries active are, and per [facility]'s Medical Injectable Drug Auth List, No prior authorization needed.
[2023-08-12 08:31] VITALS: BP 128/76; PULSE 58; RESP 16; TEMP 36; O2SAT 98
[2023-08-12 08:53] LABS: Basophils Percent Auto 0.3 % (0.0-3.0); Eosinophils Percent Auto 2.5 % (0.0-7.0); Hematocrit 35.2 % (33.0-51.0); Hemoglobin* 11.8 gm/dL (12.0-16.0); Lymphocytes Percent Auto 10.1 % (20-44); Mean Corpuscular HGB Conc 34 gm/dL (32-36); Mean Corpuscular Hemoglobin 34 pg (26-34); Mean Corpuscular Volume 101 fL (80-100); Monocytes Percent Auto 12.8 % (0.0-11.0); Neutrophils Percent Auto 74.3 % (42.0-72.0); Platelet Count* 130 K/uL (140-440); RDW Coefficient of Variation % 15.4 % (11.5-15.5); White Blood Count* 3.58 K/uL (4.50-11.00)
[2023-08-12 08:59] LABS: Total Protein Urine < 5 mg/dL
[2023-08-12 09:00] LABS: Creatinine Urine 175.2 mg/dL
[2023-08-12 09:05] LABS: Slide Review Reflex No
[2023-08-12 09:21] LABS: Chloride* 106 mmol/L (96-114); Potassium* 3.9 mmol/L (3.6-5.1); Sodium* 137 mmol/L (135-149)
[2023-08-12 09:23] LABS: Creatinine* 0.7 mg/dL (0.5-1.5); Est. Creatinine Clearance* 37.26; Estimated Glomerular Filt Rate 89 ml/min
[2023-08-12 09:24] LABS: Alanine Aminotransferase* 24 U/L (4-35); Alkaline Phosphatase* 77 U/L (40-150); Anion Gap 2 mEq/L (7-15); Aspartate Amino Transferase* 30 U/L (12-35); Bilirubin Total* 0.4 mg/dL (0.1-1.5); Blood Urea Nitrogen* 18 mg/dL (7-30); Carbon Dioxide* 29 mmol/L (20-32); Glucose* 102 mg/dL (60-115); Total Protein* 7.2 g/dL (6.0-8.3)
[2023-08-12 09:25] LABS: Calcium* 9.2 mg/dL (8.4-10.6)
[2023-08-12] MEDS: dexAMETHasone 10 MG in 0.9 % SODIUM CHLORIDE 100 ml 100 ML 404 MG IVPB (10:42)
[2023-08-12] MEDS: ONDANSETRON 2 MG/ML inj 8 MG IVP (10:43)
[2023-08-12] MEDS: diphenhydrAMINE 25 MG CAPSULE 50 MG PO (11:42)
[2023-08-12] MEDS: SODIUM CHLORIDE 0.9 % (FLUSH) 10 ML SYRINGE IVF (13:50)
[2023-08-12] MEDS: HEPARIN 500 UNIT/5 ML SYRINGE IVF (13:50)
[2023-08-12] MEDS: 0.9 % SODIUM CHLORIDE 250 ml IV (13:50)
[2023-08-12] MEDS: 5 % DEXTROSE 250 ML IV (13:51)
--- NOTE | 2023-08-12 15:23 | ONC.NURNOTE ---
Reviewed new chemotherapy treatment with patient discussed possible side effects, treatment schedule, calling with side effects, anti nausea medications for prevention, diet options that include CoQ10, discussed possibility of infusional reactions with first dosing reviewed consents and ZEFERINO forms- all signed questions addressed patient has completed her oral cytoxan with the start of the Doxil
--- NOTE | 2023-08-13 12:08 | ONC.NURNOTE ---
Pt called today stating she was told to call and check in today after her 1st doxil yesterday. Pt states she feels good, no concerns, no rash or itching. Instructed pt to call if she does have any questions or concerns.
[2023-08-13 20:56] LABS: Cancer Antigen 125 80 U/mL (<=38)
--- NOTE | 2023-08-20 15:57 | ONC.NURNOTE ---
Addendum entered by Rani Bustamante RN 08/21/23 15:59: Left message with pt to check on mouth sores. Instructed pt to call back if she has concerns. Original Note: Pt called today stating she has 2 sores under her mouth and one sore on the tip of her tongue that is open. Pt states they appeared yesterday and are not painful. Pt has been using peroxide at home. Encouraged pt to use salt water or baking soda rinses every 2 hours while awake. Plate And Frame Filter Operator will call and check on pt tomorrow.
--- NOTE | 2023-08-24 11:18 | ONC.NURNOTE ---
Addendum entered by Rani Bustamante RN 08/25/23 16:37: Pt called back today stating loose stools have improved. Pt states she still is sore in her vaginal area and wondering if she could have a bladder infection. Pt instructed she could go to her primary or urgent care to eval for UTI or we can have pt seen by oncologist tomorrow prior to her zirabev. Pt agreed to see Dr. Lopez. Pt aware if symptoms worsen, she needs to go to urgent care or ER. Original Note: Elanne phoned in with follow up from last week Using salt water rinses and reports resolution of mouth sores Also experienced one episode of urgency and large loose stool on Thursday and 1 small loose stool this am recommended she take 1 imodium this am before she eats- this can be a side effect of doxil and patient has a hx of diverticulosis discussed diet option that would be less irritating to GI- breads, rice, pasta, bananas, avoid rich foods, spice, and the same foods she avoids for diverticulosis Also reported painful sores in vaginal folds area that corresponded with time frame of mouth sores- she applied gold burleson lotion and no longer has any discomfort Asked Leanne to call tomorrow with follow up on diarrhea status
[2023-08-26 10:07] LABS: Appearance Urine Clear (Clear); Bilirubin Urine Negative (Negative); Blood Urine Negative (Negative); Color Urine Yellow (Yellow); Glucose Urine Negative (Negative); Ketones Urine Negative (Negative); Leukocyte Esterase Urine 1+ (Negative); Nitrite Urine Negative (Negative); Protein Urine Negative (Negative); Specific Gravity Urine <= 1.005 (1.000-1.030); Urobilinogen Urine 0.2 (0.2-1.0)
[2023-08-26 10:15] LABS: Albumin* 3.9 g/dL (3.3-5.0); Chloride* 105 mmol/L (96-114); Sodium* 136 mmol/L (135-149)
[2023-08-26 10:16] LABS: Potassium* 3.8 mmol/L (3.6-5.1)
[2023-08-26 10:18] LABS: Alkaline Phosphatase* 69 U/L (40-150); Anion Gap 3 mEq/L (7-15); Aspartate Amino Transferase* 29 U/L (12-35); Bilirubin Total* 0.4 mg/dL (0.1-1.5); Blood Urea Nitrogen* 17 mg/dL (7-30); Carbon Dioxide* 28 mmol/L (20-32); Creatinine* 0.7 mg/dL (0.5-1.5); Est. Creatinine Clearance* 37.26; Estimated Glomerular Filt Rate 89 ml/min
[2023-08-26 10:19] LABS: Alanine Aminotransferase* 20 U/L (4-35); Calcium* 9.5 mg/dL (8.4-10.6); Glucose* 92 mg/dL (60-115)
[2023-08-26 10:33] LABS: Bacteria Urine Few; RBC Urine 0-2 (0-2); Squamous Epithelial Cell Urine Few (None-Few)
[2023-08-26 10:36] LABS: Total Protein Urine 11 mg/dL
[2023-08-26 10:37] LABS: Creatinine Urine 62.5 mg/dL
[2023-08-26 11:15] LABS: Basophils Percent Auto 0.3 % (0.0-3.0); Eosinophils Percent Auto 1.3 % (0.0-7.0); Immature Granulocytes Pct Auto 1.6 %; Lymphocytes Percent Auto 11.1 % (20-44); Mean Corpuscular HGB Conc 34 gm/dL (32-36); Mean Corpuscular Hemoglobin 34 pg (26-34); Mean Corpuscular Volume 99 fL (80-100); Monocytes Percent Auto 5.4 % (0.0-11.0); Neutrophils Percent Auto 80.3 % (42.0-72.0); Platelet Count* 72 K/uL (140-440); RDW Coefficient of Variation % 14.5 % (11.5-15.5); Red Blood Count 3.23 m/uL (4.00-5.20); White Blood Count* 3.14 K/uL (4.50-11.00)
[2023-08-26 11:16] LABS: Slide Review Reflex No
[2023-08-26] MEDS: SODIUM CHLORIDE 0.9 % (FLUSH) 10 ML SYRINGE IVF (12:35)
[2023-08-26] MEDS: HEPARIN 500 UNIT/5 ML SYRINGE IVF (12:35)
[2023-08-26] MEDS: 0.9 % SODIUM CHLORIDE 250 ml IV (12:45)
[2023-09-10 09:17] LABS: Basophils Percent Auto 0.7 % (0.0-3.0); Eosinophils Percent Auto 0.7 % (0.0-7.0); Hematocrit 34.2 % (33.0-51.0); Hemoglobin* 11.5 gm/dL (12.0-16.0); Immature Granulocytes Pct Auto 0.4 %; Lymphocytes Percent Auto 15.4 % (20-44); Mean Corpuscular HGB Conc 34 gm/dL (32-36); Mean Corpuscular Hemoglobin 34 pg (26-34); Mean Corpuscular Volume 102 fL (80-100); Monocytes Percent Auto 27.1 % (0.0-11.0); Neutrophils Percent Auto 55.7 % (42.0-72.0); Platelet Count* 133 K/uL (140-440); RDW Coefficient of Variation % 15.4 % (11.5-15.5); Red Blood Count 3.37 m/uL (4.00-5.20); White Blood Count* 2.73 K/uL (4.50-11.00)
[2023-09-10 09:18] LABS: Slide Review Reflex No
[2023-09-10 09:28] LABS: Albumin* 4.2 g/dL (3.3-5.0)
[2023-09-10 09:29] LABS: Chloride* 106 mmol/L (96-114); Potassium* 3.8 mmol/L (3.6-5.1); Sodium* 137 mmol/L (135-149)
[2023-09-10 09:31] LABS: Anion Gap 3 mEq/L (7-15); Aspartate Amino Transferase* 29 U/L (12-35); Bilirubin Total* 0.6 mg/dL (0.1-1.5); Carbon Dioxide* 28 mmol/L (20-32); Creatinine* 0.8 mg/dL (0.5-1.5); Est. Creatinine Clearance* 37.26; Estimated Glomerular Filt Rate 76 ml/min; Total Protein* 7.4 g/dL (6.0-8.3)
[2023-09-10 09:32] LABS: Alanine Aminotransferase* 22 U/L (4-35); Alkaline Phosphatase* 71 U/L (40-150); Blood Urea Nitrogen* 19 mg/dL (7-30); Calcium* 9.4 mg/dL (8.4-10.6); Glucose* 107 mg/dL (60-115)
[2023-09-10 09:45] LABS: Total Protein Urine 6 mg/dL
[2023-09-10 09:46] LABS: Creatinine Urine 293.2 mg/dL
[2023-09-10] MEDS: diphenhydrAMINE 25 MG CAPSULE PO (11:50)
[2023-09-10] MEDS: HEPARIN 500 UNIT/5 ML SYRINGE IVF (11:53)
[2023-09-10] MEDS: ONDANSETRON 2 MG/ML inj 8 MG IVP (11:53)
[2023-09-10] MEDS: SODIUM CHLORIDE 0.9 % (FLUSH) 10 ML SYRINGE IVF (11:53)
[2023-09-10] MEDS: 0.9 % SODIUM CHLORIDE 250 ml IV (11:53)
[2023-09-10] MEDS: dexAMETHasone 20 MG in 0.9 % SODIUM CHLORIDE 100 ml 100 ML 400 MG IVPB (11:53)
[2023-09-11 22:58] LABS: Cancer Antigen 125 79 U/mL (<=38)
--- NOTE | 2023-09-16 11:39 | ONC.NURNOTE ---
Addendum entered by Amberly Azevedo RN 09/18/23 10:42: Patient called office and notes that palms of hands continue to be red. She denies redness beyond her wrists, and onto the backs of the hands. She is unable to view the bottoms of her feet to see if these are affected as well. Hands are tender, feet are not noted to be affected but she does have neuropathy and cannot feel them. When her sister returned from errands, her feet were noted to be red as well. She does not know what baseline is for them. No peeling noted on either. S She will take pictures of palms and soles daily through Thursday. She will see Dr. Lopez on Thursday, to determine plan for next cycle. She will have Avastin on Thursday as planned. Addendum entered by Cony Del Valle RN 09/16/23 15:29: Leanne called back stating she was feeling better. loose stools have stopped. hands feeling better. states eating some and drinking lots of fluids. states no open areas or itching of sheeba hands. states hands are less red. enc her to call tomorrow or next day if any concerns. Original Note: leanne called to say her hands were red. she is going to take some benadryl and call me back to let us know how shes doing. Denied any airway issues or reshes. she also states is having loose. not diarrhea stools. she is going to take lomotil and call me back to see if it helps.
[2023-09-21 14:41] LABS: Basophils Percent Auto 0.5 % (0.0-3.0); Eosinophils Percent Auto 1.3 % (0.0-7.0); Hematocrit 35.1 % (33.0-51.0); Hemoglobin* 11.8 gm/dL (12.0-16.0); Immature Granulocytes Pct Auto 0.3 %; Lymphocytes Percent Auto 13.9 % (20-44); Mean Corpuscular HGB Conc 34 gm/dL (32-36); Mean Corpuscular Hemoglobin 34 pg (26-34); Mean Corpuscular Volume 101 fL (80-100); Monocytes Percent Auto 8.1 % (0.0-11.0); Neutrophils Percent Auto 75.9 % (42.0-72.0); Platelet Count* 98 K/uL (140-440); RDW Coefficient of Variation % 14.6 % (11.5-15.5); Red Blood Count 3.48 m/uL (4.00-5.20); White Blood Count* 3.81 K/uL (4.50-11.00)
[2023-09-21 14:53] LABS: Albumin* 4.3 g/dL (3.3-5.0); Chloride* 102 mmol/L (96-114); Potassium* 4.3 mmol/L (3.6-5.1); Slide Review Reflex No; Sodium* 135 mmol/L (135-149)
[2023-09-21 14:56] LABS: Alanine Aminotransferase* 19 U/L (4-35); Alkaline Phosphatase* 84 U/L (40-150); Anion Gap 4 mEq/L (7-15); Aspartate Amino Transferase* 30 U/L (12-35); Bilirubin Total* 0.7 mg/dL (0.1-1.5); Blood Urea Nitrogen* 21 mg/dL (7-30); Carbon Dioxide* 29 mmol/L (20-32); Creatinine* 0.8 mg/dL (0.5-1.5); Est. Creatinine Clearance* 37.26; Estimated Glomerular Filt Rate 76 ml/min; Glucose* 103 mg/dL (60-115); Total Protein* 7.8 g/dL (6.0-8.3)
[2023-09-21 14:57] LABS: Calcium* 9.6 mg/dL (8.4-10.6)
[2023-09-21] MEDS: HEPARIN 500 UNIT/5 ML SYRINGE IVF (15:04)
[2023-09-21] MEDS: SODIUM CHLORIDE 0.9 % (FLUSH) 10 ML SYRINGE IVF (15:04)
[2023-09-23 11:03] LABS: Total Protein Urine 7 mg/dL
[2023-09-23 11:05] LABS: Creatinine Urine 272.7 mg/dL; Protein Creatinine Ratio Urine 0.03 (0-0.19)
[2023-09-23 11:24] VITALS: BP 137/83; PULSE 62; TEMP 36.2; O2SAT 100
[2023-09-23] MEDS: SODIUM CHLORIDE 0.9 % (FLUSH) 10 ML SYRINGE IVF ×2 (11:27→12:13)
[2023-09-23] MEDS: 0.9 % SODIUM CHLORIDE 250 ml IV (11:27)
[2023-09-23] MEDS: HEPARIN 500 UNIT/5 ML SYRINGE IVF (12:13)
--- NOTE | 2023-09-29 09:01 | PC.NURSE ---
Leanne called this morning to report that she has worsening redness in her hands and now has pain in her feet that is making it hard for her to walk. Discussed with Mercedes Mckinley APRN and pt was scheduled to come in for a provider visit for evaluation.
[2023-10-06] MEDS: SODIUM CHLORIDE 0.9 % (FLUSH) 10 ML SYRINGE IVF ×2 (09:20→11:03)
[2023-10-06 09:36] LABS: Basophils Percent Auto 0.9 % (0.0-3.0); Eosinophils Percent Auto 2.6 % (0.0-7.0); Hematocrit 32.8 % (33.0-51.0); Hemoglobin* 10.9 gm/dL (12.0-16.0); Lymphocytes Percent Auto 17.9 % (20-44); Mean Corpuscular HGB Conc 33 gm/dL (32-36); Mean Corpuscular Hemoglobin 35 pg (26-34); Mean Corpuscular Volume 105 fL (80-100); Monocytes Percent Auto 24.4 % (0.0-11.0); Neutrophils Percent Auto 54.2 % (42.0-72.0); Platelet Count* 140 K/uL (140-440); RDW Coefficient of Variation % 15.9 % (11.5-15.5); Red Blood Count 3.14 m/uL (4.00-5.20); White Blood Count* 2.34 K/uL (4.50-11.00)
[2023-10-06 09:49] LABS: Slide Review Reflex No
[2023-10-06 09:58] LABS: Albumin* 4.1 g/dL (3.3-5.0); Chloride* 103 mmol/L (96-114); Potassium* 4.3 mmol/L (3.6-5.1); Sodium* 138 mmol/L (135-149)
[2023-10-06 10:00] LABS: Creatinine* 0.9 mg/dL (0.5-1.5); Est. Creatinine Clearance* 37.26; Estimated Glomerular Filt Rate 66 ml/min
[2023-10-06 10:01] LABS: Alanine Aminotransferase* 17 U/L (4-35); Alkaline Phosphatase* 83 U/L (40-150); Anion Gap 7 mEq/L (7-15); Aspartate Amino Transferase* 27 U/L (12-35); Bilirubin Total* 0.4 mg/dL (0.1-1.5); Blood Urea Nitrogen* 18 mg/dL (7-30); Calcium* 9.4 mg/dL (8.4-10.6); Carbon Dioxide* 28 mmol/L (20-32); Glucose* 103 mg/dL (60-115)
[2023-10-06 10:03] LABS: Total Protein Urine < 5 mg/dL
[2023-10-06 10:04] LABS: Creatinine Urine 159.9 mg/dL; Protein Creatinine Ratio Urine 0.03 (0-0.19)
[2023-10-06] MEDS: HEPARIN 500 UNIT/5 ML SYRINGE IVF (11:03)
[2023-10-07 14:38] LABS: Cancer Antigen 125 94 U/mL (<=38)
[2023-10-20 10:04] VITALS: BP 133/76; PULSE 62; RESP 16; TEMP 37; O2SAT 99
[2023-10-20 10:25] LABS: Basophils Percent Auto 0.8 % (0.0-3.0); Hematocrit 35.1 % (33.0-51.0); Hemoglobin* 11.8 gm/dL (12.0-16.0); Immature Granulocytes Pct Auto 0.3 %; Lymphocytes Percent Auto 15.5 % (20-44); Mean Corpuscular HGB Conc 34 gm/dL (32-36); Mean Corpuscular Hemoglobin 35 pg (26-34); Mean Corpuscular Volume 104 fL (80-100); Monocytes Percent Auto 20.9 % (0.0-11.0); Neutrophils Percent Auto 61.5 % (42.0-72.0); Platelet Count* 153 K/uL (140-440); RDW Coefficient of Variation % 15.6 % (11.5-15.5); Red Blood Count 3.38 m/uL (4.00-5.20); White Blood Count* 3.87 K/uL (4.50-11.00)
[2023-10-20 10:37] LABS: Slide Review Reflex No
[2023-10-20 10:41] LABS: Albumin* 4.4 g/dL (3.3-5.0); Chloride* 102 mmol/L (96-114)
[2023-10-20 10:42] LABS: Potassium* 4.4 mmol/L (3.6-5.1); Sodium* 136 mmol/L (135-149)
[2023-10-20 10:44] LABS: Alkaline Phosphatase* 69 U/L (40-150); Anion Gap 7 mEq/L (7-15); Aspartate Amino Transferase* 31 U/L (12-35); Bilirubin Total* 0.5 mg/dL (0.1-1.5); Blood Urea Nitrogen* 18 mg/dL (7-30); Carbon Dioxide* 27 mmol/L (20-32); Creatinine* 0.8 mg/dL (0.5-1.5); Est. Creatinine Clearance* 37.26; Estimated Glomerular Filt Rate 76 ml/min; Total Protein* 7.2 g/dL (6.0-8.3)
[2023-10-20 10:45] LABS: Alanine Aminotransferase* 18 U/L (4-35); Calcium* 9.6 mg/dL (8.4-10.6); Glucose* 109 mg/dL (60-115); Total Protein Urine < 5 mg/dL
[2023-10-20 10:47] LABS: Protein Creatinine Ratio Urine 0.03 (0-0.19)
[2023-10-20] MEDS: ONDANSETRON 2 MG/ML inj 8 MG IVP (12:16)
[2023-10-20] MEDS: diphenhydrAMINE 25 MG CAPSULE PO (12:17)
[2023-10-20] MEDS: dexAMETHasone 20 MG in 0.9 % SODIUM CHLORIDE 100 ml 100 ML 400 MG IVPB (12:18)
[2023-10-20] MEDS: 0.9 % SODIUM CHLORIDE 250 ml IV (13:04)
[2023-10-20] MEDS: 5 % DEXTROSE 250 ML IV (13:04)
[2023-10-20] MEDS: SODIUM CHLORIDE 0.9 % (FLUSH) 10 ML SYRINGE IVF (13:04)
[2023-10-20] MEDS: HEPARIN 500 UNIT/5 ML SYRINGE IVF (13:04)
--- NOTE | 2023-10-20 13:27 | ONC.NURNOTE ---
palms no longer red. skin is much improved of sheeba palms. still some pealing. fingers look wnl. states had mild shingles 3 weeks ago. much improvement.
[2023-11-03 09:47] LABS: Basophils Percent Auto 0.2 % (0.0-3.0); Hematocrit 32.4 % (33.0-51.0); Hemoglobin* 10.9 gm/dL (12.0-16.0); Lymphocytes Percent Auto 8.4 % (20-44); Mean Corpuscular HGB Conc 34 gm/dL (32-36); Mean Corpuscular Hemoglobin 35 pg (26-34); Mean Corpuscular Volume 105 fL (80-100); Monocytes Percent Auto 11.6 % (0.0-11.0); Neutrophils Percent Auto 78.8 % (42.0-72.0); Platelet Count* 112 K/uL (140-440); Red Blood Count 3.08 m/uL (4.00-5.20); White Blood Count* 4.05 K/uL (4.50-11.00)
[2023-11-03 09:57] LABS: Slide Review Reflex No
[2023-11-03 10:02] LABS: Chloride* 103 mmol/L (96-114); Sodium* 136 mmol/L (135-149)
[2023-11-03 10:03] VITALS: BP 109/70; PULSE 59; RESP 14; TEMP 36.2; O2SAT 99
[2023-11-03 10:04] LABS: Anion Gap 6 mEq/L (7-15); Aspartate Amino Transferase* 29 U/L (12-35); Bilirubin Total* 0.6 mg/dL (0.1-1.5); Carbon Dioxide* 27 mmol/L (20-32); Creatinine* 0.9 mg/dL (0.5-1.5); Est. Creatinine Clearance* 37.26; Estimated Glomerular Filt Rate 66 ml/min; Total Protein* 6.9 g/dL (6.0-8.3)
[2023-11-03 10:05] LABS: Alanine Aminotransferase* 19 U/L (4-35); Alkaline Phosphatase* 71 U/L (40-150); Blood Urea Nitrogen* 19 mg/dL (7-30); Calcium* 9.4 mg/dL (8.4-10.6); Glucose* 120 mg/dL (60-115)
[2023-11-03 10:14] LABS: Total Protein Urine 11 mg/dL
[2023-11-03 10:50] LABS: Creatinine Urine 386.2 mg/dL; Protein Creatinine Ratio Urine 0.03 (0-0.19)
[2023-11-03] MEDS: 0.9 % SODIUM CHLORIDE 250 ml IV (11:12)
[2023-11-03] MEDS: SODIUM CHLORIDE 0.9 % (FLUSH) 10 ML SYRINGE IVF (11:55)
[2023-11-03] MEDS: HEPARIN 500 UNIT/5 ML SYRINGE IVF (11:56)
[2023-11-04 21:20] LABS: Cancer Antigen 125 130 U/mL (<=38)
--- NOTE | 2023-11-06 11:13 | ONC.NURNOTE ---
Addendum entered by Rani Bustmaante RN 11/06/23 11:18: Pt called for update, pt states she is doing well and has had no further loose stools. Pt will call if she has any questions or concerns. Original Note: Pt called stating she had a PET scan yesterday, left [facility] at 1600, then woke up to loose stools starting at 0600 this morning. Pt had 4 loose stools from 0600 to 0815. Pt stated she did take a small amt(unknown dose) of liquid imodium at 0600 with minimal relief. Pt instructed to try taking 2 imodium at 0830 and to avoid certain foods that can cause diarrhea. Pt verbalized understanding.
--- NOTE | 2023-11-13 12:04 | ONC.NURNOTE ---
New RX Topotecan sent to [id number] copay $ 1486/month- covered on Medicare Part B Leanne will need to ask for funding and [id number] has patient financial advocates that will help her navigate that process message left for Leanne to call [facility] for follow up information
--- NOTE | 2023-11-18 14:11 | ONC.NURNOTE ---
Oral Topotecan - copay $1100/month per [id number] a ewa has opened for Ovarian Cancer today- Leanne was informed and instructed to call [id number] now to get enrolled for copay relief for topotecan Leanne states understanding
[2023-11-19] MEDS: SODIUM CHLORIDE 0.9 % (FLUSH) 10 ML SYRINGE IVF ×2 (09:20→11:15)
[2023-11-19 09:23] VITALS: BP 133/92; PULSE 59; RESP 16; TEMP 36.1; O2SAT 98
[2023-11-19 09:30] LABS: Basophils Percent Auto 0.3 % (0.0-3.0); Eosinophils Percent Auto 0.9 % (0.0-7.0); Hemoglobin* 10.9 gm/dL (12.0-16.0); Lymphocytes Percent Auto 13.7 % (20-44); Mean Corpuscular HGB Conc 33 gm/dL (32-36); Mean Corpuscular Hemoglobin 35 pg (26-34); Mean Corpuscular Volume 106 fL (80-100); Monocytes Percent Auto 19.2 % (0.0-11.0); Neutrophils Percent Auto 65.9 % (42.0-72.0); Platelet Count* 140 K/uL (140-440); RDW Coefficient of Variation % 15.1 % (11.5-15.5); Red Blood Count 3.11 m/uL (4.00-5.20); White Blood Count* 3.44 K/uL (4.50-11.00)
[2023-11-19 09:40] LABS: Chloride* 104 mmol/L (96-114); Potassium* 4.2 mmol/L (3.6-5.1); Sodium* 136 mmol/L (135-149)
[2023-11-19 09:42] LABS: Total Protein Urine < 5 mg/dL
[2023-11-19 09:43] LABS: Alanine Aminotransferase* 16 U/L (4-35); Alkaline Phosphatase* 74 U/L (40-150); Anion Gap 3 mEq/L (7-15); Aspartate Amino Transferase* 31 U/L (12-35); Bilirubin Total* 0.4 mg/dL (0.1-1.5); Blood Urea Nitrogen* 16 mg/dL (7-30); Carbon Dioxide* 29 mmol/L (20-32); Creatinine* 0.9 mg/dL (0.5-1.5); Est. Creatinine Clearance* 37.26; Estimated Glomerular Filt Rate 66 ml/min; Glucose* 104 mg/dL (60-115); Total Protein* 6.8 g/dL (6.0-8.3)
[2023-11-19 09:44] LABS: Calcium* 9.8 mg/dL (8.4-10.6)
[2023-11-19 09:44] LABS: Creatinine Urine 176.4 mg/dL; Protein Creatinine Ratio Urine 0.03 (0-0.19)
[2023-11-19 09:45] LABS: Slide Review Reflex No
[2023-11-19] MEDS: 0.9 % SODIUM CHLORIDE 250 ml IV (10:35)
[2023-11-19] MEDS: HEPARIN 500 UNIT/5 ML SYRINGE IVF (11:15)
--- NOTE | 2023-11-19 13:49 | ONC.NURNOTE ---
Topotecan/Hycmtin teaching with Leanne and today reviewed self care at home, watching for temp over 100.5, hand hygiene, hydration, eating well, movement as tolerates discussed possibility of hair thinning, diarrhea, and fatigue questions addressed drug extpected to arrive next Thursday- will start Friday 11/24
--- NOTE | 2023-11-24 10:34 | PC.NURSE ---
Pt called to report that she received her oral chemo medications. She is planning to start taking them tomorrow but has a few questions. She wonders if she should take all of the pills at the same time and if they need to be taken at different times, how many hours between. Leanne also asks about if it's safe to be around other people while taking oral chemo. Will call pt back with answers to these questions. Support offered.
--- NOTE | 2023-11-26 08:25 | ONC.NURNOTE ---
Called patient following her start of topotecan yesterday. She states that she is feeling no different. Denies diarrhea and nausea at this time. She will call if something arises.
--- NOTE | 2023-11-30 14:50 | ONC.NURNOTE ---
Addendum entered by Ciara Cabrera RN 12/02/23 14:18: reports no BM's today, other than 1 small hard stool plans to take a dose of miralax today has been eating bland foods- chicken noodle soup, toast, gatorade, water, applesauce,cottage cheese plans to come in for lab and avastin tomorrow Addendum entered by Ciara Cabrera RN 12/01/23 12:02: Leanne called in to report no further BM's since yesterday am however she was concerned about urgency and took 1 imodium this am before leaving home for a hair appt she developed some cramping after taking the imodium and dry heaves at the time of the call- these symptoms have passed encouraged to eat bland diet today and increase hydration avoid any further imodium unless watery stools resume will connect again as needed- Leanne understands to call with update Original Note: Topotecan follow up call- watery stools started yesterday on day 5 of topotecan she took 2 imodium once yesterday and had a total of 3 watery stools today she has 2 watery stools and has not taken any imodium today eating and drinking per her home routine discussed fluids- she has gatorade and water- also option juices with added water to dilute avoid dairy spicy fried and high fiber
[2023-12-03 09:32] LABS: Basophils Percent Auto 0.7 % (0.0-3.0); Eosinophils Percent Auto 2.1 % (0.0-7.0); Hematocrit 31.9 % (33.0-51.0); Hemoglobin* 10.8 gm/dL (12.0-16.0); Immature Granulocytes Pct Auto 0.7 %; Lymphocytes Percent Auto 28.8 % (20-44); Mean Corpuscular HGB Conc 34 gm/dL (32-36); Mean Corpuscular Hemoglobin 35 pg (26-34); Mean Corpuscular Volume 103 fL (80-100); Monocytes Percent Auto 5.5 % (0.0-11.0); Neutrophils Percent Auto 62.2 % (42.0-72.0); RDW Coefficient of Variation % 13.3 % (11.5-15.5); Red Blood Count 3.11 m/uL (4.00-5.20)
[2023-12-03 09:33] VITALS: BP 128/78; PULSE 63; RESP 16; TEMP 36.3; O2SAT 98
[2023-12-03 09:37] LABS: Platelet Count* 44 K/uL (140-440); Slide Review Reflex Yes; White Blood Count* 1.46 K/uL (4.50-11.00)
[2023-12-03 09:42] LABS: Slide Review Acceptable Review (Acceptable)
[2023-12-03 10:12] LABS: Chloride* 102 mmol/L (96-114)
[2023-12-03 10:13] LABS: Albumin* 4.3 g/dL (3.3-5.0); Potassium* 4.1 mmol/L (3.6-5.1); Sodium* 135 mmol/L (135-149)
[2023-12-03 10:16] LABS: Alanine Aminotransferase* 19 U/L (4-35); Alkaline Phosphatase* 72 U/L (40-150); Anion Gap 4 mEq/L (7-15); Aspartate Amino Transferase* 35 U/L (12-35); Bilirubin Total* 0.8 mg/dL (0.1-1.5); Blood Urea Nitrogen* 21 mg/dL (7-30); Carbon Dioxide* 29 mmol/L (20-32); Creatinine* 0.9 mg/dL (0.5-1.5); Est. Creatinine Clearance* 37.26; Estimated Glomerular Filt Rate 66 ml/min; Total Protein* 7.1 g/dL (6.0-8.3)
[2023-12-03 10:17] LABS: Calcium* 9.5 mg/dL (8.4-10.6); Glucose* 103 mg/dL (60-115)
[2023-12-03 10:17] LABS: Total Protein Urine 16 mg/dL
[2023-12-03 10:39] LABS: Creatinine Urine 346.5 mg/dL; Protein Creatinine Ratio Urine 0.05 (0-0.19)
[2023-12-03] MEDS: SODIUM CHLORIDE 0.9 % (FLUSH) 10 ML SYRINGE IVF (13:54)
[2023-12-03] MEDS: HEPARIN 500 UNIT/5 ML SYRINGE IVF (13:54)
--- NOTE | 2023-12-03 15:24 | ONC.NURNOTE ---
Low WBC today. Instructions on infection prevention, avoiding crowds. neutrapenic precautions. see md if elevated temp. Platelets 44. Instructions on bleeding prevention. epistasis, bruising. bloody or dark stools. she is using a cane and will get her walker out to prevent falls. treatment held today per Mercedes Rey APRN. Pt to cancel 12/08 dental cleaning, till after plts return to normal. pt will return 12/09 11am for blood draw, CBC. Pt to stop taking Topotecan. Pt to see see Dr. Bustamante and have possible treatment in 2 weeks. present for education. calender given to pt.
--- NOTE | 2023-12-07 12:16 | ONC.NURNOTE ---
Leanne was scheduled for repeat lab on Thursday watching platelets- discussed signs of bleeding to report-and N/V/ GILES/ Leanne reports a bloody nose recently after blowing her nose- with one stringy clot she was able to stop the bleeding after a few minutes and has had no further bleeding she was instructed to not blow her nose- and come to the ER with any signs of bleeding
[2023-12-09 10:45] LABS: Eosinophils Percent Auto 2.9 % (0.0-7.0); Hemoglobin* 9.1 gm/dL (12.0-16.0); Mean Corpuscular HGB Conc 35 gm/dL (32-36); Mean Corpuscular Hemoglobin 35 pg (26-34); Mean Corpuscular Volume 101 fL (80-100); Monocytes Percent Auto 8.7 % (0.0-11.0); Neutrophils Percent Auto 39.4 % (42.0-72.0); RDW Coefficient of Variation % 13.1 % (11.5-15.5); Red Blood Count 2.58 m/uL (4.00-5.20)
[2023-12-09 11:15] LABS: White Blood Count* 1.04 K/uL (4.50-11.00)
[2023-12-09 11:16] LABS: Platelet Count* 5 K/uL (140-440); Slide Review Reflex Yes
[2023-12-09 11:28] LABS: Slide Review Acceptable Review (Acceptable)
[2023-12-09 12:24] VITALS: BP 133/83; PULSE 63; RESP 16; TEMP 36.4; O2SAT 99
[2023-12-09] MEDS: TBO-FILGRASTIM 300 MCG/0.5 ML INJ SUBCUT (14:09)
--- NOTE | 2023-12-09 14:27 | URNOTE ---
Received request for prior authorization for Granix ([id number]). Pt carries active [employer], and Granix was Denied Auth #[id number], 1) requires a trial and fail of Zarxio, 2) contraindication or clinical reason why biosimilar is not tried before Granix.
--- NOTE | 2023-12-09 14:31 | URNOTE ---
Received request for prior authorization for Hermann ([id number]). Pt carries active [employer], and per [facility]'s Medical Injectable Drug Auth List, No prior authorization needed.
--- NOTE | 2023-12-09 16:20 | ONC.NURNOTE ---
Report called to Emily NUNES on [facility]. Pt transferred to [facility] to finish platelet transfusion. No concerns at this time.
[2023-12-09 16:30] VITALS: BP 133/59; PULSE 67; RESP 16; TEMP 36.9; O2SAT 96
[2023-12-09 17:00] VITALS: BP 122/74; PULSE 68; RESP 16; TEMP 36.8
[2023-12-09 17:30] VITALS: BP 146/72; PULSE 65; RESP 16; TEMP 36.6; O2SAT 99
[2023-12-09 18:00] VITALS: BP 160/76; PULSE 65; RESP 16; TEMP 36.6; O2SAT 98
--- NOTE | 2023-12-09 18:41 | PC.NURSE ---
Patient brought to room #277 for monitoring of outpatient platelet infusion. Infusion started in [facility] at 1530 and ended on in M/S at 1730. Pt tolerated infusion well with no noted reactions. She reported mild itching on the back of her neck but nurse did a skin assessment and noted no rash or redness present. Pt denied having any pain, nausea or dizziness. VS remained stable and she was afebrile. Right chest Port-A-Cath deaccesed.
--- NOTE | 2023-12-09 18:45 | PC.NURSE ---
Pt presented to room #277 for monitoring during outpatient platelet transfusion. Transfusion started in [facility] at 1530 and ended at 1730. Pt tolerated infusion well with no noted reactions. She reported having some mild itching on the back of her neck but there was no redness or rash noted. VSS and she remained afebrile. Denied any pain, nausea or dizziness. Right chest port was deaccessed by loan underwriter. Pt was escorted out at 1830 accompanied by loan underwriter and her , Wagner.
[2023-12-10 13:00] VITALS: BP 111/71; PULSE 65; RESP 15; TEMP 36.1; O2SAT 98
[2023-12-10 13:26] LABS: Eosinophils Percent Auto 2.7 % (0.0-7.0); Hemoglobin* 8.7 gm/dL (12.0-16.0); Immature Granulocytes Pct Auto 10.2 %; Lymphocytes Percent Auto 25.7 % (20-44); Mean Corpuscular HGB Conc 35 gm/dL (32-36); Mean Corpuscular Hemoglobin 35 pg (26-34); Mean Corpuscular Volume 101 fL (80-100); Neutrophils Percent Auto 54.4 % (42.0-72.0); RDW Coefficient of Variation % 13.1 % (11.5-15.5); Red Blood Count 2.47 m/uL (4.00-5.20)
--- NOTE | 2023-12-10 13:27 | ONC.NURNOTE ---
states nausea and diarrhea better after no longer taking po chemo med. states good appetite and eating well. states can taste food.
[2023-12-10] MEDS: FILGRASTIM-SNDZ 300 MCG/0.5 ML SYRINGE SUBCUT (13:34)
[2023-12-10 13:36] LABS: Albumin* 3.7 g/dL (3.3-5.0); Chloride* 103 mmol/L (96-114); Sodium* 137 mmol/L (135-149)
[2023-12-10 13:37] LABS: Potassium* 3.8 mmol/L (3.6-5.1)
[2023-12-10 13:39] LABS: Alanine Aminotransferase* 21 U/L (4-35); Anion Gap 4 mEq/L (7-15); Aspartate Amino Transferase* 30 U/L (12-35); Bilirubin Total* 0.3 mg/dL (0.1-1.5); Blood Urea Nitrogen* 14 mg/dL (7-30); Carbon Dioxide* 30 mmol/L (20-32); Creatinine* 0.9 mg/dL (0.5-1.5); Est. Creatinine Clearance* 37.26; Estimated Glomerular Filt Rate 66 ml/min; Total Protein* 6.4 g/dL (6.0-8.3)
[2023-12-10 13:40] LABS: Calcium* 9.2 mg/dL (8.4-10.6); Glucose* 110 mg/dL (60-115)
[2023-12-10 13:55] LABS: Alkaline Phosphatase* 72 U/L (40-150)
[2023-12-10 14:01] LABS: Platelet Count* 17 K/uL (140-440); White Blood Count* 1.87 K/uL (4.50-11.00)
[2023-12-10 14:02] LABS: Slide Review Acceptable Review (Acceptable); Slide Review Reflex Yes
--- NOTE | 2023-12-10 14:38 | ONC.NURNOTE ---
Mercedes Rey APRN aware of lab work. Pt to return tomorrow for zarxio. Lab and poss PRBC,Plts. Reviewed with pt. s/s bleeding.
[2023-12-11 11:13] VITALS: BP 151/77; PULSE 64; RESP 17; TEMP 36.2; O2SAT 98
[2023-12-11 11:25] LABS: Eosinophils Percent Auto 3.7 % (0.0-7.0); Hematocrit 25.2 % (33.0-51.0); Hemoglobin* 8.6 gm/dL (12.0-16.0); Immature Granulocytes Pct Auto 10.7 %; Lymphocytes Percent Auto 28.3 % (20-44); Mean Corpuscular HGB Conc 34 gm/dL (32-36); Mean Corpuscular Hemoglobin 35 pg (26-34); Mean Corpuscular Volume 102 fL (80-100); Monocytes Percent Auto 6.4 % (0.0-11.0); Neutrophils Percent Auto 50.9 % (42.0-72.0); RDW Coefficient of Variation % 13.2 % (11.5-15.5); Red Blood Count 2.46 m/uL (4.00-5.20)
[2023-12-11 11:40] LABS: Platelet Count* 15 K/uL (140-440); Slide Review Reflex Yes; White Blood Count* 1.87 K/uL (4.50-11.00)
[2023-12-11 13:08] LABS: Slide Review Acceptable Review (Acceptable)
[2023-12-11] MEDS: FILGRASTIM-SNDZ 300 MCG/0.5 ML SYRINGE SUBCUT (13:30)
[2023-12-11 14:01] VITALS: BP 135/58; PULSE 75; RESP 16; TEMP 36.1; O2SAT 100
[2023-12-11 14:20] VITALS: BP 110/56; PULSE 69; RESP 16; TEMP 36.1; O2SAT 99
[2023-12-11 15:06] VITALS: BP 117/77; PULSE 69; RESP 18; TEMP 36.4; O2SAT 99
[2023-12-11 15:43] VITALS: BP 149/76; PULSE 66; RESP 18; TEMP 36.2; O2SAT 99
--- NOTE | 2023-12-11 16:04 | ONC.NURNOTE ---
Pt transferred to [facility] to monitor for one hour after blood transfusion. Pt tolerated infusion well. Pt to return on 12/14/23 to recheck CBC.
[2023-12-11] MEDS: HEPARIN 500 UNIT/5 ML SYRINGE IVF (16:13)
[2023-12-11] MEDS: SODIUM CHLORIDE 0.9 % (FLUSH) 10 ML SYRINGE IVF (16:13)
[2023-12-11 16:49] VITALS: BP 142/60; PULSE 59; RESP 18; TEMP 36.5; O2SAT 99
--- NOTE | 2023-12-11 17:00 | PC.NURSE ---
Discharge: Patient arrived with transfusion ended at 1555. Vitals 1 hour after transfusion performed and vitally stable. Patient tolerated transfusion well. Port saline locked, heparinized, and de-accessed. Patient port area and skin surrounded port is raw, patient encouraged to removed tape in shower to avoid tearing skin. Patient left the floor by wheelchair to home at 1700.
[2023-12-14] MEDS: SODIUM CHLORIDE 0.9 % (FLUSH) 10 ML SYRINGE IVF ×2 (09:59→10:48)
[2023-12-14 10:03] LABS: Eosinophils Percent Auto 1.7 % (0.0-7.0); Hemoglobin* 9.8 gm/dL (12.0-16.0); Immature Granulocytes Pct Auto 0.7 %; Lymphocytes Percent Auto 16.8 % (20-44); Mean Corpuscular HGB Conc 34 gm/dL (32-36); Mean Corpuscular Hemoglobin 34 pg (26-34); Mean Corpuscular Volume 100 fL (80-100); Monocytes Percent Auto 13.6 % (0.0-11.0); Neutrophils Percent Auto 67.2 % (42.0-72.0); RDW Coefficient of Variation % 14.6 % (11.5-15.5); Red Blood Count 2.89 m/uL (4.00-5.20); White Blood Count* 2.86 K/uL (4.50-11.00)
[2023-12-14 10:18] LABS: Platelet Count* 15 K/uL (140-440); Slide Review Reflex Yes
[2023-12-14 10:35] LABS: Slide Review Acceptable Review (Acceptable)
[2023-12-14] MEDS: HEPARIN 500 UNIT/5 ML SYRINGE IVF (10:49)
== END 2023-12-14 23:59 | disposition home or self-care (01) ==
LOC: CCIC 09:45
PROVIDERS: Clinical Nurse Specialist; Internal Medicine Hematology & Oncology; PCP Family Medicine; Referring Provider Family Medicine; Visit Provider Physician Assistant
DX: C56.1 Malignant neoplasm of right ovary (principal); C54.1 Malignant neoplasm of endometrium
CPT/HCPCS: 36415; 36430; 36591; 78815; 80053; 81001; 81003; 82570; 84156; 85025; 86304; 86850; 86900; 86901; 86922; 87086; 96372; 96376; 96401; 96411; 96413; 96415; 96417; 99211; 99214; 99215; G0463; A9270; A9552; J1100; J1447; J1642; J2405; J7050; P9016; P9073; Q2050; Q5101; Q5118

== ENCOUNTER 2024-01-26 14:04 | Outpatient (RCR) | payer MEDICARE, SELFPAY | END 2024-05-25 23:59 | disposition home or self-care (01) | PROVIDERS: PCP Family Medicine; Visit Provider Family Medicine | DX: Z51.11 Encounter for antineoplastic chemotherapy (principal); C56.1 Malignant neoplasm of right ovary; C78.6 Secondary malignant neoplasm of retroperitoneum and peritoneum; Z51.81 Encounter for therapeutic drug level monitoring ==

== ENCOUNTER 2024-02-24 07:54 | Outpatient (CLI) | payer MEDICARE, SELFPAY ==
--- OUTSIDE RECORDS SUMMARY | 2024-02-24 07:57 | XMS_ITS | Clinical Summary ---
Author Organization [facility] Address [place], [place] [address] Care Team Providers Care Transport Corps Officer Name Role Phone Cheli Meyer MD Primary Care Provider + Allergies Active Allergy Reactions Criticality Noted Date Comments Hymenoptera Allergenic Extract *Unknown 06/09 [place] *Unknown 06/09/2012 Medications Medication Sig Dispensed Refills [...] CONCENTRATE ORAL) Take by mouth. Act ashish [id number]-epa-fish oil (FISH OIL) 720-1,200 mg cap Take [...] (2 of 2 - PCV) 013 03/09/2012 RSV vaccine for adults or pr egnancy (1 - 1-dose 75+ series) 2021 COVID-19 vaccine series (2023- season) 4 Influenza for age 65+ 12/20/2023 03/09/2012 Advance Directives * Full Code (Latest Code Status on File) Date Activated Date Inactivated Comments 06/09/2012 5:43 AM 06/11/2012 3:29 PM Care Teams Transport Corps Officer Relationship Specialty Start Date End Date Cheli Meyer MD [address] [place] [address] PCP - General Family Practice 12/12/19
--- OUTSIDE RECORDS SUMMARY | 2024-02-24 07:57 | XMS_ITS | Referral Summary ---
Author Organization [facility] Address [address] [place] [id number] Care Team Providers Care Forest Fire Management Officer Name Role Phone Cheli Meyer MD Primary Care Provider + Allergies Active Allergy Reactions Criticality Noted Date Comments Bees 11/22/2014 [place] Extract 11/22/2014 Medications calcium carbonate (OS-GLORIA 500 MG [place]. [place]) 500 MG tabletIndications :ABSTRACTING RESULTS Take by mouth 2 times daily 90 tablet 11/22/2014 Active BABY ASPIRIN PO Acti ve Multiple Vitamin (MULTIVITAMINS PO) Active atenolol (TENORMIN) 50 MG tabletIndications :Essential hypertension Take 1 tablet (50 mg) by mouth daily 90 tablet 3 01/28/2017 Active Active Problems Problem Noted Date Diagnosed Date Personal history of ovarian cancer 01/15/2015 Overview (01/15/2015): Stage IIIC serous left ovary, Stage IC grade 2, at same time as uterine cancer 2012 Factor V Leiden carrier 01/15/2015 Overview (01/15/2015): Patient has no history of clotting but brother had DVT Essential hypertension 11/22/2014 History of uterine cancer 11/22/2014 Resolved Problems Problem Noted Date Diagnosed Date Resolved Date Advanced directives, counseling/discussion 11/22/2014 10/05/2023 Immunizations Name Administration Dates Next Due Influenza (High Dose) Trivalent,PF (Fluzone) 10/ 08/2015 Influenza (IIV3) PF 03/09/2012 Pneumococcal 23 valent 03/09/2012 TDAP (Adacel,Boostrix) 01/09/2010 Zoster vaccine, live 03/22/2010 Social History Tobacco Use Types Packs/Day Years Used Date Smoking Tobacco: Never Tobacco Cessation:Counseling Given: No Alcohol Use Standard Drinks/Week Comments No 0 (1 standard drink = 0.6 oz pur e alcohol) Adolescent Education Answer Date Record ed Getting School Help Needed Not on file 01/24 Comments No Sex and Gender Information Value Date Recorded Sex Assigned at Not on file Legal Sex Female 2:58 AM [employer] Gender Identity Not on file Sexual Orientation Not on file Occupation Industry Job Start Date Job End Date 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
--- OUTSIDE RECORDS SUMMARY | 2024-02-24 07:57 | XMS_ITS | Clinical Summary ---
Author Organization [facility] Address [address] [place] [address] Care Team Providers Care Aviation Safety Technician Name Role Phone Elsewhere, Pcp Primary Care Provider Unavailabl e Source Comments Patient records contain information from all sites at [facility]. For routine questions regarding patient records, call [phone] during business hours, M-F 8:00 AM - 5:00 PM Central Time. Record requests for emergency care only can be directed to [phone] at any time.[facility] Allergies Active Allergy Reactions Criticality Noted Date Comments Hymenoptera Allergenic Extract Other (see comments) 06/09/2012 Sars-Cov-2 (Covid-19) - Moderna Drug reaction with eosinophilia and systemic symptoms (DRESS) High 06/27/2020 [place] Other (see comments) ,Hives only, no other systemic symptoms,Rash Low 12/08/1975 Venom-Wasp GI intolerance 04/14/1975 Medications * This document contains information received from the source organization and may not represent a complete record from that organization. aspirin 81 mg chewable tablet Chew 81 mg. Active atenoloL (TENORMIN) 100 mg tablet Take 100 mg by mouth daily. Active calcium carbonate 260 mg calcium (648 mg) tablet 7 Active cholecalcifero l, vitamin D3, 100 mcg (4,000 unit) tablet Take by mouth. Ac tive Tdap: Tetanus-diphth eria-acellular pertussis (Adacel,Tdap Adolesn/Adult, ,PF,) vaccine Active DOCOSAHEXAENOI C ACID ORAL Take by mouth. Act ashish EPINEPHrine 0.3 mg/0.3 mL injection syringe 0.3 ML SUBCUTANEOUSLY ONCE NEEDED FOR ANAPHYLAXIS 3 Active furosemide (LASIX) 20 mg tablet TAKE 1 TABLET BY MOUTH ONCE DAILY IN THE MORNING FOR EDEMA OF LEGS HOLD FOR DEHYDRATION RELATED TO DIARRHEA 3 Active hydroCHLOROthi azide (HYDRODIURIL) 12.5 mg tablet Take 12.5 mg by mouth. Active ibuprofen (ADVIL,MOTRIN) 200 mg tablet Take 200-600 mg by mouth every 6 (six) hours as needed. 3 Active multivitamin tablet Take 1 tablet by mouth daily. Active potassium chloride (K-TAB) 20 mEq CR tablet TAKE 1 TABLET BY MOUTH ONCE DAILY FOR LOW POTASSIUM DIURETIC THERAPY 3 Active prochlorperazi ne (COMPAZINE) 5 mg tablet TAKE 1 TABLET BY MOUTH THREE TIMES DAILY NEEDED FOR NAUSEA . TAKE FOR NAUSEA ASSOCIATED WITH CHEMOTHERAPY UP TO 3 TIMES PER DAY DIRECTED. 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 No 10/06/2022 Nutrition Answer Date Recorded On average, how many serving s of fruits and vegetables do you eat per day (serving size is equal to 1 cup or approximately the size of a tennis ball)? 3-5 10/06/2022 Dental Answer Date Recorded Dental: Regular Dentist Yes 10/07/19 Employment Answer Date Recorded Employment status Retired 10/06/2022 Housing Stability Answer Date Recorded What is your living situation today? I have a [facility] place to live 10/06/2022 Comments Unknown Sex and Gender Information Value Date Recorded Sex Assigned at Female 10/09/2022 8:47 AM CDT Legal Sex Female 1:02 PM CDT Gender Identity Female 10/09/2022 8:47 AM [...] Last Done Comments Hepatitis C Screening 1945 RSV vaccine - (32-36 weeks) or 60+ years (1 - 1-dose 75+ series) 2021 Depression Screening (Annual PHQ-2) 04/20/2023 Fall Risk [...] on patient's age to complete this topic IPV Vaccines Aged Out No longer eligi ble based on patient's age to complete this topic Insurance [facility] Care Teams Aviation Safety Technician Relationship Specialty Start Date End Date Elsewhere, Pcp PCP - General Family Medicine 04/19/20
--- OUTSIDE RECORDS SUMMARY | 2024-02-24 07:57 | XMS_ITS ---
Author Organization [facility] Address [address] [place] [address] Care Team Providers Care Risk Consulting Treasury Director Name Role Phone Elsewhere, Pcp Primary Care Provider Unavailabl e Active Problems * This document contains information received from the source organization and may not represent a complete record from that organization. Problem Noted Date Diagnosed Date Malignant Neoplasm [...] Treated Prescribed Fraction Dose Prescribed Total Dose [id number] 02/11/2023 6 5 of 5 400 cGy 2,000 cGy [id number] 02/11/2023 6 5 of 5 500 cGy 2,500 cG y Reference Point Last Treated On Elapsed Days Session Dose Total Dose [id number] FemurL 02/11/2023 6 400 cGy 2,000 cGy [id number] 02/11/2023 6 500 cGy 2,500 cGy
--- OUTSIDE RECORDS SUMMARY | 2024-02-24 07:57 | XMS_ITS ---
Author Organization [facility] Address [address] [place] [address] Care Team Providers Care Speech Therapist Technician Name Role Phone Unavailable Unavailable Unavailable Surgery Details Not on file Complications Check Surgery Details section. Procedure Estimated Blood Loss Check Surgery Details section. Procedure Findings Check Surgery Details section. Procedure Specimens Taken Check Surgery Details section.
--- OUTSIDE RECORDS SUMMARY | 2024-02-24 07:57 | XMS_ITS | Referral Summary ---
Author Organization [facility] Address [address] [place] [address] Care Team Providers Care Weather Forcaster Name Role Phone Elsewhere, Pcp Primary Care Provider Unavailabl e Source Comments Patient records contain information from all sites at [facility]. For routine questions regarding patient records, call [phone] during business hours, M-F 8:00 AM - 5:00 PM Central Time. Record requests for emergency care only can be directed to [phone] at any time.[facility] Allergies Active Allergy Reactions Criticality Noted Date Comments Hymenoptera Allergenic Extract Other (see comments) 06/09/2012 Sars-Cov-2 (Covid-19) - Moderna Drug reaction with eosinophilia and systemic symptoms (DRESS) High 06/27/2020 [place] Other (see comments) ,Hives only, no other [...] your living situation today? I have a [facility] place to live 10/06/2022 Comments Unknown [...] - Plan of Treatment Not on file Insurance [facility] Care Teams Weather Forcaster Relationship Specialty Start Date End Date Elsewhere, Pcp PCP - General Family Medicine 04/19/20
--- OUTSIDE RECORDS SUMMARY | 2024-02-24 07:57 | XMS_ITS | Patient Health Record ---
Author Organization [facility] [place] Address [address] [place] [id number] Care Team Providers Care Sdv Pilot/Navigator/Dds Operator Name Role Phone Magdalene Montano Unavailable [phone] REASON FOR REFERRAL No Information IMMUNIZATIONS Vaccine [...] CARES Act Provider Relief Fund [address] [address] [place] [id number] Leanne Roldan Self - patient is the insured 1 1
--- OUTSIDE RECORDS SUMMARY | 2024-02-24 07:57 | XMS_ITS | Clinical Summary ---
Author Organization [facility] Address [address] [place] [address] Care Team Providers Care Market Researcher Name Role Phone Cheli Meyer MD Primary Care Provider + Allergies Active Allergy Reactions Criticality Noted Date Comments Bees 11/22/2014 [place] Extract 11/22/2014 Medications calcium carbonate (OS-GLORIA 500 MG [place]. 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
--- NOTE | 2024-02-24 08:15 | CRLHL7_ITS ---
For Patients: As a result of the Cures Act, medical imaging exams and procedure reports are released immediately into your electronic medical record. You may view this report before your referring provider. If you have questions, please contact your health care provider. BILATERAL SCREENING MAMMOGRAM WITH COMPUTER-AIDED DETECTION AND TOMOSYNTHESIS TECHNIQUE: CC and MLO views were obtained. These mammographic images have been obtained using full-field digital technique. These mammographic images were interpreted with the benefit of computer-aided detection. Breast Tomosynthesis was used in this interpretation. COMPARISON FILM: 11/12/22, 10/16/21, 09/25/20. FINDINGS: There are scattered areas of fibroglandular density IMPRESSION: There is no radiographic evidence for malignancy. ASSESSMENT: BI-RADS Category 2: Benign RECOMMENDATION: Routine screening mammogram in 1 year. A lay language report of this examination will be provided to the patient. Vega Hatch M.D. Diagnostic Radiologist [email or web address] KAHLIL/jane Transcribed: 1:44 p.luba lara/Dictated by: Vega Hatch MD @ 03/01/2024 12:28:00 PM (Electronically Signed)
== END 2024-02-24 07:55 | disposition home or self-care (01) ==
PROVIDERS: PCP Family Medicine; Visit Provider Internal Medicine Hematology & Oncology
DX: Z12.31 Encounter for screening mammogram for malignant neoplasm of breast (principal)
CPT/HCPCS: 77063; 77067

== ENCOUNTER 2024-02-25 13:28 | Outpatient (CLI) | payer MEDICARE, SELFPAY ==
--- OUTSIDE RECORDS SUMMARY | 2024-02-25 13:32 | XMS_ITS ---
Author Organization [facility] Address [address] [place] [address] Care Team Providers Care Stacker Operator Name Role Phone Unavailable Unavailable Unavailable Surgery Details Not on file Complications Check Surgery Details section. Procedure Estimated Blood Loss Check Surgery Details section. Procedure Findings Check Surgery Details section. Procedure Specimens Taken Check Surgery Details section.
--- OUTSIDE RECORDS SUMMARY | 2024-02-25 13:32 | XMS_ITS | Patient Health Record ---
Author Organization [facility] [place] Address [address] [place] [id number] Care Team Providers Care Gastroenterologist Name Role Phone Magdalene Montano Unavailable [phone] REASON FOR REFERRAL No Information IMMUNIZATIONS Vaccine [...] CARES Act Provider Relief Fund [address] [address] [place] [id number] Leanne Roldan Self - patient is the insured 1 1
--- OUTSIDE RECORDS SUMMARY | 2024-02-25 13:32 | XMS_ITS ---
Author Organization [facility] Address [address] [place] [address] Care Team Providers Care Journeyman Molder Name Role Phone Elsewhere, Pcp Primary Care [...] Treated Prescribed Fraction Dose Prescribed Total Dose [id number] 02/11/2023 6 5 of 5 400 cGy 2,000 cGy [id number] 02/11/2023 6 5 of 5 500 cGy 2,500 cG y Reference Point Last Treated On Elapsed Days Session Dose Total Dose [id number] FemurL 02/11/2023 6 400 cGy 2,000 cGy [id number] 02/11/2023 6 500 cGy 2,500 cGy
--- OUTSIDE RECORDS SUMMARY | 2024-02-25 13:32 | XMS_ITS | Clinical Summary ---
Author Organization [facility] Address [address] [place] [address] Care Team Providers Care Motor Equipment Sergeant Name Role Phone Cheli Meyer MD Primary Care Provider + Allergies Active Allergy Reactions Criticality Noted Date Comments Bees 11/22/2014 [place] Extract 11/22/2014 Medications calcium carbonate (OS-GLORIA 500 MG [place]. 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
--- OUTSIDE RECORDS SUMMARY | 2024-02-25 13:32 | XMS_ITS | Clinical Summary ---
Author Organization [facility] Address [place], [place] [address] Care Team Providers Care Brand Marketing Coordinator Name Role Phone Cheli Meyer MD Primary Care Provider + Allergies Active Allergy Reactions Criticality Noted Date Comments Hymenoptera Allergenic Extract *Unknown 06/09 [place] *Unknown 06/09/2012 Medications Medication Sig Dispensed Refills [...] CONCENTRATE ORAL) Take by mouth. Act ashish usinr-0s-ijy-epa-fish oil (FISH OIL) 720-1,200 mg cap Take [...] 5:43 AM 06/11/2012 3:29 PM Care Teams Brand Marketing Coordinator Relationship Specialty Start Date End Date Cheli Meyer MD [address] [place] [address] PCP - General Family Practice 12/12/19
--- OUTSIDE RECORDS SUMMARY | 2024-02-25 13:32 | XMS_ITS | Referral Summary ---
Author Organization [facility] Address [address] [place] [address] Care Team Providers Care Interactive Media Director Name Role Phone Elsewhere, Pcp Primary Care Provider Unavailabl e Source Comments Patient records contain information from all sites at [facility]. For routine questions regarding patient records, call [phone] during business hours, M-F 8:00 AM - 5:00 PM Central Time. Record requests for emergency care only can be directed to [phone] at any time.[facility] Allergies Active Allergy Reactions Criticality Noted Date Comments Hymenoptera Allergenic Extract Other (see comments) 06/09/2012 Sars-Cov-2 (Covid-19) - Moderna Drug reaction with eosinophilia and systemic symptoms (DRESS) High 06/27/[address] Other (see comments) ,Hives only, no other [...] your living situation today? I have a [facility] place to live 10/06/2022 Comments Unknown [...] Plan of Treatment Not on file Insurance [facility] Care Teams Interactive Media Director Relationship Specialty Start Date End Date Elsewhere, Pcp PCP - General Family Medicine 04/19/20
--- OUTSIDE RECORDS SUMMARY | 2024-02-25 13:32 | XMS_ITS | Clinical Summary ---
Author Organization [facility] Address [address] [place] [address] Care Team Providers Care Novelty Candy Maker Name Role Phone Elsewhere, Pcp Primary Care Provider Unavailabl e Source Comments Patient records contain information from all sites at [facility]. For routine questions regarding patient records, call [phone] during business hours, M-F 8:00 AM - 5:00 PM Central Time. Record requests for emergency care only can be directed to [phone] at any time.[facility] Allergies Active Allergy Reactions Criticality Noted Date Comments Hymenoptera Allergenic Extract Other (see comments) 06/09/2012 Sars-Cov-2 (Covid-19) - Moderna Drug reaction with eosinophilia and systemic symptoms (DRESS) High 06/27/2020 [place] Other (see comments) ,Hives only, no other [...] Grandfather Mir Diabetes type I Paternal Grandmother [place] Breast CA Add'l Onset Sister Fiona Breast [...] your living situation today? I have a [facility] place to live 10/06/2022 Comments Unknown [...] patient's age to complete this topic Insurance [facility] Care Teams Novelty Candy Maker Relationship Specialty Start Date End Date Elsewhere, Pcp PCP - General Family Medicine 04/19/20
--- OUTSIDE RECORDS SUMMARY | 2024-02-25 13:32 | XMS_ITS | Referral Summary ---
Author Organization [facility] Address [address] [place] [address] Care Team Providers Care Pharmacy Resource Tech Name Role Phone Cheli Meyer MD Primary Care Provider + Allergies Active Allergy Reactions Criticality Noted Date Comments Bees 11/22/2014 [place] Extract 11/22/2014 Medications calcium carbonate (OS-GLORIA 500 MG [place]. 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
--- NOTE | 2024-02-25 14:00 | PE_ITS ---
[facility] [address] [facility] [address] Phone:?[phone] Fax:?[phone] Referring Physician Information: Dayanara Lopez M.D. [address] [facility] [address] Phone:?[phone] Fax:?[phone] Patient:Jannette Roldan D.O.B:?1945 Sex:?Female Phone:?[phone] [facility] MRN:?[id number] Exam Date:?02/25/2024 EXAM: PET/CT EYES TO THIGHS, CANCER RESTAGING CLINICAL INFORMATION: Ovarian cancer, restaging. TECHNICAL INFORMATION: Helical acquisition of data was obtained from the orbits to the upper thighs with reconstruction of 3.75 mm thick images at 3.[address] data was used for attenuation correction. PET scanning was performed through the same anatomic range 60 minutes following administration of 14.03 mCi of 18-FDG delivered intravenously. The patient's glucose at the time of the injection was 71 mg/dL. PET, CT and PET/CT fusion images are interpreted using a computer viewing workstation. PET, CT and PET/CT fusion images were archived and saved in the patient's permanent medical record. COMPARISON: PET-CTs from 11/05/2023, 07/30/2023, and 05/07/2023. INTERPRETATION: Head and Neck: Left supraclavicular lymph node (Se 2 Im 56) is indistinct by CT with a maximum SUV of 6.8, previously 8.31 (October), 14.55 (July) and 10.47 (April). There are no other abnormal hypermetabolic foci within the head or neck. There is physiologic uptake in the intracranial soft tissues. Chest: Anterior periaortic lymph node (Se 2 Im 76) measures 1.3 x 1.2 cm, stable, with a maximum SUV of 14.45, previously 14.32 (October), 14.65 (July), and 15.8 (April). There are no other abnormal hypermetabolic foci within the chest. Background mediastinal blood pool uptake has a maximum SUV of 3.16. No lung nodules or masses detected on this free-breathing exam. Right chest port catheter terminates at the cavoatrial junction. Abdomen and Pelvis: Right retrocrural node (Se 2 Im 123) measures 1.1 cm , stable, with maximum SUV of 10.24, previously 18.77 (October), 23.9 (July), and 26.04 (April). Poorly circumscribed gastrohepatic mass (Se 2 Im 135) is grossly stable in terms of size and appearance; its current maximum SUV is 20.24, previously 28.08 (October), 27.33 (July), and 32.01 (April). Extensive peritoneal nodularity redemonstrated. [employer] Football[employer] Reverser peritoneal implant along the left-ventral abdomen (Se 2 Im 168) now measures 3.4 x 2.2 cm, previously 2.2 x 1.2 cm; its maximum SUV is now 20.29, previously 15.76 (October), 12.95 (July), and 13.6 (April). Several peritoneal nodules associated with a fat-containing ventral abdominal wall hernia are stable in terms of size and metabolic rate. A right internal iliac lymph node (Se 2 Im 192) has a maximum SUV of 9.22, previously 10.25 (October), 18.56 (July). A left external iliac node (Se 2 Im 210) has a maximum SUV of 9.33, previously 11.73 (October), 16.83 (July), and 15.39 (April). Background hepatic parenchymal uptake has a maximum SUV of 3.64. There is physiologic excretion of radiotracer in the urine and bowel. Skeleton, Musculature, and Integument: No abnormal hypermetabolic foci within the skeleton. No sonu osteoblastic or osteolytic disease. CONCLUSION: 1. When compared to the most recent PET-CT from October 2023, the patient's hypermetabolic peritoneal nodularity has worsened, best demonstrated by a left- ventral implant that is indexed above. 2. The patient's remaining disease burden is stable to minimally improved in terms of size, appearance, and metabolic rate. 3. No new sites of disease. Electronically signed on 02/29/2024 11:11:00 AM by Seb Smith M.D.
== END 2024-02-25 13:29 | disposition home or self-care (01) ==
LOC: RAD 13:28
PROVIDERS: PCP Family Medicine; Visit Provider Internal Medicine Hematology & Oncology
DX: C54.1 Malignant neoplasm of endometrium (principal); C56.9 Malignant neoplasm of unspecified ovary
CPT/HCPCS: 78815; A9552

== ENCOUNTER 2024-04-23 14:42 | Outpatient (CLI) | payer MEDICARE, SELFPAY ==
--- NOTE | 2024-04-23 15:00 | PE_ITS ---
[facility] [address] [facility] [address] Phone:?[phone] Fax:?[phone] Referring Physician Information: Dayanara Lopez M.D. [address] [facility] [address] Phone:?[phone] Fax:?[phone] Patient:Jannette Roldan D.O.B:?1945 Sex:?Female Phone:?[phone] [facility] MRN:?[id number] Exam Date:?04/23/2024 EXAM:?PET EYES TO THIGHS, CANCER RESTAGING CLINICAL INFORMATION: Ovarian/fallopian tube cancer, restaging TECHNICAL INFORMATION: Helical acquisition of data was obtained from the orbits to the upper thighs with reconstruction of 3.75 mm thick images at 3.[address] data was used for attenuation correction. PET scanning was performed through the same anatomic range 60 minutes following administration of 12.58 mCi of 18-FDG delivered intravenously. The patient's glucose at the time of the injection was 93 mg/dL. PET, CT and PET/CT fusion images are interpreted using a computer viewing workstation. PET, CT and PET/CT fusion images were archived and saved in the patient's permanent medical record. COMPARISON: PET/CT 02/25/2024 and multiple other prior exams INTERPRETATION: Mediastinal blood pool activity: 3.16 Background liver parenchymal uptake: 4.21 Head and Neck: Left supraclavicular lymph node (series 2 image 45) remains indistinct by CT with an SUV max of 7.15, previously 8.31. There is physiologic uptake in the intracranial soft tissues. Chest: Prevascular lymph node measuring 1.2 cm in short access (series 202 image 65), similar in size to the comparison exam. FDG avidity with an SUV max of 9.91, previously 14.45. No other abnormal hypermetabolic lymph nodes in the chest. No suspicious lung nodules. No pleural effusion or pneumothorax. Right chest wall enio catheter. Abdomen and Pelvis: Scattered hypermetabolic lymph nodes and peritoneal nodularity: * A right retrocrural lymph node (series 202 image 111) is stable in size measuring 9 mm in short access with an SUV max of 21.34, previously 10.24. * Ill-defined gastrohepatic mass appears similar in size to the comparison exam (when measured similarly) measuring 3.9 x 2.9 cm (series 202 image 124) with an SUV max of 25.89, previously 20.24. * Peritoneal implant along the left ventral abdomen (series 2 image 156) measuring 5.8 x 3.8 cm, previously measuring 3.4 x 2.2 cm. FDG avidity with an SUV max of 20.95, previously 20.29. * Redemonstrated peritoneal nodules associated with ventral abdominal wall hernias which appears similar in size and metabolic rate. * A few additional stable peritoneal nodules along the left lateral abdomen * Stable right internal iliac chain lymph node measuring 1.1 cm in short axis (series 202 image 181) with an SUV max of 6.58, previously 9.22. * Similar small right pelvic sidewall lymph nodes (series 202 image 204) with an SUV max of 17.45. * A stable left external iliac chain lymph node measuring 8 mm in short axis (series 202 image 199) with an SUV max of 12.7, previously 9.33. * Similar size of small left external iliac chain lymph node measuring 3-4 mm in short axis (series 202 image 207) with slightly increased FDG avidity on this exam and an SUV max of 8.78. There is physiologic excretion of radiotracer in the urine and bowel. Postsurgical changes of cholecystectomy. Ventral abdominal wall hernia containing transverse colon. Sigmoid diverticulosis. Moderate stool burden. Skeleton, Musculature, and Integument: No abnormal hypermetabolic foci within the skeleton. No sonu osteoblastic or osteolytic disease. CONCLUSION: * Since the comparison exam from 02/25/2024, there has been interval increase in size of the patient's dominant peritoneal implant in the left ventral abdomen. * A small left external iliac chain lymph node is stable in size but has slightly increased in metabolic activity on the current exam. * Otherwise, similar disease burden from the comparison exam, as described above. Electronically signed on 04/25/2024 10:54:00 AM by Balta Humphreys D.O
== END 2024-04-23 14:43 | disposition home or self-care (01) ==
LOC: RAD 14:43
PROVIDERS: PCP Family Medicine; Visit Provider Internal Medicine Hematology & Oncology
DX: C54.1 Malignant neoplasm of endometrium (principal); R19.09 Other intra-abdominal and pelvic swelling, mass and lump; R59.0 Localized enlarged lymph nodes
CPT/HCPCS: 78815; A9552

== ENCOUNTER 2024-05-26 16:57 | Emergency (ER) | payer MEDICARE, SELFPAY ==
--- OUTSIDE RECORDS SUMMARY | 2024-05-26 17:00 | XMS_ITS | Clinical Summary ---
Author Organization [facility] Address [address] [place] [address] Care Team Providers Care Major Appliance Assembly Supervisor Name Role Phone Cheli Meyer MD Primary Care Provider + Allergies Active Allergy Reactions Criticality Noted Date Comments Bees 11/22/2014 [place] Extract 11/22/2014 Medications calcium carbonate (OS-GLORIA 500 MG [place]. 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
--- OUTSIDE RECORDS SUMMARY | 2024-05-26 17:00 | XMS_ITS ---
Author Organization [facility] Address [address] [place] [address] Care Team Providers Care Invoice Control Clerk Name Role Phone Elsewhere, Pcp Primary Care [...] endometrioid adenocarcinoma; right serous borderline tumor Current Treatment and Therapy Plans No current plan information found. Past Treatment and Therapy Plans No past plan information found. Past Radiation Episodes * IMRT: Left Neck, Midline Mediastinum, Left Long bone of lower extremity Overview* First Treatment Date Last Treatment Date Treatment Site Technique Goal Episode Provider 02/05/2023 02/11/2023 Left NeckMidline MediastinumLeft Long bone of lower extremity IMRT Palliative Paulina Siegel R.N. 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
--- OUTSIDE RECORDS SUMMARY | 2024-05-26 17:00 | XMS_ITS | Clinical Summary ---
Author Organization [facility] Address [address] [place] [address] Care Team Providers Care Hospital Administrative Assistant Name Role Phone Elsewhere, Pcp Primary Care Provider Unavailabl e Source Comments Patient records contain information from all sites at [facility]. For routine questions regarding patient records, call [phone] during business hours, M-F 8:00 AM - 5:00 PM Central Time. Record requests for emergency care only can be directed to [phone] at any time.[facility] Allergies Active Allergy Reactions Criticality Noted Date Comments Hymenoptera Allergenic Extract Other (see comments) 06/09/2012 Sars-Cov-2 (Covid-19) - Moderna Drug reaction with eosinophilia and systemic symptoms (DRESS) High 06/27/2020 [place] Other (see comments) ,Hives only, no other [...] Grandfather Mir Diabetes type I Paternal Grandmother Dickerson Breast CA Add'l Onset Sister Fiona Breast [...] your living situation today? [facility] a [facility] place to live 10/06/2022 Comments Unknown [...] Last Done Comments Hepatitis C Screening 1945 COVID-19 Vaccine ( season) 2023 03/10/2023, 04/08/2022, 08/20/2021, Additional history exists Influenza Vaccine (#1) 2024 3, 02/03/2022, 02/11/2021, Additional history exists Depression Screening (Annual PHQ-2) 04/20/2024 Fall Risk Screen (Annual) 04/20/2024 DTaP,Tdap,and Td Vaccines (3 - Td or [...] Associated Diagnosis Comments OUTSIDE NM PET Routine 04/23/2024 4:05 PM FORK ASSEMBLER OUTSIDE NM PET Routine 02/25/2024 2:55 PM FORK ASSEMBLER from Last 3 Months Results * PET skull to mid thigh-Outside [place] Pet (04/23/2024 4:05 PM FORK ASSEMBLER) Only the most recent of2 resultswithin the time period is included. 04/23/2024 4:05 PM FORK ASSEMBLER Narrative [facility] - 04/23/2024 6:25 PM FORK ASSEMBLER This order has been created and auto-finalized [...] [facility] NA from Last 3 Months Insurance [employer] Care Teams Hospital Administrative Assistant Relationship Specialty Start Date End Date Elsewhere, Pcp PCP - General Family Medicine 04/19/20
--- OUTSIDE RECORDS SUMMARY | 2024-05-26 17:00 | XMS_ITS | Continuity of Care Document ---
Author Organization [facility] Address [address] [address] [place] [address] Phone Care Team Providers Care Breeder Service Technician Name Role Phone Unavailable Unavailable Unavailable Allergies, Adverse Reactions, Alerts Substance [...] Diagnoses Date Provider Providers Copied on Encounter [facility], [address] [address], [place], [id number], [place] tel:[phone] [facility] Colon polypDiverticulo sis of large intestine without hemorrhageEncoun ter for screening for malignant neoplasm of colonBenign neoplasm of cecumDvrtclos of lg int w/o perforation or abscess w/o bleedingBenign neoplasm of cecum 0-201 5 No Information Referring Provider: Referral Self, USE FOR SELF REFERRALS. Family History Family Member Type Diagnosis Age [...] five Payers Payer name Insurance type Covered democrat ID Authoriza tion(s) No Information Social History [...] For Referral Reason For Referral No Information History Of Present Illness Encounter Date Complaint History Of Prese nt Illness No Information Functional Status Date Functional Assessmen t No Information Instructions Date Instruction Additional Infor jemal Colon Cancer Prevention Related to Colon polyp Colon Polyps Related to Colon polyp Diverticulosis/Diverticulitis Re lated to Colon polyp High Fiber Diet Related to Colon polyp Assessments Type Assessment Date assessment Colon polyp assessment Diverticulosis of large intestin e without hemorrhage Patient Care Teams Name Effective Dates (start - stop) Status Members No Information
--- OUTSIDE RECORDS SUMMARY | 2024-05-26 17:00 | XMS_ITS | Clinical Summary ---
Author Organization [facility] Address [place], [place] [address] Care Team Providers Care Control Clerk [employer] Name Role Phone Cheli Meyer MD Primary Care Provider + Allergies Active Allergy Reactions Criticality Noted Date Comments Hymenoptera Allergenic Extract *Unknown 06/09 [place] *Unknown 06/09/2012 Medications atenolol (TENORMIN) 50 mg [...] (CRANBERRY CONCENTRATE ORAL) Take by mouth. 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
[2024-05-26 17:05] VITALS: BP 144/81; PULSE 81; RESP 16; TEMP 37.7; O2SAT 98; BMI 30.1
--- NOTE | 2024-05-26 17:43 | ED.ABDPAIN ---
HPI - Abdominal Pain General Date Seen: 05/26/24 Chief Complaint: Weakness Stated Complaint: GI issues Time Seen by Provider: 05/26/24 17:14 Source: patient and family Mode of arrival: ambulatory Limitations: no limitations History of Present Illness HPI narrative: Patient is a very nice 71-year-old female presents here for evaluation of abdominal pain she has had for least a few months but seemingly worse in April, she underwent a new chemotherapeutic regimes, and said the pain is been on off since she currently today and rate now does not have the pain it comes and go she describes it throughout her entire abdomen, associated with some loose stools also. She has had no blood in her stools there has been no vomiting, she thinks he has lost approximately 15 lb over the past month. And 100 lb overall. 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 She underwent a PET scan and CT on 04/23/2024. She has not been on any antibiotics recently she has no history of travel her who is with her here today says he has not been sick at all, she denies any dysuria frequency she does not drink alcohol, and no other contacts are currently sick. She called [facility] today, and they recommended she come to the emergency room Related Data Home Medications ?Medication ?Instructions ?Recorded ?Confirmed B-complex with vitamin C 1 cap PO DAILY 10/25/21 04/25/24 calcium carbonate 500 mg PO DAILY 10/25/21 04/25/24 cholecalciferol (vitamin D3) 10 10 mcg PO DAILY 10/25/21 04/25/24 mcg (400 unit) capsule cranberry fruit 400 mg capsule 400 mg PO DAILY 10/25/21 04/25/24 polyethylene glycol 3350 17 17 g PO DAILY PRN 10/25/21 04/25/24 gram/dose oral powder (Miralax) [place] XL PO 03/10/22 04/25/24 loratadine 10 mg tablet (Claritin) 10 mg PO DAILY PRN 08/21/22 04/25/24 loperamide 2 mg tablet (Imodium 2 mg PO Q6H PRN 10/06/23 04/25/24 A-D) psyllium husk 3.4 gram/5.4 gram 1 tbsp PO DAILY 12/16/23 04/25/24 oral powder (Metamucil) acetaminophen 500 mg tablet 1,000 mg PO TID PRN pain or fever 02/01/24 04/25/24 pembrolizumab IV 05/26/24 Previous Rx's ?Medication ?Instructions ?Recorded gabapentin 300 mg capsule 300 mg PO QHS neuropathy #60 caps 08/05/23 hydrocortisone 1 % topical cream 1 applic topical TID PRN allergic 09/21/23 (Cortisone (hydrocortisone)) reaction #28.4 grams atenolol 100 mg tablet 100 mg PO QDAY #90 tabs 01/14/24 epinephrine 0.3 mg/0.3 mL 0.3 ml subcut ONCE PRN anaphylaxis 01/14/24 injection, auto-injector #2 ea prochlorperazine maleate 5 mg 5 mg PO BID PRN nausea and 03/23/24 tablet (Compazine) vomiting #60 tabs ondansetron HCl 4 mg tablet 4 mg PO Q6H PRN nausea and 03/28/24 vomiting #60 tabs potassium chloride 20 mEq 20 meq PO BID #14 tabs 04/18/24 tablet,extended release Allergies Allergy/AdvReac Type Severity Reaction Status Date / Time carboplatin Allergy Intermediate Hives Verified 05/26/24 20:05 strawberry Allergy Mild Hives Verified 05/26/24 20:05 venom-wasp protein Allergy Mild Abdominal Verified 05/26/24 20:05 Pain COVID-19 vacc, bv (Orig, Allergy Unknown Verified 05/26/24 20:05 Omicron BA.4/5) (Moderna) (From Moderna COVID Bival(6m up)()) Review of Systems Status of ROS Reports: 10 or more systems reviewed and unremarkable except as noted in History and below [facility] Medical History Health care directive on file ?Z78.9 - Other specified health status (ICD-10) Leg cramps ?R25.2 - Cramp and spasm (ICD-10) Diarrhea ?R19.7 - Diarrhea, unspecified (ICD-10) Chronic nasal congestion ?R09.81 - Nasal congestion (ICD-10) Supraclavicular adenopathy ?R59.0 - Localized enlarged lymph nodes (ICD-10) Abdominal hernia ?K46.9 - Unspecified abdominal hernia without obstruction or gangrene (ICD-10) History of bone density study (10/2019) ?Z92.89 - Personal history of other medical treatment (ICD-10) COVID-19 ?U07.1 - COVID-19 (ICD-10) Morbid obesity ?E66.01 - Morbid (severe) obesity due to excess calories (ICD-10) Balance problems ?R26.89 - Other abnormalities of gait and mobility (ICD-10) Endometrial carcinoma ?C54.1 - Malignant neoplasm of endometrium (ICD-10) Recurrent carcinoma of ovary (~2019) ?C56.9 - Malignant neoplasm of unspecified ovary (ICD-10) Recurrent carcinoma of endometrium (2019) ?C54.1 - Malignant neoplasm of endometrium (ICD-10) Polyp of colon (2014) ?K63.5 - Polyp of colon (ICD-10) Peripheral neuropathy due to chemotherapy (2012) ?G62.0 - Drug-induced polyneuropathy (ICD-10) ?T45.1X5A - Adverse effect of antineoplastic and immunosuppressive drugs, initial encounter (ICD-10) Overactive bladder ?N32.81 - Overactive bladder (ICD-10) History of ovarian cancer (2012) ?Z85.43 - Personal history of malignant neoplasm of ovary (ICD-10) History of cancer of uterus (2012) ?Z85.42 - Personal history of malignant neoplasm of other parts of uterus (ICD-10) Health care directive on file (11/15/19) ?Z78.9 - Other specified health status (ICD-10) Factor V Leiden mutation ?D68.51 - Activated protein C resistance (ICD-10) Essential hypertension ?I10 - Essential (primary) hypertension (ICD-10) Dyslipidemia ?E78.5 - Hyperlipidemia, unspecified (ICD-10) Allergic to bees ?Z91.030 - Bee allergy status (ICD-10) Surgical History History of total abdominal hysterectomy and bilateral salpingo-oophorectomy (2012) ?Z90.710 - Acquired absence of both cervix and uterus (ICD-10) ?Z90.722 - Acquired absence of ovaries, bilateral (ICD-10) ?Z90.79 - Acquired absence of other genital organ(s) (ICD-10) History of cholecystectomy (2005) ?Z90.49 - Acquired absence of other specified parts of digestive tract (ICD-10) Port-A-Cath in place (12/15/19) ?Z95.828 - Presence of other vascular implants and grafts (ICD-10) Family History Sister Breast cancer, Onset Age: 63 Brother Deep venous thrombosis Social History 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, 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 , 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, 1 adult child Non-smoker Rarely consumes alcohol What is your current living situation?: I presently have a place to live Problems where you live: pests, such as bugs, ants, or mice In the past 12 months, utilities in danger of being shut off: no In past 12 months, lack of transportation kept you from medical appts, meetings, work, or getting things needed for daily living: no In the past 12 mos, have been you worried that your food would run out before you had money to buy more?: never true In the past 12 mos, the food you bought just didn't last and you didn't have money to buy more?: never true Smoking Status: Never smoker Do you use any of these nicotine containing products: None Second hand tobacco smoke exposure: No How often do you have a drink containing alcohol: monthly or less How many standard drinks containing alcohol do you have on a typical day: 1 or 2 How often do you have six or more drinks on one occasion: Never AUDIT-C Alcohol total score: 1 Non-prescribed substance use: denies use How often does anyone, including family, friends and others, physically hurt you: never How often does anyone, including family, friends and others, insult or talk down to you: never How often does anyone, including family, friends and others, threaten you with harm: never How often does anyone, including family, friends and others, scream or curse at you: never service: No Health Related Social Needs: Inadequate housing (Z59.1) Exam Narrative: Exam Narrative: On examination she has no apparent distress she is seen in room 1 her pupils equal round reactive to light there is no scleral icterus redness or TMs are normal oropharynx is normal her neck is supple full range of motion is normal her chest is good air entry bilaterally no wheezing crackles noted her heart sounds are normal. Her abdomen is obese there is absolutely no guarding in any areas on palpation, she has normal bowel sounds throughout no CVA tenderness, her lungs are clear in the back, and her lower legs show no pitting edema swelling. Skin reveals no petechiae rashes, she does appear to have a bit of a hernia in her midline of her abdomen. Const: Vital Signs, click to edit/add: Vital Signs - 24 hr 05/26/24 17:05 05/26/24 20:36 05/26/24 21:01 Temperature 99.9 F H Pulse Rate [Pulse Oximeter] 81 Respiratory Rate 16 Blood Pressure 113/54 L 120/66 Blood Pressure [Ri ght Upper Arm] 144/81 H Pulse Oximetry 98 Oxygen Delivery Me thod Room Air Course Course ED Course: Patient is doing better she is hungry she wants either Scott's food, we have given her 2 L of fluid, and she feels much improved I think there was an element of slight dehydration here, I went over the CT scan results with her showing slight increase in size were lesions and a small nonspecific area of colitis. We will get some stool studies and she will take these home and bring them back, we can treat her if there obviously positive, and I would get her to follow up with her CT results with oncology. She had a mildly elevated pro calc but I do not think this is enough to treat her at this point I did do blood cultures just to be safe that she is not growing anything both peripherally and centrally through her port. We went over signs and symptoms of worsening she will follow-up with these occurs. Vital Signs Vital signs: Initial Vital Signs Temperature 99.9 F H 05/26/24 17:05 Temperature Source Temporal Artery Scan 05/26/24 17:05 Pulse Rate 81 05/26/24 17:05 Respiratory Rate 16 05/26/24 17:05 Blood Pressure 144/81 H 05/26/24 17:05 Blood Pressure Mean 102 05/26/24 17:05 Blood Pressure Position Sitting 05/26/24 17:05 Pulse Oximetry 98 05/26/24 17:05 Oxygen Delivery Method Room Air 05/26/24 17:05 Vital Signs Temperature 99.9 F H 05/26/24 17:05 Pulse Rate 81 05/26/24 17:05 Respiratory Rate 16 05/26/24 17:05 Blood Pressure 144/81 H 05/26/24 17:05 Pulse Oximetry 98 05/26/24 17:05 Oxygen Delivery Method Room Air 05/26/24 17:05 Temperature 99.9 F H 05/26/24 17:05 Pulse Rate 81 05/26/24 17:05 Respiratory Rate 16 05/26/24 17:05 Blood Pressure 120/66 05/26/24 21:01 Pulse Oximetry 98 05/26/24 17:05 Oxygen Delivery Method Room Air 05/26/24 17:05 Medications Administered Medications: Generic Name Dose Route Start Last Admin Trade Name Freq PRN Reason Stop Dose Admin Sodium Chloride 1,000 mls @ 1,000 mls/hr 05/26/24 19:30 05/26/24 20:38 0.9 % Sodium Chloride 1000 Ml IV 05/26/24 20:29 1,000 mls/hr .Q1H WARREN Administration Discontinued Medications Generic Name Dose Route Start Last Admin Trade Name Freq PRN Reason Stop Dose Admin Sodium Chloride 1,000 mls @ 1,000 mls/hr 05/26/24 17:45 05/26/24 20:36 0.9 % Sodium Chloride 1000 Ml IV 05/26/24 18:44 Infused .Q1H WARREN Infusion Ondansetron HCl 4 mg 05/26/24 18:03 05/26/24 18:08 Ondansetron 2 Mg/Ml Inj IVP 05/26/24 18:04 4 mg ONCE ONE Administration MDM - Abdominal Pain MDM Narrative Medical decision making narrative: During the evaluation of this patient I considered multiple differential diagnosis including life-threatening differentials which are appendicitis, aortic aneurysm, mesenteric ischemia, bowel perforation, ectopic , volvulus and bowel obstruction, other differential diagnosis include but are not limited to inflammatory bowel disease, cholecystitis, pancreatitis, hepatitis, gastritis, GERD, diverticulitis, peptic ulcer disease, pyelonephritis/UTI, renal colic/stone, pelvic inflammatory disease, cervicitis, endometritis, intrauterine , dysfunctional uterine bleeding, ovarian cyst/torsion, spontaneous as well as other etiologies I am reassured by her examination in the fact she currently has no pain she does have the baseline history of constipation recurrent carcinomatosis, I do not think she is obstructed, I do not think there is anything severe going on here but I think some laboratory work would be in order along with IV fluids. This shows any other issues then we can proceed with imaging. Differential Diagnosis Differential diagnosis: Likely abdominal pain, acute appendicitis, calculus of kidney, constipation, diverticulitis, endometriosis, gastroenteritis, pancreatitis and small bowel obstruction Medical Records Attestation: I reviewed the patient's medical records. Lab Data Attestation: I reviewed the patient's lab results. Labs: Lab Results 05/26/24 Range/Units 17:55 WBC 4.41 L (4.50-11.00) K/uL RBC 3.21 L (4.00-5.20) m/uL Hgb 10.8 L (12.0-16.0) gm/dL Hct 32.9 L (33.0-51.0) % MCV 103 H (80-100) fL MCH 34 (26-34) pg MCHC 33 (32-36) gm/dL RDW Coeff of Devin 14.6 (11.5-15.5) % Plt Count 130 L (140-440) K/uL Neut % (Auto) 81.2 H (42.0-72.0) % Lymph % (Auto) 6.8 L (20-44) % [place] % (Auto) 11.3 H (0.0-11.0) % Eos % (Auto) 0.0 (0.0-7.0) % Baso % (Auto) 0.5 (0.0-3.0) % Neut # (Auto) 3.60 (1.7-7.0) K/uL Lymph # (Auto) 0.30 L (0.90-2.90) K/uL [place] # (Auto) 0.50 (0.00-0.90) K/UL Eos # (Auto) 0.00 (0.00-0.50) K/uL Baso # (Auto) 0.00 (0.00-0.30) K/uL Abs Immat Gran (auto) 0.00 (0.00-0.30) K/uL Imm/Tot Granulo (auto) 0.2 % Sodium 132 L (135-149) mmol/L Potassium 4.0 (3.6-5.1) mmol/L Chloride 100 (96-114) mmol/L Carbon Dioxide 23 (20-32) mmol/L Anion Gap 9 (7-15) mEq/L BUN 21 (7-30) mg/dL Creatinine 0.8 (0.5-1.5) mg/dL Estimated Creat Clear 38.35 Estimated GFR 75 ml/min Glucose 109 (60-115) mg/dL Lactate 1.4 (0.5-1.9) mmol/L Calcium 9.3 (8.4-10.6) mg/dL Total Bilirubin 0.5 (0.1-1.5) mg/dL Direct Bilirubin 0.3 (0.0-0.5) mg/dL AST 75 H (12-35) U/L ALT 37 H (4-35) U/L Alkaline Phosphatase 93 (40-150) U/L Total Protein 7.0 (6.0-8.3) g/dL Albumin 3.8 (3.3-5.0) g/dL Amylase 62 (18-89) U/L Lipase 55 (23-300) U/L Procalcitonin 0.71 H (<0.50) ng/mL Imaging Data CT scan - abdomen: Radiologist's impression: [place] [address] Diagnostic Imaging Report Patient: Leanne Roldan MR#: [id number] : 1945 Acct:[id number] Loc: ED Service Date: 05/26/[address]: Ordering Physician: Lucho Abdullahi M.D. Date of Service: 05/26/24 Procedure(s): CT abdomen pelvis w con Accession Number(s): [id number] cc: Cheli Meyer M.D.; Lucho Abdullahi M.D.~ For Patients: As a result of the Century Cures Act, medical imaging exams and procedure reports are released immediately into your electronic medical record. You may view this report before your referring provider. If you have questions, please contact your health care provider. INDICATION: Nausea, vomiting, diarrhea since January. Increased weakness this week. History of endometrial cancer with peritoneal metastases. TECHNIQUE: CT of the abdomen and pelvis acquired with 83 cc Isovue 370 IV contrast. Coronal and sagittal reconstructions. COMPARISON: CT chest, abdomen, pelvis 11/20/2022. FINDINGS: Lower chest: Unremarkable. Liver: Normal in size and attenuation. There is a subtle subcentimeter hypodense lesion in the left hepatic lobe which is not definitely seen on prior exams (series 2 image 27). Gallbladder and bile ducts: Cholecystectomy. No biliary dilation. Spleen: Unremarkable. Pancreas: Unremarkable. Adrenal glands: Unremarkable. Kidneys, Ureters, and Bladder: Symmetric enhancement. No hydronephrosis or obstructing stones. No bladder wall thickening. Reproductive organs: Hysterectomy. GI tract/Peritoneum: No small bowel dilation. Moderate stool burden. A knuckle of mid transverse colon extends into a ventral hernia similar to prior exam. There is wall thickening and mucosal hyperenhancement throughout the transverse colon. Mild wall thickening of the descending and sigmoid colon. Colonic diverticulosis without evidence of diverticulitis. Negative appendix. No intraperitoneal free air. Small amount of free fluid in the pelvis. Vasculature: Abdominal aorta is normal in caliber. Mesenteric arteries appear patent. The celiac axis courses through the right retroperitoneal metastatic deposit. The metastatic deposit also abuts the upper abdominal aorta, SMA, main portal vein, and left renal vein. Hepatic and portal veins are patent, however there is focal narrowing of the main portal vein adjacent to the metastatic deposit. Lymph nodes: There is a 5.1 x 3.3 cm metastatic soft tissue mass in the right upper retroperitoneum extending into the retrocrural region (series 2, image 39). There is a 6.6 x 7.2 cm metastatic soft tissue mass in the left mid abdomen (series 2, image 66). Additional peritoneal soft tissue nodularity in the left abdomen and within a small ventral hernia to the left of midline. Mildly enlarged right distal common iliac chain lymph node (image 94). These have all increased in size since prior exam. Abdominal Wall: Multiple adjacent supraumbilical ventral hernias. Bones: Degenerative changes of the spine. No suspicious osseous lesions. IMPRESSION: 1. Increased size of metastatic soft tissue masses in the right upper retroperitoneum and left mid abdomen with additional scattered peritoneal nodularity. 2. The right retroperitoneal mass abuts/surrounds the celiac axis, upper abdominal aorta, SMA, main portal vein, and left renal vein. There is focal narrowing of the main portal vein. 3. Wall thickening throughout the transverse, descending, and sigmoid colon greatest in the transverse colon. Findings may represent a nonspecific colitis. No evidence of bowel obstruction. 4. New subcentimeter hypodense lesion in the left hepatic lobe is too small to characterize but could represent a metastasis. Please note that all CT scans at this facility use dose modulation, iterative reconstruction, and/or weight-based dosing when appropriate to reduce radiation dose to as low as reasonably achievable. Dictated by Elidia Aldana MD @ 05/26/2024 8:48:43 PM (Electronically Signed) Discharge Plan Discharge Clinical Impression: Weakness, Anemia, Colitis, Thrombocytopenia, Acute hyponatremia, Elevated liver transaminase level, Elevated procalcitonin Patient Disposition: Home w/ Parent or Adult Condition: Improved Instructions: Weakness (ED), Hyponatremia (ED) Additional Instructions: Home rest, bring back if stool studies, we will check them for obviously C diff along with any evidence of infection, increasing fevers chills nausea vomiting or abdominal pain then you have to be re seen but there was no specific finding other than some mild colitis. And some slight increase in size of your abdominal lesions. I think it would be reasonable let her go home, specially Ranjitfrancesca doing better, Activity Level: Light activity Discharge Diet: Regular Prescriptions: No Action [place] XL PO atenolol 100 mg tablet 100 mg PO QDAY Qty: 90 4RF epinephrine 0.3 mg/0.3 mL auto-injector 0.3 ml subcut ONCE PRN (Reason: anaphylaxis) Qty: 2 0RF loperamide [Imodium A-D] 2 mg tablet 2 mg PO Q6H PRN hydrocortisone [Cortisone (hydrocortisone)] 1 % cream 1 applic topical TID PRN (Reason: allergic reaction) Qty: 28.4 3RF prochlorperazine maleate [Compazine] 5 mg tablet 5 mg PO BID PRN (Reason: nausea and vomiting) Qty: 60 1RF acetaminophen 500 mg tablet 1,000 mg PO TID PRN (Reason: pain or fever) pembrolizumab [Keytruda] IV B-complex with vitamin C Capsule 1 cap PO DAILY calcium carbonate 500 mg calcium (1,250 mg) tablet,chewable 500 mg PO DAILY cholecalciferol (vitamin D3) 10 mcg (400 unit) capsule 10 mcg PO DAILY polyethylene glycol 3350 [Miralax] 17 gram/dose powder 17 g PO DAILY PRN cranberry fruit 400 mg capsule 400 mg PO DAILY Rx Instructions: administer with a meal loratadine [Claritin] 10 mg tablet 10 mg PO DAILY PRN Metamucil 3.4 gram/5.4 gram powder 1 tbsp PO DAILY Rx Instructions: mix into at least 8 oz of water or juice before administering gabapentin 300 mg capsule 300 mg PO QHS Qty: 60 1RF ondansetron HCl 4 mg tablet 4 mg PO Q6H PRN (Reason: nausea and vomiting) Qty: 60 1RF Rx Instructions: Take as directed on your chemo calendar. Max of 4 doses in 24 hour period. potassium chloride 20 mEq tablet extended release 20 meq PO BID Qty: 14 0RF Rx Instructions: Take 1 tablet twice daily for low potassium Follow Up/Referrals: Cheli Meyer MD [Primary Care Provider] - Stand Alone Forms: [employer] Info Instructions
--- OUTSIDE RECORDS SUMMARY | 2024-05-26 17:52 | XMS_ITS | Clinical Summary ---
Author Organization [facility] Address [address] [place] [id number] Care Team Providers Care Data Entry Processor Name Role Phone Cheli Meyer MD Primary Care Provider + Allergies Active Allergy Reactions Criticality Noted Date Comments Bees 11/22/2014 [place] Extract 11/22/2014 Medications calcium carbonate (OS-GLORIA 500 MG PUYALLUP. 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 & [address] [address] PCP - General Family Practice 11/15/19
--- OUTSIDE RECORDS SUMMARY | 2024-05-26 17:53 | XMS_ITS | Clinical Summary ---
Author Organization [facility] Address [address] [place] [address] Care Team Providers Care Air Vice Marshal Name Role Phone Elsewhere, Pcp Primary Care Provider Unavailabl e Source Comments Patient records contain information from all sites at [facility]. For routine questions regarding patient records, call [phone] during business hours, M-F 8:00 AM - 5:00 PM Central Time. Record requests for emergency care only can be directed to [phone] at any time.[facility] Allergies Active Allergy Reactions Criticality Noted Date Comments Hymenoptera Allergenic Extract Other (see comments) 06/09/2012 Sars-Cov-2 (Covid-19) - Moderna Drug reaction with eosinophilia and systemic symptoms (DRESS) High 06/27/2020 [place] Other (see comments) ,Hives only, no other [...] Grandfather Mir Diabetes type I Paternal Grandmother [place] Breast CA Add'l Onset Sister Fiona Breast [...] your living situation today? 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 04/23/2024 4:05 PM V[employer] REPAIRER Narrative [facility] - 04/23/2024 6:25 PM [employer] REPAIRER This order has been created and auto-finalized [...] Last 3 Months Insurance [employer] Care Teams Air Vice Marshal Relationship Specialty Start Date End Date Elsewhere, Pcp PCP - General Family Medicine 04/19/20
--- OUTSIDE RECORDS SUMMARY | 2024-05-26 17:53 | XMS_ITS | Continuity of Care Document ---
Author Organization [facility] Address [address] [address] [place] [address] Care Team Providers Care Trapper Animal Name Role Phone [place], [place] Unavailable Unav ailable Procedures Procedure Date Colono Advance Directives Directive Yes / No Effective Date File Name No Information Encounters Encounter Description Practice Location Reason(s) For Visit Diagnoses Date Provider Providers Copied on Encounter [facility], [address] [address], [place], [place], [id number], [place] [facility] No Information [facility]. [address] [address], [place], [place], [id number], . tel:[phone] Family History Family Member Type Diagnosis Age At Onset No Information Payers Payer name Insurance type Covered green party ID Authoriza tion(s) No Information Social [...]
--- OUTSIDE RECORDS SUMMARY | 2024-05-26 17:53 | XMS_ITS | Clinical Summary ---
Author Organization [facility] Address [place], [place] [address] Care Team Providers Care Bi Architect Name Role Phone Cheli Myeer MD Primary Care Provider + Allergies Active Allergy Reactions Criticality Noted Date Comments Hymenoptera Allergenic Extract *Unknown 06/09 [place] *Unknown 06/09/2012 Medications atenolol (TENORMIN) 50 mg [...] (CRANBERRY CONCENTRATE ORAL) Take by mouth. Active [id number]-epa -fish oil (FISH OIL) 720-1,200 mg cap [...] on file Legal Sex Female 7:15 AM [employer] Gender Identity Not on file Sexual Orientation [...] Influenza for age 65+ 12/20/2023 03/09/2012 Insurance [facility] MEDICARE ADVANTAGE MR MEDICARE PART A HB ONLY Advance Directives * Full Code (Latest Code Status on File) Date Activated Date Inactivated Comments 06/09/2012 5:43 AM 06/11/2012 3:29 PM Care Teams Bi Architect Relationship Specialty Start Date End Date Cheli Meyer MD [address] [place] [address] PCP - General Family Practice 12/12/19
--- OUTSIDE RECORDS SUMMARY | 2024-05-26 17:53 | XMS_ITS | Continuity of Care Document ---
Author Organization [facility] Address [address] [address] [place] [address] Phone Care Team Providers Care Engagement Executive Name Role Phone Unavailable Unavailable Unavailable Allergies, [...] Diagnoses Date Provider Providers Copied on Encounter [facility], [address] [address], [place], [id number], [place] tel:[phone] [facility] Colon polypDiverticulo sis of large [...] five Payers Payer name Insurance type Covered green [...]
--- OUTSIDE RECORDS SUMMARY | 2024-05-26 17:53 | XMS_ITS ---
Author Organization [facility] Address [address] [place] [address] Care Team Providers Care Delicatessen Manager Name Role Phone Elsewhere, Pcp Primary Care [...] Fraction Dose Fractions Total Dose Plans Planned [id number] 02/05/2023 - 02/11/2023 400 cGy 5 / 5 2 ,000 cGy [id number] 02/05/2023 - 02/11/2023 500 cGy 5 / 5 2 ,500 cGy Reference Points Delivered [id number] 02/05/2023 - 02/11/2023 2,000 cGy [id number] 02/05/2023 - 02/11/2023 2,500 cGy
[2024-05-26 18:05] LABS: Lactate* 1.4 mmol/L (0.5-1.9)
[2024-05-26 18:08] LABS: Basophils Percent Auto 0.5 % (0.0-3.0); Hematocrit 32.9 % (33.0-51.0); Hemoglobin* 10.8 gm/dL (12.0-16.0); Immature Granulocytes Pct Auto 0.2 %; Lymphocytes Percent Auto 6.8 % (20-44); Mean Corpuscular HGB Conc 33 gm/dL (32-36); Mean Corpuscular Hemoglobin 34 pg (26-34); Mean Corpuscular Volume 103 fL (80-100); Monocytes Percent Auto 11.3 % (0.0-11.0); Neutrophils Percent Auto 81.2 % (42.0-72.0); Platelet Count* 130 K/uL (140-440); RDW Coefficient of Variation % 14.6 % (11.5-15.5); Red Blood Count 3.21 m/uL (4.00-5.20); White Blood Count* 4.41 K/uL (4.50-11.00)
[2024-05-26] MEDS: 0.9 % SODIUM CHLORIDE 1000 ml 1,000 ML IV ×2 (18:08→20:38)
[2024-05-26] MEDS: ONDANSETRON 2 MG/ML inj 4 MG IVP (18:08)
[2024-05-26 18:11] LABS: Slide Review Reflex No
[2024-05-26 18:28] LABS: Albumin* 3.8 g/dL (3.3-5.0); Chloride* 100 mmol/L (96-114); Sodium* 132 mmol/L (135-149)
[2024-05-26 18:30] LABS: Amylase* 62 U/L (18-89); Anion Gap 9 mEq/L (7-15); Carbon Dioxide* 23 mmol/L (20-32); Creatinine* 0.8 mg/dL (0.5-1.5); Est. Creatinine Clearance* 38.35; Estimated Glomerular Filt Rate 75 ml/min
[2024-05-26 18:31] LABS: Alanine Aminotransferase* 37 U/L (4-35); Alkaline Phosphatase* 93 U/L (40-150); Aspartate Amino Transferase* 75 U/L (12-35); Bilirubin Direct* 0.3 mg/dL (0.0-0.5); Bilirubin Total* 0.5 mg/dL (0.1-1.5); Blood Urea Nitrogen* 21 mg/dL (7-30); Calcium* 9.3 mg/dL (8.4-10.6); Glucose* 109 mg/dL (60-115); Lipase* 55 U/L (23-300)
[2024-05-26 18:48] LABS: Procalcitonin* 0.71 ng/mL (<0.50)
--- NOTE | 2024-05-26 19:28 | CRLHL7_ITS ---
For Patients: As a result of the Century Cures Act, medical imaging exams and procedure reports are released immediately into your electronic medical record. You may view this report before your referring provider. If you have questions, please contact your health care provider. INDICATION: Nausea, vomiting, diarrhea since January. Increased weakness this week. History of endometrial cancer with peritoneal metastases. TECHNIQUE: CT of the abdomen and pelvis acquired with 83 cc Isovue 370 IV contrast. Coronal and sagittal reconstructions. COMPARISON: CT chest, abdomen, pelvis 11/20/2022. FINDINGS: Lower chest: Unremarkable. Liver: Normal in size and attenuation. There is a subtle subcentimeter hypodense lesion in the left hepatic lobe which is not definitely seen on prior exams (series 2 image 27). Gallbladder and bile ducts: Cholecystectomy. No biliary dilation. Spleen: Unremarkable. Pancreas: Unremarkable. Adrenal glands: Unremarkable. Kidneys, Ureters, and Bladder: Symmetric enhancement. No hydronephrosis or obstructing stones. No bladder wall thickening. Reproductive organs: Hysterectomy. GI tract/Peritoneum: No small bowel dilation. Moderate stool burden. A knuckle of mid transverse colon extends into a ventral hernia similar to prior exam. There is wall thickening and mucosal hyperenhancement throughout the transverse colon. Mild wall thickening of the descending and sigmoid colon. Colonic diverticulosis without evidence of diverticulitis. Negative appendix. No intraperitoneal free air. Small amount of free fluid in the pelvis. Vasculature: Abdominal aorta is normal in caliber. Mesenteric arteries appear patent. The celiac axis courses through the right retroperitoneal metastatic deposit. The metastatic deposit also abuts the upper abdominal aorta, SMA, main portal vein, and left renal vein. Hepatic and portal veins are patent, however there is focal narrowing of the main portal vein adjacent to the metastatic deposit. Lymph nodes: There is a 5.1 x 3.3 cm metastatic soft tissue mass in the right upper retroperitoneum extending into the retrocrural region (series 2, image 39). There is a 6.6 x 7.2 cm metastatic soft tissue mass in the left mid abdomen (series 2, image 66). Additional peritoneal soft tissue nodularity in the left abdomen and within a small ventral hernia to the left of midline. Mildly enlarged right distal common iliac chain lymph node (image 94). These have all increased in size since prior exam. Abdominal Wall: Multiple adjacent supraumbilical ventral hernias. Bones: Degenerative changes of the spine. No suspicious osseous lesions. IMPRESSION: 1. Increased size of metastatic soft tissue masses in the right upper retroperitoneum and left mid abdomen with additional scattered peritoneal nodularity. 2. The right retroperitoneal mass abuts/surrounds the celiac axis, upper abdominal aorta, SMA, main portal vein, and left renal vein. There is focal narrowing of the main portal vein. 3. Wall thickening throughout the transverse, descending, and sigmoid colon greatest in the transverse colon. Findings may represent a nonspecific colitis. No evidence of bowel obstruction. 4. New subcentimeter hypodense lesion in the left hepatic lobe is too small to characterize but could represent a metastasis. Please note that all CT scans at this facility use dose modulation, iterative reconstruction, and/or weight-based dosing when appropriate to reduce radiation dose to as low as reasonably achievable. Dictated by Elidia Aldana MD @ 05/26/2024 8:48:43 PM (Electronically Signed)
--- NOTE | 2024-05-26 20:35 | ED.NURSE ---
Patient went to Imaging for a CT scan with contrast, her port lock kwas not clamped after. A new port access was completed at this time.
[2024-05-26 20:36] VITALS: BP 113/54
[2024-05-26 21:01] VITALS: BP 120/66
[2024-05-26] MEDS: HEPARIN 500 UNIT/5 ML SYRINGE IVF (21:56)
[2024-05-30 08:49] LABS: C.Difficile Negative (Negative); CDIFFEPI 027 PRESUMPTIVE NEGATIVE (Negative)
== END 2024-05-26 22:00 | disposition home or self-care (01) ==
PROVIDERS: Emergency Provider Family Medicine; PCP Family Medicine
DX: K52.9 Noninfective gastroenteritis and colitis, unspecified (principal); E87.1 Hypo-osmolality and hyponatremia; R74.01 Elevation of levels of liver transaminase levels
CPT/HCPCS: 36415; 74177; 80048; 80076; 81001; 82150; 83605; 83690; 84145; 85025; 87040; 87045; 87046; 87427; 87493; 96374; 99284; 99285; J1642; J2405; J7030; Q9967

== ENCOUNTER 2024-06-10 14:23 | Outpatient (CLI) | payer MEDICARE, SELFPAY ==
--- NOTE | 2024-06-10 14:30 | CRLHL7_ITS ---
For Patients: As a result of the Century Cures Act, medical imaging exams and procedure reports are released immediately into your electronic medical record. You may view this report before your referring provider. If you have questions, please contact your health care provider. INDICATION: : New persistent headache TECHNIQUE: MRI brain without and with Dotarem 15 mL is obtained. COMPARISON: None FINDINGS: There is no restricted diffusion to suspect acute infarct. No abnormal extra-axial fluid collection. No suspicious focal enhancement of the brain parenchyma or leptomeninges. No mass effect. Chronic small infarct in the left the posterior-superior left parietal lobe with internal hemosiderin deposition, related to chronic hemorrhagic infarct. Additional small chronic infarct is also present within the right posterior parietal and bilateral occipital lobes. Patchy periventricular and deep white matter signal abnormalities are nonspecific and are likely related to chronic microvascular ischemic changes. Mild generalized parenchymal atrophy is present. Major intracranial flow voids are preserved. Bilateral orbits demonstrates no acute findings. Exam minimal mucosal thickening of the ethmoidal air cells. Trivial right mastoid effusion. No significant left mastoid effusion. Impression: 1. No acute intracranial abnormality. 2. 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 3. Chronic nonspecific periventricular and deep white matter signal abnormalities, likely related to chronic microvascular ischemic changes. 4. Mild generalized parenchymal atrophy. Dictated by Nickolas Rodríguez MD @ 06/13/2024 7:31:29 AM (Electronically Signed)
== END 2024-06-10 14:24 | disposition home or self-care (01) ==
LOC: MRI 14:23
PROVIDERS: PCP Family Medicine; Visit Provider Physician Assistant
DX: G44.52 New daily persistent headache (NDPH) (principal); I63.89 Other cerebral infarction
CPT/HCPCS: 70553; A9575

== ENCOUNTER 2024-06-13 12:00 | Outpatient (RCR) | payer MEDICARE, SELFPAY ==
[2023-12-16 12:47] LABS: Basophils Percent Auto 0.7 % (0.0-3.0); Eosinophils Percent Auto 1.4 % (0.0-7.0); Hematocrit* 30.5 % (33.0-51.0); Hemoglobin* 10.2 gm/dL (12.0-16.0); Immature Granulocytes Pct Auto 0.7 %; Lymphocytes Percent Auto 24.7 % (20-44); Mean Corpuscular HGB Conc 33 gm/dL (32-36); Mean Corpuscular Hemoglobin 34 pg (26-34); Mean Corpuscular Volume 102 fL (80-100); Monocytes Percent Auto 16.4 % (0.0-11.0); Neutrophils Percent Auto 56.1 % (42.0-72.0); RDW Coefficient of Variation % 14.7 % (11.5-15.5); White Blood Count* 2.87 K/uL (4.50-11.00)
[2023-12-16 13:32] LABS: Slide Review Reflex No
[2023-12-16 13:33] LABS: Platelet Count* 27 K/uL (140-440)
[2023-12-16] MEDS: SODIUM CHLORIDE 0.9 % (FLUSH) 10 ML SYRINGE IVF (14:52)
[2023-12-16] MEDS: HEPARIN 500 UNIT/5 ML SYRINGE IVF (14:52)
--- NOTE | 2023-12-18 13:08 | ONC.NURNOTE ---
Nico for [facility] ID [id number] [facility] [id number] TylerBIN [id number] [facility]# [id number] 10/19/23-10/17/24
[2023-12-22] MEDS: HEPARIN 500 UNIT/5 ML SYRINGE IVF (10:14)
[2023-12-22] MEDS: SODIUM CHLORIDE 0.9 % (FLUSH) 10 ML SYRINGE IVF (10:14)
[2023-12-22 10:26] LABS: Basophils Percent Auto 0.7 % (0.0-3.0); Eosinophils Percent Auto 0.3 % (0.0-7.0); Hemoglobin* 10.3 gm/dL (12.0-16.0); Immature Granulocytes Pct Auto 0.3 %; Lymphocytes Percent Auto 20.5 % (20-44); Mean Corpuscular HGB Conc 33 gm/dL (32-36); Mean Corpuscular Hemoglobin 34 pg (26-34); Mean Corpuscular Volume 103 fL (80-100); Monocytes Percent Auto 17.1 % (0.0-11.0); Neutrophils Percent Auto 61.1 % (42.0-72.0); Platelet Count* 91 K/uL (140-440); RDW Coefficient of Variation % 16.2 % (11.5-15.5); Red Blood Count* 3.02 m/uL (4.00-5.20); White Blood Count* 2.98 K/uL (4.50-11.00)
[2023-12-22 10:30] LABS: Slide Review Reflex No
--- NOTE | 2023-12-22 11:58 | ONC.NURNOTE ---
Patient in clinic today for a CBC check. Patient reports feeling good and has no new S/S of bleeding. Port draw done and RN will call patient with lab results. RN called Leanne and her Wagner with today's lab results, platelets are 91 and the rest of her labs continue to improve. Advised them that labs are still on the lower end of normal but they are getting better. Told her RN has a message out to Dr. Lopez about restarting treatment next week per her note. RN will call them tomorrow with the plan. Patient is currently scheduled for labs and possible restart of treatment on 12/29 and a RC with Dr. Lopez on 01/12. Patient and spouse verbalized understanding and are agreeable to the plan.
--- NOTE | 2023-12-23 14:20 | ONC.NURNOTE ---
Called patient to update her that Dr. Lopez reviewed her labs and they continue to improve. Plan will be to restart treatment but at a lower dose on 12/29 if labs continue to improve. Advised Leanne not to start her oral chemo until after she has her labs drawn on 12/29 and we give her the ok. Pt verbalized understanding and is agreeable to the plan.
[2023-12-30 10:06] LABS: Basophils Percent Auto 0.3 % (0.0-3.0); Eosinophils Percent Auto 0.7 % (0.0-7.0); Hemoglobin* 10.6 gm/dL (12.0-16.0); Lymphocytes Percent Auto 17.8 % (20-44); Mean Corpuscular HGB Conc 33 gm/dL (32-36); Mean Corpuscular Hemoglobin 35 pg (26-34); Mean Corpuscular Volume 105 fL (80-100); Monocytes Percent Auto 23.8 % (0.0-11.0); Neutrophils Percent Auto 57.4 % (42.0-72.0); Platelet Count* 160 K/uL (140-440); RDW Coefficient of Variation % 17.8 % (11.5-15.5); Red Blood Count* 3.05 m/uL (4.00-5.20); White Blood Count* 2.86 K/uL (4.50-11.00)
[2023-12-30 10:09] LABS: Slide Review Reflex No
[2023-12-30 10:12] VITALS: BP 140/69; PULSE 61; RESP 16; TEMP 36.3; O2SAT 100
[2023-12-30 10:26] LABS: Albumin* 4.2 g/dL (3.3-5.0); Chloride* 104 mmol/L (96-114); Potassium* 4.2 mmol/L (3.6-5.1); Sodium* 137 mmol/L (135-149)
[2023-12-30 10:28] LABS: Anion Gap 4 mEq/L (7-15); Aspartate Amino Transferase* 33 U/L (12-35); Bilirubin Total* 0.4 mg/dL (0.1-1.5); Carbon Dioxide* 29 mmol/L (20-32); Creatinine* 0.9 mg/dL (0.5-1.5); Estimated Glomerular Filt Rate 66 ml/min
[2023-12-30 10:29] LABS: Alanine Aminotransferase* 17 U/L (4-35); Alkaline Phosphatase* 87 U/L (40-150); Blood Urea Nitrogen* 15 mg/dL (7-30); Calcium* 9.7 mg/dL (8.4-10.6); Glucose* 97 mg/dL (60-115)
[2023-12-30 10:30] LABS: Total Protein Urine 7 mg/dL
[2023-12-30 10:31] LABS: Creatinine Urine 172.8 mg/dL; Protein Creatinine Ratio Urine 0.04 (0-0.19)
[2023-12-30 11:30] LABS: Albumin* 4.1 g/dL (3.3-5.0); Chloride* 104 mmol/L (96-114)
[2023-12-30 11:31] LABS: Potassium* 4.2 mmol/L (3.6-5.1); Sodium* 138 mmol/L (135-149)
[2023-12-30 11:33] LABS: Anion Gap 9 mEq/L (7-15); Carbon Dioxide* 25 mmol/L (20-32); Cholesterol* 175 mg/dL (90-199); Creatinine* 0.9 mg/dL (0.5-1.5); Estimated Glomerular Filt Rate 66 ml/min
[2023-12-30 11:34] LABS: Alanine Aminotransferase* 17 U/L (4-35); Alkaline Phosphatase* 86 U/L (40-150); Aspartate Amino Transferase* 32 U/L (12-35); Bilirubin Total* 0.5 mg/dL (0.1-1.5); Blood Urea Nitrogen* 16 mg/dL (7-30); Calcium* 9.5 mg/dL (8.4-10.6); Glucose* 97 mg/dL (60-115); Triglycerides* 167 mg/dL (40-149)
[2023-12-30 11:35] LABS: HDL Cholesterol* 42 mg/dL (>=50); LDL Cholesterol Calculated 100 mg/dL (<100)
[2023-12-30 11:37] LABS: Hemoglobin A1C* 5.3 % (0-5.6)
[2023-12-30 12:02] LABS: Vitamin D 25 Hydroxy* 45 ng/mL (30-80)
[2023-12-30] MEDS: HEPARIN 500 UNIT/5 ML SYRINGE IVF (12:08)
[2023-12-30] MEDS: SODIUM CHLORIDE 0.9 % (FLUSH) 10 ML SYRINGE IVF (12:08)
[2024-01-04 09:22] LABS: Basophils Percent Auto 0.5 % (0.0-3.0); Eosinophils Percent Auto 0.8 % (0.0-7.0); Hematocrit* 31.9 % (33.0-51.0); Hemoglobin* 10.6 gm/dL (12.0-16.0); Lymphocytes Percent Auto 15.5 % (20-44); Mean Corpuscular HGB Conc 33 gm/dL (32-36); Mean Corpuscular Hemoglobin 35 pg (26-34); Mean Corpuscular Volume 105 fL (80-100); Monocytes Percent Auto 19.3 % (0.0-11.0); Neutrophils Percent Auto 63.9 % (42.0-72.0); Platelet Count* 148 K/uL (140-440); RDW Coefficient of Variation % 17.8 % (11.5-15.5); Red Blood Count* 3.04 m/uL (4.00-5.20); White Blood Count* 3.67 K/uL (4.50-11.00)
[2024-01-04 09:24] LABS: Slide Review Reflex No
--- NOTE | 2024-01-04 14:00 | ONC.NURNOTE ---
Leanne was given the ok to start the topotecan today- reviewed instructions of dose reduction to 2 X 1mg tabs daily X 5 days she will have extra pills for C#3- as the full dose of #20 tabs was shipped to her Leanne has antiemetics at home that she states understanding on how to take if needed reminded to call with any concerns or changes Leanne and deny any further questions
--- NOTE | 2024-01-06 12:49 | PC.NURSE ---
Called pt today to check in on new lower dose of oral Topotecan. Leanne states that she is having mild stomach pain. She takes oral antiemetics prior to oral chemo dose daily. The pain lasts for about 30 minutes and is random throughout the day. She states it does seem to come on after eating. Pt will continue to monitor. RN will call to check in in a few days. Instructed pt to call if pain gets worse or lasts longer/gets more continuous. She verbalized understanding.
[2024-01-11 09:52] LABS: Basophils Percent Auto 0.3 % (0.0-3.0); Eosinophils Percent Auto 0.9 % (0.0-7.0); Hematocrit* 31.1 % (33.0-51.0); Hemoglobin* 10.2 gm/dL (12.0-16.0); Lymphocytes Percent Auto 10.8 % (20-44); Mean Corpuscular HGB Conc 33 gm/dL (32-36); Mean Corpuscular Hemoglobin 34 pg (26-34); Mean Corpuscular Volume 103 fL (80-100); Monocytes Percent Auto 6.6 % (0.0-11.0); Neutrophils Percent Auto 81.4 % (42.0-72.0); Platelet Count* 117 K/uL (140-440); RDW Coefficient of Variation % 16.4 % (11.5-15.5); Red Blood Count* 3.01 m/uL (4.00-5.20); White Blood Count* 3.51 K/uL (4.50-11.00)
[2024-01-11 09:54] LABS: Slide Review Reflex No
[2024-01-11] MEDS: HEPARIN 500 UNIT/5 ML SYRINGE IVF (11:09)
[2024-01-11] MEDS: SODIUM CHLORIDE 0.9 % (FLUSH) 10 ML SYRINGE IVF (11:09)
--- NOTE | 2024-01-11 12:10 | ONC.NURNOTE ---
Called patient to update her with her CBC results today. Patient also having some diarrhea. Discussed with her that this can be a side effect of the Topotecan. Pt reports she is only having one loose stool a day at this time. She has used PRN Imodium with good relief. Advised her if diarrhea worsens to follow a BRAT diet, continue pushing fluids, and use Imodium as needed. Advised her to call if these things don't help. She is due to be seen in clinic for tretament on Friday 01/12. Patient verbalized understanding and is agreeable to the plan.
[2024-01-13] MEDS: SODIUM CHLORIDE 0.9 % (FLUSH) 10 ML SYRINGE IVF (12:03)
[2024-01-13] MEDS: HEPARIN 500 UNIT/5 ML SYRINGE IVF (12:03)
[2024-01-20 10:53] LABS: Basophils Percent Auto 0.3 % (0.0-3.0); Eosinophils Percent Auto 2.4 % (0.0-7.0); Hemoglobin* 9.7 gm/dL (12.0-16.0); Immature Granulocytes Pct Auto 0.3 %; Lymphocytes Percent Auto 14.4 % (20-44); Mean Corpuscular HGB Conc 33 gm/dL (32-36); Mean Corpuscular Hemoglobin 35 pg (26-34); Mean Corpuscular Volume 105 fL (80-100); Monocytes Percent Auto 11.1 % (0.0-11.0); Neutrophils Percent Auto 71.5 % (42.0-72.0); Platelet Count* 55 K/uL (140-440); RDW Coefficient of Variation % 17.6 % (11.5-15.5); Red Blood Count* 2.76 m/uL (4.00-5.20); Slide Review Reflex No; White Blood Count* 3.69 K/uL (4.50-11.00)
[2024-01-20] MEDS: SODIUM CHLORIDE 0.9 % (FLUSH) 10 ML SYRINGE IVF (12:00)
[2024-01-20] MEDS: HEPARIN 500 UNIT/5 ML SYRINGE IVF (12:37)
--- NOTE | 2024-01-20 14:40 | ONC.NURNOTE ---
Lab results reviewed with Leanne and - discussed low platelet precautions -reminded to call with any bruising or bleeding- nose bleeds or gum bleeding Leanne states she is aware of the s/s of low platelets from last months experience, reminded to call with any changes or concerns on calendar for lab next week/avastin- results to Dr Lopez
--- NOTE | 2024-01-21 09:29 | URNOTE ---
Request received for authorization for Vegzelma 400mg/16ml vial ([id number]). Prior authorization is approved from 01/27/2024 to 01/25/2025, for 2340.000 billing units=26doses. (900mg administered for frequency 14 days. Ref#[id number] per [facility].
[2024-01-27 10:06] VITALS: BP 137/55; PULSE 65; RESP 18; TEMP 36.2; O2SAT 98
[2024-01-27] MEDS: SODIUM CHLORIDE 0.9 % (FLUSH) 10 ML SYRINGE IVF ×2 (10:20→13:05)
[2024-01-27 10:41] LABS: Basophils Percent Auto 0.3 % (0.0-3.0); Eosinophils Percent Auto 1.5 % (0.0-7.0); Hematocrit* 32.2 % (33.0-51.0); Hemoglobin* 10.5 gm/dL (12.0-16.0); Lymphocytes Percent Auto 14.9 % (20-44); Mean Corpuscular HGB Conc 33 gm/dL (32-36); Mean Corpuscular Hemoglobin 35 pg (26-34); Mean Corpuscular Volume 107 fL (80-100); Monocytes Percent Auto 15.4 % (0.0-11.0); Neutrophils Percent Auto 67.9 % (42.0-72.0); Platelet Count* 98 K/uL (140-440); RDW Coefficient of Variation % 18.8 % (11.5-15.5); Red Blood Count* 3.02 m/uL (4.00-5.20); White Blood Count* 3.96 K/uL (4.50-11.00)
[2024-01-27 10:49] LABS: Slide Review Reflex No
[2024-01-27 10:57] LABS: Albumin* 4.2 g/dL (3.3-5.0); Chloride* 101 mmol/L (96-114); Potassium* 4.3 mmol/L (3.6-5.1); Sodium* 135 mmol/L (135-149)
[2024-01-27 10:59] LABS: Total Protein Urine 11 mg/dL
[2024-01-27 10:59] LABS: Creatinine* 0.9 mg/dL (0.5-1.5); Est. Creatinine Clearance* 35.55; Estimated Glomerular Filt Rate 66 ml/min
[2024-01-27 11:00] LABS: Alanine Aminotransferase* 19 U/L (4-35); Alkaline Phosphatase* 82 U/L (40-150); Anion Gap 6 mEq/L (7-15); Aspartate Amino Transferase* 32 U/L (12-35); Bilirubin Total* 0.5 mg/dL (0.1-1.5); Blood Urea Nitrogen* 22 mg/dL (7-30); Carbon Dioxide* 28 mmol/L (20-32); Glucose* 98 mg/dL (60-115); Total Protein* 7.2 g/dL (6.0-8.3)
[2024-01-27 11:01] LABS: Calcium* 9.5 mg/dL (8.4-10.6)
[2024-01-27 11:02] LABS: Protein Creatinine Ratio Urine 0.07 (0-0.19)
[2024-01-27] MEDS: HEPARIN 500 UNIT/5 ML SYRINGE IVF (13:05)
[2024-01-29 04:09] LABS: Cancer Antigen 125 148 U/mL (<=38)
[2024-02-01 14:21] LABS: Basophils Percent Auto 0.2 % (0.0-3.0); Eosinophils Percent Auto 0.9 % (0.0-7.0); Hematocrit* 31.8 % (33.0-51.0); Hemoglobin* 10.5 gm/dL (12.0-16.0); Immature Granulocytes Pct Auto 0.2 %; Lymphocytes Percent Auto 15.4 % (20-44); Mean Corpuscular HGB Conc 33 gm/dL (32-36); Mean Corpuscular Hemoglobin 35 pg (26-34); Mean Corpuscular Volume 106 fL (80-100); Monocytes Percent Auto 14.2 % (0.0-11.0); Neutrophils Percent Auto 69.1 % (42.0-72.0); Platelet Count* 126 K/uL (140-440); RDW Coefficient of Variation % 18.3 % (11.5-15.5); White Blood Count* 4.23 K/uL (4.50-11.00)
[2024-02-01 14:23] LABS: Slide Review Reflex No
[2024-02-01 14:55] LABS: Albumin* 4.2 g/dL (3.3-5.0); Chloride* 99 mmol/L (96-114); Potassium* 4.1 mmol/L (3.6-5.1); Sodium* 136 mmol/L (135-149)
[2024-02-01 14:57] LABS: Est. Creatinine Clearance* 35.55; Estimated Glomerular Filt Rate 58 ml/min
[2024-02-01 14:58] LABS: Alanine Aminotransferase* 17 U/L (4-35); Alkaline Phosphatase* 86 U/L (40-150); Anion Gap 8 mEq/L (7-15); Aspartate Amino Transferase* 29 U/L (12-35); Bilirubin Total* 0.3 mg/dL (0.1-1.5); Blood Urea Nitrogen* 31 mg/dL (7-30); Carbon Dioxide* 29 mmol/L (20-32); Glucose* 110 mg/dL (60-115); Total Protein* 7.1 g/dL (6.0-8.3)
[2024-02-01 14:59] LABS: Calcium* 9.5 mg/dL (8.4-10.6)
--- NOTE | 2024-02-03 13:49 | ONC.NURNOTE ---
Leanne called today to report development of loose stools and an emesis: reports constipation, took metamucil and now has had multiple episodes of loose stools with one emesis, no nausea no further emesis this afternoon due for dose of topotecan at 4- patient asked if she should skip it- singer songwriter advised ondansetron 1 hour prior to dose monitor loose stools and hold off on taking imodium since she was just constipated if still frequent stools at HS then take 1 imodium patient encouraged to call with follow up tomorrow
[2024-02-10 13:25] VITALS: BP 130/69; PULSE 59; RESP 18; TEMP 36.6; O2SAT 97
[2024-02-10 13:26] LABS: Basophils Percent Auto 0.3 % (0.0-3.0); Eosinophils Percent Auto 1.7 % (0.0-7.0); Hematocrit* 28.2 % (33.0-51.0); Hemoglobin* 9.3 gm/dL (12.0-16.0); Lymphocytes Percent Auto 23.3 % (20-44); Mean Corpuscular HGB Conc 33 gm/dL (32-36); Mean Corpuscular Hemoglobin 35 pg (26-34); Mean Corpuscular Volume 106 fL (80-100); Monocytes Percent Auto 9.4 % (0.0-11.0); Neutrophils Percent Auto 65.3 % (42.0-72.0); Platelet Count* 67 K/uL (140-440); RDW Coefficient of Variation % 16.8 % (11.5-15.5); Red Blood Count* 2.66 m/uL (4.00-5.20); White Blood Count* 2.87 K/uL (4.50-11.00)
[2024-02-10 13:37] LABS: Slide Review Reflex No
[2024-02-10 14:01] LABS: Albumin* 4.1 g/dL (3.3-5.0); Chloride* 101 mmol/L (96-114); Potassium* 3.9 mmol/L (3.6-5.1); Sodium* 133 mmol/L (135-149)
[2024-02-10 14:03] LABS: Bilirubin Total* 0.3 mg/dL (0.1-1.5); Creatinine* 0.8 mg/dL (0.5-1.5); Est. Creatinine Clearance* 35.55; Estimated Glomerular Filt Rate 76 ml/min
[2024-02-10 14:04] LABS: Alanine Aminotransferase* 21 U/L (4-35); Alkaline Phosphatase* 75 U/L (40-150); Anion Gap 6 mEq/L (7-15); Aspartate Amino Transferase* 31 U/L (12-35); Blood Urea Nitrogen* 21 mg/dL (7-30); Calcium* 9.2 mg/dL (8.4-10.6); Carbon Dioxide* 26 mmol/L (20-32); Glucose* 92 mg/dL (60-115); Total Protein* 6.8 g/dL (6.0-8.3)
[2024-02-10 14:05] LABS: Total Protein Urine 9 mg/dL
[2024-02-10 14:09] LABS: Creatinine Urine 210.9 mg/dL; Protein Creatinine Ratio Urine 0.04 (0-0.19)
--- NOTE | 2024-02-10 16:33 | ONC.NURNOTE ---
Pt here today for Vegzelma infusion. She had her Topotecan oral at home last week and has been navigating nausea and diarrhea. Pt notes today that she is improving today, however the last 5 days she would wake up, take prochlorperazine immediately, eat breakfast ~ 1 hr later, then have nausea, emesis and diarrhea about 1-2 hrs after eating. She notes her emesis was her whole meal. She would then take 1 Ondansetron and 1 Immodium, and at HS another Ondansetron. Wt stable; VSS. Labs WNL except Plts 67. Held Vegzelma today; resched for next Tu with CBC recheck. Pt sees provider before next Topotecan, but recommended considering pt continue to take prochlorperazine upon waking, ondansetron and imodium with breakfast, then continue her day routine, in hopes of preventing AM emesis. She notes she's been improving now being off Topotecan.
[2024-02-16 10:50] LABS: Basophils Percent Auto 0.3 % (0.0-3.0); Eosinophils Percent Auto 1.5 % (0.0-7.0); Hematocrit* 27.5 % (33.0-51.0); Hemoglobin* 9.2 gm/dL (12.0-16.0); Lymphocytes Percent Auto 15.8 % (20-44); Mean Corpuscular HGB Conc 34 gm/dL (32-36); Mean Corpuscular Hemoglobin 36 pg (26-34); Mean Corpuscular Volume 109 fL (80-100); Neutrophils Percent Auto 70.4 % (42.0-72.0); Platelet Count* 63 K/uL (140-440); RDW Coefficient of Variation % 18.3 % (11.5-15.5); Red Blood Count* 2.53 m/uL (4.00-5.20); White Blood Count* 3.42 K/uL (4.50-11.00)
[2024-02-16 11:00] LABS: Slide Review Reflex No
[2024-02-16 11:14] VITALS: BP 132/78; PULSE 70; RESP 16; TEMP 36.7; O2SAT 98
[2024-02-16] MEDS: HEPARIN 500 UNIT/5 ML SYRINGE IVF (12:07)
[2024-02-16] MEDS: SODIUM CHLORIDE 0.9 % (FLUSH) 10 ML SYRINGE IVF (12:07)
--- NOTE | 2024-02-16 15:37 | ONC.NURNOTE ---
Pt here for zirabev. CBC drawn. Platelets 63. Oral topetecan on hold. Coating Machine Helper discussed with Dr. Lopez and per Dr. Lopez we should hold the zirabev today and recheck CBC in one week and give zirabev if platelets improve. Pt verbalized understanding of plan of care.
[2024-02-24 08:45] VITALS: BP 115/60; PULSE 64; RESP 18; TEMP 36.6; O2SAT 98
[2024-02-24] MEDS: SODIUM CHLORIDE 0.9 % (FLUSH) 10 ML SYRINGE IVF ×4 (08:45→11:02)
[2024-02-24 08:51] LABS: Basophils Percent Auto 0.3 % (0.0-3.0); Eosinophils Percent Auto 1.9 % (0.0-7.0); Hematocrit* 30.1 % (33.0-51.0); Hemoglobin* 9.8 gm/dL (12.0-16.0); Lymphocytes Percent Auto 15.8 % (20-44); Mean Corpuscular HGB Conc 33 gm/dL (32-36); Mean Corpuscular Hemoglobin 36 pg (26-34); Mean Corpuscular Volume 110 fL (80-100); Monocytes Percent Auto 15.8 % (0.0-11.0); Neutrophils Percent Auto 66.2 % (42.0-72.0); Platelet Count* 119 K/uL (140-440); RDW Coefficient of Variation % 18.7 % (11.5-15.5); Red Blood Count* 2.74 m/uL (4.00-5.20); White Blood Count* 3.22 K/uL (4.50-11.00)
[2024-02-24 08:56] LABS: Slide Review Reflex No
[2024-02-24 09:21] LABS: Chloride* 102 mmol/L (96-114)
[2024-02-24 09:22] LABS: Potassium* 4.3 mmol/L (3.6-5.1); Sodium* 131 mmol/L (135-149)
[2024-02-24 09:24] LABS: Alanine Aminotransferase* 21 U/L (4-35); Alkaline Phosphatase* 87 U/L (40-150); Anion Gap 2 mEq/L (7-15); Aspartate Amino Transferase* 29 U/L (12-35); Bilirubin Total* 0.3 mg/dL (0.1-1.5); Blood Urea Nitrogen* 29 mg/dL (7-30); Carbon Dioxide* 27 mmol/L (20-32); Est. Creatinine Clearance* 35.55; Estimated Glomerular Filt Rate 58 ml/min; Glucose* 90 mg/dL (60-115); Total Protein* 6.8 g/dL (6.0-8.3)
[2024-02-24 09:25] LABS: Calcium* 9.2 mg/dL (8.4-10.6)
[2024-02-24 09:42] LABS: Total Protein Urine 5 mg/dL
[2024-02-24 09:43] LABS: Creatinine Urine 132.1 mg/dL; Protein Creatinine Ratio Urine 0.04 (0-0.19)
[2024-02-24] MEDS: HEPARIN 500 UNIT/5 ML SYRINGE IVF (10:59)
--- NOTE | 2024-02-24 15:55 | ONC.NURNOTE ---
Pt with decreased Na toda, 89y; reviewed with Dr. Lopez. She placed for NaCl tabs for 7 days. Script originally submitted to [id number]; called and tx script to [facility] on file, per pt's preference.
[2024-02-25] MEDS: SODIUM CHLORIDE 0.9 % (FLUSH) 10 ML SYRINGE IVF (15:22)
[2024-02-25] MEDS: HEPARIN 500 UNIT/5 ML SYRINGE IVF (15:22)
--- NOTE | 2024-02-25 16:27 | ONC.NURNOTE ---
Leanne presented with new onset red rash on right boateng, just superior to area of diffuse redness nontender, not warm to touch, presented 2 days ago reports using hydrocortisone cream for itchiness no longer itchy today denies redness anywhere else no new lotions or detergents or direct contact with something outside of her home Marissa Bell evaluated recommendation: area marked with black marker and picture taken on [employer] phone may continue to use HC cream for comfort yael area with skin marker if redness increases from today's baseline if gets warm, painful or increases in size- call [facility] for next steps Leanne and state understanding
[2024-02-29 13:14] LABS: Basophils Percent Auto 0.6 % (0.0-3.0); Eosinophils Percent Auto 1.7 % (0.0-7.0); Hemoglobin* 10.4 gm/dL (12.0-16.0); Lymphocytes Percent Auto 16.3 % (20-44); Mean Corpuscular HGB Conc 33 gm/dL (32-36); Mean Corpuscular Hemoglobin 36 pg (26-34); Mean Corpuscular Volume 110 fL (80-100); Monocytes Percent Auto 17.7 % (0.0-11.0); Neutrophils Percent Auto 63.7 % (42.0-72.0); Platelet Count* 162 K/uL (140-440); RDW Coefficient of Variation % 18.2 % (11.5-15.5); Red Blood Count* 2.91 m/uL (4.00-5.20); White Blood Count* 3.44 K/uL (4.50-11.00)
[2024-02-29 13:17] LABS: Slide Review Reflex No
[2024-02-29 13:27] LABS: Albumin* 4.2 g/dL (3.3-5.0); Chloride* 103 mmol/L (96-114); Potassium* 4.1 mmol/L (3.6-5.1); Sodium* 135 mmol/L (135-149)
[2024-02-29 13:29] LABS: Bilirubin Total* 0.2 mg/dL (0.1-1.5); Creatinine* 0.8 mg/dL (0.5-1.5); Est. Creatinine Clearance* 35.55; Estimated Glomerular Filt Rate 76 ml/min
[2024-02-29 13:30] LABS: Alanine Aminotransferase* 20 U/L (4-35); Alkaline Phosphatase* 77 U/L (40-150); Anion Gap 6 mEq/L (7-15); Aspartate Amino Transferase* 30 U/L (12-35); Blood Urea Nitrogen* 20 mg/dL (7-30); Calcium* 9.4 mg/dL (8.4-10.6); Carbon Dioxide* 26 mmol/L (20-32); Glucose* 102 mg/dL (60-115); Total Protein* 7.2 g/dL (6.0-8.3)
--- NOTE | 2024-03-10 14:04 | ONC.NURNOTE ---
Late entry: 03/09/24- Fac Engineer called pt to ask her why she is scheduled 3 weeks after her last vegzelma instead of 2 weeks. Pt due 03/09/24, but scheduled 03/16/24. Pt stated she did not want to come to [facility] for vegzelma this week due to starting topetecan this week and the side effects of diarrhea that come with the topetecan.
--- NOTE | 2024-03-14 13:44 | ONC.NURNOTE ---
Follow up call to Leanne: Leanne decided not to take the 5th dose of topotecan on Thursday she took 4 days reports taking ondansetron every 6 hours over the weekend and has not had any further nausea or vomiting, eating and drinking now still have 1 soft/loose stool each am, with nothing further- recommended that she not take any imodium if only moving bowels once a day she takes metamucil daily also ok to stop ondansetron since no nausea, and take only prn at this time
[2024-03-16 08:31] LABS: Basophils Percent Auto 0.2 % (0.0-3.0); Eosinophils Percent Auto 1.6 % (0.0-7.0); Hematocrit* 30.7 % (33.0-51.0); Hemoglobin* 10.1 gm/dL (12.0-16.0); Lymphocytes Percent Auto 12.1 % (20-44); Mean Corpuscular HGB Conc 33 gm/dL (32-36); Mean Corpuscular Hemoglobin 36 pg (26-34); Mean Corpuscular Volume 109 fL (80-100); Monocytes Percent Auto 10.7 % (0.0-11.0); Neutrophils Percent Auto 75.4 % (42.0-72.0); Platelet Count* 154 K/uL (140-440); RDW Coefficient of Variation % 15.5 % (11.5-15.5); Red Blood Count* 2.81 m/uL (4.00-5.20); White Blood Count* 4.39 K/uL (4.50-11.00)
[2024-03-16 08:34] LABS: Slide Review Reflex No
[2024-03-16 08:36] VITALS: BP 118/82; PULSE 67; RESP 16; TEMP 36.3; O2SAT 95
[2024-03-16 08:42] LABS: Albumin* 3.9 g/dL (3.3-5.0); Chloride* 105 mmol/L (96-114); Sodium* 136 mmol/L (135-149)
[2024-03-16 08:45] LABS: Bilirubin Total* 0.2 mg/dL (0.1-1.5); Blood Urea Nitrogen* 21 mg/dL (7-30); Creatinine* 0.9 mg/dL (0.5-1.5); Est. Creatinine Clearance* 35.55; Estimated Glomerular Filt Rate 66 ml/min
[2024-03-16 08:46] LABS: Alanine Aminotransferase* 20 U/L (4-35); Calcium* 9.3 mg/dL (8.4-10.6); Glucose* 109 mg/dL (60-115)
[2024-03-16 09:05] LABS: Potassium* 3.9 mmol/L (3.6-5.1)
[2024-03-16 09:07] LABS: Alkaline Phosphatase* 75 U/L (40-150); Anion Gap 5 mEq/L (7-15); Aspartate Amino Transferase* 31 U/L (12-35); Carbon Dioxide* 26 mmol/L (20-32); Total Protein* 6.8 g/dL (6.0-8.3)
[2024-03-16 09:08] LABS: Total Protein Urine 12 mg/dL
[2024-03-16 09:09] LABS: Creatinine Urine 215.5 mg/dL; Protein Creatinine Ratio Urine 0.06 (0-0.19)
[2024-03-16] MEDS: SODIUM CHLORIDE 0.9 % (FLUSH) 10 ML SYRINGE IVF ×2 (10:00→10:46)
[2024-03-16] MEDS: HEPARIN 500 UNIT/5 ML SYRINGE IVF (10:46)
--- NOTE | 2024-03-21 10:25 | ONC.NURNOTE ---
Addendum entered by Ciara Cabrera RN 03/21/24 10:39: appt moved to Dr Lopez on Thursday for discussion on next steps Original Note: Re Topotecan C#4 was 03/07-03/10- patient took 2 X 1 mg tabs for 4 days and omitted day 5 with daily doses of antiemetics- she had emesis X4 on one day, and nausea and diarrhea throughout she states she does not want to continue with Topotecan- the 21 day cycle will be due week of 03/28/24 Leanne has a appt with Marissa on 03/24 Leanne has 4 extra tabs leftover from the last 2 cycles in which she did not take the 5th day
[2024-03-30] MEDS: SODIUM CHLORIDE 0.9 % (FLUSH) 10 ML SYRINGE IVF ×2 (09:50→12:55)
[2024-03-30 10:19] LABS: Basophils Percent Auto 0.5 % (0.0-3.0); Eosinophils Percent Auto 2.1 % (0.0-7.0); Hematocrit* 32.8 % (33.0-51.0); Hemoglobin* 10.6 gm/dL (12.0-16.0); Lymphocytes Percent Auto 12.5 % (20-44); Mean Corpuscular HGB Conc 32 gm/dL (32-36); Mean Corpuscular Hemoglobin 36 pg (26-34); Mean Corpuscular Volume 110 fL (80-100); Monocytes Percent Auto 12.8 % (0.0-11.0); Neutrophils Percent Auto 72.1 % (42.0-72.0); Platelet Count* 158 K/uL (140-440); RDW Coefficient of Variation % 15.4 % (11.5-15.5); Red Blood Count* 2.99 m/uL (4.00-5.20); White Blood Count* 4.23 K/uL (4.50-11.00)
[2024-03-30 10:20] LABS: Slide Review Reflex No
[2024-03-30 10:25] LABS: Albumin* 3.9 g/dL (3.3-5.0); Chloride* 104 mmol/L (96-114); Sodium* 137 mmol/L (135-149)
[2024-03-30 10:26] LABS: Potassium* 4.2 mmol/L (3.6-5.1)
[2024-03-30 10:28] LABS: Alanine Aminotransferase* 27 U/L (4-35); Alkaline Phosphatase* 78 U/L (40-150); Anion Gap 6 mEq/L (7-15); Aspartate Amino Transferase* 37 U/L (12-35); Bilirubin Total* 0.5 mg/dL (0.1-1.5); Blood Urea Nitrogen* 22 mg/dL (7-30); Carbon Dioxide* 27 mmol/L (20-32); Creatinine* 0.9 mg/dL (0.5-1.5); Est. Creatinine Clearance* 35.55; Estimated Glomerular Filt Rate 66 ml/min; Total Protein* 6.9 g/dL (6.0-8.3)
[2024-03-30 10:29] LABS: Calcium* 9.3 mg/dL (8.4-10.6); Glucose* 102 mg/dL (60-115)
[2024-03-30 11:00] LABS: Total Protein Urine 16 mg/dL
[2024-03-30 11:18] LABS: Protein Creatinine Ratio Urine 0.03 (0-0.19)
[2024-03-30 11:50] VITALS: BP 145/83; PULSE 66; RESP 16; TEMP 36.6; O2SAT 99
[2024-03-30] MEDS: HEPARIN 500 UNIT/5 ML SYRINGE IVF (12:56)
--- NOTE | 2024-04-14 13:13 | ONC.NURNOTE ---
Addendum entered by Ciara Cabrera RN 04/15/24 09:55: follow up on conversation took 2 imodium yesterday- ate oatmeal with minimal diarrhea, drinking water and body armour water, gatorade, estimates about 48 oz or more/day will take 2 imodium this am before eating breakfast Original Note: Leanne called to confirm next appts and to report frequent watery stools that started last week on 04/07, her 4th and final day of topotecan Leanne reports that she has been taking 1 imodium each am since 04/07 with minimal control- reports meals pass through me plan discussed to increase imodium to 2 every am and repeat with 1 Imodium during day if further loose stools patient has not eaten today except for an ensure- she will take 2 Imodium now and then eat lunch- patient to call tomorrow with update before the weekend
[2024-04-18 09:43] VITALS: BP 136/81; PULSE 72; RESP 15; TEMP 36.7; O2SAT 97
[2024-04-18 10:26] LABS: Eosinophils Percent Auto 1.7 % (0.0-7.0); Hematocrit* 28.9 % (33.0-51.0); Hemoglobin* 9.7 gm/dL (12.0-16.0); Immature Granulocytes Pct Auto 0.8 %; Lymphocytes Percent Auto 17.7 % (20-44); Mean Corpuscular HGB Conc 34 gm/dL (32-36); Mean Corpuscular Hemoglobin 35 pg (26-34); Mean Corpuscular Volume 105 fL (80-100); Neutrophils Percent Auto 68.8 % (42.0-72.0); Platelet Count* 51 K/uL (140-440); RDW Coefficient of Variation % 14.3 % (11.5-15.5); Red Blood Count* 2.75 m/uL (4.00-5.20); White Blood Count* 2.37 K/uL (4.50-11.00)
[2024-04-18 10:39] LABS: Albumin* 3.6 g/dL (3.3-5.0); Chloride* 105 mmol/L (96-114); Potassium* 3.1 mmol/L (3.6-5.1); Sodium* 137 mmol/L (135-149)
[2024-04-18 10:41] LABS: Creatinine* 0.7 mg/dL (0.5-1.5); Est. Creatinine Clearance* 35.55; Estimated Glomerular Filt Rate 89 ml/min
[2024-04-18 10:42] LABS: Alanine Aminotransferase* 28 U/L (4-35); Alkaline Phosphatase* 63 U/L (40-150); Anion Gap 7 mEq/L (7-15); Aspartate Amino Transferase* 33 U/L (12-35); Bilirubin Total* 0.3 mg/dL (0.1-1.5); Blood Urea Nitrogen* 13 mg/dL (7-30); Calcium* 8.9 mg/dL (8.4-10.6); Carbon Dioxide* 25 mmol/L (20-32); Glucose* 138 mg/dL (60-115); Total Protein* 6.3 g/dL (6.0-8.3)
[2024-04-18 10:57] LABS: Total Protein Urine 40 mg/dL
[2024-04-18 10:58] LABS: Slide Review Reflex No
[2024-04-18 11:38] LABS: Magnesium* 1.6 mg/dL (1.5-2.6)
[2024-04-18 11:45] LABS: Creatinine Urine 620.5 mg/dL; Protein Creatinine Ratio Urine 0.06 (0-0.19)
--- NOTE | 2024-04-18 11:54 | ONC.NURNOTE ---
Patient's labs reviewed with PA, the following was done: Hold bevacizumab and recheck CBC next week with provider visit. Potassium 20meq BID until CMP recheck next week with provider. Education provided on diarrhea and high potassium foods. Patient will take two immodium each morning and one with each loose stool following this (to a max of 8 pills/day). Patient is back in office on with PET scan, she can discuss with nursing how things are going and adjust as needed.
--- NOTE | 2024-04-19 12:44 | ONC.NURNOTE ---
patient took 2 imodium this am as discussed, ate an omelet on toast and has had no loose stools today, reminded to only take more imodium if she has loose stools,
[2024-04-20 08:54] LABS: Cancer Antigen 125 197 U/mL (<=38)
--- OUTSIDE RECORDS SUMMARY | 2024-04-21 07:13 | XMS_ITS | Clinical Summary ---
Author Organization [facility] Address [address] [place] [address] Care Team Providers Care Certified Coatings Inspector Name Role Phone Elsewhere, Pcp Primary Care Provider Unavailabl e Source Comments Patient records contain information from all sites at [facility]. For routine questions regarding patient records, call [phone] during business hours, M-F 8:00 AM - 5:00 PM Central Time. Record requests for emergency care only can be directed to [phone] at any time.[facility] Allergies Active Allergy Reactions Criticality Noted Date Comments Hymenoptera Allergenic Extract Other (see comments) 06/09/2012 Sars-Cov-2 (Covid-19) - Moderna Drug reaction with eosinophilia and systemic symptoms (DRESS) High 06/27/2020 [place] Other (see comments) ,Hives only, no other [...] your living situation today? I have a [facility] place to live 10/06/2022 Comments Unknown [...] 64 02/02/2023 10:55 AM CDT Temperature 35.9 C (96.7 F) 02/10/2023 8:46 AM CDT Respiratory Rate - - Oxygen Saturation - [...] Additional history exists Influenza Vaccine (#1) 2024 , 02/03/2022, 02/11/2021, Additional history exists DTaP,Tdap,and Td Vaccines (3 - Td or Tdap) 09/03/2027 09/02/2017, 01/09/2010 Mammogram Discontinued 01/28/2017 Pneumococcal vaccine (50+ years) Completed 02/04/2018, 03/09/2012 Zoster Vaccines Completed 04/17/2018, 12/20, 03/22/2010 RSV vaccine - (32-36 weeks) or 60+ years Completed 03/18/2023 HPV Vaccines Aged Out No longer eligi ble based on patient's age to complete this topic IPV Vaccines Aged Out No longer eligi ble based on patient's age to complete this topic Procedures Procedure Name Priority Date/Time Associated Diagnosis Comments OUTSIDE NM PET Routine 02/25/2024 2:55 PM WASTE MACHINE OFFBEARER from Last 3 Months Results * PET skull to mid thigh-Outside NM Pet (02/25/2024 2:55 PM WASTE MACHINE OFFBEARER) Narrative IIMS - 02/25/2024 7:56 PM WASTE MACHINE OFFBEARER This order has been created and auto-finalized to support the import of outside images. If available, original interpretation can be found on the Media Tab in Chart Review, in Document Viewer, as an image in QREADS or as an Addendum. If a re-interpretation or overread is required please follow defined workflow. us Provider Not In System IMG NM PROCEDURES Final R esult [facility] NA from Last 3 Months Insurance [facility] Care Teams Certified Coatings Inspector Relationship Specialty Start Date End Date Elsewhere, Pcp PCP - General Family Medicine 04/19/20
--- OUTSIDE RECORDS SUMMARY | 2024-04-21 07:13 | XMS_ITS | Referral Summary ---
Author Organization [facility] Address [address] [place] [address] Care Team Providers Care Mis Director Name Role Phone Elsewhere, Pcp Primary Care Provider Unavailabl e Source Comments Patient records contain information from all sites at [facility]. For routine questions regarding patient records, call [phone] during business hours, M-F 8:00 AM - 5:00 PM Central Time. Record requests for emergency care only can be directed to [phone] at any time.[facility] Allergies Active Allergy Reactions Criticality Noted Date Comments Hymenoptera Allergenic Extract Other (see comments) 06/09/2012 Sars-Cov-2 (Covid-19) - Moderna Drug reaction with eosinophilia and systemic symptoms (DRESS) High 06/27/2020 [place] Other (see comments) ,Hives only, no other [...] your living situation today? I have a [facility] place to live 10/06/2022 Comments Unknown [...] OUTSIDE NM PET Routine 02/25/2024 2:55 PM FARM ADVISOR from Last 3 Months Results * PET skull to mid thigh-Outside NM Pet (02/25/2024 2:55 PM FARM ADVISOR) Narrative IIMS - 02/25/2024 7:56 PM FARM ADVISOR This order has been created and auto-finalized to support the import of outside images. If available, original interpretation can be found on the Media Tab in Chart Review, in Document Viewer, as an image in QREADS or as an Addendum. If a re-interpretation or overread is required please follow defined workflow. us Provider Not In System IMG NM PROCEDURES Final R esult [facility] NA from Last 3 Months Insurance [employer] Care Teams Mis Director Relationship Specialty Start Date End Date Elsewhere, Pcp PCP - General Family Medicine 04/19/20
--- OUTSIDE RECORDS SUMMARY | 2024-04-21 07:13 | XMS_ITS ---
Author Organization [facility] Address [address] [place] [address] Care Team Providers Care Mine Surveyor Name Role Phone Unavailable Unavailable Unavailable Surgery Details Not on file Complications Check Surgery Details section. Procedure Estimated Blood Loss Check Surgery Details section. Procedure Findings Check Surgery Details section. Procedure Specimens Taken Check Surgery Details section.
--- OUTSIDE RECORDS SUMMARY | 2024-04-21 07:13 | XMS_ITS ---
Author Organization [facility] Address [address] [place] [address] Care Team Providers Care Light Truck Driver Name Role Phone Elsewhere, Pcp Primary Care [...] Treated Prescribed Fraction Dose Prescribed Total Dose [id number] 02/11/2023 6 5 of 5 400 cGy 2,000 cGy [id number] 02/11/2023 6 5 of 5 500 cGy 2,500 cG y Reference Point Last Treated On Elapsed Days Session Dose Total Dose [id number] 02/11/2023 6 400 cGy 2,000 cGy [id number] 02/11/2023 6 500 cGy 2,500 cGy
--- OUTSIDE RECORDS SUMMARY | 2024-04-21 07:13 | XMS_ITS | Continuity of Care Document ---
Author Name NwHIN User [email or web address] llowed Address Unknown Organization Unknown Address Unknown Procedures FILTER APPLIED:Only known Procedures with Onset Date within the last 5 years Procedure Date Procedure Provider Additiona l Information Status URINALYSIS AUTO W/SCOPE (61527) Completed ROUTINE VENIPUNCTURE (63485) Completed URINE CULTURE/COLONY COUNT (06225) Completed TX/PRO/DX INJ SAME DRUG CORDWOOD CUTTER (10959) Completed CHEMO IV INFUS EACH ADDL SEQ (30664) Completed OFFICE O/P EST LOW 20 MIN (88000) Completed OFFICE O/P EST MOD 30 MIN (18871) Completed CHEMO IV INFUSION ADDL HR (44444) Completed TTE W/DOPPLER COMPLETE (66248) Completed OFF/OP EST AUGUST X REQ PHY/QHP (01533) Completed PET IMAGE W/CT SKULL-THIGH (27644) Completed PET IMAGE W/CT SKULL-THIGH (63719) Completed OFFICE O/P EST SF 10 MIN (57081) Completed IMMUNOASSAY TUMOR CA 125 (87361) Completed CHEMO IV INFUSION 1 HR (36344) Completed COMPREHEN METABOLIC PANEL (35007) Completed ASSAY OF URINE CREATININE (89189) Completed ASSAY OF PROTEIN URINE (23809) Completed DRAW BLOOD OFF VENOUS DEVICE (89577) Completed COMPLETE CBC W/AUTO DIFF WBC (60413) Completed OFFICE O/P EST HI 40 MIN (17101) Completed ASSAY OF URINE CREATININE (52228) Completed ASSAY OF PROTEIN URINE (00481) Completed PET IMAGE W/CT SKULL-THIGH (41503) Completed VITAMIN D 25 HYDROXY (54644) Completed LIPID PANEL (68681) Comp leted PET IMAGE W/CT SKULL-THIGH (48518) Completed OFFICE O/P EST MOD 30 MIN (25461) Completed OFF/OP EST AUGUST X REQ PHY/QHP (96529) Completed THERAPEUTIC EXERCISES (20953) Completed PT EVAL MOD COMPLEX 30 MIN (19761) Completed OFFICE O/P EST HI 40 MIN (42911) Completed CHEMO IV INFUSION ADDL HR (88607) Completed IMMUNOASSAY TUMOR CA 125 (37657) Completed OFFICE O/P EST LOW 20 MIN (32080) Completed TRANSFUSION BLD/BLD COMPNT (24105) Completed THER/PROPH/DIAG INJ SC/IM (03397) Completed COMPLETE CBC W/AUTO DIFF WBC (52124) Completed RBC ANTIBODY SCREEN (08130) Completed BLOOD TYPING SEROLOGIC ABO (90545) Completed BLOOD TYPING SEROLOGIC RH(D) (89796) Completed TX/PRO/DX INJ SAME DRUG CORDWOOD CUTTER (29537) Completed CHEMO IV INFUSION 1 HR (58809) Completed CHEMO IV INFUS EACH ADDL SEQ (76653) Completed OFFICE O/P EST SF 10 MIN (32296) Completed COMPREHEN METABOLIC PANEL (00815) Completed DRAW BLOOD OFF VENOUS DEVICE (08359) Completed COMPATIBILITY TEST ANTIGLOB (36646) Completed ROUTINE VENIPUNCTURE (37082) Completed CT ABD PELV W/CONTRAST (67004) Completed COMPREHEN METABOLIC PANEL (64023) Completed URINALYSIS AUTO W/SCOPE (93035) Completed ASSAY OF LACTIC ACID (39432) Completed ASSAY OF LIPASE (98412) Completed COMPLETE CBC W/AUTO DIFF WBC (38459) Completed URINE CULTURE/COLONY COUNT (35391) Completed HYDRATE IV INFUSION ADD-ON (79709) Completed THER/PROPH/DIAG INJ IV PUSH (60996) Completed TX/PRO/DX INJ NEW DRUG ADDON (09316) Completed EMERGENCY DEPT VISIT MOD MDM (29957) Completed EMERGENCY DEPT VISIT HI MDM (28449) Completed Encounters FILTER APPLIED:Only known Encounters with Admission Date within the last 5 years Encounter Location Admission Discharge Billing Code Etcher Machine [facility] Dayanara kilgore
--- OUTSIDE RECORDS SUMMARY | 2024-04-21 07:14 | XMS_ITS | Referral Summary ---
Author Organization [facility] Address [address] [place] [address] Care Team Providers Care Tower Loader Operator Name Role Phone Cheli Meyer MD Primary Care Provider + Allergies Active Allergy Reactions Criticality Noted Date Comments Bees 11/22/2014 [place] Extract 11/22/2014 Medications calcium carbonate (OS-GLORIA 500 MG [place]. 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
--- OUTSIDE RECORDS SUMMARY | 2024-04-21 07:14 | XMS_ITS | Clinical Summary ---
Author Organization [facility] Address [address] [place] [address] Care Team Providers Care Retirement Plan Counselor Name Role Phone Cheli Meyer MD Primary Care Provider + Allergies Active Allergy Reactions Criticality Noted Date Comments Bees 11/22/2014 [place] Extract 11/22/2014 Medications calcium carbonate (OS-GLORIA 500 MG [place]. 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
--- OUTSIDE RECORDS SUMMARY | 2024-04-21 07:14 | XMS_ITS | Clinical Summary ---
Author Organization [facility] Address [place], [place] [address] Care Team Providers Care Tin Roofer Name Role Phone Cheli Meyer MD Primary Care Provider + Allergies Active Allergy Reactions Criticality Noted Date Comments Hymenoptera Allergenic Extract *Unknown 06/09 [place] *Unknown 06/09/2012 Medications atenolol (TENORMIN) 50 mg tablet Take 50 mg by mouth once daily. Active CALCIUM CARBONATE/VITAMI N D3 (CALCIUM + D ORAL) Take by mouth. Active ibuprofen (ADVIL; MOTRIN) 200 mg tablet Take 1-3 tablets by mouth every 6 hours if needed for Pain. 100 tablet 0 06/11/2012 Active aspirin chewable 81 mg chewable tablet Take 81 mg by mouth once daily with a meal. Active vitamin B complex (B COMPLEX 50 ORAL) Take by mouth. Active cholecalciferol, vitamin D3, 100 mcg (4,000 unit) tab Take by mouth. Active cranberry fruit extract (CRANBERRY CONCENTRATE ORAL) Take by mouth. Active qkhbf-4s-vto-epa -fish oil (FISH OIL) 720-1,200 mg cap Take by mouth. Active hydroCHLOROthiaz neida 12.5 mg tablet Take 12.5 mg by [...] and Fami ly Not on file 04/22/2023 Comments No Sex and Gender Information Value Date Recorded Sex Assigned at Not on file Legal Sex Female 7:15 AM FERMENTER WINE Gender Identity Not on file Sexual Orientation Not on file Obstetrics History Last Filed Vital Signs Vital Sign Reading Time Taken Comments Blood Pressure 127/60 12/15/2019 11:30 AM CDT Pulse 53 12/15/2019 11:30 AM CDT Temperature 36.9 C (98.4 F) 12/15/2019 7:35 AM CDT Respiratory Rate 14 [...] age 65+ 2011 Pneumococcal series for age 50+ (2 of 2 - PCV) 013 03/09/2012 RSV vaccine for adults or pr egnancy (1 - 1-dose 75+ series) 2021 COVID-19 vaccine series ( - 2023- season) 4 Influenza for age 65+ 12/20/2023 03/09/2012 Insurance [facility] MEDICARE ADVANTAGE MR MEDICARE PART A HB ONLY Advance Directives * Full Code (Latest Code Status on File) Date Activated Date Inactivated Comments 06/09/2012 5:43 AM 06/11/2012 3:29 PM Care Teams Tin Roofer Relationship Specialty Start Date End Date Cheli Meyer MD [address] [place] [address] PCP - General Family Practice 12/12/19
[2024-04-25 09:52] VITALS: BP 127/78; PULSE 68; RESP 16; O2SAT 100
[2024-04-25 09:54] VITALS: BP 116/75; PULSE 82; RESP 20; TEMP 37.2
[2024-04-25 10:01] LABS: Basophils Percent Auto 0.3 % (0.0-3.0); Eosinophils Percent Auto 0.9 % (0.0-7.0); Hematocrit* 32.4 % (33.0-51.0); Hemoglobin* 10.9 gm/dL (12.0-16.0); Lymphocytes Percent Auto 16.4 % (20-44); Mean Corpuscular HGB Conc 34 gm/dL (32-36); Mean Corpuscular Hemoglobin 36 pg (26-34); Mean Corpuscular Volume 106 fL (80-100); Monocytes Percent Auto 18.3 % (0.0-11.0); Neutrophils Percent Auto 64.1 % (42.0-72.0); Platelet Count* 106 K/uL (140-440); RDW Coefficient of Variation % 15.2 % (11.5-15.5); Red Blood Count* 3.05 m/uL (4.00-5.20); White Blood Count* 3.17 K/uL (4.50-11.00)
[2024-04-25 10:11] LABS: Slide Review Reflex No
[2024-04-25 10:16] LABS: Albumin* 4.1 g/dL (3.3-5.0)
[2024-04-25 10:17] LABS: Chloride* 104 mmol/L (96-114); Sodium* 135 mmol/L (135-149)
[2024-04-25 10:19] LABS: Alkaline Phosphatase* 78 U/L (40-150); Anion Gap 6 mEq/L (7-15); Aspartate Amino Transferase* 33 U/L (12-35); Bilirubin Total* 0.4 mg/dL (0.1-1.5); Blood Urea Nitrogen* 19 mg/dL (7-30); Carbon Dioxide* 25 mmol/L (20-32); Creatinine* 0.8 mg/dL (0.5-1.5); Est. Creatinine Clearance* 34.99; Estimated Glomerular Filt Rate 75 ml/min; Total Protein* 7.1 g/dL (6.0-8.3)
[2024-04-25 10:20] LABS: Alanine Aminotransferase* 22 U/L (4-35); Calcium* 9.7 mg/dL (8.4-10.6); Glucose* 111 mg/dL (60-115)
[2024-04-25] MEDS: SODIUM CHLORIDE 0.9 % (FLUSH) 10 ML SYRINGE IVF ×2 (13:35→14:08)
[2024-04-25] MEDS: HEPARIN 500 UNIT/5 ML SYRINGE IVF (14:08)
--- NOTE | 2024-04-28 15:53 | ONC.NURNOTE ---
Patient called today with complaints of still having diarrhea after finishing her Topotecan. States she took and Immodium today but wondering how much she can take. Reviewed previous recommendations and advised patient that she take take 2 Imodium when she gets up in the morning and then repeat 1 tab during that day after each loose stool. Also advised patient to continue pushing fluids. Patient states she finished her Topotecan 2 weeks ago and this is the longest the diarrhea has lasted. RN will call patient tomorrow to check in. Patient verbalized understanding and agreeable to the plan.
--- NOTE | 2024-04-29 15:53 | ONC.NURNOTE ---
Addendum entered by Pilar Lott RN 04/29/24 16:17: Patient called back, reports she took 1 Imodium right away this AM. She has not had any loose stools the rest of today. Advised her to continue pushing fluids and use the Imodium if she has another loose stool. Patient verbalized understanding and agreeable to the plan. Original Note: Called patient to check in on her diarrhea. No answer, LVM for patient to call back if she needed.
--- NOTE | 2024-05-06 11:03 | URNOTE ---
Request received for authorization for Real Savvy ([id number]). Prior authorization is approved from 05/05/2024 to 05/05/2025 for a total of 3600 units=18doses. (dosing reimen of 200mg every 3 weeks). Ref#[id number], per [facility].
--- NOTE | 2024-05-06 16:15 | ONC.NURNOTE ---
Patient called today and reported she continues to have loose stools and had one episode of vomiting today. She feels like she is losing weight. She has little appetite but reports she is drinking fluids. She denies any nausea and states she just threw up but has not had any other episodes. States she has one loose stool each morning and it is large in size. Advised patient to continue Imodium and PRN nausea meds over the weekend. Encouraged her to push fluids and try to eat small frequent meals. Will call patient Thursday to check in. Advised to her to been in ER if stools or vomiting get worse. She verbalized understanding and is agreeable to the plan.
[2024-05-17 10:27] VITALS: BP 131/78; PULSE 62; RESP 16; TEMP 37.2; O2SAT 97
[2024-05-17 10:32] LABS: Basophils Percent Auto 0.5 % (0.0-3.0); Eosinophils Percent Auto 0.9 % (0.0-7.0); Hematocrit* 31.5 % (33.0-51.0); Hemoglobin* 10.4 gm/dL (12.0-16.0); Lymphocytes Percent Auto 12.9 % (20-44); Mean Corpuscular HGB Conc 33 gm/dL (32-36); Mean Corpuscular Hemoglobin 35 pg (26-34); Mean Corpuscular Volume 105 fL (80-100); Monocytes Percent Auto 13.6 % (0.0-11.0); Neutrophils Percent Auto 72.1 % (42.0-72.0); Platelet Count* 180 K/uL (140-440); RDW Coefficient of Variation % 14.9 % (11.5-15.5); Red Blood Count* 2.99 m/uL (4.00-5.20); White Blood Count* 4.28 K/uL (4.50-11.00)
[2024-05-17 10:47] LABS: Albumin* 3.8 g/dL (3.3-5.0); Chloride* 104 mmol/L (96-114)
[2024-05-17 10:48] LABS: Potassium* 3.8 mmol/L (3.6-5.1); Sodium* 137 mmol/L (135-149)
[2024-05-17 10:50] LABS: Alkaline Phosphatase* 78 U/L (40-150); Anion Gap 5 mEq/L (7-15); Aspartate Amino Transferase* 34 U/L (12-35); Bilirubin Total* 0.4 mg/dL (0.1-1.5); Blood Urea Nitrogen* 21 mg/dL (7-30); Carbon Dioxide* 28 mmol/L (20-32); Creatinine* 0.7 mg/dL (0.5-1.5); Est. Creatinine Clearance* 34.99; Estimated Glomerular Filt Rate 88 ml/min; Total Protein* 6.7 g/dL (6.0-8.3)
[2024-05-17 10:51] LABS: Alanine Aminotransferase* 21 U/L (4-35); Calcium* 9.1 mg/dL (8.4-10.6); Glucose* 95 mg/dL (60-115)
[2024-05-17 11:04] LABS: Slide Review Reflex No
[2024-05-17] MEDS: PEMBROLIZUMAB 200 MG, TUBING PRIMARY 1 EACH, In-line 0.2 micron filter set 1 EACH in 0.... 216 MG IVPB (12:38)
[2024-05-17] MEDS: SODIUM CHLORIDE 0.9 % (FLUSH) 10 ML SYRINGE IVF (12:40)
[2024-05-17] MEDS: 0.9 % SODIUM CHLORIDE 500 ML IV ×2 (12:42→13:17)
[2024-05-17] MEDS: HEPARIN 500 UNIT/5 ML SYRINGE IVF (13:17)
--- NOTE | 2024-05-18 13:00 | ONC.NURNOTE ---
Public Area Attendant called pt to see how pt is doing after her 1st keytruda yesterday. Pt states she is doing well. No concerns at this time.
--- NOTE | 2024-05-23 14:41 | ONC.NURNOTE ---
Pt called this afternoon to report that she had a diarrhea stool this afternoon after eating tuna casserole. Leanne states that she had 3 days of constipation and just took a Dulcolax at 0200 today. Pt wondered about taking an Imodium today. RN advised to wait and see if she has any further loose stools since her constipation just resolved today. This afternoon stool may be a result of the laxitive medication she took 12 hours ago. Pt verbalized understanding. If she has another loose stool, she will take 1/2-1 Imodium and will call [facility] back tomorrow if her loose stools continue for further guidance.
--- NOTE | 2024-05-26 15:59 | ONC.NURNOTE ---
Cloth Stretcher called to check on pt due to having stomach issues on 05/24/24, pt at the time thought her symptoms of nausea, bloating, diarrhea was due to the ensure plus she has been drinking. Instructed pt to take a break from the ensure and see how she felt. Today, pt states she still is having one episode of diarrhea, and one episode of vomiting, chills, and pt stated she eased herself to the floor from her bed yesterday and laid on the floor for 2 hours until her could help her due to feeling weak. Cloth Stretcher discussed pt symptoms with Mercedes Mcmullen APRN. Pt then instructed to be evaluated in the emergency room today to rule out a infection vs a side effect of keytruda. Cloth Stretcher called the ED and gave a report to Jaspal NUNES, per Mercedes pt should be ruled out for cdiff, norovirus, covid, GI pathogens, a CT to rule out for colitis. Pt verbalized understanding of plan of care.
[2024-06-06] MEDS: SODIUM CHLORIDE 0.9 % (FLUSH) 10 ML SYRINGE IVF (10:00)
[2024-06-06 10:11] LABS: Basophils Percent Auto 0.2 % (0.0-3.0); Eosinophils Percent Auto 0.7 % (0.0-7.0); Hematocrit* 27.7 % (33.0-51.0); Hemoglobin* 9.1 gm/dL (12.0-16.0); Immature Granulocytes Pct Auto 0.2 %; Lymphocytes Percent Auto 12.2 % (20-44); Mean Corpuscular HGB Conc 33 gm/dL (32-36); Mean Corpuscular Hemoglobin 33 pg (26-34); Mean Corpuscular Volume 100 fL (80-100); Monocytes Percent Auto 14.1 % (0.0-11.0); Neutrophils Percent Auto 72.6 % (42.0-72.0); Platelet Count* 137 K/uL (140-440); RDW Coefficient of Variation % 15.2 % (11.5-15.5); Red Blood Count* 2.76 m/uL (4.00-5.20); White Blood Count* 4.33 K/uL (4.50-11.00)
[2024-06-06 10:14] LABS: Slide Review Reflex No
[2024-06-06 10:23] LABS: Albumin* 3.6 g/dL (3.3-5.0); Chloride* 103 mmol/L (96-114); Sodium* 136 mmol/L (135-149)
[2024-06-06 10:26] LABS: Alkaline Phosphatase* 118 U/L (40-150); Anion Gap 7 mEq/L (7-15); Aspartate Amino Transferase* 55 U/L (12-35); Bilirubin Total* 0.6 mg/dL (0.1-1.5); Blood Urea Nitrogen* 20 mg/dL (7-30); Carbon Dioxide* 26 mmol/L (20-32); Creatinine* 0.7 mg/dL (0.5-1.5); Est. Creatinine Clearance* 34.99; Estimated Glomerular Filt Rate 88 ml/min; Total Protein* 6.4 g/dL (6.0-8.3)
[2024-06-06 10:27] LABS: Alanine Aminotransferase* 36 U/L (4-35); Calcium* 8.6 mg/dL (8.4-10.6); Glucose* 119 mg/dL (60-115)
[2024-06-06 12:36] LABS: PCR FLU A Negative PCR FLU A (Negative); PCR FLU B Negative PCR FLU B (Negative); PCR RSV Negative PCR RSV (Negative); SARS PCR* Negative SARS-CoV-2 (Negative)
[2024-06-06 13:41] LABS: Magnesium* 1.5 mg/dL (1.5-2.6)
[2024-06-07] MEDS: SODIUM CHLORIDE 0.9 % (FLUSH) 10 ML SYRINGE IVF (08:53)
[2024-06-07] MEDS: HEPARIN 500 UNIT/5 ML SYRINGE IVF (08:54)
[2024-06-07 09:26] LABS: Magnesium* 1.5 mg/dL (1.5-2.6)
[2024-06-08 12:29] LABS: C.Difficile Negative (Negative); CDIFFEPI 027 PRESUMPTIVE NEGATIVE (Negative)
[2024-06-09 01:37] LABS: Adrenocorticotropic Hormone 53.1 pg/mL (7.2-63.3)
[2024-06-09 03:03] LABS: Cortisol, Serum 21.6 ug/dL
[2024-06-10 02:26] LABS: Adenovirus PCR Not Detected; Astrovirus PCR Not Detected; Campylobacter PCR Not Detected; Cryptosporidium PCR Not Detected; Cyclospora cayetanensis PCR Not Detected; Entamoeba histolytica PCR Not Detected; Enteroaggregative E coli PCR Not Detected; Enteropathogenic E coli PCR Not Detected; Enterotoxigenic E coli PCR Not Detected; Giardia lamblia PCR Not Detected; Norovirus Gi/GII PCR Not Detected; Plesiomonas shig PCR Not Detected; Rotavirus A PCR Not Detected; Salmonella PCR Not Detected; Sapovirus PCR Not Detected; Shiga toxin E coli PCR Not Detected; Shigella/Enteroinvasive E coli Not Detected; Vibrio PCR Not Detected; Vibrio cholerae PCR Not Detected; Yersinia enterocolitica PCR Not Detected
[2024-06-13 12:18] LABS: Basophils Absolute Auto 0.02 K/uL (0.00-0.30); Basophils Percent Auto 0.4 % (0.0-3.0); Eosinophils Absolute Auto 0.04 K/uL (0.00-0.50); Eosinophils Percent Auto 0.9 % (0.0-7.0); Hematocrit* 26.6 % (33.0-51.0); Hemoglobin* 8.6 gm/dL (12.0-16.0); Lymphocytes Percent Auto 12.7 % (20-44); Mean Corpuscular HGB Conc 32 gm/dL (32-36); Mean Corpuscular Hemoglobin 33 pg (26-34); Mean Corpuscular Volume 102 fL (80-100); Monocytes Percent Auto 14.9 % (0.0-11.0); Neutrophils Percent Auto 71.1 % (42.0-72.0); Platelet Count* 174 K/uL (140-440); RDW Coefficient of Variation % 15.7 % (11.5-15.5); Red Blood Count* 2.61 m/uL (4.00-5.20)
[2024-06-13 12:21] LABS: Slide Review Reflex No
[2024-06-13 12:31] LABS: Albumin* 3.7 g/dL (3.3-5.0); Chloride* 99 mmol/L (96-114); Sodium* 132 mmol/L (135-149)
[2024-06-13 12:34] LABS: Alkaline Phosphatase* 92 U/L (40-150); Aspartate Amino Transferase* 46 U/L (12-35); Bilirubin Total* 0.7 mg/dL (0.1-1.5); Blood Urea Nitrogen* 16 mg/dL (7-30); Carbon Dioxide* 25 mmol/L (20-32); Creatinine* 0.7 mg/dL (0.5-1.5); Est. Creatinine Clearance* 34.99; Estimated Glomerular Filt Rate 88 ml/min; Glucose* 103 mg/dL (60-115)
[2024-06-13 12:35] LABS: Alanine Aminotransferase* 22 U/L (4-35); Anion Gap 8 mEq/L (7-15); Calcium* 9.5 mg/dL (8.4-10.6)
[2024-06-13] MEDS: HEPARIN 500 UNIT/5 ML SYRINGE IVF (14:08)
[2024-06-13] MEDS: SODIUM CHLORIDE 0.9 % (FLUSH) 10 ML SYRINGE IVF (14:08)
[2024-06-13 14:13] VITALS: BMI 28.1
[2024-06-16 00:35] LABS: Ova and Parasite, Fecal Negative (Negative)
== END 2024-06-13 23:59 | disposition home or self-care (01) ==
LOC: CCIC 12:00
PROVIDERS: Clinical Nurse Specialist; Internal Medicine Hematology & Oncology; PCP Family Medicine; Referring Provider Family Medicine; Visit Provider Physician Assistant
DX: C56.1 Malignant neoplasm of right ovary (principal); C54.1 Malignant neoplasm of endometrium; Z71.3 Dietary counseling and surveillance; R63.4 Abnormal weight loss; Z51.81 Encounter for therapeutic drug level monitoring; Z79.899 Other long term (current) drug therapy; R53.1 Weakness; R10.30 Lower abdominal pain, unspecified; G62.0 Drug-induced polyneuropathy; T45.1X5A Adverse effect of antineoplastic and immunosuppressive drugs, initial encounter; L27.1 Localized skin eruption due to drugs and medicaments taken internally; K59.00 Constipation, unspecified
CPT/HCPCS: 36415; 36591; 80053; 80061; 82024; 82306; 82533; 82570; 83036; 83735; 84156; 84443; 85025; 86304; 87177; 87209; 87493; 87505; 87631; 96413; 97802; 99211; 99214; 99215; G0463; J1642; J7030; J9271; Q5118; Q5129

== ENCOUNTER 2024-06-15 10:01 | Outpatient (CLI) | payer MEDICARE, SELFPAY | END 2024-06-15 10:02 | disposition home or self-care (01) | LOC: RAD 10:01 | PROVIDERS: PCP Family Medicine; Visit Provider Family Medicine | DX: R06.02 Shortness of breath (principal); I35.1 Nonrheumatic aortic (valve) insufficiency; Z51.81 Encounter for therapeutic drug level monitoring; Z79.899 Other long term (current) drug therapy | CPT/HCPCS: 93306 ==

== ENCOUNTER 2024-06-27 08:30 | Outpatient (RCR) | payer MEDICARE, SELFPAY ==
[2024-06-16 01:06] LABS: Cancer Antigen 125 1648 U/mL (<=38)
== END 2024-07-06 23:59 | disposition home or self-care (01) ==
LOC: CCIC 08:30
PROVIDERS: PCP Family Medicine; Referring Provider Family Medicine; Visit Provider Physician Assistant
DX: C56.1 Malignant neoplasm of right ovary (principal); C54.1 Malignant neoplasm of endometrium; C78.6 Secondary malignant neoplasm of retroperitoneum and peritoneum; R10.30 Lower abdominal pain, unspecified; N30.01 Acute cystitis with hematuria; G62.0 Drug-induced polyneuropathy; T45.1X5A Adverse effect of antineoplastic and immunosuppressive drugs, initial encounter; L27.1 Localized skin eruption due to drugs and medicaments taken internally; K59.00 Constipation, unspecified
CPT/HCPCS: 36415; 86304; 99214; G0463